=== PATIENT | male | born 1960 | race Caucasian/White ===

== ENCOUNTER 2020-04-10 13:31 | Inpatient (IN) | payer OTHER ==
[2020-04-10] MEDS ORDERED: LORazepam 2 MG/ML SDV ONE (13:50)
[2020-04-10] MEDS ORDERED: levETIRAcetam 2,000 MG in Sodium Chloride 0.9% 100 ML IV ONE (14:00)
[2020-04-10] MEDS ORDERED: Sodium Chloride 0.9% 10 ML Syringe FLUSH PRN ×2 (14:16→19:05)
[2020-04-10] MEDS ORDERED: Iopamidol 755 Mg/ML 100 ML Bottle IV SCH (14:30)
--- NOTE | 2020-04-10 14:43 | CT ---
Head wo Cont CLINICAL HISTORY: Seizure COMPARISON: None TECHNIQUE: Transverse scans were obtained from the base of the skull through the vertex without IV contrast on a multislice, multidetector CT scanner. Auto dosage reduction and iterative reconstruction techniques employed. FINDINGS: No focal abnormal parenchymal densities are identified. There is no mass effect, hemorrhage, or extraaxial collection. There is some mild periventricular lucency The basal cisterns and sulci over the convexities are normal for age. The ventricles are mildly prominent. IMPRESSION: Borderline ventriculomegaly. This may be due to atrophic change with a prominent central component. Mild chronic ischemic microvascular changes
[2020-04-10] MEDS ORDERED: Potassium Chloride 20 MEQ in Premix Bag 1 BAG IV ONE ×2 (14:44→16:22)
[2020-04-10] MEDS ORDERED: Sodium Chloride 3% 500 ML IV SCH (14:45)
--- NOTE | 2020-04-10 15:06 | CT ---
Ang Head, Ang Neck CLINICAL HISTORY: Lower extremity weakness, AMS TECHNIQUE: Multiple axial images were obtained through the neck without and with the IV infusion of iodinated contrast. From these images sagittal, coronal, and 3D reconstructions of the aortic arch and carotids were obtained and viewed on a dedicated and independent workstation. NASCET criteria is used. Auto dosage reduction and iterative reconstruction techniques employed. FINDINGS: There is atheromatous plaque in the aorta. The innominate artery has a normal course and caliber. There is some plaque at the origin of the right common carotid artery without significant stenosis. There is plaque at the origin of the left subclavian artery with some mild proximal subclavian artery stenosis. Both vertebral arteries are patent. The left is dominant. There is some stenosis at the origin of the right vertebral artery. There is moderate plaque in the right carotid bulb. There is approximately 55-65% stenosis at the origin of the right ICA, possibly slightly greater. There is mild hard plaque in the left carotid bifurcation with no significant stenosis . IMPRESSION: Diffuse atheromatous plaque Moderate right proximal ICA stenosis Mild stenosis origin of the right vertebral artery Ang Head, Ang Neck CLINICAL HISTORY: Low show any weakness, AMS. COMPARISON: None TECHNIQUE: Multiple volume rendered and MIP 3D reconstructions were generated from source images obtained on a spiral scanner before and after intravenous iodinated contrast enhancement Auto dosage reduction and iterative reconstruction techniques employed. FINDINGS: Internal carotid arteries: There is moderate hard plaque in the right carotid siphon with some moderate to severe stenosis. There is mild to moderate plaque in the left carotid siphon with areas of [id number] stenosis. Anterior cerebral arteries: There is a very atretic A1 segment on the right. There is a patent anterior technique a artery which is maintained in this for both distal distribution Middle cerebral arteries: There is a 2.4 x 3.8 mm aneurysm extending inferiorly off of the proximal right middle cerebral artery. There is some mild focal stenosis just distal to the aneurysm. Posterior cerebral arteries: Have a normal course and contour. There is very small with streaking arteries bilaterally. Vertebral/basilar arteries: The left vertebral artery is dominant. Basilar artery has a normal course and contour IMPRESSION: Moderate to severe stenosis in the right carotid siphon [id number] stenosis in the left carotid siphon 2.4 x 3.8 mm aneurysm extending inferiorly off the proximal right middle cerebral artery. There is mild stenosis just distal to this Very atretic right A1 segment
[2020-04-10] MEDS ORDERED: LORazepam 2 MG/ML SDV IVPUSH ONE (15:09)
[2020-04-10] MEDS ORDERED: Naloxone 0.4 MG/ML SDV IVPUSH PRN (15:53)
[2020-04-10] MEDS ORDERED: cefTRIAXone 2 GM in Sodium Chloride 0.9% 50 ML IV ONE (16:58)
[2020-04-10] MEDS ORDERED: Hydrocortisone Sodium Succinate 100 MG/2 ML SDV IVPUSH ONE (17:07)
--- NOTE | 2020-04-10 18:24 | PCM.HP.2 ---
H&P History of Present Illness - General Date of Service: 04/10/20 Admit Problem/Dx: Admission Diagnosis/Problem Admission Diagnosis/Problem Hyponatremia Source of Information: Provider, RN Notes Reviewed. No: Patient History Limitations: Reports: Other (Encephalopathy with decreased level of consciousness) - History of Present Illness Initial Comments - Free Text/Narative: Mr. Jhaveri is a 59-year-old gentleman who was admitted through the emergency department with decreased level of consciousness and seizure secondary to severe hyponatremia, severe hypokalemia, dehydration, urinary tract infection, and adrenal insufficiency. He is very lethargic and unable to provide a meaningful history concerning recent symptoms or review of systems. History from family is that he has become progressively more lethargic and they were unable to arouse him today. He does have a previous history of electrolyte abnormalities including hyponatremia. EMS was activated and he was brought into the emergency department. He had a seizure after arriving in the emergency department which is presumed to be secondary to his severe hyponatremia. He is remained very lethargic, likely secondary to being postictal as well as having received 2 mg of lorazepam. He also has been loaded with Keppra and there has been no further witnessed seizure activity. Initially he was found to be hypoxic but oxygenation has been good through the duration of his ER stay. Laboratory tests show elevation in white blood cell count and evidence of significant urinary tract infection on urinalysis. Thick acid level is elevated likely secondary to severe dehydration. Sodium level is found to be very low at 115 and his potassium level also low at 1.7. After receiving hypertonic normal saline as well as isotonic normal saline sodium level is up to 119. He is also received potassium chloride intravenously for replacement. - Related Data Allergies/Adverse Reactions: Allergies Allergy/AdvReac Type Severity Reaction Status Date / Time venom-honey bee Allergy Severe Anaphylactic Verified 04/10/20 16:41 [bee venom (honey bee)] Shock Home Medications: Home Meds Loratadine/Pseudoephedrine [Claritin-D 12 Hour] 1 tab PO DAILY 11/22/15 [History] Omeprazole Magnesium [Prilosec Otc] 20 mg PO DAILY 11/22/15 [History] Prednisone [IJD: Prednisone] 10 mg PO DAILY 11/22/15 [History] Acetaminophen/oxyCODONE [Percocet 325-5 MG] 1 tab PO TID PRN 04/10/20 [History] Aspirin 1 tab PO DAILY 04/10/20 [History] FLUoxetine [PROzac] 1 tab PO DAILY 04/10/20 [History] Folic Acid 1 tab PO DAILY 04/10/20 [History] Furosemide [Lasix] 1 tab PO DAILY 04/10/20 [History] Mag Oxide/D3/Turmeric Rt Xt [Magnesium-Vit D3-Turmeric Cap] 1 tab PO DAILY 04/10/20 [History] Melatonin/Pyridoxine HCl (B6) [Melatonin 3 mg Tablet] 1 tab PO DAILY 04/10/20 [History] Metoprolol Succinate 1 tab PO BID 04/10/20 [History] Spironolactone [Aldactone] 12.5 mg PO DAILY 04/10/20 [History] Vit B12/Levomefolate/Vit B6/B2 [Metafolbic Tablet] 1 tab PO DAILY 04/10/20 [History] Past Medical History Cardiovascular History: Reports: Hypertension Other Cardiovascular History: electrolyte imbalances Gastrointestinal History: Reports: Gastritis Endocrine/Metabolic History: Reports: Other (See Below) Other Endocrine/Metabolic History: adrenal gland disease. LOOP's Hematologic History: Reports: Anemia Other Dermatologic History: brusing - Infectious Disease History Infectious Disease History: Reports: Chicken Pox - Past Surgical History GI Surgical History: Reports: Colonoscopy Musculoskeletal Surgical History: Reports: Hip Replacement, Other (See Below) Other Musculoskeletal Surgeries/Procedures:: back surgey Social & Family History - Tobacco Use Tobacco Use Status *Q: Unknown Ever Used Tobacco - Recreational Drug Use Recreational Drug Use: Yes Recreational Drug Type: Reports: Marijuana/Hashish H&P Review of Systems - Review of Systems: Review Of Systems: See Below General: Reports: Other (Decreased level of consciousness) Exam - Exam Exam: See Below - Vital Signs Vital Signs: Last Vital Signs Temp 94.9 F L 04/10/20 16:33 Pulse 74 04/10/20 17:49 Resp 18 04/10/20 17:49 BP 144/87 H 04/10/20 17:49 Pulse Ox 98 04/10/20 17:49 Weight: 140 lb - Exam Quality Assessment: Supplemental Oxygen, Urinary Catheter, DVT Prophylaxis General: Lethargic, Obtunded HEENT: Conjunctiva Clear, Posterior Pharynx Clear, Pupils Equal, Pupils Reactive. No: Mucosa Moist & [place] Neck: Supple, Trachea Midline, +2 Carotid Pulse wo Bruit Lungs: Clear to Auscultation, Normal Respiratory Effort, Decreased Breath Sounds Cardiovascular: Regular Rate, Regular Rhythm, Normal S1, Normal S2. No: Sy stolic Murmur, Diastolic Murmur GI/Abdominal Exam: Soft, Non-Tender, No Organomegaly, No Distention, Other (Ileostomy) Extremities: Non-Tender, No Pedal Edema Skin: Warm Neuro Extensive - Mental Status: Withdraws to Pain - Patient Data Lab Results Last 24 hrs: Laboratory Results - last 24 hr 04/10/20 04/10/20 04/10/20 Range/Units 09:45 14:00 14:00 WBC 14.0 H (4.5-11.0) K/uL RBC 4.36 (4.30-5.90) M/uL Hgb 10.7 L (12.0-15.0) g/dL Hct 32.8 L (40.0-54.0) % MCV 75 L (80-98) fL MCH 25 L (27-31) pg MCHC 33 (32-36) % Plt Count 293 (150-400) K/uL ABG Hemoglobin (13.5-18.0) g/dL ABG Oxyhemoglobin % ABG Carboxyhemoglobin (0.0-1.6) % ABG Methemoglobin % VBG pH (7.350-7.450) VBG pCO2 mm/Hg VBG pO2 mm/Hg VBG HCO3 mmol/L VBG Total CO2 mmol/L VBG O2 Saturation VBG O2 Content %vol VBG Base Excess mm/L O2 Delivery Device Sodium 115 L* (140-148) mmol/L Potassium 1.7 L* (3.6-5.2) mmol/L Chloride 72 L (100-108) mmol/L Carbon Dioxide 36 H (21-32) mmol/L Anion Gap 8.7 (5.0-14.0) mmol/L BUN 7 (7-18) mg/dL Creatinine 1.4 H (0.8-1.3) mg/dL Est Cr Clr Drug Dosing TNP Estimated GFR (MDRD) 52 L (>60) Glucose 161 H (74-106) mg/dL Lactic Acid (0.4-2.0) mmol/L Calcium 7.4 L (8.5-10.1) mg/dL Magnesium 1.8 (1.8-2.4) mg/dL Total Bilirubin 1.1 H (0.2-1.0) mg/dL AST 54 H (15-37) U/L ALT 25 (12-78) U/L Alkaline Phosphatase 235 H (46-116) U/L Creatine Kinase (39-308) U/L Total Protein 6.1 L (6.4-8.2) g/dL Albumin 2.8 L (3.4-5.0) g/dL Globulin 3.3 (2.3-3.5) g/dL Albumin/Globulin Ratio 0.9 L (1.2-2.2) Urine Color (YELLOW) Urine Appearance (CLEAR) Urine pH (5.0-8.0) Ur Specific [place] (1.008-1.030) Urine Protein (NEGATIVE) mg/dL Urine Glucose (UA) (NEGATIVE) mg/dL Urine Ketones (NEGATIVE) mg/dL Urine Occult Blood (NEGATIVE) Urine Nitrite (NEGATIVE) Urine Bilirubin (NEGATIVE) Urine Urobilinogen (0.2-1.0) EU/dL Ur Leukocyte Esterase (NEGATIVE) Urine RBC (0-5) Urine WBC (0-5) Ur Epithelial Cells Amorphous Sediment Urine Bacteria Urine Mucus Urine Opiates Screen (NEGATIVE) Ur Oxycodone Screen (NEGATIVE) Urine Methadone Screen (NEGATIVE) Ur Propoxyphene Screen (NEGATIVE) Ur Barbiturates Screen (NEGATIVE) Ur Tricyclics Screen (NEGATIVE) Ur Phencyclidine Scrn (NEGATIVE) Ur Amphetamine Screen (NEGATIVE) U Methamphetamines Scrn (NEGATIVE) Urine MDMA Screen (NEGATIVE) U Benzodiazepines Scrn (NEGATIVE) U Cocaine Metab Screen (NEGATIVE) U Marijuana (THC) Screen (NEGATIVE) 04/10/20 04/10/20 04/10/20 Range/Units 14:00 14:00 14:00 WBC (4.5-11.0) K/uL RBC (4.30-5.90) M/uL Hgb (12.0-15.0) g/dL Hct (40.0-54.0) % MCV (80-98) fL MCH (27-31) pg MCHC (32-36) % Plt Count (150-400) K/uL ABG Hemoglobin 10.9 L (13.5-18.0) g/dL ABG Oxyhemoglobin 68.8 % ABG Carboxyhemoglobin 4.8 H (0.0-1.6) % ABG Methemoglobin 1.4 % VBG pH 7.436 (7.350-7.450) VBG pCO2 56.8 mm/Hg VBG pO2 45.6 mm/Hg VBG HCO3 37.6 mmol/L VBG Total CO2 34.5 mmol/L VBG O2 Saturation 73.4 VBG O2 Content 10.6 %vol VBG Base Excess 11.7 mm/L O2 Delivery Device Nasal cannula Sodium (140-148) mmol/L Potassium (3.6-5.2) mmol/L Chloride (100-108) mmol/L Carbon Dioxide (21-32) mmol/L Anion Gap (5.0-14.0) mmol/L BUN (7-18) mg/dL Creatinine (0.8-1.3) mg/dL Est Cr Clr Drug Dosing Estimated GFR (MDRD) (>60) Glucose (74-106) mg/dL Lactic Acid 4.7 H (0.4-2.0) mmol/L Calcium (8.5-10.1) mg/dL Magnesium (1.8-2.4) mg/dL Total Bilirubin (0.2-1.0) mg/dL AST (15-37) U/L ALT (12-78) U/L Alkaline Phosphatase (46-116) U/L Creatine Kinase 334 H (39-308) U/L Total Protein (6.4-8.2) g/dL Albumin (3.4-5.0) g/dL Globulin (2.3-3.5) g/dL Albumin/Globulin Ratio (1.2-2.2) Urine Color (YELLOW) Urine Appearance (CLEAR) Urine pH (5.0-8.0) Ur Specific [place] (1.008-1.030) Urine Protein (NEGATIVE) mg/dL Urine Glucose (UA) (NEGATIVE) mg/dL Urine Ketones (NEGATIVE) mg/dL Urine Occult Blood (NEGATIVE) Urine Nitrite (NEGATIVE) Urine Bilirubin (NEGATIVE) Urine Urobilinogen (0.2-1.0) EU/dL Ur Leukocyte Esterase (NEGATIVE) Urine RBC (0-5) Urine WBC (0-5) Ur Epithelial Cells Amorphous Sediment Urine Bacteria Urine Mucus Urine Opiates Screen (NEGATIVE) Ur Oxycodone Screen (NEGATIVE) Urine Methadone Screen (NEGATIVE) Ur Propoxyphene Screen (NEGATIVE) Ur Barbiturates Screen (NEGATIVE) Ur Tricyclics Screen (NEGATIVE) Ur Phencyclidine Scrn (NEGATIVE) Ur Amphetamine Screen (NEGATIVE) U Methamphetamines Scrn (NEGATIVE) Urine MDMA Screen (NEGATIVE) U Benzodiazepines Scrn (NEGATIVE) U Cocaine Metab Screen (NEGATIVE) U Marijuana (THC) Screen (NEGATIVE) 04/10/20 04/10/20 04/10/20 Range/Units 16:03 16:23 16:23 WBC (4.5-11.0) K/uL RBC (4.30-5.90) M/uL Hgb (12.0-15.0) g/dL Hct (40.0-54.0) % MCV (80-98) fL MCH (27-31) pg MCHC (32-36) % Plt Count (150-400) K/uL ABG Hemoglobin (13.5-18.0) g/dL ABG Oxyhemoglobin % ABG Carboxyhemoglobin (0.0-1.6) % ABG Methemoglobin % VBG pH (7.350-7.450) VBG pCO2 mm/Hg VBG pO2 mm/Hg VBG HCO3 mmol/L VBG Total CO2 mmol/L VBG O2 Saturation VBG O2 Content %vol VBG Base Excess mm/L O2 Delivery Device Sodium 119 L* (140-148) mmol/L Potassium (3.6-5.2) mmol/L Chloride (100-108) mmol/L Carbon Dioxide (21-32) mmol/L Anion Gap (5.0-14.0) mmol/L BUN (7-18) mg/dL Creatinine (0.8-1.3) mg/dL Est Cr Clr Drug Dosing Estimated GFR (MDRD) (>60) Glucose (74-106) mg/dL Lactic Acid (0.4-2.0) mmol/L Calcium (8.5-10.1) mg/dL Magnesium (1.8-2.4) mg/dL Total Bilirubin (0.2-1.0) mg/dL AST (15-37) U/L ALT (12-78) U/L Alkaline Phosphatase (46-116) U/L Creatine Kinase (39-308) U/L Total Protein (6.4-8.2) g/dL Albumin (3.4-5.0) g/dL Globulin (2.3-3.5) g/dL Albumin/Globulin Ratio (1.2-2.2) Urine Color Brown A (YELLOW) Urine Appearance Turbid A (CLEAR) Urine pH 7.5 (5.0-8.0) Ur Specific [place] 1.025 (1.008-1.030) Urine Protein 100 H (NEGATIVE) mg/dL Urine Glucose (UA) Negative (NEGATIVE) mg/dL Urine Ketones Negative (NEGATIVE) mg/dL Urine Occult Blood Large H (NEGATIVE) Urine Nitrite Negative (NEGATIVE) Urine Bilirubin Negative (NEGATIVE) Urine Urobilinogen 0.2 (0.2-1.0) EU/dL Ur Leukocyte Esterase Large H (NEGATIVE) Urine RBC Packed H (0-5) Urine WBC Packed H (0-5) Ur Epithelial Cells Few Amorphous Sediment Few Urine Bacteria Many Urine Mucus Few Urine Opiates Screen Negative (NEGATIVE) Ur Oxycodone Screen Negative (NEGATIVE) Urine Methadone Screen Negative (NEGATIVE) Ur Propoxyphene Screen Negative (NEGATIVE) Ur Barbiturates Screen Negative (NEGATIVE) Ur Tricyclics Screen Negative (NEGATIVE) Ur Phencyclidine Scrn Negative (NEGATIVE) Ur Amphetamine Screen Negative (NEGATIVE) U Methamphetamines Scrn Negative (NEGATIVE) Urine MDMA Screen Negative (NEGATIVE) U Benzodiazepines Scrn Negative (NEGATIVE) U Cocaine Metab Screen Negative (NEGATIVE) U Marijuana (THC) Screen Presumptive positive H (NEGATIVE) Result Diagrams: 04/10/20 14:00 04/10/20 16:03 Sepsis Event Note - Evaluation Sepsis Screening Result: No Definite Risk - Focused Exam Vital Signs: Vital Signs Temp Pulse Resp BP Pulse Ox 04/10/20 17:49 74 18 144/87 H 98 04/10/20 17:16 75 18 137/86 100 04/10/20 16:33 94.9 F L 78 12 113/66 100 04/10/20 16:16 78 113/66 100 04/10/20 15:23 84 133/82 100 04/10/20 14:59 83 12 134/85 100 04/10/20 14:32 85 141/85 H 100 04/10/20 14:11 85 12 177/112 H 100 04/10/20 13:57 94.9 F L 79 14 140/90 94 L *Q Meaningful Use (ADM) - VTE Risk Assess *Q Each Risk Factor Represents 1 Point: None Total Score 1 Point Risk Factors: 0 Each Risk Factor Represents 2 Points: Age 60 - 74 Years Total Score 2 Point Risk Factors: 2 Each Risk Factor Represents 3 Points: None Total Score 3 Point Risk Factors: 0 Each Risk Factor Represents 5 Points: None Total Score 5 Point Risk Factors: 0 Venous Thromboembolism Risk Factor Score *Q: 2 Problem List Initiated/Reviewed/Updated: Yes Orders Last 24hrs: Active Orders 24 hr Category Date Time Status Patient Status Manage Transfer [TRANSFER] Routine ADT 04/10/20 17:54 Active EKG Documentation Completion [RC] ASDIRECTED Care 04/10/20 14:50 Active CORONAVIRUS COVID-19 SONY [MOLEC] Stat Lab 04/10/20 18:05 Ordered LACTIC ACID [CHEM] Routine Lab 04/10/20 17:42 Ordered Potassium Chloride Riders [KCL 40 MEQ in Water 100 ML] Med 04/10/20 18:16 Ordered 40 meq Premix Bag 1 bag IV ONETIME Potassium Chloride [KCL 20 MEQ in Water 100 ML] 20 meq Med 04/10/20 16:22 Active Premix Bag 1 bag IV ONETIME Resuscitation Status Routine Resus Stat 04/10/20 18:02 Ordered EKG 12 Lead [EK] Routine Ther 04/10/20 14:49 Ordered Medication Orders Potassium Chloride 20 meq/ (Premix) 100 mls @ 50 mls/hr IV ONETIME ONE Stop: 04/10/20 18:21 Last Admin: 04/10/20 17:46 Dose: 50 mls/hr Documented by: VAMSI Potassium Chloride 40 meq/ (Premix) 100 mls @ 25 mls/hr IV ONETIME ONE Stop: 04/10/20 22:15 Assessment/Plan Comment:: ASSESSMENT AND PLAN SEVERE HYPONATREMIA-likely secondary to dehydration with volume contraction -IV normal saline -Monitor sodium levels every 2 hours SEVERE HYPOKALEMIA -Cardiac monitoring -IV potassium replacement -Oral potassium replacement after he becomes more alert -Low up potassium level later tonight and in a.m. ENCEPHALOPATHY-likely secondary to metabolic abnormalities, postictal state, IV lorazepam given for seizure. CTA of the brain and neck as well as CT of the head shows no acute abnormalities -Neurochecks every 4 hours -Correct electrolyte abnormalities SEIZURE-likely secondary to hyponatremia -Monitor in ICU -Seizure precautions -Lorazepam as needed for recurrent seizures -Keppra load given in the emergency department URINARY TRACT INFECTION -Urine and blood cultures pending -Ceftriaxone 1 g IV every 24 hours, pending culture results LACTIC ACIDOSIS-likely secondary to severe dehydration, no evidence of sepsis at this time -IV fluid replacement -Serial lactic acid levels ADRENAL INSUFFICIENCY -Stress dose of steroids given in the ED -Resume oral prednisone when able DEHYDRATION-likely secondary to urinary tract infection -IV fluids as above MAINTENANCE ISSUES -DVT prophylaxis; Lovenox 40 mg subcu daily -GI prophylaxis; continue outpatient PPI therapy -Lopes catheter; placed to monitor urine output, remove as soon as possible -Nutrition; regular diet -Nicotine dependence; not required CODE STATUS-FULL CODE ADMISSION STATUS-patient will be admitted to inpatient status, expect at least a 2 night hospital stay for evaluation and management of problems as outlined above. At the time of this admission I do not reasonably expected evaluation and management of this problem will require more than a 96 hour hospital stay. DISPOSITION-anticipate discharge to home after the hospital stay. PRIMARY CARE PROVIDER-patient is from [place] and receives his health care there - Mortality Measure Prognosis:: Poor
--- NOTE | 2020-04-10 18:32 | EDM.PDOC ---
ED HPI GENERAL MEDICAL PROBLEM - General Chief Complaint: General Stated Complaint: MEDICAL VIA [facility] Time Seen by Provider: 04/10/20 14:15 Source of Information: Reports: Patient History Limitations: Reports: No Limitations - History of Present Illness INITIAL COMMENTS - FREE TEXT/NARRATIVE: This is a 59-year-old male with history of lupus, prior colostomy, currently receives his care in [place], who presents with of altered mental status and weakness. EMS was called by a friend as they found him today altered and weak at home. He was found by EMS to be sitting on a couch covered in stool from his ostomy bag. Initially he was conversant in the ER but then progressed to have a generalized seizure limiting any further history. His daughter reports that he does have a history of electrolyte disturbances. He is on chronic prednisone and will frequently take extra of this face feeling poor. He was found to be surrounded by marijuana products. - Related Data Allergies Allergy/AdvReac Type Severity Reaction Status Date / Time venom-honey bee Allergy Severe Anaphylactic Verified 04/10/20 16:41 [bee venom (honey bee)] Shock Home Meds: Home Meds Loratadine/Pseudoephedrine [Claritin-D 12 Hour] 1 tab PO DAILY 11/22/15 [History] Omeprazole Magnesium [Prilosec Otc] 20 mg PO DAILY 11/22/15 [History] Prednisone [IJD: Prednisone] 10 mg PO DAILY 11/22/15 [History] Acetaminophen/oxyCODONE [Percocet 325-5 MG] 1 tab PO TID PRN 04/10/20 [History] Aspirin 1 tab PO DAILY 04/10/20 [History] FLUoxetine [PROzac] 1 tab PO DAILY 04/10/20 [History] Folic Acid 1 tab PO DAILY 04/10/20 [History] Furosemide [Lasix] 1 tab PO DAILY 04/10/20 [History] Mag Oxide/D3/Turmeric Rt Xt [Magnesium-Vit D3-Turmeric Cap] 1 tab PO DAILY 04/10/20 [History] Melatonin/Pyridoxine HCl (B6) [Melatonin 3 mg Tablet] 1 tab PO DAILY 04/10/20 [History] Metoprolol Succinate 1 tab PO BID 04/10/20 [History] Spironolactone [Aldactone] 12.5 mg PO DAILY 04/10/20 [History] Vit B12/Levomefolate/Vit B6/B2 [Metafolbic Tablet] 1 tab PO DAILY 04/10/20 [History] Past Medical History Cardiovascular History: Reports: Hypertension Other Cardiovascular History: electrolyte imbalances Gastrointestinal History: Reports: Gastritis Endocrine/Metabolic History: Reports: Other (See Below) Other Endocrine/Metabolic History: adrenal gland disease. LOOP's Hematologic History: Reports: Anemia Other Dermatologic History: brusing - Infectious Disease History Infectious Disease History: Reports: Chicken Pox - Past Surgical History GI Surgical History: Reports: Colonoscopy Musculoskeletal Surgical History: Reports: Hip Replacement, Other (See Below) Other Musculoskeletal Surgeries/Procedures:: back surgey Social & Family History - Tobacco Use Tobacco Use Status *Q: Unknown Ever Used Tobacco - Recreational Drug Use Recreational Drug Use: Yes Recreational Drug Type: Reports: Marijuana/Hashish ED ROS GENERAL - Review of Systems Review Of Systems: Unable To Obtain Reason Not Obtained: Obtunded. ED EXAM, GENERAL - Physical Exam Exam: See Below Exam Limited By: Altered Mental Status General Appearance: Obtunded, Cachetic Eye Exam: Right Eye: Other (Roving eye movements, occasional deviation initially, pupils were approximately 3 mm and reactive) Ears: Normal External Exam Nose: Normal Inspection Throat/Mouth: Normal Inspection Head: Atraumatic, Normocephalic Neck: Normal Inspection Respiratory/Chest: Lungs Clear Cardiovascular: Regular Rate, Rhythm GI/Abdominal: Soft, Non-Tender, No Distention, Other (Ostomy site with excoriated skin.) Back Exam: Normal Inspection Extremities: Normal Inspection Neurological: Other (Pupillary exam as above. No spontaneous eye opening. Minimal reaction to pain. Not following commands. No comprehensible speech. Normal tone. Occasionally spontaneously moves all extremities.) Skin Exam: Warm, Rash Course - Vital Signs Last Recorded V/S: Last Vital Signs Temp 34.9 C L 04/10/20 16:33 Pulse 74 04/10/20 17:49 Resp 18 04/10/20 17:49 BP 144/87 H 04/10/20 17:49 Pulse Ox 98 04/10/20 17:49 - Orders/Labs/Meds Orders: Active Orders 24 hr Category Date Time Status Patient Status Manage Transfer [TRANSFER] Routine ADT 04/10/20 17:54 Active EKG Documentation Completion [RC] ASDIRECTED Care 04/10/20 14:50 Active CORONAVIRUS COVID-19 SONY [MOLEC] Stat Lab 04/10/20 18:05 Ordered LACTIC ACID [CHEM] Routine Lab 04/10/20 17:42 Ordered Potassium Chloride Riders [KCL 40 MEQ in Water 100 ML] Med 04/10/20 18:16 Ordered 40 meq Premix Bag 1 bag IV ONETIME Resuscitation Status Routine Resus Stat 04/10/20 18:02 Ordered EKG 12 Lead [EK] Routine Ther 04/10/20 14:49 Ordered Medication Orders Potassium Chloride 40 meq/ (Premix) 100 mls @ 25 mls/hr IV ONETIME ONE Stop: 04/10/20 22:15 Labs: Laboratory Tests 04/10/20 04/10/20 04/10/20 Range/Units 09:45 14:00 14:00 WBC 14.0 H (4.5-11.0) K/uL RBC 4.36 (4.30-5.90) M/uL Hgb 10.7 L (12.0-15.0) g/dL Hct 32.8 L (40.0-54.0) % MCV 75 L (80-98) fL MCH 25 L (27-31) pg MCHC 33 (32-36) % Plt Count 293 (150-400) K/uL ABG Hemoglobin (13.5-18.0) g/dL ABG Oxyhemoglobin % ABG Carboxyhemoglobin (0.0-1.6) % ABG Methemoglobin % VBG pH (7.350-7.450) VBG pCO2 mm/Hg VBG pO2 mm/Hg VBG HCO3 mmol/L VBG Total CO2 mmol/L VBG O2 Saturation VBG O2 Content %vol VBG Base Excess mm/L O2 Delivery Device Sodium 115 L* (140-148) mmol/L Potassium 1.7 L* (3.6-5.2) mmol/L Chloride 72 L (100-108) mmol/L Carbon Dioxide 36 H (21-32) mmol/L Anion Gap 8.7 (5.0-14.0) mmol/L BUN 7 (7-18) mg/dL Creatinine 1.4 H (0.8-1.3) mg/dL Est Cr Clr Drug Dosing TNP Estimated GFR (MDRD) 52 L (>60) Glucose 161 H (74-106) mg/dL Lactic Acid (0.4-2.0) mmol/L Calcium 7.4 L (8.5-10.1) mg/dL Magnesium 1.8 (1.8-2.4) mg/dL Total Bilirubin 1.1 H (0.2-1.0) mg/dL AST 54 H (15-37) U/L ALT 25 (12-78) U/L Alkaline Phosphatase 235 H (46-116) U/L Creatine Kinase (39-308) U/L Total Protein 6.1 L (6.4-8.2) g/dL Albumin 2.8 L (3.4-5.0) g/dL Globulin 3.3 (2.3-3.5) g/dL Albumin/Globulin Ratio 0.9 L (1.2-2.2) Urine Color (YELLOW) Urine Appearance (CLEAR) Urine pH (5.0-8.0) Ur Specific [place] (1.008-1.030) Urine Protein (NEGATIVE) mg/dL Urine Glucose (UA) (NEGATIVE) mg/dL Urine Ketones (NEGATIVE) mg/dL Urine Occult Blood (NEGATIVE) Urine Nitrite (NEGATIVE) Urine Bilirubin (NEGATIVE) Urine Urobilinogen (0.2-1.0) EU/dL Ur Leukocyte Esterase (NEGATIVE) Urine RBC (0-5) Urine WBC (0-5) Ur Epithelial Cells Amorphous Sediment Urine Bacteria Urine Mucus Urine Opiates Screen (NEGATIVE) Ur Oxycodone Screen (NEGATIVE) Urine Methadone Screen (NEGATIVE) Ur Propoxyphene Screen (NEGATIVE) Ur Barbiturates Screen (NEGATIVE) Ur Tricyclics Screen (NEGATIVE) Ur Phencyclidine Scrn (NEGATIVE) Ur Amphetamine Screen (NEGATIVE) U Methamphetamines Scrn (NEGATIVE) Urine MDMA Screen (NEGATIVE) U Benzodiazepines Scrn (NEGATIVE) U Cocaine Metab Screen (NEGATIVE) U Marijuana (THC) Screen (NEGATIVE) 04/10/20 04/10/20 04/10/20 Range/Units 14:00 14:00 14:00 WBC (4.5-11.0) K/uL RBC (4.30-5.90) M/uL Hgb (12.0-15.0) g/dL Hct (40.0-54.0) % MCV (80-98) fL MCH (27-31) pg MCHC (32-36) % Plt Count (150-400) K/uL ABG Hemoglobin 10.9 L (13.5-18.0) g/dL ABG Oxyhemoglobin 68.8 % ABG Carboxyhemoglobin 4.8 H (0.0-1.6) % ABG Methemoglobin 1.4 % VBG pH 7.436 (7.350-7.450) VBG pCO2 56.8 mm/Hg VBG pO2 45.6 mm/Hg VBG HCO3 37.6 mmol/L VBG Total CO2 34.5 mmol/L VBG O2 Saturation 73.4 VBG O2 Content 10.6 %vol VBG Base Excess 11.7 mm/L O2 Delivery Device Nasal cannula Sodium (140-148) mmol/L Potassium (3.6-5.2) mmol/L Chloride (100-108) mmol/L Carbon Dioxide (21-32) mmol/L Anion Gap (5.0-14.0) mmol/L BUN (7-18) mg/dL Creatinine (0.8-1.3) mg/dL Est Cr Clr Drug Dosing Estimated GFR (MDRD) (>60) Glucose (74-106) mg/dL Lactic Acid 4.7 H (0.4-2.0) mmol/L Calcium (8.5-10.1) mg/dL Magnesium (1.8-2.4) mg/dL Total Bilirubin (0.2-1.0) mg/dL AST (15-37) U/L ALT (12-78) U/L Alkaline Phosphatase (46-116) U/L Creatine Kinase 334 H (39-308) U/L Total Protein (6.4-8.2) g/dL Albumin (3.4-5.0) g/dL Globulin (2.3-3.5) g/dL Albumin/Globulin Ratio (1.2-2.2) Urine Color (YELLOW) Urine Appearance (CLEAR) Urine pH (5.0-8.0) Ur Specific [place] (1.008-1.030) Urine Protein (NEGATIVE) mg/dL Urine Glucose (UA) (NEGATIVE) mg/dL Urine Ketones (NEGATIVE) mg/dL Urine Occult Blood (NEGATIVE) Urine Nitrite (NEGATIVE) Urine Bilirubin (NEGATIVE) Urine Urobilinogen (0.2-1.0) EU/dL Ur Leukocyte Esterase (NEGATIVE) Urine RBC (0-5) Urine WBC (0-5) Ur Epithelial Cells Amorphous Sediment Urine Bacteria Urine Mucus Urine Opiates Screen (NEGATIVE) Ur Oxycodone Screen (NEGATIVE) Urine Methadone Screen (NEGATIVE) Ur Propoxyphene Screen (NEGATIVE) Ur Barbiturates Screen (NEGATIVE) Ur Tricyclics Screen (NEGATIVE) Ur Phencyclidine Scrn (NEGATIVE) Ur Amphetamine Screen (NEGATIVE) U Methamphetamines Scrn (NEGATIVE) Urine MDMA Screen (NEGATIVE) U Benzodiazepines Scrn (NEGATIVE) U Cocaine Metab Screen (NEGATIVE) U Marijuana (THC) Screen (NEGATIVE) 04/10/20 04/10/20 04/10/20 Range/Units 16:03 16:23 16:23 WBC (4.5-11.0) K/uL RBC (4.30-5.90) M/uL Hgb (12.0-15.0) g/dL Hct (40.0-54.0) % MCV (80-98) fL MCH (27-31) pg MCHC (32-36) % Plt Count (150-400) K/uL ABG Hemoglobin (13.5-18.0) g/dL ABG Oxyhemoglobin % ABG Carboxyhemoglobin (0.0-1.6) % ABG Methemoglobin % VBG pH (7.350-7.450) VBG pCO2 mm/Hg VBG pO2 mm/Hg VBG HCO3 mmol/L VBG Total CO2 mmol/L VBG O2 Saturation VBG O2 Content %vol VBG Base Excess mm/L O2 Delivery Device Sodium 119 L* (140-148) mmol/L Potassium (3.6-5.2) mmol/L Chloride (100-108) mmol/L Carbon Dioxide (21-32) mmol/L Anion Gap (5.0-14.0) mmol/L BUN (7-18) mg/dL Creatinine (0.8-1.3) mg/dL Est Cr Clr Drug Dosing Estimated GFR (MDRD) (>60) Glucose (74-106) mg/dL Lactic Acid (0.4-2.0) mmol/L Calcium (8.5-10.1) mg/dL Magnesium (1.8-2.4) mg/dL Total Bilirubin (0.2-1.0) mg/dL AST (15-37) U/L ALT (12-78) U/L Alkaline Phosphatase (46-116) U/L Creatine Kinase (39-308) U/L Total Protein (6.4-8.2) g/dL Albumin (3.4-5.0) g/dL Globulin (2.3-3.5) g/dL Albumin/Globulin Ratio (1.2-2.2) Urine Color Brown A (YELLOW) Urine Appearance Turbid A (CLEAR) Urine pH 7.5 (5.0-8.0) Ur Specific [place] 1.025 (1.008-1.030) Urine Protein 100 H (NEGATIVE) mg/dL Urine Glucose (UA) Negative (NEGATIVE) mg/dL Urine Ketones Negative (NEGATIVE) mg/dL Urine Occult Blood Large H (NEGATIVE) Urine Nitrite Negative (NEGATIVE) Urine Bilirubin Negative (NEGATIVE) Urine Urobilinogen 0.2 (0.2-1.0) EU/dL Ur Leukocyte Esterase Large H (NEGATIVE) Urine RBC Packed H (0-5) Urine WBC Packed H (0-5) Ur Epithelial Cells Few Amorphous Sediment Few Urine Bacteria Many Urine Mucus Few Urine Opiates Screen Negative (NEGATIVE) Ur Oxycodone Screen Negative (NEGATIVE) Urine Methadone Screen Negative (NEGATIVE) Ur Propoxyphene Screen Negative (NEGATIVE) Ur Barbiturates Screen Negative (NEGATIVE) Ur Tricyclics Screen Negative (NEGATIVE) Ur Phencyclidine Scrn Negative (NEGATIVE) Ur Amphetamine Screen Negative (NEGATIVE) U Methamphetamines Scrn Negative (NEGATIVE) Urine MDMA Screen Negative (NEGATIVE) U Benzodiazepines Scrn Negative (NEGATIVE) U Cocaine Metab Screen Negative (NEGATIVE) U Marijuana (THC) Screen Presumptive positive H (NEGATIVE) Meds: Medications Generic Name Dose Route Start Last Admin Trade Name Freq PRN Reason Stop Dose Admin Potassium Chloride 40 meq/ 100 mls @ 25 mls/hr 04/10/20 18:16 Premix IV 04/10/20 22:15 ONETIME ONE Discontinued Medications Generic Name Dose Route Start Last Admin Trade Name Freq PRN Reason Stop Dose Admin Hydrocortisone Sodium Succinate 100 mg 04/10/20 17:07 04/10/20 17:47 Solu-Cortef IVPUSH 04/10/20 17:08 100 mg ONETIME ONE Administration Levetiracetam 2,000 mg/ Sodium 120 mls @ 480 mls/hr 04/10/20 14:00 04/10/20 15:11 Chloride IV 04/10/20 14:14 480 mls/hr ONETIME ONE Administration Sodium Chloride 93 mls @ 4 mls/sec 04/10/20 14:30 04/10/20 14:27 Normal Saline IV 04/10/20 14:31 4 mls/sec ASDIRECTED RICKIE Administration Sodium Chloride 500 mls @ 500 mls/hr 04/10/20 14:45 04/10/20 15:09 Sodium Chloride 3% IV 04/10/20 15:15 500 mls/hr ASDIRECTED RICKIE Administration Potassium Chloride 20 meq/ 100 mls @ 50 mls/hr 04/10/20 14:44 04/10/20 15:09 Premix IV 04/10/20 16:43 50 mls/hr ONETIME ONE Administration Potassium Chloride 20 meq/ 100 mls @ 50 mls/hr 04/10/20 16:22 04/10/20 17:46 Premix IV 04/10/20 18:21 50 mls/hr ONETIME ONE Administration Ceftriaxone Sodium 2 gm/ 50 mls @ 100 mls/hr 04/10/20 16:58 04/10/20 17:17 Sodium Chloride IV 04/10/20 17:27 100 mls/hr ONETIME ONE Administration Potassium Chloride Confirm 04/10/20 17:44 04/10/20 17:49 Kcl 20 Meq In Water 100 Ml Administered 04/10/20 17:45 Not Given Dose 100 mls @ as directed .ROUTE .STK-MED ONE Iopamidol 100 ml 04/10/20 14:30 04/10/20 14:27 Isovue-370 (76%) IV 04/10/20 14:31 100 ml . DIRECTED RICKIE Administration Lorazepam Confirm 04/10/20 13:50 Ativan Administered 04/10/20 13:51 Dose 2 mg .ROUTE .STK-MED ONE Lorazepam 1 mg 04/10/20 15:09 04/10/20 15:15 Ativan IVPUSH 04/10/20 15:10 1 mg ONETIME ONE Administration Naloxone HCl 0.1 mg 04/10/20 15:53 04/10/20 16:15 Narcan IVPUSH 0.1 mg ONETIME PRN Administration Oversedation Sodium Chloride 10 ml 04/10/20 14:16 04/10/20 14:27 Saline Flush FLUSH 04/10/20 14:17 10 ml ONETIME PRN Administration per radiology protocol - Re-Assessments/Exams Free Text/Narrative Re-Assessment/Exam: 59-year-old male presents with weakness and altered mental status. Limited history given depressed mental status. He was initially speaking to the RN on arrival to the ER but then progressed to have a generalized tonic-clonic seizure. He was treated with a single milligram of IV Ativan as it seemed like his seizure had resolved by the time I was at the bedside. He then occasionally had recurrent roving eye movements with occasional deviation for the following 20 to 30 minutes. This was while he is being loaded with 2000 mg of IV Keppra. Stat CT CTA of the head neck was obtained that showed no acute pathology. Labs then returned remarkable for a sodium of 115 and a potassium of 1.7. He was treated with 150 cc bolus of 3% saline. We started a infusion of potassium chloride. He required recurrent assessment of his mental status and ability to protect airway, and although his GCS was quite depressed felt that it was safe to continue to monitor him without intubation closely in the critical care room. He remained on and off 2 L supplemental O2 and his remainder of his vitals were unremarkable. Ultimately labs showed a UA consistent with infection. His repeat sodium was 119, so we will continue a slow normal saline infusion and I suspect he has hypovolemic hyponatremia which is susceptible to rapid correction. His mental status slowly improved in the ER, at time of admission he was not yet following commands but having more eye opening spontaneous movement of extremities and continue to protect his airway. He was dosed with 2 g of ceftriaxone for his urinary infection, this would cover him for [employer] infection however suspicion for this is low. I believe his acute encephalopathy is probab ly multifactorial including hyponatremia, postictal state, underlying infection, possible marijuana and other recreational drug use. He will be admitted to the ICU for further work-up and monitoring. His daughter was updated about his clinical condition. She reports he is susceptible to electrolyte imbalance and sounds like similar situation has happened in the past. 04/10/20 18:26 Departure - Departure Time of Disposition: 17:15 Disposition: Admitted As Inpatient 65 Clinical Impression: Hyponatremia, Seizure, Encephalopathy, UTI, Urinary tract infectious disease - Discharge Information *PRESCRIPTION DRUG MONITORING PROGRAM REVIEWED*: No *COPY OF PRESCRIPTION DRUG MONITORING REPORT IN PATIENT RONNA: No Referrals: PCP,None [Primary Care Provider] - Critical Care Note - Critical Care Note Total Time (mins): 40 Comments: 40 minutes of critical care time included treating seizure, life-threatening hyponatremia with risk for brain herniation, and frequent reassessment of ability to protect airway/airway patency in the setting of encephalopathy. Sepsis Event Note (ED) - Evaluation Sepsis Screening Result: No Definite Risk - Focused Exam Vital Signs: Vital Signs Temp Pulse Resp BP Pulse Ox 04/10/20 17:49 74 18 144/87 H 98 04/10/20 17:16 75 18 137/86 100 04/10/20 16:33 34.9 C L 78 12 113/66 100 04/10/20 16:16 78 113/66 100 04/10/20 15:23 84 133/82 100 04/10/20 14:59 83 12 134/85 100 04/10/20 14:32 85 141/85 H 100 04/10/20 14:11 85 12 177/112 H 100 04/10/20 13:57 34.9 C L 79 14 140/90 94 L - My Orders Last 24 Hours: My Active Orders 04/10/20 14:49 EKG 12 Lead [EK] Routine 04/10/20 14:50 EKG Documentation Completion [RC] ASDIRECTED 04/10/20 17:42 LACTIC ACID [CHEM] Routine - Assessment/Plan Last 24 Hours: My Active Orders 04/10/20 14:49 EKG 12 Lead [EK] Routine 04/10/20 14:50 EKG Documentation Completion [RC] ASDIRECTED 04/10/20 17:42 LACTIC ACID [CHEM] Routine
[2020-04-10] MEDS ORDERED: Ondansetron 4 MG/2 ML SDV IV PRN (19:05)
[2020-04-10] MEDS ORDERED: Albuterol 0.083% 2.5 MG/3 ML Neb Soln NEB PRN (19:05)
[2020-04-10] MEDS ORDERED: Enoxaparin 40 MG/0.4 ML Syringe SUBCUT SCH (19:05)
[2020-04-10] MEDS ORDERED: Sodium Chloride 0.9% 1,000 ML IV SCH (19:05)
[2020-04-10] MEDS ORDERED: Polyethylene Glycol 3350 Powder 17 GM Packet PO PRN (19:05)
[2020-04-10] MEDS: Potassium Chloride 20 MEQ in Premix Bag 1 BAG IV SCH ×2 (20:21→22:26)
[2020-04-10] MEDS ORDERED: Sodium Chloride 0.45% 1,000 ML IV SCH (20:30)
[2020-04-10] MEDS: Metoprolol Succinate 25 MG Tab.ER PO SCH (21:56)
[2020-04-10] MEDS: Dextrose 5% in Water 1,000 ML IV SCH (22:10)
[2020-04-10] MEDS ORDERED: Potassium Chloride 10% 20 MEQ/15 ML Soln 15 ML UD Cup PO ONE (23:57)
[2020-04-11] MEDS ORDERED: POTASSIUM CHLORIDE IV SCH ×2
[2020-04-11] MEDS: Potassium Chloride 100 ML IV SCH ×4 (00:15→06:33)
[2020-04-11] MEDS ORDERED: Non-Formulary Medication 1 Each (Omeprazole Magnesium [Prilosec Otc] 20 MG) PO SCH (09:00)
[2020-04-11] MEDS: Acetaminophen 325 MG Tab PO PRN ×2 (09:10→13:42)
[2020-04-11] MEDS ORDERED: Lactated Ringers 500 ML IV ONE (09:45)
[2020-04-11] MEDS: Aspirin 81 MG Tab.Chew PO SCH (09:49)
[2020-04-11] MEDS: Spironolactone 25 MG Tab PO SCH (09:49)
[2020-04-11] MEDS: predniSONE 10 MG Tab PO SCH (09:49)
[2020-04-11] MEDS: FLUoxetine 10 MG Cap PO SCH (09:50)
[2020-04-11] MEDS: Pantoprazole 40 MG Tab.CR PO SCH (09:50)
[2020-04-11] MEDS: Metoprolol Succinate 25 MG Tab.ER PO SCH ×2 (09:50→21:04)
[2020-04-11] MEDS: Dextrose 5% in Water 1,000 ML IV SCH (10:50)
--- NOTE | 2020-04-11 12:55 | PCM.PN ---
- General Info Date of Service: 04/11/20 Subjective Update: Mr. Jhaveri proved significantly from admission. He is more alert and talkative although remains somewhat confused. Lactic acidosis has resolved, sodium level improved to 122, potassium level has normalized. Because of his confusion he is unable to provide a meaningful history concerning recent symptoms or review of systems. - Patient Data Vitals - Most Recent: Last Vital Signs Temp 98 F 04/11/20 08:00 Pulse 87 04/11/20 10:00 Resp 21 H 04/11/20 10:00 BP 96/60 04/11/20 10:00 Pulse Ox 98 04/11/20 10:00 Weight - Most Recent: 140 lb I&O - Last 24 Hours: Intake & Output 04/10/20 04/11/20 04/11/20 22:59 06:59 14:59 Intake Total 777 1210 500 Output Total 700 185 Balance 777 510 315 Lab Results Last 24 Hours: Laboratory Results - last 24 hr 04/10/20 04/10/20 04/10/20 Range/Units 09:45 14:00 14:00 WBC 14.0 H (4.5-11.0) K/uL RBC 4.36 (4.30-5.90) M/uL Hgb 10.7 L (12.0-15.0) g/dL Hct 32.8 L (40.0-54.0) % MCV 75 L (80-98) fL MCH 25 L (27-31) pg MCHC 33 (32-36) % Plt Count 293 (150-400) K/uL Neut % (Auto) (36-66) % Lymph % (Auto) (24-44) % Harvey % (Auto) (2-6) % Eos % (Auto) (2-4) % Baso % (Auto) (0-1) % ABG Hemoglobin (13.5-18.0) g/dL ABG Oxyhemoglobin % ABG Carboxyhemoglobin (0.0-1.6) % ABG Methemoglobin % VBG pH (7.350-7.450) VBG pCO2 mm/Hg VBG pO2 mm/Hg VBG HCO3 mmol/L VBG Total CO2 mmol/L VBG O2 Saturation VBG O2 Content %vol VBG Base Excess mm/L O2 Delivery Device Sodium 115 L* (140-148) mmol/L Potassium 1.7 L* (3.6-5.2) mmol/L Chloride 72 L (100-108) mmol/L Carbon Dioxide 36 H (21-32) mmol/L Anion Gap 8.7 (5.0-14.0) mmol/L BUN 7 (7-18) mg/dL Creatinine 1.4 H (0.8-1.3) mg/dL Est Cr Clr Drug Dosing TNP Estimated GFR (MDRD) 52 L (>60) Glucose 161 H (74-106) mg/dL Lactic Acid (0.4-2.0) mmol/L Calcium 7.4 L (8.5-10.1) mg/dL Magnesium 1.8 (1.8-2.4) mg/dL Total Bilirubin 1.1 H (0.2-1.0) mg/dL AST 54 H (15-37) U/L ALT 25 (12-78) U/L Alkaline Phosphatase 235 H (46-116) U/L Creatine Kinase (39-308) U/L Total Protein 6.1 L (6.4-8.2) g/dL Albumin 2.8 L (3.4-5.0) g/dL Globulin 3.3 (2.3-3.5) g/dL Albumin/Globulin Ratio 0.9 L (1.2-2.2) Urine Color (YELLOW) Urine Appearance (CLEAR) Urine pH (5.0-8.0) Ur Specific Meredith (1.008-1.030) Urine Protein (NEGATIVE) mg/dL Urine Glucose (UA) (NEGATIVE) mg/dL Urine Ketones (NEGATIVE) mg/dL Urine Occult Blood (NEGATIVE) Urine Nitrite (NEGATIVE) Urine Bilirubin (NEGATIVE) Urine Urobilinogen (0.2-1.0) EU/dL Ur Leukocyte Esterase (NEGATIVE) Urine RBC (0-5) Urine WBC (0-5) Ur Epithelial Cells Amorphous Sediment Urine Bacteria Urine Mucus Urine Opiates Screen (NEGATIVE) Ur Oxycodone Screen (NEGATIVE) Urine Methadone Screen (NEGATIVE) Ur Propoxyphene Screen (NEGATIVE) Ur Barbiturates Screen (NEGATIVE) Ur Tricyclics Screen (NEGATIVE) Ur Phencyclidine Scrn (NEGATIVE) Ur Amphetamine Screen (NEGATIVE) U Methamphetamines Scrn (NEGATIVE) Urine MDMA Screen (NEGATIVE) U Benzodiazepines Scrn (NEGATIVE) U Cocaine Metab Screen (NEGATIVE) U Marijuana (THC) Screen (NEGATIVE) SARS-CoV-2 RNA ([facility]) (NEGATIVE) 04/10/20 04/10/20 04/10/20 Range/Units 14:00 14:00 14:00 WBC (4.5-11.0) K/uL RBC (4.30-5.90) M/uL Hgb (12.0-15.0) g/dL Hct (40.0-54.0) % MCV (80-98) fL MCH (27-31) pg MCHC (32-36) % Plt Count (150-400) K/uL Neut % (Auto) (36-66) % Lymph % (Auto) (24-44) % Harvey % (Auto) (2-6) % Eos % (Auto) (2-4) % Baso % (Auto) (0-1) % ABG Hemoglobin 10.9 L (13.5-18.0) g/dL ABG Oxyhemoglobin 68.8 % ABG Carboxyhemoglobin 4.8 H (0.0-1.6) % ABG Methemoglobin 1.4 % VBG pH 7.436 (7.350-7.450) VBG pCO2 56.8 mm/Hg VBG pO2 45.6 mm/Hg VBG HCO3 37.6 mmol/L VBG Total CO2 34.5 mmol/L VBG O2 Saturation 73.4 VBG O2 Content 10.6 %vol VBG Base Excess 11.7 mm/L O2 Delivery Device Nasal cannula Sodium (140-148) mmol/L Potassium (3.6-5.2) mmol/L Chloride (100-108) mmol/L Carbon Dioxide (21-32) mmol/L Anion Gap (5.0-14.0) mmol/L BUN (7-18) mg/dL Creatinine (0.8-1.3) mg/dL Est Cr Clr Drug Dosing Estimated GFR (MDRD) (>60) Glucose (74-106) mg/dL Lactic Acid 4.7 H (0.4-2.0) mmol/L Calcium (8.5-10.1) mg/dL Magnesium (1.8-2.4) mg/dL Total Bilirubin (0.2-1.0) mg/dL AST (15-37) U/L ALT (12-78) U/L Alkaline Phosphatase (46-116) U/L Creatine Kinase 334 H (39-308) U/L Total Protein (6.4-8.2) g/dL Albumin (3.4-5.0) g/dL Globulin (2.3-3.5) g/dL Albumin/Globulin Ratio (1.2-2.2) Urine Color (YELLOW) Urine Appearance (CLEAR) Urine pH (5.0-8.0) Ur Specific Meredith (1.008-1.030) Urine Protein (NEGATIVE) mg/dL Urine Glucose (UA) (NEGATIVE) mg/dL Urine Ketones (NEGATIVE) mg/dL Urine Occult Blood (NEGATIVE) Urine Nitrite (NEGATIVE) Urine Bilirubin (NEGATIVE) Urine Urobilinogen (0.2-1.0) EU/dL Ur Leukocyte Esterase (NEGATIVE) Urine RBC (0-5) Urine WBC (0-5) Ur Epithelial Cells Amorphous Sediment Urine Bacteria Urine Mucus Urine Opiates Screen (NEGATIVE) Ur Oxycodone Screen (NEGATIVE) Urine Methadone Screen (NEGATIVE) Ur Propoxyphene Screen (NEGATIVE) Ur Barbiturates Screen (NEGATIVE) Ur Tricyclics Screen (NEGATIVE) Ur Phencyclidine Scrn (NEGATIVE) Ur Amphetamine Screen (NEGATIVE) U Methamphetamines Scrn (NEGATIVE) Urine MDMA Screen (NEGATIVE) U Benzodiazepines Scrn (NEGATIVE) U Cocaine Metab Screen (NEGATIVE) U Marijuana (THC) Screen (NEGATIVE) SARS-CoV-2 RNA ([place]) (NEGATIVE) 04/10/20 04/10/20 04/10/20 Range/Units 16:03 16:23 16:23 WBC (4.5-11.0) K/uL RBC (4.30-5.90) M/uL Hgb (12.0-15.0) g/dL Hct (40.0-54.0) % MCV (80-98) fL MCH (27-31) pg MCHC (32-36) % Plt Count (150-400) K/uL Neut % (Auto) (36-66) % Lymph % (Auto) (24-44) % Harvey % (Auto) (2-6) % Eos % (Auto) (2-4) % Baso % (Auto) (0-1) % ABG Hemoglobin (13.5-18.0) g/dL ABG Oxyhemoglobin % ABG Carboxyhemoglobin (0.0-1.6) % ABG Methemoglobin % VBG pH (7.350-7.450) VBG pCO2 mm/Hg VBG pO2 mm/Hg VBG HCO3 mmol/L VBG Total CO2 mmol/L VBG O2 Saturation VBG O2 Content %vol VBG Base Excess mm/L O2 Delivery Device Sodium 119 L* (140-148) mmol/L Potassium (3.6-5.2) mmol/L Chloride (100-108) mmol/L Carbon Dioxide (21-32) mmol/L Anion Gap (5.0-14.0) mmol/L BUN (7-18) mg/dL Creatinine (0.8-1.3) mg/dL Est Cr Clr Drug Dosing Estimated GFR (MDRD) (>60) Glucose (74-106) mg/dL Lactic Acid (0.4-2.0) mmol/L Calcium (8.5-10.1) mg/dL Magnesium (1.8-2.4) mg/dL Total Bilirubin (0.2-1.0) mg/dL AST (15-37) U/L ALT (12-78) U/L Alkaline Phosphatase (46-116) U/L Creatine Kinase (39-308) U/L Total Protein (6.4-8.2) g/dL Albumin (3.4-5.0) g/dL Globulin (2.3-3.5) g/dL Albumin/Globulin Ratio (1.2-2.2) Urine Color Brown A (YELLOW) Urine Appearance Turbid A (CLEAR) Urine pH 7.5 (5.0-8.0) Ur Specific Meredith 1.025 (1.008-1.030) Urine Protein 100 H (NEGATIVE) mg/dL Urine Glucose (UA) Negative (NEGATIVE) mg/dL Urine Ketones Negative (NEGATIVE) mg/dL Urine Occult Blood Large H (NEGATIVE) Urine Nitrite Negative (NEGATIVE) Urine Bilirubin Negative (NEGATIVE) Urine Urobilinogen 0.2 (0.2-1.0) EU/dL Ur Leukocyte Esterase Large H (NEGATIVE) Urine RBC Packed H (0-5) Urine WBC Packed H (0-5) Ur Epithelial Cells Few Amorphous Sediment Few Urine Bacteria Many Urine Mucus Few Urine Opiates Screen Negative (NEGATIVE) Ur Oxycodone Screen Negative (NEGATIVE) Urine Methadone Screen Negative (NEGATIVE) Ur Propoxyphene Screen Negative (NEGATIVE) Ur Barbiturates Screen Negative (NEGATIVE) Ur Tricyclics Screen Negative (NEGATIVE) Ur Phencyclidine Scrn Negative (NEGATIVE) Ur Amphetamine Screen Negative (NEGATIVE) U Methamphetamines Scrn Negative (NEGATIVE) Urine MDMA Screen Negative (NEGATIVE) U Benzodiazepines Scrn Negative (NEGATIVE) U Cocaine Metab Screen Negative (NEGATIVE) U Marijuana (THC) Screen Presumptive positive H (NEGATIVE) SARS-CoV-2 RNA ([place]) (NEGATIVE) 04/10/20 04/10/20 04/10/20 Range/Units 18:05 18:34 19:20 WBC (4.5-11.0) K/uL RBC (4.30-5.90) M/uL Hgb (12.0-15.0) g/dL Hct (40.0-54.0) % MCV (80-98) fL MCH (27-31) pg MCHC (32-36) % Plt Count (150-400) K/uL Neut % (Auto) (36-66) % Lymph % (Auto) (24-44) % Harvey % (Auto) (2-6) % Eos % (Auto) (2-4) % Baso % (Auto) (0-1) % ABG Hemoglobin (13.5-18.0) g/dL ABG Oxyhemoglobin % ABG Carboxyhemoglobin (0.0-1.6) % ABG Methemoglobin % VBG pH (7.350-7.450) VBG pCO2 mm/Hg VBG pO2 mm/Hg VBG HCO3 mmol/L VBG Total CO2 mmol/L VBG O2 Saturation VBG O2 Content %vol VBG Base Excess mm/L O2 Delivery Device Sodium 121 L (140-148) mmol/L Potassium (3.6-5.2) mmol/L Chloride (100-108) mmol/L Carbon Dioxide (21-32) mmol/L Anion Gap (5.0-14.0) mmol/L BUN (7-18) mg/dL Creatinine (0.8-1.3) mg/dL Est Cr Clr Drug Dosing Estimated GFR (MDRD) (>60) Glucose (74-106) mg/dL Lactic Acid 1.1 (0.4-2.0) mmol/L Calcium (8.5-10.1) mg/dL Magnesium (1.8-2.4) mg/dL Total Bilirubin (0.2-1.0) mg/dL AST (15-37) U/L ALT (12-78) U/L Alkaline Phosphatase (46-116) U/L Creatine Kinase (39-308) U/L Total Protein (6.4-8.2) g/dL Albumin (3.4-5.0) g/dL Globulin (2.3-3.5) g/dL Albumin/Globulin Ratio (1.2-2.2) Urine Color (YELLOW) Urine Appearance (CLEAR) Urine pH (5.0-8.0) Ur Specific Meredith (1.008-1.030) Urine Protein (NEGATIVE) mg/dL Urine Glucose (UA) (NEGATIVE) mg/dL Urine Ketones (NEGATIVE) mg/dL Urine Occult Blood (NEGATIVE) Urine Nitrite (NEGATIVE) Urine Bilirubin (NEGATIVE) Urine Urobilinogen (0.2-1.0) EU/dL Ur Leukocyte Esterase (NEGATIVE) Urine RBC (0-5) Urine WBC (0-5) Ur Epithelial Cells Amorphous Sediment Urine Bacteria Urine Mucus Urine Opiates Screen (NEGATIVE) Ur Oxycodone Screen (NEGATIVE) Urine Methadone Screen (NEGATIVE) Ur Propoxyphene Screen (NEGATIVE) Ur Barbiturates Screen (NEGATIVE) Ur Tricyclics Screen (NEGATIVE) Ur Phencyclidine Scrn (NEGATIVE) Ur Amphetamine Screen (NEGATIVE) U Methamphetamines Scrn (NEGATIVE) Urine MDMA Screen (NEGATIVE) U Benzodiazepines Scrn (NEGATIVE) U Cocaine Metab Screen (NEGATIVE) U Marijuana (THC) Screen (NEGATIVE) SARS-CoV-2 RNA ([place]) Negative (NEGATIVE) 04/10/20 04/10/20 04/10/20 Range/Units 21:10 23:17 23:17 WBC (4.5-11.0) K/uL RBC (4.30-5.90) M/uL Hgb (12.0-15.0) g/dL Hct (40.0-54.0) % MCV (80-98) fL MCH (27-31) pg MCHC (32-36) % Plt Count (150-400) K/uL Neut % (Auto) (36-66) % Lymph % (Auto) (24-44) % Harvey % (Auto) (2-6) % Eos % (Auto) (2-4) % Baso % (Auto) (0-1) % ABG Hemoglobin (13.5-18.0) g/dL ABG Oxyhemoglobin % ABG Carboxyhemoglobin (0.0-1.6) % ABG Methemoglobin % VBG pH (7.350-7.450) VBG pCO2 mm/Hg VBG pO2 mm/Hg VBG HCO3 mmol/L VBG Total CO2 mmol/L VBG O2 Saturation VBG O2 Content %vol VBG Base Excess mm/L O2 Delivery Device Sodium 122 L 123 L (140-148) mmol/L Potassium 1.8 L* (3.6-5.2) mmol/L Chloride 81 L (100-108) mmol/L Carbon Dioxide 38 H (21-32) mmol/L Anion Gap 5.8 (5.0-14.0) mmol/L BUN 7 (7-18) mg/dL Creatinine 1.3 (0.8-1.3) mg/dL Est Cr Clr Drug Dosing 54.28 Estimated GFR (MDRD) 56 L (>60) Glucose 115 H (74-106) mg/dL Lactic Acid 2.1 H (0.4-2.0) mmol/L Calcium 7.6 L (8.5-10.1) mg/dL Magnesium (1.8-2.4) mg/dL Total Bilirubin (0.2-1.0) mg/dL AST (15-37) U/L ALT (12-78) U/L Alkaline Phosphatase (46-116) U/L Creatine Kinase (39-308) U/L Total Protein (6.4-8.2) g/dL Albumin (3.4-5.0) g/dL Globulin (2.3-3.5) g/dL Albumin/Globulin Ratio (1.2-2.2) Urine Color (YELLOW) Urine Appearance (CLEAR) Urine pH (5.0-8.0) Ur Specific Meredith (1.008-1.030) Urine Protein (NEGATIVE) mg/dL Urine Glucose (UA) (NEGATIVE) mg/dL Urine Ketones (NEGATIVE) mg/dL Urine Occult Blood (NEGATIVE) Urine Nitrite (NEGATIVE) Urine Bilirubin (NEGATIVE) Urine Urobilinogen (0.2-1.0) EU/dL Ur Leukocyte Esterase (NEGATIVE) Urine RBC (0-5) Urine WBC (0-5) Ur Epithelial Cells Amorphous Sediment Urine Bacteria Urine Mucus Urine Opiates Screen (NEGATIVE) Ur Oxycodone Screen (NEGATIVE) Urine Methadone Screen (NEGATIVE) Ur Propoxyphene Screen (NEGATIVE) Ur Barbiturates Screen (NEGATIVE) Ur Tricyclics Screen (NEGATIVE) Ur Phencyclidine Scrn (NEGATIVE) Ur Amphetamine Screen (NEGATIVE) U Methamphetamines Scrn (NEGATIVE) Urine MDMA Screen (NEGATIVE) U Benzodiazepines Scrn (NEGATIVE) U Cocaine Metab Screen (NEGATIVE) U Marijuana (THC) Screen (NEGATIVE) SARS-CoV-2 RNA ([place]) (NEGATIVE) 04/11/20 04/11/20 04/11/20 Range/Units 01:13 03:18 06:05 WBC (4.5-11.0) K/uL RBC (4.30-5.90) M/uL Hgb (12.0-15.0) g/dL Hct (40.0-54.0) % MCV (80-98) fL MCH (27-31) pg MCHC (32-36) % Plt Count (150-400) K/uL Neut % (Auto) (36-66) % Lymph % (Auto) (24-44) % Harvey % (Auto) (2-6) % Eos % (Auto) (2-4) % Baso % (Auto) (0-1) % ABG Hemoglobin (13.5-18.0) g/dL ABG Oxyhemoglobin % ABG Carboxyhemoglobin (0.0-1.6) % ABG Methemoglobin % VBG pH (7.350-7.450) VBG pCO2 mm/Hg VBG pO2 mm/Hg VBG HCO3 mmol/L VBG Total CO2 mmol/L VBG O2 Saturation VBG O2 Content %vol VBG Base Excess mm/L O2 Delivery Device Sodium 124 L 123 L (140-148) mmol/L Potassium (3.6-5.2) mmol/L Chloride (100-108) mmol/L Carbon Dioxide (21-32) mmol/L Anion Gap (5.0-14.0) mmol/L BUN (7-18) mg/dL Creatinine (0.8-1.3) mg/dL Est Cr Clr Drug Dosing Estimated GFR (MDRD) (>60) Glucose (74-106) mg/dL Lactic Acid 1.6 (0.4-2.0) mmol/L Calcium (8.5-10.1) mg/dL Magnesium (1.8-2.4) mg/dL Total Bilirubin (0.2-1.0) mg/dL AST (15-37) U/L ALT (12-78) U/L Alkaline Phosphatase (46-116) U/L Creatine Kinase (39-308) U/L Total Protein (6.4-8.2) g/dL Albumin (3.4-5.0) g/dL Globulin (2.3-3.5) g/dL Albumin/Globulin Ratio (1.2-2.2) Urine Color (YELLOW) Urine Appearance (CLEAR) Urine pH (5.0-8.0) Ur Specific Meredith (1.008-1.030) Urine Protein (NEGATIVE) mg/dL Urine Glucose (UA) (NEGATIVE) mg/dL Urine Ketones (NEGATIVE) mg/dL Urine Occult Blood (NEGATIVE) Urine Nitrite (NEGATIVE) Urine Bilirubin (NEGATIVE) Urine Urobilinogen (0.2-1.0) EU/dL Ur Leukocyte Esterase (NEGATIVE) Urine RBC (0-5) Urine WBC (0-5) Ur Epithelial Cells Amorphous Sediment Urine Bacteria Urine Mucus Urine Opiates Screen (NEGATIVE) Ur Oxycodone Screen (NEGATIVE) Urine Methadone Screen (NEGATIVE) Ur Propoxyphene Screen (NEGATIVE) Ur Barbiturates Screen (NEGATIVE) Ur Tricyclics Screen (NEGATIVE) Ur Phencyclidine Scrn (NEGATIVE) Ur Amphetamine Screen (NEGATIVE) U Methamphetamines Scrn (NEGATIVE) Urine MDMA Screen (NEGATIVE) U Benzodiazepines Scrn (NEGATIVE) U Cocaine Metab Screen (NEGATIVE) U Marijuana (THC) Screen (NEGATIVE) SARS-CoV-2 RNA ([place]) (NEGATIVE) 04/11/20 04/11/20 04/11/20 Range/Units 06:05 06:05 07:05 WBC 13.2 H (4.5-11.0) K/uL RBC 3.81 L (4.30-5.90) M/uL Hgb 9.4 L (12.0-15.0) g/dL Hct 29.8 L (40.0-54.0) % MCV 78 L (80-98) fL MCH 25 L (27-31) pg MCHC 32 (32-36) % Plt Count 243 (150-400) K/uL Neut % (Auto) 92 H (36-66) % Lymph % (Auto) 3 L (24-44) % Harvey % (Auto) 5 (2-6) % Eos % (Auto) 0 L (2-4) % Baso % (Auto) 0 (0-1) % ABG Hemoglobin (13.5-18.0) g/dL ABG Oxyhemoglobin % ABG Carboxyhemoglobin (0.0-1.6) % ABG Methemoglobin % VBG pH (7.350-7.450) VBG pCO2 mm/Hg VBG pO2 mm/Hg VBG HCO3 mmol/L VBG Total CO2 mmol/L VBG O2 Saturation VBG O2 Content %vol VBG Base Excess mm/L O2 Delivery Device Sodium 122 L 123 L (140-148) mmol/L Potassium 3.6 (3.6-5.2) mmol/L Chloride 84 L (100-108) mmol/L Carbon Dioxide 34 H (21-32) mmol/L Anion Gap 7.6 (5.0-14.0) mmol/L BUN 6 L (7-18) mg/dL Creatinine 1.2 (0.8-1.3) mg/dL Est Cr Clr Drug Dosing 58.80 Estimated GFR (MDRD) > 60 (>60) Glucose 96 (74-106) mg/dL Lactic Acid (0.4-2.0) mmol/L Calcium 7.4 L (8.5-10.1) mg/dL Magnesium (1.8-2.4) mg/dL Total Bilirubin 0.3 D (0.2-1.0) mg/dL AST 34 (15-37) U/L ALT 19 (12-78) U/L Alkaline Phosphatase 177 H (46-116) U/L Creatine Kinase (39-308) U/L Total Protein 5.3 L (6.4-8.2) g/dL Albumin 2.4 L (3.4-5.0) g/dL Globulin 2.9 (2.3-3.5) g/dL Albumin/Globulin Ratio 0.8 L (1.2-2.2) Urine Color (YELLOW) Urine Appearance (CLEAR) Urine pH (5.0-8.0) Ur Specific Meredith (1.008-1.030) Urine Protein (NEGATIVE) mg/dL Urine Glucose (UA) (NEGATIVE) mg/dL Urine Ketones (NEGATIVE) mg/dL Urine Occult Blood (NEGATIVE) Urine Nitrite (NEGATIVE) Urine Bilirubin (NEGATIVE) Urine Urobilinogen (0.2-1.0) EU/dL Ur Leukocyte Esterase (NEGATIVE) Urine RBC (0-5) Urine WBC (0-5) Ur Epithelial Cells Amorphous Sediment Urine Bacteria Urine Mucus Urine Opiates Screen (NEGATIVE) Ur Oxycodone Screen (NEGATIVE) Urine Methadone Screen (NEGATIVE) Ur Propoxyphene Screen (NEGATIVE) Ur Barbiturates Screen (NEGATIVE) Ur Tricyclics Screen (NEGATIVE) Ur Phencyclidine Scrn (NEGATIVE) Ur Amphetamine Screen (NEGATIVE) U Methamphetamines Scrn (NEGATIVE) Urine MDMA Screen (NEGATIVE) U Benzodiazepines Scrn (NEGATIVE) U Cocaine Metab Screen (NEGATIVE) U Marijuana (THC) Screen (NEGATIVE) SARS-CoV-2 RNA ([place]) (NEGATIVE) 04/11/20 04/11/20 Range/Units 09:15 11:00 WBC (4.5-11.0) K/uL RBC (4.30-5.90) M/uL Hgb (12.0-15.0) g/dL Hct (40.0-54.0) % MCV (80-98) fL MCH (27-31) pg MCHC (32-36) % Plt Count (150-400) K/uL Neut % (Auto) (36-66) % Lymph % (Auto) (24-44) % Harvey % (Auto) (2-6) % Eos % (Auto) (2-4) % Baso % (Auto) (0-1) % ABG Hemoglobin (13.5-18.0) g/dL ABG Oxyhemoglobin % ABG Carboxyhemoglobin (0.0-1.6) % ABG Methemoglobin % VBG pH (7.350-7.450) VBG pCO2 mm/Hg VBG pO2 mm/Hg VBG HCO3 mmol/L VBG Total CO2 mmol/L VBG O2 Saturation VBG O2 Content %vol VBG Base Excess mm/L O2 Delivery Device Sodium 122 L 122 L (140-148) mmol/L Potassium 4.0 (3.6-5.2) mmol/L Chloride 86 L (100-108) mmol/L Carbon Dioxide 34 H (21-32) mmol/L Anion Gap 6.0 (5.0-14.0) mmol/L BUN 6 L (7-18) mg/dL Creatinine 1.2 (0.8-1.3) mg/dL Est Cr Clr Drug Dosing 58.80 Estimated GFR (MDRD) > 60 (>60) Glucose 128 H (74-106) mg/dL Lactic Acid (0.4-2.0) mmol/L Calcium 7.6 L (8.5-10.1) mg/dL Magnesium (1.8-2.4) mg/dL Total Bilirubin (0.2-1.0) mg/dL AST (15-37) U/L ALT (12-78) U/L Alkaline Phosphatase (46-116) U/L Creatine Kinase (39-308) U/L Total Protein (6.4-8.2) g/dL Albumin (3.4-5.0) g/dL Globulin (2.3-3.5) g/dL Albumin/Globulin Ratio (1.2-2.2) Urine Color (YELLOW) Urine Appearance (CLEAR) Urine pH (5.0-8.0) Ur Specific Meredith (1.008-1.030) Urine Protein (NEGATIVE) mg/dL Urine Glucose (UA) (NEGATIVE) mg/dL Urine Ketones (NEGATIVE) mg/dL Urine Occult Blood (NEGATIVE) Urine Nitrite (NEGATIVE) Urine Bilirubin (NEGATIVE) Urine Urobilinogen (0.2-1.0) EU/dL Ur Leukocyte Esterase (NEGATIVE) Urine RBC (0-5) Urine WBC (0-5) Ur Epithelial Cells Amorphous Sediment Urine Bacteria Urine Mucus Urine Opiates Screen (NEGATIVE) Ur Oxycodone Screen (NEGATIVE) Urine Methadone Screen (NEGATIVE) Ur Propoxyphene Screen (NEGATIVE) Ur Barbiturates Screen (NEGATIVE) Ur Tricyclics Screen (NEGATIVE) Ur Phencyclidine Scrn (NEGATIVE) Ur Amphetamine Screen (NEGATIVE) U Methamphetamines Scrn (NEGATIVE) Urine MDMA Screen (NEGATIVE) U Benzodiazepines Scrn (NEGATIVE) U Cocaine Metab Screen (NEGATIVE) U Marijuana (THC) Screen (NEGATIVE) SARS-CoV-2 RNA ([place]) (NEGATIVE) Med Orders - Current: Current Medications Acetaminophen (Tylenol) 650 mg PO Q4H PRN PRN Reason: Pain (Mild 1-3)/fever Last Admin: 04/11/20 09:10 Dose: 650 mg Documented by: Albuterol (Proventil Neb Soln) 2.5 mg NEB Q4H PRN PRN Reason: Shortness Of Breath/wheezing Aspirin (Aspirin) 81 mg PO DAILY [facility] Last Admin: 04/11/20 09:49 Dose: 81 mg Documented by: Enoxaparin Sodium (Lovenox) 40 mg SUBCUT Q24H [facility] Fluoxetine HCl (Prozac) 10 mg PO DAILY [facility] Last Admin: 04/11/20 09:50 Dose: 10 mg Documented by: Folic Acid (Folic Acid) 1 mg PO DAILY [facility] Ceftriaxone Sodium 1 gm/ (Sodium Chloride) 50 mls @ 100 mls/hr IV Q24H [facility] Dextrose/Water (Dextrose 5% In Water) 1,000 mls @ 50 mls/hr IV ASDIRECTED [facility] Last Admin: 04/11/20 10:50 Dose: 50 mls/hr Documented by: Lorazepam (Ativan) 1 mg IVPUSH Q2H PRN PRN Reason: Seizures Lorazepam (Ativan) 0 mg PO ASDIRECTED [facility]; Protocol Metoprolol Succinate (Toprol Xl) 25 mg PO BID [facility] Last Admin: 04/11/20 09:50 Dose: Not Given Documented by: Ondansetron HCl (Zofran) 4 mg IV Q4H PRN PRN Reason: Nausea/Vomiting Pantoprazole Sodium (Protonix) 40 mg PO ACBREAKFAST [facility] Last Admin: 04/11/20 09:50 Dose: 40 mg Documented by: Polyethylene Glycol (Miralax) 17 gm PO DAILY PRN PRN Reason: Constipation Prednisone (Prednisone) 10 mg PO DAILY [facility] Last Admin: 04/11/20 09:49 Dose: 10 mg Documented by: Sodium Chloride (Saline Flush) 10 ml FLUSH ASDIRECTED PRN PRN Reason: Keep Vein Open Spironolactone (Aldactone) 12.5 mg PO DAILY [facility] Last Admin: 04/11/20 09:49 Dose: 12.5 mg Documented by: Thiamine HCl (Vitamin B-1) 100 mg PO DAILY [facility] Discontinued Medications Enoxaparin Sodium (Lovenox) 40 mg SUBCUT DAILY [facility] Last Admin: 04/10/20 20:51 Dose: 40 mg Documented by: Hydrocortisone Sodium Succinate (Solu-Cortef) 100 mg IVPUSH ONETIME ONE Stop: 04/10/20 17:08 Last Admin: 04/10/20 17:47 Dose: 100 mg Documented by: Levetiracetam 2,000 mg/ Sodium (Chloride) 120 mls @ 480 mls/hr IV ONETIME ONE Stop: 04/10/20 14:14 Last Admin: 04/10/20 15:11 Dose: 480 mls/hr Documented by: Sodium Chloride (Normal Saline) 93 mls @ 4 mls/sec IV ASDIRECTED [facility] Stop: 04/10/20 14:31 Last Admin: 04/10/20 14:27 Dose: 4 mls/sec Documented by: Sodium Chloride (Sodium Chloride 3%) 500 mls @ 500 mls/hr IV ASDIRECTED [facility] Stop: 04/10/20 15:15 Last Admin: 04/10/20 15:09 Dose: 500 mls/hr Documented by: Potassium Chloride 20 meq/ (Premix) 100 mls @ 50 mls/hr IV ONETIME ONE Stop: 04/10/20 16:43 Last Admin: 04/10/20 15:09 Dose: 50 mls/hr Documented by: Potassium Chloride 20 meq/ (Premix) 100 mls @ 50 mls/hr IV ONETIME ONE Stop: 04/10/20 18:21 Last Admin: 04/10/20 17:46 Dose: 50 mls/hr Documented by: Ceftriaxone Sodium 2 gm/ (Sodium Chloride) 50 mls @ 100 mls/hr IV ONETIME ONE Stop: 04/10/20 17:27 Last Admin: 04/10/20 17:17 Dose: 100 mls/hr Documented by: Potassium Chloride (Kcl 20 Meq In Water 100 Ml) Confirm Administered Dose 100 mls @ as directed .ROUTE .STK-MED ONE Stop: 04/10/20 17:45 Last Admin: 04/10/20 17:49 Dose: Not Given Documented by: Potassium Chloride 20 meq/ (Premix) 100 mls @ 50 mls/hr IV Q2H [facility] Stop: 04/10/20 22:15 Last Admin: 04/10/20 22:26 Dose: 50 mls/hr Documented by: Sodium Chloride (Normal Saline) 1,000 mls @ 100 mls/hr IV ASDIRECTED [facility] Sodium Chloride (Sodium Chloride 0.45%) 1,000 mls @ 50 mls/hr IV ASDIRECTED [facility] Last Admin: 04/10/20 20:47 Dose: 50 mls/hr Documented by: Potassium Chloride (Kcl 20 Meq In Water 100 Ml) 100 mls @ 50 mls/hr IV Q2H [facility] Stop: 04/11/20 08:29 Last Admin: 04/11/20 06:33 Dose: 50 mls/hr Documented by: Lactated Ringer's (Ringers, Lactated) 500 mls @ 500 mls/hr IV BOLUS ONE Stop: 04/11/20 10:44 Last Admin: 04/11/20 09:46 Dose: 500 mls/hr Documented by: Iopamidol (Isovue-370 (76%)) 100 ml IV . DIRECTED [facility] Stop: 04/10/20 14:31 Last Admin: 04/10/20 14:27 Dose: 100 ml Documented by: Lorazepam (Ativan) Confirm Administered Dose 2 mg .ROUTE .STK-MED ONE Stop: 04/10/20 13:51 Lorazepam (Ativan) 1 mg IVPUSH ONETIME ONE Stop: 04/10/20 15:10 Last Admin: 04/10/20 15:15 Dose: 1 mg Documented by: Naloxone HCl (Narcan) 0.1 mg IVPUSH ONETIME PRN PRN Reason: Oversedation Last Admin: 04/10/20 16:15 Dose: 0.1 mg Documented by: Potassium Chloride (Potassium Chloride Solution) 40 meq PO ONETIME ONE Stop: 04/10/20 23:58 Last Admin: 04/11/20 00:11 Dose: 40 meq Documented by: Sodium Chloride (Saline Flush) 10 ml FLUSH ONETIME PRN PRN Reason: per radiology protocol Stop: 04/10/20 14:17 Last Admin: 04/10/20 14:27 Dose: 10 ml Documented by: - Exam Quality Assessment: DVT Prophylaxis General: Alert, Cooperative, Mild Distress. No: Oriented Lungs: Clear to Auscultation, Normal Respiratory Effort Cardiovascular: Regular Rate, Regular Rhythm, No Murmurs GI/Abdominal Exam: Soft, Non-Tender, No Organomegaly, No Distention Extremities: Non-Tender, No Pedal Edema Skin: Warm Sepsis Event Note - Evaluation Sepsis Screening Result: No Definite Risk - Focused Exam Vital Signs: Vital Signs Temp Pulse Resp BP BP Pulse Ox 04/11/20 10:00 87 21 H 96/60 98 04/11/20 09:50 86/52 L 04/11/20 08:00 98 F 87 13 96/60 98 04/11/20 06:00 16 92/57 L 94 L 04/11/20 04:00 97.3 F 13 99/59 L 99 04/11/20 02:00 20 105/64 97 - Problem List Review Problem List Initiated/Reviewed/Updated: Yes - My Orders Last 24 Hours: My Active Orders 04/10/20 16:40 CULTURE URINE [RM] Stat 04/10/20 18:02 Resuscitation Status Routine 04/10/20 19:05 Acetaminophen [TylenoL] 650 mg PO Q4H PRN Albuterol [Proventil Neb Soln] 2.5 mg NEB Q4H PRN LORazepam [Ativan] 1 mg IVPUSH Q2H PRN Ondansetron [Zofran] 4 mg IV Q4H PRN Sodium Chloride 0.9% [Saline Flush] 10 ml FLUSH ASDIRECTED PRN polyethylene glycoL 3350 [MiraLAX] 17 gm PO DAILY PRN 04/10/20 19:05 Patient Status [ADT] Routine Ambulate [RC] QID Cardiac Monitoring [RC] Q6H Height and Weight [RC] DAILY Intake and Output [RC] QSHIFT Neuro Check [RC] Q4H Notify Provider Vital Signs [RC] ASDIRECTED Oxygen Therapy [RC] PRN Peripheral IV Care [RC] . DIRECTED Pulse Oximetry [RC] CONTINUOUS RT Aerosol Therapy [RC] ASDIRECTED Up With Assistance [RC] ASDIRECTED Up to Chair [RC] QID VTE/DVT Education [RC] Per Unit Routine Vital Signs [RC] Q2H Blood Culture x2 Reflex Set [OM.PC] Stat Peripheral IV Insertion Adult [OM.PC] Routine Seizure Precautions [OM.PC] Routine 04/10/20 19:20 CULTURE BLOOD [BC] Stat 04/10/20 19:25 CULTURE BLOOD [BC] Stat 04/10/20 21:00 Metoprolol Succinate [Toprol XL] 25 mg PO BID 04/10/20 22:00 Dextrose 5% in Water 1,000 ml IV ASDIRECTED 04/10/20 23:58 Communication Order [RC] ASDIRECTED 04/11/20 07:30 Pantoprazole [ProTONIX] 40 mg PO ACBREAKFAST 04/11/20 09:00 Aspirin 81 mg PO DAILY FLUoxetine [PROzac] 10 mg PO DAILY Spironolactone [Aldactone] 12.5 mg PO DAILY predniSONE 10 mg PO DAILY 04/11/20 12:47 CIWAA Assessment [RC] Q4H 04/11/20 12:48 Notify Provider [RC] PRN 04/11/20 13:00 Folic Acid 1 mg PO DAILY LORazepam [Ativan] See Protocol PO ASDIRECTED Thiamine [Vitamin B-1] 100 mg PO DAILY 04/11/20 17:00 BASIC METABOLIC PANEL,BMP [CHEM] Stat cefTRIAXone [Rocephin] 1 gm Sodium Chloride 0.9% [Normal Saline] 50 ml IV Q24H 04/11/20 20:00 Enoxaparin [Lovenox] 40 mg SUBCUT Q24H 04/12/20 05:00 BASIC METABOLIC PANEL,BMP [CHEM] Timed CBC WITH AUTO DIFF [HEME] Timed MAGNESIUM [CHEM] Timed - Plan Plan:: ASSESSMENT AND PLAN SEVERE HYPONATREMIA-likely secondary to dehydration with volume contraction. Sodium level has improved from admission, as has been well controlled and within desired range -Reassess sodium later this afternoon and in a.m. SEVERE HYPOKALEMIA-resolved with IV and oral potassium replacement -Assess potassium level later this afternoon and in a.m. ENCEPHALOPATHY-likely secondary to metabolic abnormalities, postictal state, IV lorazepam given for seizure. CTA of the brain and neck as well as CT of the head shows no acute abnormalities. He is more alert and interactive this morning although he remains confused. -Neurochecks every 4 hours -Correct electrolyte abnormalities HISTORY OF ALCOHOL USE -Monitor closely for alcohol withdrawal -Alcohol withdrawal protocol SEIZURE-likely secondary to hyponatremia -Monitor in ICU -Seizure precautions -Lorazepam as needed for recurrent seizures -Keppra load given in the emergency department URINARY TRACT INFECTION -Urine and blood cultures pending -Ceftriaxone 1 g IV every 24 hours, pending culture results LACTIC ACIDOSIS-resolved ADRENAL INSUFFICIENCY -Stress dose of steroids given in the ED -Resume oral prednisone when able DEHYDRATION-likely secondary to urinary tract infection -IV fluids as above MAINTENANCE ISSUES -DVT prophylaxis; Lovenox 40 mg subcu daily -GI prophylaxis; continue outpatient PPI therapy -Lopes catheter; placed to monitor urine output, remove as soon as possible -Nutrition; regular diet -Nicotine dependence; not required CODE STATUS-FULL CODE ADMISSION STATUS-patient will be admitted to inpatient status, expect at least a 2 night hospital stay for evaluation and management of problems as outlined above. At the time of this admission I do not reasonably expected evaluation and management of this problem will require more than a 96 hour hospital stay. DISPOSITION-anticipate discharge to home after the hospital stay. PRIMARY CARE PROVIDER-patient is from [place] and receives his health care there
[2020-04-11] MEDS: Folic Acid 1 MG Tab PO SCH (13:39)
[2020-04-11] MEDS: Thiamine 100 MG Tab PO SCH (13:39)
[2020-04-11] MEDS: cefTRIAXone 1 GM in Sodium Chloride 0.9% 50 ML IV SCH (17:01)
[2020-04-11] MEDS: Enoxaparin 40 MG/0.4 ML Syringe SUBCUT SCH (20:07)
[2020-04-12] MEDS: Dextrose 5% in Water 1,000 ML IV SCH (06:25)
[2020-04-12] MEDS ORDERED: Potassium Chloride 20 MEQ Tab.ER PO ONE (08:15)
[2020-04-12] MEDS: Pantoprazole 40 MG Tab.CR PO SCH (08:30)
[2020-04-12] MEDS: Spironolactone 25 MG Tab PO SCH (08:30)
[2020-04-12] MEDS: Thiamine 100 MG Tab PO SCH (08:31)
[2020-04-12] MEDS: Aspirin 81 MG Tab.Chew PO SCH (08:31)
[2020-04-12] MEDS: Folic Acid 1 MG Tab PO SCH (08:31)
[2020-04-12] MEDS: FLUoxetine 10 MG Cap PO SCH (08:32)
[2020-04-12] MEDS: Metoprolol Succinate 25 MG Tab.ER PO SCH ×2 (08:32→21:37)
[2020-04-12] MEDS: Acetaminophen 325 MG Tab PO PRN ×2 (08:33→16:49)
[2020-04-12] MEDS: predniSONE 10 MG Tab PO SCH (08:33)
[2020-04-12] MEDS ORDERED: Potassium Chloride 10% 20 MEQ/15 ML Soln 15 ML UD Cup PO ONE ×2 (08:45→14:30)
[2020-04-12] MEDS: Sodium Chloride 0.9% 1,000 ML IV SCH ×2 (10:35→21:48)
--- NOTE | 2020-04-12 14:33 | PCM.PN ---
- General Info Date of Service: 04/12/20 Subjective Update: Mr. Jhaveri has been stable since admission. Sodium level remains low but stable over the last 24 hours. Blood pressure has improved following fluid bolus yesterday and he has remained afebrile. Continues to experience mild to moderate confusion, much improved from admission. He is unable to provide a meaningful history concerning recent symptoms or review of systems because of confusion Functional Status: Reports: Tolerating Diet, Urinating - Patient Data Vitals - Most Recent: Last Vital Signs Temp 98.3 F 04/12/20 11:38 Pulse 82 04/12/20 11:38 Resp 20 04/12/20 11:38 BP 117/72 04/12/20 11:38 Pulse Ox 96 04/12/20 11:38 Weight - Most Recent: 302 lb 4.06 oz I&O - Last 24 Hours: Intake & Output 04/11/20 04/12/20 04/12/20 22:59 06:59 14:59 Intake Total 550 738 666 Output Total 250 175 100 Balance 300 563 566 Lab Results Last 24 Hours: Laboratory Results - last 24 hr 04/11/20 04/12/20 04/12/20 Range/Units 19:45 05:17 05:17 WBC 9.7 (4.5-11.0) K/uL RBC 3.24 L (4.30-5.90) M/uL Hgb 8.1 L (12.0-15.0) g/dL Hct 25.8 L (40.0-54.0) % MCV 80 (80-98) fL MCH 25 L (27-31) pg MCHC 31 L (32-36) % Plt Count 217 (150-400) K/uL Neut % (Auto) 87 H (36-66) % Lymph % (Auto) 7 L (24-44) % Dixie % (Auto) 5 (2-6) % Eos % (Auto) 1 L (2-4) % Baso % (Auto) 0 (0-1) % Sodium 121 L 121 L (140-148) mmol/L Potassium 3.9 3.3 L (3.6-5.2) mmol/L Chloride 85 L 85 L (100-108) mmol/L Carbon Dioxide 33 H 34 H (21-32) mmol/L Anion Gap 6.9 5.3 (5.0-14.0) mmol/L BUN 8 5 L (7-18) mg/dL Creatinine 1.2 0.9 (0.8-1.3) mg/dL Est Cr Clr Drug Dosing 58.80 78.40 mL/min Estimated GFR (MDRD) > 60 > 60 (>60) Glucose 131 H 83 (74-106) mg/dL Calcium 7.7 L 7.7 L (8.5-10.1) mg/dL Magnesium 1.8 (1.8-2.4) mg/dL Ahmet Results Last 24 Hours: Microbiology 04/10/20 16:40 Urine Culture - Preliminary Urine, Catheterized 04/10/20 19:25 Aerobic Blood Culture - Preliminary Blood - Arm, Left NO GROWTH AFTER 1 DAY Anaerobic Blood Culture - Preliminary NO GROWTH AFTER 1 DAY 04/10/20 19:20 Aerobic Blood Culture - Preliminary Blood - Venous NO GROWTH AFTER 1 DAY Anaerobic Blood Culture - Preliminary NO GROWTH AFTER 1 DAY Med Orders - Current: Current Medications Acetaminophen (Tylenol) 650 mg PO Q4H PRN PRN Reason: Pain (Mild 1-3)/fever Last Admin: 04/12/20 08:33 Dose: 650 mg Documented by: Albuterol (Proventil Neb Soln) 2.5 mg NEB Q4H PRN PRN Reason: Shortness Of Breath/wheezing Aspirin (Aspirin) 81 mg PO DAILY [facility] Last Admin: 04/12/20 08:31 Dose: 81 mg Documented by: Enoxaparin Sodium (Lovenox) 40 mg SUBCUT Q24H [facility] Last Admin: 04/11/20 20:07 Dose: 40 mg Documented by: Fluoxetine HCl (Prozac) 10 mg PO DAILY [facility] Last Admin: 04/12/20 08:32 Dose: 10 mg Documented by: Folic Acid (Folic Acid) 1 mg PO DAILY [facility] Last Admin: 04/12/20 08:31 Dose: 1 mg Documented by: Ceftriaxone Sodium 1 gm/ (Sodium Chloride) 50 mls @ 100 mls/hr IV Q24H [facility] Last Admin: 04/11/20 17:01 Dose: 100 mls/hr Documented by: Sodium Chloride (Normal Saline) 1,000 mls @ 100 mls/hr IV ASDIRECTED [facility] Last Admin: 04/12/20 10:35 Dose: 100 mls/hr Documented by: Lorazepam (Ativan) 1 mg IVPUSH Q2H PRN PRN Reason: Seizures Lorazepam (Ativan) 0 mg PO ASDIRECTED [facility]; Protocol Metoprolol Succinate (Toprol Xl) 25 mg PO BID [facility] Last Admin: 04/12/20 08:32 Dose: 25 mg Documented by: Ondansetron HCl (Zofran) 4 mg IV Q4H PRN PRN Reason: Nausea/Vomiting Pantoprazole Sodium (Protonix) 40 mg PO ACBREAKFAST [facility] Last Admin: 04/12/20 08:30 Dose: 40 mg Documented by: Polyethylene Glycol (Miralax) 17 gm PO DAILY PRN PRN Reason: Constipation Potassium Chloride (Klor-Con M20) 40 meq PO ONETIME ONE Stop: 04/12/20 14:19 Prednisone (Prednisone) 10 mg PO DAILY [facility] Last Admin: 04/12/20 08:33 Dose: 10 mg Documented by: Sodium Chloride (Saline Flush) 10 ml FLUSH ASDIRECTED PRN PRN Reason: Keep Vein Open Spironolactone (Aldactone) 12.5 mg PO DAILY [facility] Last Admin: 04/12/20 08:30 Dose: 12.5 mg Documented by: Thiamine HCl (Vitamin B-1) 100 mg PO DAILY [facility] Last Admin: 04/12/20 08:31 Dose: 100 mg Documented by: Discontinued Medications Enoxaparin Sodium (Lovenox) 40 mg SUBCUT DAILY [facility] Last Admin: 04/10/20 20:51 Dose: 40 mg Documented by: Hydrocortisone Sodium Succinate (Solu-Cortef) 100 mg IVPUSH ONETIME ONE Stop: 04/10/20 17:08 Last Admin: 04/10/20 17:47 Dose: 100 mg Documented by: Levetiracetam 2,000 mg/ Sodium (Chloride) 120 mls @ 480 mls/hr IV ONETIME ONE Stop: 04/10/20 14:14 Last Admin: 04/10/20 15:11 Dose: 480 mls/hr Documented by: Sodium Chloride (Normal Saline) 93 mls @ 4 mls/sec IV ASDIRECTED [facility] Stop: 04/10/20 14:31 Last Admin: 04/10/20 14:27 Dose: 4 mls/sec Documented by: Sodium Chloride (Sodium Chloride 3%) 500 mls @ 500 mls/hr IV ASDIRECTED [facility] Stop: 04/10/20 15:15 Last Admin: 04/10/20 15:09 Dose: 500 mls/hr Documented by: Potassium Chloride 20 meq/ (Premix) 100 mls @ 50 mls/hr IV ONETIME ONE Stop: 04/10/20 16:43 Last Admin: 04/10/20 15:09 Dose: 50 mls/hr Documented by: Potassium Chloride 20 meq/ (Premix) 100 mls @ 50 mls/hr IV ONETIME ONE Stop: 04/10/20 18:21 Last Admin: 04/10/20 17:46 Dose: 50 mls/hr Documented by: Ceftriaxone Sodium 2 gm/ (Sodium Chloride) 50 mls @ 100 mls/hr IV ONETIME ONE Stop: 04/10/20 17:27 Last Admin: 04/10/20 17:17 Dose: 100 mls/hr Documented by: Potassium Chloride (Kcl 20 Meq In Water 100 Ml) Confirm Administered Dose 100 mls @ as directed .ROUTE .K-MED ONE Stop: 04/10/20 17:45 Last Admin: 04/10/20 17:49 Dose: Not Given Documented by: Potassium Chloride 20 meq/ (Premix) 100 mls @ 50 mls/hr IV Q2H [facility] Stop: 04/10/20 22:15 Last Admin: 04/10/20 22:26 Dose: 50 mls/hr Documented by: Sodium Chloride (Normal Saline) 1,000 mls @ 100 mls/hr IV ASDIRECTED [facility] Sodium Chloride (Sodium Chloride 0.45%) 1,000 mls @ 50 mls/hr IV ASDIRECTED [facility] Last Admin: 04/10/20 20:47 Dose: 50 mls/hr Documented by: Dextrose/Water (Dextrose 5% In Water) 1,000 mls @ 50 mls/hr IV ASDIRECTED [facility] Last Admin: 04/12/20 06:25 Dose: 50 mls/hr Documented by: Potassium Chloride (Kcl 20 Meq In Water 100 Ml) 100 mls @ 50 mls/hr IV Q2H [facility] Stop: 04/11/20 08:29 Last Admin: 04/11/20 06:33 Dose: 50 mls/hr Documented by: Lactated Ringer's (Ringers, Lactated) 500 mls @ 500 mls/hr IV BOLUS ONE Stop: 04/11/20 10:44 Last Admin: 04/11/20 09:46 Dose: 500 mls/hr Documented by: Iopamidol (Isovue-370 (76%)) 100 ml IV . DIRECTED RICKIE Stop: 04/10/20 14:31 Last Admin: 04/10/20 14:27 Dose: 100 ml Documented by: Lorazepam (Ativan) Confirm Administered Dose 2 mg .ROUTE .STK-MED ONE Stop: 04/10/20 13:51 Lorazepam (Ativan) 1 mg IVPUSH ONETIME ONE Stop: 04/10/20 15:10 Last Admin: 04/10/20 15:15 Dose: 1 mg Documented by: Naloxone HCl (Narcan) 0.1 mg IVPUSH ONETIME PRN PRN Reason: Oversedation Last Admin: 04/10/20 16:15 Dose: 0.1 mg Documented by: Potassium Chloride (Potassium Chloride Solution) 40 meq PO ONETIME ONE Stop: 04/10/20 23:58 Last Admin: 04/11/20 00:11 Dose: 40 meq Documented by: Potassium Chloride (Potassium Chloride Solution) 40 meq PO ONETIME ONE Stop: 04/12/20 08:46 Last Admin: 04/12/20 10:07 Dose: 40 meq Documented by: Sodium Chloride (Saline Flush) 10 ml FLUSH ONETIME PRN PRN Reason: per radiology protocol Stop: 04/10/20 14:17 Last Admin: 04/10/20 14:27 Dose: 10 ml Documented by: - Exam Quality Assessment: DVT Prophylaxis General: Alert, Cooperative, Mild Distress. No: Oriented Lungs: Clear to Auscultation, Normal Respiratory Effort Cardiovascular: Regular Rate, Regular Rhythm, No Murmurs GI/Abdominal Exam: Soft, Non-Tender, No Organomegaly, No Distention Extremities: Non-Tender, No Pedal Edema Sepsis Event Note - Evaluation Sepsis Screening Result: No Definite Risk - Focused Exam Vital Signs: Vital Signs Temp Pulse Pulse Resp BP BP Pulse Ox 04/12/20 11:38 98.3 F 82 20 117/72 96 04/12/20 10:00 97.8 F 75 21 H 98/62 97 04/12/20 08:32 71 153/72 H 04/12/20 07:59 96.9 F 77 11 L 146/76 H 98 04/12/20 06:00 17 129/71 95 04/12/20 04:00 97.7 F 15 124/76 97 - Problem List Review Problem List Initiated/Reviewed/Updated: Yes - My Orders Last 24 Hours: My Active Orders 04/11/20 17:00 cefTRIAXone [Rocephin] 1 gm Sodium Chloride 0.9% [Normal Saline] 50 ml IV Q24H 04/11/20 20:00 Enoxaparin [Lovenox] 40 mg SUBCUT Q24H 04/12/20 08:15 Sodium Chloride 0.9% [Normal Saline] 1,000 ml IV ASDIRECTED 04/12/20 14:18 Potassium Chloride [Klor-Con M20] 40 meq PO ONETIME ONE 04/12/20 17:00 BASIC METABOLIC PANEL,BMP [CHEM] Stat 04/13/20 05:00 BASIC METABOLIC PANEL,BMP [CHEM] Timed CBC WITH AUTO DIFF [HEME] Timed - Plan Plan:: ASSESSMENT AND PLAN SEVERE HYPONATREMIA-likely secondary to dehydration with volume contraction. Sodium level has improved from admission, but remains low -Reassess sodium later this afternoon and in a.m. -IV normal saline SEVERE HYPOKALEMIA-mild hypokalemia noted on labs this morning -Oral potassium replacement -Assess potassium level later this afternoon and in a.m. ENCEPHALOPATHY-likely secondary to metabolic abnormalities and urinary tract infection. CTA of the brain and neck as well as CT of the head shows no acute abnormalities. He is more alert and interactive this morning although he remains confused. -Correct electrolyte abnormalities HISTORY OF ALCOHOL USE -Monitor closely for alcohol withdrawal -Alcohol withdrawal protocol SEIZURE-likely secondary to hyponatremia -Monitor in ICU -Seizure precautions -Lorazepam as needed for recurrent seizures -Keppra load given in the emergency department URINARY TRACT [id number] jared is growing from urine, final ID and sensitivities pending -Urine and blood cultures pending -Ceftriaxone 1 g IV every 24 hours, pending culture results LACTIC ACIDOSIS-resolved ADRENAL INSUFFICIENCY -Stress dose of steroids given in the ED -Prednisone 10 mg p.o. daily DEHYDRATION-resolved MAINTENANCE ISSUES -DVT prophylaxis; Lovenox 40 mg subcu daily -GI prophylaxis; continue outpatient PPI therapy -Lopes catheter; placed to monitor urine output, remove as soon as possible -Nutrition; regular diet -Nicotine dependence; not required CODE STATUS-FULL CODE ADMISSION STATUS-patient will be admitted to inpatient status, expect at least a 2 night hospital stay for evaluation and management of problems as outlined above. At the time of this admission I do not reasonably expected evaluation and management of this problem will require more than a 96 hour hospital stay. DISPOSITION-anticipate discharge to home after the hospital stay. PRIMARY CARE PROVIDER-patient is from [place] and receives his health care there
[2020-04-12] MEDS: Nicotine 21 MG/24 Hr Patch TRDERM SCH (16:28)
[2020-04-12] MEDS: cefTRIAXone 1 GM in Sodium Chloride 0.9% 50 ML IV SCH (16:30)
[2020-04-12] MEDS: LORazepam 1 MG Tab PO SCH ×3 (16:59→21:37)
[2020-04-12] MEDS: Enoxaparin 40 MG/0.4 ML Syringe SUBCUT SCH (20:36)
[2020-04-13] MEDS: LORazepam 1 MG Tab PO SCH ×5 (01:22→19:43)
[2020-04-13] MEDS: Sodium Chloride 0.9% 1,000 ML IV SCH ×2 (07:12→18:16)
[2020-04-13] MEDS: Pantoprazole 40 MG Tab.CR PO SCH (07:36)
[2020-04-13] MEDS: Thiamine 100 MG Tab PO SCH (08:06)
[2020-04-13] MEDS: Aspirin 81 MG Tab.Chew PO SCH (08:06)
[2020-04-13] MEDS: Spironolactone 25 MG Tab PO SCH (08:06)
[2020-04-13] MEDS: Metoprolol Succinate 25 MG Tab.ER PO SCH ×2 (08:06→21:20)
[2020-04-13] MEDS: FLUoxetine 10 MG Cap PO SCH (08:06)
[2020-04-13] MEDS: predniSONE 10 MG Tab PO SCH (08:07)
[2020-04-13] MEDS: Folic Acid 1 MG Tab PO SCH (08:07)
[2020-04-13] MEDS: Nicotine 21 MG/24 Hr Patch TRDERM SCH (08:09)
--- NOTE | 2020-04-13 09:47 | PCM.PN ---
- General Info Date of Service: 04/13/20 Subjective Update: There were no acute events overnight. No recurrent seizures. Patient is more alert and interactive today but still a little bit confused. Sodium levels up to 126. Potassium level has remained normal. He did not have any fevers. His vital signs have been stable. He is a little bit tremulous today. He has not received any lorazepam for alcohol withdrawal. He is quite weak. Functional Status: Reports: Pain Controlled, Tolerating Diet - Review of Systems General: Denies: Fever Neurological: Reports: Confusion. Denies: Seizure - Patient Data Vitals - Most Recent: Last Vital Signs Temp 36.4 C 04/13/20 07:35 Pulse 100 04/13/20 08:06 Resp 16 04/13/20 07:35 BP 132/95 H 04/13/20 08:06 Pulse Ox 99 04/13/20 07:35 Weight - Most Recent: 137.1 kg I&O - Last 24 Hours: Intake & Output 04/12/20 04/13/20 04/13/20 22:59 06:59 14:59 Intake Total 801 1225 Output Total 300 175 Balance 501 1225 -175 Lab Results Last 24 Hours: Laboratory Results - last 24 hr 04/12/20 04/13/20 04/13/20 Range/Units 17:17 06:00 06:00 WBC 9.1 (4.5-11.0) K/uL RBC 4.13 L (4.30-5.90) M/uL Hgb 10.5 L D (12.0-15.0) g/dL Hct 33.1 L (40.0-54.0) % MCV 80 (80-98) fL MCH 25 L (27-31) pg MCHC 32 (32-36) % Plt Count 258 (150-400) K/uL Neut % (Auto) 79 H (36-66) % Lymph % (Auto) 10 L (24-44) % Elmore % (Auto) 6 (2-6) % Eos % (Auto) 5 H (2-4) % Baso % (Auto) 1 (0-1) % Sodium 122 L 126 L (140-148) mmol/L Potassium 5.6 H 4.5 (3.6-5.2) mmol/L Chloride 90 L 92 L (100-108) mmol/L Carbon Dioxide 28 26 (21-32) mmol/L Anion Gap 9.6 12.5 (5.0-14.0) mmol/L BUN 7 5 L (7-18) mg/dL Creatinine 1.0 0.8 (0.8-1.3) mg/dL Est Cr Clr Drug Dosing 81.11 101.39 mL/min Estimated GFR (MDRD) > 60 > 60 (>60) Glucose 95 69 L (74-106) mg/dL Calcium 7.6 L 7.9 L (8.5-10.1) mg/dL Ahmet Results Last 24 Hours: Microbiology 04/10/20 16:40 Urine Culture - Final Urine, Catheterized Klebsiella Oxytoca 04/10/20 19:25 Aerobic Blood Culture - Preliminary Blood - Arm, Left NO GROWTH AFTER 2 DAYS Anaerobic Blood Culture - Preliminary NO GROWTH AFTER 2 DAYS 04/10/20 19:20 Aerobic Blood Culture - Preliminary Blood - Venous NO GROWTH AFTER 2 DAYS Anaerobic Blood Culture - Preliminary NO GROWTH AFTER 2 DAYS Med Orders - Current: Current Medications Acetaminophen (Tylenol) 650 mg PO Q4H PRN PRN Reason: Pain (Mild 1-3)/fever Last Admin: 04/12/20 16:49 Dose: 650 mg Documented by: Albuterol (Proventil Neb Soln) 2.5 mg NEB Q4H PRN PRN Reason: Shortness Of Breath/wheezing Aspirin (Aspirin) 81 mg PO DAILY [facility] Last Admin: 04/13/20 08:06 Dose: 81 mg Documented by: Cephalexin (Keflex) 500 mg PO TID [facility] [place] Stop: 04/18/20 14:01 Enoxaparin Sodium (Lovenox) 40 mg SUBCUT Q24H [facility] [place] Last Admin: 04/12/20 20:36 Dose: 40 mg Documented by: Fluoxetine HCl (Prozac) 10 mg PO DAILY [facility] [place] Last Admin: 04/13/20 08:06 Dose: 10 mg Documented by: Folic Acid (Folic Acid) 1 mg PO DAILY [facility] [place] Last Admin: 04/13/20 08:07 Dose: 1 mg Documented by: Sodium Chloride (Normal Saline) 1,000 mls @ 75 mls/hr IV ASDIRECTED [facility] Lorazepam (Ativan) 1 mg IVPUSH Q2H PRN PRN Reason: Seizures Lorazepam (Ativan) 0 mg PO ASDIRECTED [facility]; Protocol Last Admin: 04/13/20 05:55 Dose: 1 mg Documented by: Metoprolol Succinate (Toprol Xl) 25 mg PO BID [facility] [place] Last Admin: 04/13/20 08:06 Dose: 25 mg Documented by: Nicotine (Habitrol) 21 mg TRDERM DAILY [facility] [place] Last Admin: 04/13/20 08:09 Dose: 21 mg Documented by: Ondansetron HCl (Zofran) 4 mg IV Q4H PRN PRN Reason: Nausea/Vomiting Pantoprazole Sodium (Protonix) 40 mg PO ACBREAKFAST [facility] [place] Last Admin: 04/13/20 07:36 Dose: 40 mg Documented by: Polyethylene Glycol (Miralax) 17 gm PO DAILY PRN PRN Reason: Constipation Prednisone (Prednisone) 10 mg PO DAILY [facility] [place] Last Admin: 04/13/20 08:07 Dose: 10 mg Documented by: Sodium Chloride (Saline Flush) 10 ml FLUSH ASDIRECTED PRN PRN Reason: Keep Vein Open Spironolactone (Aldactone) 12.5 mg PO DAILY [facility] [place] Last Admin: 04/13/20 08:06 Dose: 12.5 mg Documented by: Thiamine HCl (Vitamin B-1) 100 mg PO DAILY [facility] [place] Last Admin: 04/13/20 08:06 Dose: 100 mg Documented by: Discontinued Medications Enoxaparin Sodium (Lovenox) 40 mg SUBCUT DAILY [facility] [place] Last Admin: 04/10/20 20:51 Dose: 40 mg Documented by: Hydrocortisone Sodium Succinate (Solu-Cortef) 100 mg IVPUSH ONETIME ONE Stop: 04/10/20 17:08 Last Admin: 04/10/20 17:47 Dose: 100 mg Documented by: Levetiracetam 2,000 mg/ Sodium (Chloride) 120 mls @ 480 mls/hr IV ONETIME ONE Stop: 04/10/20 14:14 Last Admin: 04/10/20 15:11 Dose: 480 mls/hr Documented by: Sodium Chloride (Normal Saline) 93 mls @ 4 mls/sec IV ASDIRECTED [facility] Stop: 04/10/20 14:31 Last Admin: 04/10/20 14:27 Dose: 4 mls/sec Documented by: Sodium Chloride (Sodium Chloride 3%) 500 mls @ 500 mls/hr IV ASDIRECTED [facility] [place] Stop: 04/10/20 15:15 Last Admin: 04/10/20 15:09 Dose: 500 mls/hr Documented by: Potassium Chloride 20 meq/ (Premix) 100 mls @ 50 mls/hr IV ONETIME ONE Stop: 04/10/20 16:43 Last Admin: 04/10/20 15:09 Dose: 50 mls/hr Documented by: Potassium Chloride 20 meq/ (Premix) 100 mls @ 50 mls/hr IV ONETIME ONE Stop: 04/10/20 18:21 Last Admin: 04/10/20 17:46 Dose: 50 mls/hr Documented by: Ceftriaxone Sodium 2 gm/ (Sodium Chloride) 50 mls @ 100 mls/hr IV ONETIME ONE Stop: 04/10/20 17:27 Last Admin: 04/10/20 17:17 Dose: 100 mls/hr Documented by: Potassium Chloride (Kcl 20 Meq In Water 100 Ml) Confirm Administered Dose 100 mls @ as directed .ROUTE .STK-MED ONE Stop: 04/10/20 17:45 Last Admin: 04/10/20 17:49 Dose: Not Given Documented by: Potassium Chloride 20 meq/ (Premix) 100 mls @ 50 mls/hr IV Q2H [facility] [place] Stop: 04/10/20 22:15 Last Admin: 04/10/20 22:26 Dose: 50 mls/hr Documented by: Sodium Chloride (Normal Saline) 1,000 mls @ 100 mls/hr IV ASDIRECTED [facility] Ceftriaxone Sodium 1 gm/ (Sodium Chloride) 50 mls @ 100 mls/hr IV Q24H [facility] [place] Last Admin: 04/12/20 16:30 Dose: 100 mls/hr Documented by: Sodium Chloride (Sodium Chloride 0.45%) 1,000 mls @ 50 mls/hr IV ASDIRECTED [facility] [place] Last Admin: 04/10/20 20:47 Dose: 50 mls/hr Documented by: Dextrose/Water (Dextrose 5% In Water) 1,000 mls @ 50 mls/hr IV ASDIRECTED [facility] [place] Last Admin: 04/12/20 06:25 Dose: 50 mls/hr Documented by: Potassium Chloride (Kcl 20 Meq In Water 100 Ml) 100 mls @ 50 mls/hr IV Q2H [facility] [place] Stop: 04/11/20 08:29 Last Admin: 04/11/20 06:33 Dose: 50 mls/hr Documented by: Lactated Ringer's (Ringers, Lactated) 500 mls @ 500 mls/hr IV BOLUS ONE Stop: 04/11/20 10:44 Last Admin: 04/11/20 09:46 Dose: 500 mls/hr Documented by: Sodium Chloride (Normal Saline) 1,000 mls @ 100 mls/hr IV ASDIRECTED [facility] [place] Last Admin: 04/13/20 07:12 Dose: 100 mls/hr Documented by: Iopamidol (Isovue-370 (76%)) 100 ml IV . DIRECTED [facility] [place] Stop: 04/10/20 14:31 Last Admin: 04/10/20 14:27 Dose: 100 ml Documented by: Lorazepam (Ativan) Confirm Administered Dose 2 mg .ROUTE .STK-MED ONE Stop: 04/10/20 13:51 Lorazepam (Ativan) 1 mg IVPUSH ONETIME ONE Stop: 04/10/20 15:10 Last Admin: 04/10/20 15:15 Dose: 1 mg Documented by: Naloxone HCl (Narcan) 0.1 mg IVPUSH ONETIME PRN PRN Reason: Oversedation Last Admin: 04/10/20 16:15 Dose: 0.1 mg Documented by: Potassium Chloride (Potassium Chloride Solution) 40 meq PO ONETIME ONE Stop: 04/10/20 23:58 Last Admin: 04/11/20 00:11 Dose: 40 meq Documented by: Potassium Chloride (Potassium Chloride Solution) 40 meq PO ONETIME ONE Stop: 04/12/20 08:46 Last Admin: 04/12/20 10:07 Dose: 40 meq Documented by: Potassium Chloride (Potassium Chloride Solution) 40 meq PO ONETIME ONE Stop: 04/12/20 14:31 Last Admin: 04/12/20 14:56 Dose: 40 meq Documented by: Sodium Chloride (Saline Flush) 10 ml FLUSH ONETIME PRN PRN Reason: per radiology protocol Stop: 04/10/20 14:17 Last Admin: 04/10/20 14:27 Dose: 10 ml Documented by: - Exam Quality Assessment: No: Supplemental Oxygen General: Alert, Cooperative, No Acute Distress. No: Oriented Neck: Supple, Trachea Midline Lungs: Clear to Auscultation, Normal Respiratory Effort Cardiovascular: Regular Rate, Regular Rhythm GI/Abdominal Exam: Soft, Non-Tender, No Distention Extremities: No Pedal Edema. No: Increased Warmth Skin: Warm, Dry Psy/Mental Status: Alert. No: Agitated Sepsis Event Note - Evaluation Sepsis Screening Result: No Definite Risk - Focused Exam Vital Signs: Vital Signs Temp Pulse Pulse Resp BP BP Pulse Ox 04/13/20 08:06 100 132/95 H 04/13/20 07:35 36.4 C 88 16 132/95 H 99 04/13/20 06:00 18 150/92 H 96 04/13/20 04:00 36.1 C 19 155/95 H 97 04/13/20 02:00 16 134/74 97 04/13/20 00:00 36.5 C 16 140/92 H 98 04/12/20 22:00 17 141/96 H 100 - Problem List Review Problem List Initiated/Reviewed/Updated: Yes - My Orders Last 24 Hours: My Active Orders 04/13/20 10:00 Sodium Chloride 0.9% [Normal Saline] 1,000 ml IV ASDIRECTED 04/13/20 14:00 cephALEXin [Keflex] 500 mg PO TID 04/14/20 05:00 CBC W/O DIFF,HEMOGRAM [HEME] Timed (1) COMPREHENSIVE METABOLIC PN,CMP [CHEM] Timed MAGNESIUM [CHEM] Timed - Plan Plan:: ASSESSMENT AND PLAN SEVERE HYPONATREMIA-likely secondary to dehydration with volume contraction. Sodium level has slowly improved but not normalized. -Recheck sodium in the morning -Continue gentle IV fluids SEVERE HYPOKALEMIA-potassium level is now normal. -Oral potassium replacement -Assess potassium level in a.m. ENCEPHALOPATHY-likely secondary to metabolic abnormalities and urinary tract infection. CTA of the brain and neck as well as CT of the head shows no acute abnormalities. He is steadily improving but still little confused. -Correct electrolyte abnormalities HISTORY OF ALCOHOL USE-possible mild withdrawal at this time. -Monitor closely for alcohol withdrawal -Alcohol withdrawal protocol SEIZURE-likely secondary to hyponatremia. No recurrence. -Monitor in ICU -Seizure precautions -Lorazepam as needed for recurrent seizures URINARY TRACT INFECTION-urine culture grew out Klebsiella. Blood cultures are negative. -Change antibiotics to cephalexin LACTIC ACIDOSIS-resolved ADRENAL INSUFFICIENCY -Stress dose of steroids given in the ED -Prednisone 10 mg p.o. daily MAINTENANCE ISSUES -DVT prophylaxis; Lovenox 40 mg subcu daily -GI prophylaxis; continue outpatient PPI therapy -Lopes catheter; placed to monitor urine output, remove as soon as possible -Nutrition; regular diet DISPOSITION-anticipate discharge to home with family versus transitional care unit after the hospital stay. Filipe Min MD
[2020-04-13] MEDS: Cephalexin 250 MG Cap PO SCH ×2 (13:58→21:22)
[2020-04-13] MEDS: Enoxaparin 40 MG/0.4 ML Syringe SUBCUT SCH (21:20)
[2020-04-13] MEDS: LORazepam 2 MG/ML SDV IVPUSH PRN (21:21)
[2020-04-14] MEDS: LORazepam 2 MG/ML SDV IVPUSH PRN ×2 (01:28→21:16)
[2020-04-14] MEDS: LORazepam 1 MG Tab PO SCH ×4 (04:08→23:43)
[2020-04-14] MEDS: Sodium Chloride 0.9% 1,000 ML IV SCH ×2 (07:11→21:16)
[2020-04-14] MEDS: Pantoprazole 40 MG Tab.CR PO SCH (07:50)
[2020-04-14] MEDS: Thiamine 100 MG Tab PO SCH (08:57)
[2020-04-14] MEDS: Folic Acid 1 MG Tab PO SCH (08:57)
[2020-04-14] MEDS: Nicotine 21 MG/24 Hr Patch TRDERM SCH (08:57)
[2020-04-14] MEDS: predniSONE 10 MG Tab PO SCH (08:57)
[2020-04-14] MEDS: Metoprolol Succinate 25 MG Tab.ER PO SCH ×2 (08:57→21:04)
[2020-04-14] MEDS: Spironolactone 25 MG Tab PO SCH (08:58)
[2020-04-14] MEDS: Aspirin 81 MG Tab.Chew PO SCH (08:58)
[2020-04-14] MEDS: FLUoxetine 10 MG Cap PO SCH (08:58)
[2020-04-14] MEDS: Cephalexin 250 MG Cap PO SCH ×3 (08:58→21:03)
--- NOTE | 2020-04-14 09:24 | PCM.PN ---
- General Info Date of Service: 04/14/20 Admission Dx/Problem (Free Text): Admission Diagnosis/Problem Admission Diagnosis/Problem Hyponatremia Subjective Update: Patient remains confused to time, place and situation. Sodium levels continue to rise slowly with fluids. No recurrent seizures since admission, he has no history of seizures that he is aware of. His vital signs have remained stable and he has had no fevers. He continues to have mild tremors. He has had a six doses of lorazepam for his withdrawal symptoms in the last 24 hours. Functional Status: Reports: Pain Controlled, Tolerating Diet - Review of Systems General: Reports: Weakness HEENT: Reports: No Symptoms Pulmonary: Reports: No Symptoms. Denies: Shortness of Breath, Pleuritic Chest Pain, Cough Cardiovascular: Reports: No Symptoms. Denies: Chest Pain, Palpitations Gastrointestinal: Reports: No Symptoms Genitourinary: Reports: No Symptoms Musculoskeletal: Reports: No Symptoms Skin: Reports: No Symptoms Neurological: Reports: Confusion, Pre-Existing Deficit, Tremors. Denies: Seizure Psychiatric: Reports: Confusion. Denies: Mood Lability, Agitation, Hallucinations - Patient Data Vitals - Most Recent: Last Vital Signs Temp 97.1 F 04/14/20 08:00 Pulse 88 04/14/20 08:57 Resp 20 04/14/20 08:00 BP 127/75 04/14/20 08:57 Pulse Ox 99 04/14/20 08:00 Weight - Most Recent: 302 lb 4.06 oz I&O - Last 24 Hours: Intake & Output 04/13/20 04/14/20 04/14/20 22:59 06:59 14:59 Intake Total 1108 60 1274 Output Total 75 200 Balance 1033 -140 1274 Lab Results Last 24 Hours: Laboratory Results - last 24 hr 04/14/20 04/14/20 Range/Units 05:00 05:01 WBC 7.3 (4.5-11.0) K/uL RBC 3.31 L (4.30-5.90) M/uL Hgb 8.6 L (12.0-15.0) g/dL Hct 27.1 L (40.0-54.0) % MCV 82 (80-98) fL MCH 26 L (27-31) pg MCHC 32 (32-36) % Plt Count 244 (150-400) K/uL Sodium 129 L (140-148) mmol/L Potassium 4.7 (3.6-5.2) mmol/L Chloride 99 L (100-108) mmol/L Carbon Dioxide 21 (21-32) mmol/L Anion Gap 13.7 (5.0-14.0) mmol/L BUN 5 L (7-18) mg/dL Creatinine 0.8 (0.8-1.3) mg/dL Est Cr Clr Drug Dosing 101.64 mL/min Estimated GFR (MDRD) > 60 (>60) Glucose 56 L (74-106) mg/dL Calcium 7.7 L (8.5-10.1) mg/dL Magnesium 1.6 L (1.8-2.4) mg/dL Total Bilirubin 0.4 (0.2-1.0) mg/dL AST 31 (15-37) U/L ALT 21 (12-78) U/L Alkaline Phosphatase 140 H (46-116) U/L Total Protein 5.1 L (6.4-8.2) g/dL Albumin 2.2 L (3.4-5.0) g/dL Globulin 2.9 (2.3-3.5) g/dL Albumin/Globulin Ratio 0.8 L (1.2-2.2) Ahmet Results Last 24 Hours: Microbiology 04/10/20 19:25 Aerobic Blood Culture - Preliminary Blood - Arm, Left NO GROWTH AFTER 3 DAYS Anaerobic Blood Culture - Preliminary NO GROWTH AFTER 3 DAYS 04/10/20 19:20 Aerobic Blood Culture - Preliminary Blood - Venous NO GROWTH AFTER 3 DAYS Anaerobic Blood Culture - Preliminary NO GROWTH AFTER 3 DAYS 04/10/20 16:40 Urine Culture - Final Urine, Catheterized Klebsiella Oxytoca Med Orders - Current: Current Medications Acetaminophen (Tylenol) 650 mg PO Q4H PRN PRN Reason: Pain (Mild 1-3)/fever Last Admin: 04/12/20 16:49 Dose: 650 mg Documented by: Albuterol (Proventil Neb Soln) 2.5 mg NEB Q4H PRN PRN Reason: Shortness Of Breath/wheezing Aspirin (Aspirin) 81 mg PO DAILY [facility] Last Admin: 04/14/20 08:58 Dose: 81 mg Documented by: Cephalexin (Keflex) 500 mg PO TID [facility] Stop: 04/18/20 14:01 Last Admin: 04/14/20 08:58 Dose: 500 mg Documented by: Enoxaparin Sodium (Lovenox) 40 mg SUBCUT Q24H [facility] Last Admin: 04/13/20 21:20 Dose: 40 mg Documented by: Fluoxetine HCl (Prozac) 10 mg PO DAILY [facility] Last Admin: 04/14/20 08:58 Dose: 10 mg Documented by: Folic Acid (Folic Acid) 1 mg PO DAILY [facility] Last Admin: 04/14/20 08:57 Dose: 1 mg Documented by: Sodium Chloride (Normal Saline) 1,000 mls @ 75 mls/hr IV ASDIRECTED [facility] Last Admin: 04/14/20 07:11 Dose: 75 mls/hr Documented by: Magnesium Sulfate 2 gm/ Premix 50 mls @ 25 mls/hr IV Q6H [facility] Stop: 04/14/20 17:14 Lorazepam (Ativan) 1 mg IVPUSH Q2H PRN PRN Reason: Seizures Last Admin: 04/14/20 01:28 Dose: 1 mg Documented by: Lorazepam (Ativan) 0 mg PO ASDIRECTED [facility]; Protocol Last Admin: 04/14/20 04:08 Dose: 2 mg Documented by: Metoprolol Succinate (Toprol Xl) 25 mg PO BID [facility] Last Admin: 04/14/20 08:57 Dose: 25 mg Documented by: Nicotine (Habitrol) 21 mg TRDERM DAILY [facility] Last Admin: 04/14/20 08:57 Dose: 21 mg Documented by: Ondansetron HCl (Zofran) 4 mg IV Q4H PRN PRN Reason: Nausea/Vomiting Pantoprazole Sodium (Protonix) 40 mg PO ACBREAKFAST [facility] Last Admin: 04/14/20 07:50 Dose: 40 mg Documented by: Polyethylene Glycol (Miralax) 17 gm PO DAILY PRN PRN Reason: Constipation Prednisone (Prednisone) 10 mg PO DAILY [facility] Last Admin: 04/14/20 08:57 Dose: 10 mg Documented by: Sodium Chloride (Saline Flush) 10 ml FLUSH ASDIRECTED PRN PRN Reason: Keep Vein Open Spironolactone (Aldactone) 12.5 mg PO DAILY [facility] Last Admin: 04/14/20 08:58 Dose: 12.5 mg Documented by: Thiamine HCl (Vitamin B-1) 100 mg PO DAILY [facility] Last Admin: 04/14/20 08:57 Dose: 100 mg Documented by: Discontinued Medications Enoxaparin Sodium (Lovenox) 40 mg SUBCUT DAILY [facility] Last Admin: 04/10/20 20:51 Dose: 40 mg Documented by: Hydrocortisone Sodium Succinate (Solu-Cortef) 100 mg IVPUSH ONETIME ONE Stop: 04/10/20 17:08 Last Admin: 04/10/20 17:47 Dose: 100 mg Documented by: Levetiracetam 2,000 mg/ Sodium (Chloride) 120 mls @ 480 mls/hr IV ONETIME ONE Stop: 04/10/20 14:14 Last Admin: 04/10/20 15:11 Dose: 480 mls/hr Documented by: Sodium Chloride (Normal Saline) 93 mls @ 4 mls/sec IV ASDIRECTED [facility] Stop: 04/10/20 14:31 Last Admin: 04/10/20 14:27 Dose: 4 mls/sec Documented by: Sodium Chloride (Sodium Chloride 3%) 500 mls @ 500 mls/hr IV ASDIRECTED [facility] Stop: 04/10/20 15:15 Last Admin: 04/10/20 15:09 Dose: 500 mls/hr Documented by: Potassium Chloride 20 meq/ (Premix) 100 mls @ 50 mls/hr IV ONETIME ONE Stop: 04/10/20 16:43 Last Admin: 04/10/20 15:09 Dose: 50 mls/hr Documented by: Potassium Chloride 20 meq/ (Premix) 100 mls @ 50 mls/hr IV ONETIME ONE Stop: 04/10/20 18:21 Last Admin: 04/10/20 17:46 Dose: 50 mls/hr Documented by: Ceftriaxone Sodium 2 gm/ (Sodium Chloride) 50 mls @ 100 mls/hr IV ONETIME ONE Stop: 04/10/20 17:27 Last Admin: 04/10/20 17:17 Dose: 100 mls/hr Documented by: Potassium Chloride (Kcl 20 Meq In Water 100 Ml) Confirm Administered Dose 100 mls @ as directed .ROUTE .STK-MED ONE Stop: 04/10/20 17:45 Last Admin: 04/10/20 17:49 Dose: Not Given Documented by: Potassium Chloride 20 meq/ (Premix) 100 mls @ 50 mls/hr IV Q2H [facility] Stop: 04/10/20 22:15 Last Admin: 04/10/20 22:26 Dose: 50 mls/hr Documented by: Sodium Chloride (Normal Saline) 1,000 mls @ 100 mls/hr IV ASDIRECTED [facility] Ceftriaxone Sodium 1 gm/ (Sodium Chloride) 50 mls @ 100 mls/hr IV Q24H [facility] Last Admin: 04/12/20 16:30 Dose: 100 mls/hr Documented by: Sodium Chloride (Sodium Chloride 0.45%) 1,000 mls @ 50 mls/hr IV ASDIRECTED [facility] Last Admin: 04/10/20 20:47 Dose: 50 mls/hr Documented by: Dextrose/Water (Dextrose 5% In Water) 1,000 mls @ 50 mls/hr IV ASDIRECTED [facility] Last Admin: 04/12/20 06:25 Dose: 50 mls/hr Documented by: Potassium Chloride (Kcl 20 Meq In Water 100 Ml) 100 mls @ 50 mls/hr IV Q2H [facility] Stop: 04/11/20 08:29 Last Admin: 04/11/20 06:33 Dose: 50 mls/hr Documented by: Lactated Ringer's (Ringers, Lactated) 500 mls @ 500 mls/hr IV BOLUS ONE Stop: 04/11/20 10:44 Last Admin: 04/11/20 09:46 Dose: 500 mls/hr Documented by: Sodium Chloride (Normal Saline) 1,000 mls @ 100 mls/hr IV ASDIRECTED [facility] Last Admin: 04/13/20 07:12 Dose: 100 mls/hr Documented by: Iopamidol (Isovue-370 (76%)) 100 ml IV . DIRECTED [facility] Stop: 04/10/20 14:31 Last Admin: 04/10/20 14:27 Dose: 100 ml Documented by: Lorazepam (Ativan) Confirm Administered Dose 2 mg .ROUTE .STK-MED ONE Stop: 04/10/20 13:51 Lorazepam (Ativan) 1 mg IVPUSH ONETIME ONE Stop: 04/10/20 15:10 Last Admin: 04/10/20 15:15 Dose: 1 mg Documented by: Naloxone HCl (Narcan) 0.1 mg IVPUSH ONETIME PRN PRN Reason: Oversedation Last Admin: 04/10/20 16:15 Dose: 0.1 mg Documented by: Potassium Chloride (Potassium Chloride Solution) 40 meq PO ONETIME ONE Stop: 04/10/20 23:58 Last Admin: 04/11/20 00:11 Dose: 40 meq Documented by: Potassium Chloride (Potassium Chloride Solution) 40 meq PO ONETIME ONE Stop: 04/12/20 08:46 Last Admin: 04/12/20 10:07 Dose: 40 meq Documented by: Potassium Chloride (Potassium Chloride Solution) 40 meq PO ONETIME ONE Stop: 04/12/20 14:31 Last Admin: 04/12/20 14:56 Dose: 40 meq Documented by: Sodium Chloride (Saline Flush) 10 ml FLUSH ONETIME PRN PRN Reason: per radiology protocol Stop: 04/10/20 14:17 Last Admin: 04/10/20 14:27 Dose: 10 ml Documented by: - Exam General: Alert, Cooperative, No Acute Distress Lungs: Clear to Auscultation, Normal Respiratory Effort Cardiovascular: Regular Rate, Regular Rhythm GI/Abdominal Exam: Normal Bowel Sounds, Other (colostomy) Skin: Warm, Dry, Intact Neurological: Strength Equal Bilateral Psy/Mental Status: Alert, Normal Affect, Normal Mood, Withdrawal Symptoms. No: Anxious, Agitated, Hallucinations Sepsis Event Note - Evaluation Sepsis Screening Result: No Definite Risk - Focused Exam Vital Signs: Vital Signs Temp Pulse Pulse Resp BP BP Pulse Ox 04/14/20 08:57 88 127/75 04/14/20 08:00 97.1 F 82 20 127/75 99 04/14/20 06:00 24 H 128/79 99 04/14/20 04:00 97.2 F 20 137/78 100 04/14/20 02:00 20 120/75 100 04/14/20 00:00 97.6 F 20 119/79 99 04/13/20 22:00 15 130/87 99 04/13/20 21:20 91 132/83 - Problem List Review Problem List Initiated/Reviewed/Updated: Yes - My Orders Last 24 Hours: My Active Orders 04/14/20 09:15 Magnesium Sulfate/Water [Magnesium Sulfate in Water Premix] 2 gm Premix Bag 1 bag IV Q6H 04/15/20 05:00 BASIC METABOLIC PANEL,BMP [CHEM] Routine - Plan Plan:: ASSESSMENT AND PLAN SEVERE HYPONATREMIA-likely secondary to dehydration with volume contraction. Sodium level has slowly improved but not yet normalized. -Recheck sodium in the morning -Continue gentle IV fluids SEVERE HYPOKALEMIA-potassium level has stabilized within normal range. -Assess potassium level in a.m. ENCEPHALOPATHY-likely secondary to metabolic abnormalities and urinary tract infection. CTA of the brain and neck as well as CT of the head shows no acute abnormalities. He is steadily improving but remains confused to time, place and situtation. -Monitor and correct electrolyte abnormalities - Treat UTI HISTORY OF ALCOHOL USE-possible mild withdrawal at this time. -Monitor closely for alcohol withdrawal CIWAA -Alcohol withdrawal protocol SEIZURE-likely secondary to hyponatremia. No recurrence and no history of seizures. -Monitor in ICU -Seizure precautions -Lorazepam as needed for recurrent seizures URINARY TRACT INFECTION-urine culture grew out Klebsiella. Blood cultures are negative. -Continue cephalexin LACTIC ACIDOSIS-resolved ADRENAL INSUFFICIENCY -Stress dose of steroids given in the ED -Prednisone 10 mg p.o. daily MAINTENANCE ISSUES -DVT prophylaxis; Lovenox 40 mg subcu daily -GI prophylaxis; continue outpatient PPI therapy -Lopes catheter; Removed on 04/11/2020 -Nutrition; regular diet DISPOSITION-anticipate discharge to transitional care unit for rehab prior to home with family after this hospital stay.
--- NOTE | 2020-04-14 10:05 | PCM.PN ---
- General Info Date of Service: 04/14/20 Subjective Update: No acute events overnight. Patient is more alert and interactive today but still not sure where he is at. No complaints of pain. No recurrent seizures. Potassium level has remained normal. Sodium level is improving. Appetite is better. He is very weak. His daughter is hoping that he will be able to go to subacute rehab after the hospital stay and then ideally transition down to [facility] where she lives. Functional Status: Reports: Pain Controlled, Tolerating Diet - Review of Systems General: Reports: Weakness. Denies: Fever - Patient Data Vitals - Most Recent: Last Vital Signs Temp 36.2 C 04/14/20 08:00 Pulse 88 04/14/20 08:57 Resp 20 04/14/20 08:00 BP 127/75 04/14/20 08:57 Pulse Ox 99 04/14/20 08:00 Weight - Most Recent: 60.237 kg I&O - Last 24 Hours: Intake & Output 04/13/20 04/14/20 04/14/20 22:59 06:59 14:59 Intake Total 1108 60 1594 Output Total 75 200 375 Balance 1033 -140 1219 Lab Results Last 24 Hours: Laboratory Results - last 24 hr 04/14/20 04/14/20 Range/Units 05:00 05:01 WBC 7.3 (4.5-11.0) K/uL RBC 3.31 L (4.30-5.90) M/uL Hgb 8.6 L (12.0-15.0) g/dL Hct 27.1 L (40.0-54.0) % MCV 82 (80-98) fL MCH 26 L (27-31) pg MCHC 32 (32-36) % Plt Count 244 (150-400) K/uL Sodium 129 L (140-148) mmol/L Potassium 4.7 (3.6-5.2) mmol/L Chloride 99 L (100-108) mmol/L Carbon Dioxide 21 (21-32) mmol/L Anion Gap 13.7 (5.0-14.0) mmol/L BUN 5 L (7-18) mg/dL Creatinine 0.8 (0.8-1.3) mg/dL Est Cr Clr Drug Dosing 101.64 mL/min Estimated GFR (MDRD) > 60 (>60) Glucose 56 L (74-106) mg/dL Calcium 7.7 L (8.5-10.1) mg/dL Magnesium 1.6 L (1.8-2.4) mg/dL Total Bilirubin 0.4 (0.2-1.0) mg/dL AST 31 (15-37) U/L ALT 21 (12-78) U/L Alkaline Phosphatase 140 H (46-116) U/L Total Protein 5.1 L (6.4-8.2) g/dL Albumin 2.2 L (3.4-5.0) g/dL Globulin 2.9 (2.3-3.5) g/dL Albumin/Globulin Ratio 0.8 L (1.2-2.2) Ahmet Results Last 24 Hours: Microbiology 04/10/20 19:25 Aerobic Blood Culture - Preliminary Blood - Arm, Left NO GROWTH AFTER 3 DAYS Anaerobic Blood Culture - Preliminary NO GROWTH AFTER 3 DAYS 04/10/20 19:20 Aerobic Blood Culture - Preliminary Blood - Venous NO GROWTH AFTER 3 DAYS Anaerobic Blood Culture - Preliminary NO GROWTH AFTER 3 DAYS 04/10/20 16:40 Urine Culture - Final Urine, Catheterized Klebsiella Oxytoca Med Orders - Current: Current Medications Acetaminophen (Tylenol) 650 mg PO Q4H PRN PRN Reason: Pain (Mild 1-3)/fever Last Admin: 04/12/20 16:49 Dose: 650 mg Documented by: Albuterol (Proventil Neb Soln) 2.5 mg NEB Q4H PRN PRN Reason: Shortness Of Breath/wheezing Aspirin (Aspirin) 81 mg PO DAILY [facility] Last Admin: 04/14/20 08:58 Dose: 81 mg Documented by: Cephalexin (Keflex) 500 mg PO TID [facility] Stop: 04/18/20 14:01 Last Admin: 04/14/20 08:58 Dose: 500 mg Documented by: Enoxaparin Sodium (Lovenox) 40 mg SUBCUT Q24H [facility] Last Admin: 04/13/20 21:20 Dose: 40 mg Documented by: Fluoxetine HCl (Prozac) 10 mg PO DAILY [facility] Last Admin: 04/14/20 08:58 Dose: 10 mg Documented by: Folic Acid (Folic Acid) 1 mg PO DAILY [facility] Last Admin: 04/14/20 08:57 Dose: 1 mg Documented by: Sodium Chloride (Normal Saline) 1,000 mls @ 75 mls/hr IV ASDIRECTED [facility] Last Admin: 04/14/20 07:11 Dose: 75 mls/hr Documented by: Magnesium Sulfate 2 gm/ Premix 50 mls @ 25 mls/hr IV Q6H [facility] Stop: 04/14/20 17:59 Lorazepam (Ativan) 1 mg IVPUSH Q2H PRN PRN Reason: Seizures Last Admin: 04/14/20 01:28 Dose: 1 mg Documented by: Lorazepam (Ativan) 0 mg PO ASDIRECTED [facility]; Protocol Last Admin: 04/14/20 04:08 Dose: 2 mg Documented by: Metoprolol Succinate (Toprol Xl) 25 mg PO BID [facility] Last Admin: 04/14/20 08:57 Dose: 25 mg Documented by: Nicotine (Habitrol) 21 mg TRDERM DAILY [facility] Last Admin: 04/14/20 08:57 Dose: 21 mg Documented by: Ondansetron HCl (Zofran) 4 mg IV Q4H PRN PRN Reason: Nausea/Vomiting Pantoprazole Sodium (Protonix) 40 mg PO ACBREAKFAST [facility] Last Admin: 04/14/20 07:50 Dose: 40 mg Documented by: Polyethylene Glycol (Miralax) 17 gm PO DAILY PRN PRN Reason: Constipation Prednisone (Prednisone) 10 mg PO DAILY [facility] Last Admin: 04/14/20 08:57 Dose: 10 mg Documented by: Sodium Chloride (Saline Flush) 10 ml FLUSH ASDIRECTED PRN PRN Reason: Keep Vein Open Spironolactone (Aldactone) 12.5 mg PO DAILY [facility] Last Admin: 04/14/20 08:58 Dose: 12.5 mg Documented by: Thiamine HCl (Vitamin B-1) 100 mg PO DAILY [facility] Last Admin: 04/14/20 08:57 Dose: 100 mg Documented by: Discontinued Medications Enoxaparin Sodium (Lovenox) 40 mg SUBCUT DAILY [facility] Last Admin: 04/10/20 20:51 Dose: 40 mg Documented by: Hydrocortisone Sodium Succinate (Solu-Cortef) 100 mg IVPUSH ONETIME ONE Stop: 04/10/20 17:08 Last Admin: 04/10/20 17:47 Dose: 100 mg Documented by: Levetiracetam 2,000 mg/ Sodium (Chloride) 120 mls @ 480 mls/hr IV ONETIME ONE Stop: 04/10/20 14:14 Last Admin: 04/10/20 15:11 Dose: 480 mls/hr Documented by: Sodium Chloride (Normal Saline) 93 mls @ 4 mls/sec IV ASDIRECTED [facility] Stop: 04/10/20 14:31 Last Admin: 04/10/20 14:27 Dose: 4 mls/sec Documented by: Sodium Chloride (Sodium Chloride 3%) 500 mls @ 500 mls/hr IV ASDIRECTED [facility] Stop: 04/10/20 15:15 Last Admin: 04/10/20 15:09 Dose: 500 mls/hr Documented by: Potassium Chloride 20 meq/ (Premix) 100 mls @ 50 mls/hr IV ONETIME ONE Stop: 04/10/20 16:43 Last Admin: 04/10/20 15:09 Dose: 50 mls/hr Documented by: Potassium Chloride 20 meq/ (Premix) 100 mls @ 50 mls/hr IV ONETIME ONE Stop: 04/10/20 18:21 Last Admin: 04/10/20 17:46 Dose: 50 mls/hr Documented by: Ceftriaxone Sodium 2 gm/ (Sodium Chloride) 50 mls @ 100 mls/hr IV ONETIME ONE Stop: 04/10/20 17:27 Last Admin: 04/10/20 17:17 Dose: 100 mls/hr Documented by: Potassium Chloride (Kcl 20 Meq In Water 100 Ml) Confirm Administered Dose 100 mls @ as directed .ROUTE .STK-MED ONE Stop: 04/10/20 17:45 Last Admin: 04/10/20 17:49 Dose: Not Given Documented by: Potassium Chloride 20 meq/ (Premix) 100 mls @ 50 mls/hr IV Q2H [facility] Stop: 04/10/20 22:15 Last Admin: 04/10/20 22:26 Dose: 50 mls/hr Documented by: Sodium Chloride (Normal Saline) 1,000 mls @ 100 mls/hr IV ASDIRECTED [facility] Ceftriaxone Sodium 1 gm/ (Sodium Chloride) 50 mls @ 100 mls/hr IV Q24H [facility] Last Admin: 04/12/20 16:30 Dose: 100 mls/hr Documented by: Sodium Chloride (Sodium Chloride 0.45%) 1,000 mls @ 50 mls/hr IV ASDIRECTED [facility] Last Admin: 04/10/20 20:47 Dose: 50 mls/hr Documented by: Dextrose/Water (Dextrose 5% In Water) 1,000 mls @ 50 mls/hr IV ASDIRECTED [facility] Last Admin: 04/12/20 06:25 Dose: 50 mls/hr Documented by: Potassium Chloride (Kcl 20 Meq In Water 100 Ml) 100 mls @ 50 mls/hr IV Q2H [facility] Stop: 04/11/20 08:29 Last Admin: 04/11/20 06:33 Dose: 50 mls/hr Documented by: Lactated Ringer's (Ringers, Lactated) 500 mls @ 500 mls/hr IV BOLUS ONE Stop: 04/11/20 10:44 Last Admin: 04/11/20 09:46 Dose: 500 mls/hr Documented by: Sodium Chloride (Normal Saline) 1,000 mls @ 100 mls/hr IV ASDIRECTED [facility] Last Admin: 04/13/20 07:12 Dose: 100 mls/hr Documented by: Iopamidol (Isovue-370 (76%)) 100 ml IV . DIRECTED [facility] Stop: 04/10/20 14:31 Last Admin: 04/10/20 14:27 Dose: 100 ml Documented by: Lorazepam (Ativan) Confirm Administered Dose 2 mg .ROUTE .STK-MED ONE Stop: 04/10/20 13:51 Lorazepam (Ativan) 1 mg IVPUSH ONETIME ONE Stop: 04/10/20 15:10 Last Admin: 04/10/20 15:15 Dose: 1 mg Documented by: Naloxone HCl (Narcan) 0.1 mg IVPUSH ONETIME PRN PRN Reason: Oversedation Last Admin: 04/10/20 16:15 Dose: 0.1 mg Documented by: Potassium Chloride (Potassium Chloride Solution) 40 meq PO ONETIME ONE Stop: 04/10/20 23:58 Last Admin: 04/11/20 00:11 Dose: 40 meq Documented by: Potassium Chloride (Potassium Chloride Solution) 40 meq PO ONETIME ONE Stop: 04/12/20 08:46 Last Admin: 04/12/20 10:07 Dose: 40 meq Documented by: Potassium Chloride (Potassium Chloride Solution) 40 meq PO ONETIME ONE Stop: 04/12/20 14:31 Last Admin: 04/12/20 14:56 Dose: 40 meq Documented by: Sodium Chloride (Saline Flush) 10 ml FLUSH ONETIME PRN PRN Reason: per radiology protocol Stop: 04/10/20 14:17 Last Admin: 04/10/20 14:27 Dose: 10 ml Documented by: - Exam Quality Assessment: No: Supplemental Oxygen General: Alert, Cooperative, No Acute Distress. No: Oriented Lungs: Normal Respiratory Effort. No: Wheezing Cardiovascular: Regular Rate, Regular Rhythm GI/Abdominal Exam: Soft, No Distention Extremities: No Pedal Edema. No: Increased Warmth Skin: Warm, Dry Psy/Mental Status: Alert, Normal Affect Sepsis Event Note - Evaluation Sepsis Screening Result: No Definite Risk - Focused Exam Vital Signs: Vital Signs Temp Pulse Pulse Resp BP BP Pulse Ox 04/14/20 08:57 88 127/75 04/14/20 08:00 36.2 C 82 20 127/75 99 04/14/20 06:00 24 H 128/79 99 04/14/20 04:00 36.2 C 20 137/78 100 04/14/20 02:00 20 120/75 100 04/14/20 00:00 36.4 C 20 119/79 99 - Problem List Review Problem List Initiated/Reviewed/Updated: Yes - My Orders Last 24 Hours: My Active Orders 04/13/20 10:00 Sodium Chloride 0.9% [Normal Saline] 1,000 ml IV ASDIRECTED 04/13/20 14:00 cephALEXin [Keflex] 500 mg PO TID 04/14/20 09:09 PT Evaluation and Treatment [CONS] Routine - Plan Plan:: ASSESSMENT AND PLAN SEVERE HYPONATREMIA-likely secondary to dehydration with volume contraction. Sodium level has slowly improved but does remain a little low. -Recheck sodium in the morning -Continue gentle IV fluids today, anticipate stopping them tomorrow SEVERE HYPOKALEMIA-potassium level has normalized. -Assess potassium level in a.m. ENCEPHALOPATHY-likely secondary to chronic alcohol use, metabolic abnormalities and urinary tract infection. CTA of the brain and neck as well as CT of the head shows no acute abnormalities. He is steadily improving but still confused and somewhat disoriented. -Correct electrolyte abnormalities HISTORY OF ALCOHOL USE-possible mild withdrawal at this time. He has received a couple of doses of oral lorazepam. -Monitor closely for alcohol withdrawal -Alcohol withdrawal protocol SEIZURE-likely secondary to hyponatremia. No recurrence. -Monitor in ICU -Lorazepam as needed for recurrent seizures URINARY TRACT INFECTION-urine culture grew out Klebsiella. Blood cultures are negative. -Continue cephalexin LACTIC ACIDOSIS-resolved ADRENAL INSUFFICIENCY -Stress dose of steroids given in the ED -Prednisone 10 mg p.o. daily MAINTENANCE ISSUES -DVT prophylaxis; Lovenox 40 mg subcu daily -GI prophylaxis; continue outpatient PPI therapy -Nutrition; regular diet DISPOSITION-anticipate discharge to home with family versus transitional care unit after the hospital stay. Filipe Min MD
[2020-04-14] MEDS: Magnesium Sulfate/Water 2 GM in Premix Bag 1 BAG IV SCH ×2 (10:15→17:00)
[2020-04-14] MEDS: Acetaminophen 325 MG Tab PO PRN (18:40)
[2020-04-14] MEDS: Enoxaparin 40 MG/0.4 ML Syringe SUBCUT SCH (21:03)
[2020-04-15] MEDS: Pantoprazole 40 MG Tab.CR PO SCH (07:30)
[2020-04-15] MEDS: LORazepam 1 MG Tab PO SCH (09:22)
[2020-04-15] MEDS: Folic Acid 1 MG Tab PO SCH (09:22)
[2020-04-15] MEDS: Metoprolol Succinate 25 MG Tab.ER PO SCH ×2 (09:22→21:37)
[2020-04-15] MEDS: Cephalexin 250 MG Cap PO SCH ×3 (09:22→21:34)
[2020-04-15] MEDS: Aspirin 81 MG Tab.Chew PO SCH (09:22)
[2020-04-15] MEDS: FLUoxetine 10 MG Cap PO SCH (09:23)
[2020-04-15] MEDS: Spironolactone 25 MG Tab PO SCH (09:23)
[2020-04-15] MEDS: Thiamine 100 MG Tab PO SCH (09:23)
[2020-04-15] MEDS: predniSONE 10 MG Tab PO SCH (09:23)
[2020-04-15] MEDS: Nicotine 21 MG/24 Hr Patch TRDERM SCH (09:23)
[2020-04-15] MEDS ORDERED: Sodium Chloride 0.9% 1,000 ML IV SCH (10:15)
--- NOTE | 2020-04-15 13:25 | PCM.PN ---
- General Info Date of Service: 04/15/20 Subjective Update: No acute events overnight. Patient is feeling much better today. Still quite weak but moving a little better than yesterday. No shortness of breath or nausea. Sodium level has improved further. Potassium level still normal. No seizures. Patient is very adamant that he wants to go home soon. His daughter who is his power of land development project manager thinks that he needs to be in a subacute rehab environment. Functional Status: Reports: Pain Controlled, Tolerating Diet - Review of Systems General: Reports: Weakness. Denies: Fever Pulmonary: Denies: Shortness of Breath Neurological: Denies: Seizure - Patient Data Vitals - Most Recent: Last Vital Signs Temp 36.4 C 04/15/20 12:00 Pulse 100 04/15/20 09:22 Resp 16 04/15/20 12:00 BP 109/79 04/15/20 12:00 Pulse Ox 99 04/15/20 12:00 Weight - Most Recent: 137.1 kg I&O - Last 24 Hours: Intake & Output 04/14/20 04/15/20 04/15/20 22:59 06:59 14:59 Intake Total 1760 Output Total 300 200 200 Balance 1460 -200 -200 Lab Results Last 24 Hours: Laboratory Results - last 24 hr 04/15/20 Range/Units 04:28 Sodium 131 L (140-148) mmol/L Potassium 4.2 (3.6-5.2) mmol/L Chloride 101 (100-108) mmol/L Carbon Dioxide 20 L (21-32) mmol/L Anion Gap 14.2 H (5.0-14.0) mmol/L BUN 5 L (7-18) mg/dL Creatinine 0.8 (0.8-1.3) mg/dL Est Cr Clr Drug Dosing 101.64 mL/min Estimated GFR (MDRD) > 60 (>60) Glucose 65 L (74-106) mg/dL Calcium 7.4 L (8.5-10.1) mg/dL Ahmet Results Last 24 Hours: Microbiology 04/10/20 19:20 Aerobic Blood Culture - Preliminary Blood - Venous NO GROWTH AFTER 4 DAYS Anaerobic Blood Culture - Preliminary NO GROWTH AFTER 4 DAYS 04/10/20 19:25 Aerobic Blood Culture - Preliminary Blood - Arm, Left NO GROWTH AFTER 4 DAYS Anaerobic Blood Culture - Preliminary NO GROWTH AFTER 4 DAYS Med Orders - Current: Current Medications Acetaminophen (Tylenol) 650 mg PO Q4H PRN PRN Reason: Pain (Mild 1-3)/fever Last Admin: 04/14/20 18:40 Dose: 650 mg Documented by: Albuterol (Proventil Neb Soln) 2.5 mg NEB Q4H PRN PRN Reason: Shortness Of Breath/wheezing Aspirin (Aspirin) 81 mg PO DAILY [facility] Last Admin: 04/15/20 09:22 Dose: 81 mg Documented by: Cephalexin (Keflex) 500 mg PO TID [facility] Stop: 04/18/20 14:01 Last Admin: 04/15/20 09:22 Dose: 500 mg Documented by: Enoxaparin Sodium (Lovenox) 40 mg SUBCUT Q24H [facility] Last Admin: 04/14/20 21:03 Dose: 40 mg Documented by: Fluoxetine HCl (Prozac) 10 mg PO DAILY [facility] Last Admin: 04/15/20 09:23 Dose: 10 mg Documented by: Folic Acid (Folic Acid) 1 mg PO DAILY [facility] Last Admin: 04/15/20 09:22 Dose: 1 mg Documented by: Lorazepam (Ativan) 1 mg IVPUSH Q2H PRN PRN Reason: Seizures Last Admin: 04/14/20 21:16 Dose: 1 mg Documented by: Metoprolol Succinate (Toprol Xl) 25 mg PO BID [facility] Last Admin: 04/15/20 09:22 Dose: 25 mg Documented by: Nicotine (Habitrol) 21 mg TRDERM DAILY [facility] Last Admin: 04/15/20 09:23 Dose: 21 mg Documented by: Ondansetron HCl (Zofran) 4 mg IV Q4H PRN PRN Reason: Nausea/Vomiting Pantoprazole Sodium (Protonix) 40 mg PO ACBREAKFAST [facility] Last Admin: 04/15/20 07:30 Dose: 40 mg Documented by: Polyethylene Glycol (Miralax) 17 gm PO DAILY PRN PRN Reason: Constipation Prednisone (Prednisone) 10 mg PO DAILY [facility] Last Admin: 04/15/20 09:23 Dose: 10 mg Documented by: Sodium Chloride (Saline Flush) 10 ml FLUSH ASDIRECTED PRN PRN Reason: Keep Vein Open Spironolactone (Aldactone) 12.5 mg PO DAILY [facility] Last Admin: 04/15/20 09:23 Dose: 12.5 mg Documented by: Thiamine HCl (Vitamin B-1) 100 mg PO DAILY [facility] Last Admin: 04/15/20 09:23 Dose: 100 mg Documented by: Discontinued Medications Enoxaparin Sodium (Lovenox) 40 mg SUBCUT DAILY [facility] Last Admin: 04/10/20 20:51 Dose: 40 mg Documented by: Hydrocortisone Sodium Succinate (Solu-Cortef) 100 mg IVPUSH ONETIME ONE Stop: 04/10/20 17:08 Last Admin: 04/10/20 17:47 Dose: 100 mg Documented by: Levetiracetam 2,000 mg/ Sodium (Chloride) 120 mls @ 480 mls/hr IV ONETIME ONE Stop: 04/10/20 14:14 Last Admin: 04/10/20 15:11 Dose: 480 mls/hr Documented by: Sodium Chloride (Normal Saline) 93 mls @ 4 mls/sec IV ASDIRECTED [facility] Stop: 04/10/20 14:31 Last Admin: 04/10/20 14:27 Dose: 4 mls/sec Documented by: Sodium Chloride (Sodium Chloride 3%) 500 mls @ 500 mls/hr IV ASDIRECTED [facility] Stop: 04/10/20 15:15 Last Admin: 04/10/20 15:09 Dose: 500 mls/hr Documented by: Potassium Chloride 20 meq/ (Premix) 100 mls @ 50 mls/hr IV ONETIME ONE Stop: 04/10/20 16:43 Last Admin: 04/10/20 15:09 Dose: 50 mls/hr Documented by: Potassium Chloride 20 meq/ (Premix) 100 mls @ 50 mls/hr IV ONETIME ONE Stop: 04/10/20 18:21 Last Admin: 04/10/20 17:46 Dose: 50 mls/hr Documented by: Ceftriaxone Sodium 2 gm/ (Sodium Chloride) 50 mls @ 100 mls/hr IV ONETIME ONE Stop: 04/10/20 17:27 Last Admin: 04/10/20 17:17 Dose: 100 mls/hr Documented by: Potassium Chloride (Kcl 20 Meq In Water 100 Ml) Confirm Administered Dose 100 mls @ as directed .ROUTE .STK-MED ONE Stop: 04/10/20 17:45 Last Admin: 04/10/20 17:49 Dose: Not Given Documented by: Potassium Chloride 20 meq/ (Premix) 100 mls @ 50 mls/hr IV Q2H [facility] Stop: 04/10/20 22:15 Last Admin: 04/10/20 22:26 Dose: 50 mls/hr Documented by: Sodium Chloride (Normal Saline) 1,000 mls @ 100 mls/hr IV ASDIRECTED [facility] Ceftriaxone Sodium 1 gm/ (Sodium Chloride) 50 mls @ 100 mls/hr IV Q24H [facility] Last Admin: 04/12/20 16:30 Dose: 100 mls/hr Documented by: Sodium Chloride (Sodium Chloride 0.45%) 1,000 mls @ 50 mls/hr IV ASDIRECTED [facility] Last Admin: 04/10/20 20:47 Dose: 50 mls/hr Documented by: Dextrose/Water (Dextrose 5% In Water) 1,000 mls @ 50 mls/hr IV ASDIRECTED [facility] Last Admin: 04/12/20 06:25 Dose: 50 mls/hr Documented by: Potassium Chloride (Kcl 20 Meq In Water 100 Ml) 100 mls @ 50 mls/hr IV Q2H [facility] Stop: 04/11/20 08:29 Last Admin: 04/11/20 06:33 Dose: 50 mls/hr Documented by: Lactated Ringer's (Ringers, Lactated) 500 mls @ 500 mls/hr IV BOLUS ONE Stop: 04/11/20 10:44 Last Admin: 04/11/20 09:46 Dose: 500 mls/hr Documented by: Sodium Chloride (Normal Saline) 1,000 mls @ 100 mls/hr IV ASDIRECTED [facility] Last Admin: 04/13/20 07:12 Dose: 100 mls/hr Documented by: Sodium Chloride (Normal Saline) 1,000 mls @ 75 mls/hr IV ASDIRECTED [facility] Last Admin: 04/14/20 21:16 Dose: 75 mls/hr Documented by: Magnesium Sulfate 2 gm/ Premix 50 mls @ 25 mls/hr IV Q6H [facility] Stop: 04/14/20 17:59 Last Admin: 04/14/20 17:00 Dose: 25 mls/hr Documented by: Sodium Chloride (Normal Saline) 1,000 mls @ 25 mls/hr IV ASDIRECTED [facility] Iopamidol (Isovue-370 (76%)) 100 ml IV . DIRECTED [facility] Stop: 04/10/20 14:31 Last Admin: 04/10/20 14:27 Dose: 100 ml Documented by: Lorazepam (Ativan) Confirm Administered Dose 2 mg .ROUTE .STK-MED ONE Stop: 04/10/20 13:51 Lorazepam (Ativan) 1 mg IVPUSH ONETIME ONE Stop: 04/10/20 15:10 Last Admin: 04/10/20 15:15 Dose: 1 mg Documented by: Lorazepam (Ativan) 0 mg PO ASDIRECTED [facility]; Protocol Last Admin: 04/15/20 09:22 Dose: 1 mg Documented by: Naloxone HCl (Narcan) 0.1 mg IVPUSH ONETIME PRN PRN Reason: Oversedation Last Admin: 04/10/20 16:15 Dose: 0.1 mg Documented by: Potassium Chloride (Potassium Chloride Solution) 40 meq PO ONETIME ONE Stop: 04/10/20 23:58 Last Admin: 04/11/20 00:11 Dose: 40 meq Documented by: Potassium Chloride (Potassium Chloride Solution) 40 meq PO ONETIME ONE Stop: 04/12/20 08:46 Last Admin: 04/12/20 10:07 Dose: 40 meq Documented by: Potassium Chloride (Potassium Chloride Solution) 40 meq PO ONETIME ONE Stop: 04/12/20 14:31 Last Admin: 04/12/20 14:56 Dose: 40 meq Documented by: Sodium Chloride (Saline Flush) 10 ml FLUSH ONETIME PRN PRN Reason: per radiology protocol Stop: 04/10/20 14:17 Last Admin: 04/10/20 14:27 Dose: 10 ml Documented by: - Exam Quality Assessment: No: Supplemental Oxygen General: Alert, Oriented, Cooperative, No Acute Distress Lungs: Normal Respiratory Effort Cardiovascular: Regular Rate, Regular Rhythm GI/Abdominal Exam: Soft, No Distention Skin: Warm, Dry Psy/Mental Status: Alert, Normal Affect, Withdrawal Symptoms (mild tremor ) Sepsis Event Note - Evaluation Sepsis Screening Result: No Definite Risk - Focused Exam Vital Signs: Vital Signs Temp Pulse Resp BP BP Pulse Ox 04/15/20 12:00 36.4 C 16 109/79 99 04/15/20 10:00 18 112/80 99 04/15/20 09:22 100 143/94 H 04/15/20 08:00 36.2 C 14 153/87 H 98 04/15/20 06:00 17 148/89 H 100 04/15/20 04:00 20 157/87 H 99 04/15/20 02:00 12 119/82 100 - Problem List Review Problem List Initiated/Reviewed/Updated: Yes - My Orders Last 24 Hours: My Active Orders 04/15/20 10:15 Convert IV to Saline Lock [OM.PC] Routine 04/15/20 13:22 Transfer Patient (Change bed) [ADT] Routine 04/15/20 13:24 PT Evaluation and Treatment [CONS] Routine - Plan Plan:: ASSESSMENT AND PLAN SEVERE HYPONATREMIA-likely secondary to dehydration with volume contraction. Sodium level has steadily improved. -Recheck sodium in the morning -Saline lock IV fluids SEVERE HYPOKALEMIA-potassium level has normalized. -potassium level in a.m. ENCEPHALOPATHY-likely secondary to chronic alcohol use, metabolic abnormalities and urinary tract infection. CTA of the brain and neck as well as CT of the head shows no acute abnormalities. He is steadily improving but still mildly confused and somewhat disoriented. -Optimize electrolytes and supplement vitamins HISTORY OF ALCOHOL DEPENDENCE-possible mild withdrawal but slowly improving. -Supplement thiamine and folate SEIZURE-likely secondary to hyponatremia. No recurrence. -Lorazepam as needed for recurrent seizures URINARY TRACT INFECTION-urine culture grew out Klebsiella. Blood cultures are negative. -Continue cephalexin ADRENAL INSUFFICIENCY -Prednisone 10 mg p.o. daily MAINTENANCE ISSUES -DVT prophylaxis; Lovenox 40 mg subcu daily -GI prophylaxis; continue outpatient PPI therapy -Nutrition; regular diet DISPOSITION-anticipate discharge to home with family versus transitional care unit after the hospital stay. He is stable and safe for transfer out of the intensive care unit today. He should be ready for hospital discharge tomorrow if he is stable overnight. Filipe Min MD
--- NOTE | 2020-04-15 15:31 | PCM.PN ---
- General Info Date of Service: 04/15/20 Subjective Update: Mr. Jhaveri is feeling much better today. He is transfering with staff assist and walker to wheelchair. He denies shortness of breath, pain, cough, or fatigue. He has had no further seizures since admission, his sodium continues to improve and his potassium level remains stabilized. His primary concern is that he wants to go home today. He remains confused to time and place and does not remember our visit yesterday. His daughter, Jaylin, is his POA and feels that he should have rehab prior to returning home. He also does not have a safe home environment to return to as his cabin here is seasonal and the water is shut off now and is winterized. Functional Status: Reports: Pain Controlled, Tolerating Diet, Urinating - Review of Systems General: Reports: No Symptoms HEENT: Reports: No Symptoms Pulmonary: Reports: No Symptoms. Denies: Shortness of Breath, Pleuritic Chest Pain, Cough Cardiovascular: Reports: No Symptoms. Denies: Chest Pain, Palpitations, Dyspnea on Exertion, Edema Gastrointestinal: Reports: No Symptoms, Other (has colostomy, requires help with it by staff due to confusion.) Genitourinary: Reports: No Symptoms Musculoskeletal: Reports: Other (weakness, deconditioning, snf use of w/c) Skin: Reports: No Symptoms Neurological: Reports: Confusion, Tremors (pt. denies confussion or memory loss, however daughter notes it is apparent. ) Psychiatric: Reports: Confusion, Anxiety - Patient Data Vitals - Most Recent: Last Vital Signs Temp 97.5 F 04/15/20 12:00 Pulse 100 04/15/20 09:22 Resp 16 04/15/20 12:00 BP 109/79 04/15/20 12:00 Pulse Ox 99 04/15/20 12:00 Weight - Most Recent: 302 lb 4.06 oz I&O - Last 24 Hours: Intake & Output 04/15/20 04/15/20 04/15/20 06:59 14:59 22:59 Intake Total 200 Output Total 200 200 Balance -200 -200 200 Lab Results Last 24 Hours: Laboratory Results - last 24 hr 04/15/20 Range/Units 04:28 Sodium 131 L (140-148) mmol/L Potassium 4.2 (3.6-5.2) mmol/L Chloride 101 (100-108) mmol/L Carbon Dioxide 20 L (21-32) mmol/L Anion Gap 14.2 H (5.0-14.0) mmol/L BUN 5 L (7-18) mg/dL Creatinine 0.8 (0.8-1.3) mg/dL Est Cr Clr Drug Dosing 101.64 mL/min Estimated GFR (MDRD) > 60 (>60) Glucose 65 L (74-106) mg/dL Calcium 7.4 L (8.5-10.1) mg/dL Ahmet Results Last 24 Hours: Microbiology 04/10/20 19:20 Aerobic Blood Culture - Preliminary Blood - Venous NO GROWTH AFTER 4 DAYS Anaerobic Blood Culture - Preliminary NO GROWTH AFTER 4 DAYS 04/10/20 19:25 Aerobic Blood Culture - Preliminary Blood - Arm, Left NO GROWTH AFTER 4 DAYS Anaerobic Blood Culture - Preliminary NO GROWTH AFTER 4 DAYS Med Orders - Current: Current Medications Acetaminophen (Tylenol) 650 mg PO Q4H PRN PRN Reason: Pain (Mild 1-3)/fever Last Admin: 04/14/20 18:40 Dose: 650 mg Documented by: Albuterol (Proventil Neb Soln) 2.5 mg NEB Q4H PRN PRN Reason: Shortness Of Breath/wheezing Aspirin (Aspirin) 81 mg PO DAILY [facility] Last Admin: 04/15/20 09:22 Dose: 81 mg Documented by: Cephalexin (Keflex) 500 mg PO TID [facility] Stop: 04/18/20 14:01 Last Admin: 04/15/20 15:02 Dose: 500 mg Documented by: Enoxaparin Sodium (Lovenox) 40 mg SUBCUT Q24H [facility] Last Admin: 04/14/20 21:03 Dose: 40 mg Documented by: Fluoxetine HCl (Prozac) 10 mg PO DAILY [facility] Last Admin: 04/15/20 09:23 Dose: 10 mg Documented by: Folic Acid (Folic Acid) 1 mg PO DAILY [facility] Last Admin: 04/15/20 09:22 Dose: 1 mg Documented by: Lorazepam (Ativan) 1 mg IVPUSH Q2H PRN PRN Reason: Seizures Last Admin: 04/14/20 21:16 Dose: 1 mg Documented by: Metoprolol Succinate (Toprol Xl) 25 mg PO BID [facility] Last Admin: 04/15/20 09:22 Dose: 25 mg Documented by: Nicotine (Habitrol) 21 mg TRDERM DAILY [facility] Last Admin: 04/15/20 09:23 Dose: 21 mg Documented by: Ondansetron HCl (Zofran) 4 mg IV Q4H PRN PRN Reason: Nausea/Vomiting Pantoprazole Sodium (Protonix) 40 mg PO ACBREAKFAST [facility] Last Admin: 04/15/20 07:30 Dose: 40 mg Documented by: Polyethylene Glycol (Miralax) 17 gm PO DAILY PRN PRN Reason: Constipation Prednisone (Prednisone) 10 mg PO DAILY [facility] Last Admin: 04/15/20 09:23 Dose: 10 mg Documented by: Sodium Chloride (Saline Flush) 10 ml FLUSH ASDIRECTED PRN PRN Reason: Keep Vein Open Spironolactone (Aldactone) 12.5 mg PO DAILY [facility] Last Admin: 04/15/20 09:23 Dose: 12.5 mg Documented by: Thiamine HCl (Vitamin B-1) 100 mg PO DAILY [facility] Last Admin: 04/15/20 09:23 Dose: 100 mg Documented by: Discontinued Medications Enoxaparin Sodium (Lovenox) 40 mg SUBCUT DAILY [facility] Last Admin: 04/10/20 20:51 Dose: 40 mg Documented by: Hydrocortisone Sodium Succinate (Solu-Cortef) 100 mg IVPUSH ONETIME ONE Stop: 04/10/20 17:08 Last Admin: 04/10/20 17:47 Dose: 100 mg Documented by: Levetiracetam 2,000 mg/ Sodium (Chloride) 120 mls @ 480 mls/hr IV ONETIME ONE Stop: 04/10/20 14:14 Last Admin: 04/10/20 15:11 Dose: 480 mls/hr Documented by: Sodium Chloride (Normal Saline) 93 mls @ 4 mls/sec IV ASDIRECTED [facility] Stop: 04/10/20 14:31 Last Admin: 04/10/20 14:27 Dose: 4 mls/sec Documented by: Sodium Chloride (Sodium Chloride 3%) 500 mls @ 500 mls/hr IV ASDIRECTED [facility] Stop: 04/10/20 15:15 Last Admin: 04/10/20 15:09 Dose: 500 mls/hr Documented by: Potassium Chloride 20 meq/ (Premix) 100 mls @ 50 mls/hr IV ONETIME ONE Stop: 04/10/20 16:43 Last Admin: 04/10/20 15:09 Dose: 50 mls/hr Documented by: Potassium Chloride 20 meq/ (Premix) 100 mls @ 50 mls/hr IV ONETIME ONE Stop: 04/10/20 18:21 Last Admin: 04/10/20 17:46 Dose: 50 mls/hr Documented by: Ceftriaxone Sodium 2 gm/ (Sodium Chloride) 50 mls @ 100 mls/hr IV ONETIME ONE Stop: 04/10/20 17:27 Last Admin: 04/10/20 17:17 Dose: 100 mls/hr Documented by: Potassium Chloride (Kcl 20 Meq In Water 100 Ml) Confirm Administered Dose 100 mls @ as directed .ROUTE .STK-MED ONE Stop: 04/10/20 17:45 Last Admin: 04/10/20 17:49 Dose: Not Given Documented by: Potassium Chloride 20 meq/ (Premix) 100 mls @ 50 mls/hr IV Q2H [facility] Stop: 04/10/20 22:15 Last Admin: 04/10/20 22:26 Dose: 50 mls/hr Documented by: Sodium Chloride (Normal Saline) 1,000 mls @ 100 mls/hr IV ASDIRECTED [facility] Ceftriaxone Sodium 1 gm/ (Sodium Chloride) 50 mls @ 100 mls/hr IV Q24H [facility] Last Admin: 04/12/20 16:30 Dose: 100 mls/hr Documented by: Sodium Chloride (Sodium Chloride 0.45%) 1,000 mls @ 50 mls/hr IV ASDIRECTED [facility] Last Admin: 04/10/20 20:47 Dose: 50 mls/hr Documented by: Dextrose/Water (Dextrose 5% In Water) 1,000 mls @ 50 mls/hr IV ASDIRECTED [facility] Last Admin: 04/12/20 06:25 Dose: 50 mls/hr Documented by: Potassium Chloride (Kcl 20 Meq In Water 100 Ml) 100 mls @ 50 mls/hr IV Q2H [facility] Stop: 04/11/20 08:29 Last Admin: 04/11/20 06:33 Dose: 50 mls/hr Documented by: Lactated Ringer's (Ringers, Lactated) 500 mls @ 500 mls/hr IV BOLUS ONE Stop: 04/11/20 10:44 Last Admin: 04/11/20 09:46 Dose: 500 mls/hr Documented by: Sodium Chloride (Normal Saline) 1,000 mls @ 100 mls/hr IV ASDIRECTED [facility] Last Admin: 04/13/20 07:12 Dose: 100 mls/hr Documented by: Sodium Chloride (Normal Saline) 1,000 mls @ 75 mls/hr IV ASDIRECTED [facility] Last Admin: 04/14/20 21:16 Dose: 75 mls/hr Documented by: Magnesium Sulfate 2 gm/ Premix 50 mls @ 25 mls/hr IV Q6H [facility] Stop: 04/14/20 17:59 Last Admin: 04/14/20 17:00 Dose: 25 mls/hr Documented by: Sodium Chloride (Normal Saline) 1,000 mls @ 25 mls/hr IV ASDIRECTED [facility] Iopamidol (Isovue-370 (76%)) 100 ml IV . DIRECTED [facility] Stop: 04/10/20 14:31 Last Admin: 04/10/20 14:27 Dose: 100 ml Documented by: Lorazepam (Ativan) Confirm Administered Dose 2 mg .ROUTE .STK-MED ONE Stop: 04/10/20 13:51 Lorazepam (Ativan) 1 mg IVPUSH ONETIME ONE Stop: 04/10/20 15:10 Last Admin: 04/10/20 15:15 Dose: 1 mg Documented by: Lorazepam (Ativan) 0 mg PO ASDIRECTED [facility]; Protocol Last Admin: 04/15/20 09:22 Dose: 1 mg Documented by: Naloxone HCl (Narcan) 0.1 mg IVPUSH ONETIME PRN PRN Reason: Oversedation Last Admin: 04/10/20 16:15 Dose: 0.1 mg Documented by: Potassium Chloride (Potassium Chloride Solution) 40 meq PO ONETIME ONE Stop: 04/10/20 23:58 Last Admin: 04/11/20 00:11 Dose: 40 meq Documented by: Potassium Chloride (Potassium Chloride Solution) 40 meq PO ONETIME ONE Stop: 04/12/20 08:46 Last Admin: 04/12/20 10:07 Dose: 40 meq Documented by: Potassium Chloride (Potassium Chloride Solution) 40 meq PO ONETIME ONE Stop: 04/12/20 14:31 Last Admin: 04/12/20 14:56 Dose: 40 meq Documented by: Sodium Chloride (Saline Flush) 10 ml FLUSH ONETIME PRN PRN Reason: per radiology protocol Stop: 04/10/20 14:17 Last Admin: 04/10/20 14:27 Dose: 10 ml Documented by: - Exam Quality Assessment: No: Urine Catheter, Skin Breakdown, Restraints General: Alert. No: Oriented (disoriented to time, place and situation at times. He believes it is 2000 and that we are in [place]. Reoriented, but forgets a short while later.) Lungs: Clear to Auscultation, Normal Respiratory Effort Cardiovascular: Regular Rate, Regular Rhythm. No: Murmurs, Gallops, Rubs GI/Abdominal Exam: Normal Bowel Sounds, Soft, Non-Tender, No Organomegaly, No Mass Neurological: No New Focal Deficit Psy/Mental Status: Alert, Anxious Sepsis Event Note - Evaluation Sepsis Screening Result: No Definite Risk - Focused Exam Vital Signs: Vital Signs Temp Pulse Resp BP BP Pulse Ox 04/15/20 12:00 97.5 F 16 109/79 99 04/15/20 10:00 18 112/80 99 04/15/20 09:22 100 143/94 H 04/15/20 08:00 97.2 F 14 153/87 H 98 04/15/20 06:00 17 148/89 H 100 04/15/20 04:00 20 157/87 H 99 - Problem List Review Problem List Initiated/Reviewed/Updated: Yes - Plan Plan:: ASSESSMENT AND PLAN SEVERE HYPONATREMIA-likely secondary to dehydration with volume contraction. Sodium level has steadily improved. -Recheck sodium in the morning -Saline lock IV fluids SEVERE HYPOKALEMIA-potassium level has normalized. -potassium level in a.m. ENCEPHALOPATHY-likely secondary to chronic alcohol use, metabolic abnormalities and urinary tract infection. CTA of the brain and neck as well as CT of the head shows no acute abnormalities. He is steadily improving but still mildly confused and somewhat disoriented. -Optimize electrolytes and supplement vitamins HISTORY OF ALCOHOL DEPENDENCE-possible mild withdrawal but slowly improving. -Supplement thiamine and folate SEIZURE-likely secondary to hyponatremia. No recurrence. -Lorazepam as needed for recurrent seizures URINARY TRACT INFECTION-urine culture grew out Klebsiella. Blood cultures are negative. -Continue cephalexin ADRENAL INSUFFICIENCY -Prednisone 10 mg p.o. daily MAINTENANCE ISSUES -DVT prophylaxis; Lovenox 40 mg subcu daily -GI prophylaxis; continue outpatient PPI therapy -Nutrition; regular diet DISPOSITION-anticipate discharge to home with family versus transitional care unit after the hospital stay. He is stable and safe for transfer out of the intensive care unit today. He should be ready for hospital discharge tomorrow if he is stable overnight.
[2020-04-15] MEDS: diphenhydrAMINE 25 MG Cap PO PRN ×2 (19:18→23:23)
[2020-04-15] MEDS: LORazepam 2 MG/ML SDV IVPUSH PRN (21:34)
[2020-04-15] MEDS: Enoxaparin 40 MG/0.4 ML Syringe SUBCUT SCH (21:34)
[2020-04-15] MEDS: LORazepam 1 MG Tab PO PRN (22:11)
[2020-04-16] MEDS: diphenhydrAMINE 25 MG Cap PO PRN ×2 (03:18→10:51)
[2020-04-16] MEDS: Pantoprazole 40 MG Tab.CR PO SCH (08:01)
[2020-04-16] MEDS: FLUoxetine 10 MG Cap PO SCH (08:24)
[2020-04-16] MEDS: Aspirin 81 MG Tab.Chew PO SCH (08:24)
[2020-04-16] MEDS: predniSONE 10 MG Tab PO SCH (08:25)
[2020-04-16] MEDS: Thiamine 100 MG Tab PO SCH (08:26)
[2020-04-16] MEDS: Folic Acid 1 MG Tab PO SCH (08:28)
[2020-04-16] MEDS: Metoprolol Succinate 25 MG Tab.ER PO SCH ×2 (08:29→21:50)
[2020-04-16] MEDS: Spironolactone 25 MG Tab PO SCH (08:32)
[2020-04-16] MEDS: Nicotine 21 MG/24 Hr Patch TRDERM SCH (08:35)
[2020-04-16] MEDS: Loratadine 10 MG Tab PO PRN (08:40)
[2020-04-16] MEDS ORDERED: FLU VACC QS2020-21(6MOS UP)/PF 60 MCG/0.5 ML SYRINGE IM ONE (10:00)
[2020-04-16] MEDS: Cephalexin 250 MG Cap PO SCH (13:47)
--- NOTE | 2020-04-16 15:35 | PCM.PN ---
- General Info Date of Service: 04/16/20 Admission Dx/Problem (Free Text): Admission Diagnosis/Problem Admission Diagnosis/Problem Hyponatremia Subjective Update: Mr. Jhaveri is feeling much better today. He is transferring with staff assist and walker to wheelchair. He denies shortness of breath, pain, cough, or fatigue. He has had no further seizures since admission, his sodium continues to improve and his potassium level remains stabilized. He is pleasant and remains confused to time and place. We discussed discharge plan to go to acute rehab which he is agreeable to at this time. He had an episode overnight after the administration of Keflex with rash and shortness of breath. He was given Benadryl, which he felt received the symptoms. His Keflex has been discontinued. Functional Status: Reports: Pain Controlled, Tolerating Diet, Urinating - Review of Systems General: Reports: Weakness. Denies: Fever, Fatigue, Malaise, Chills, Night Sweats HEENT: Reports: No Symptoms Pulmonary: Reports: No Symptoms Cardiovascular: Reports: Other (raynauds). Denies: Chest Pain, Palpitations, Dyspnea on Exertion, Edema, Lightheadedness Gastrointestinal: Reports: No Symptoms Genitourinary: Reports: No Symptoms Musculoskeletal: Reports: Back Pain (chronic) Skin: Reports: Cyanosis (raynauds) - Patient Data Vitals - Most Recent: Last Vital Signs Temp 98.1 F 04/16/20 14:40 Pulse 95 04/16/20 14:40 Resp 18 04/16/20 09:18 BP 102/67 04/16/20 14:40 Pulse Ox 100 04/16/20 14:40 Weight - Most Recent: 302 lb 4.06 oz I&O - Last 24 Hours: Intake & Output 04/16/20 04/16/20 04/16/20 06:59 14:59 22:59 Intake Total 300 Output Total 225 100 Balance -225 200 Ahmet Results Last 24 Hours: Microbiology 04/10/20 19:25 Aerobic Blood Culture - Final Blood - Arm, Left NO GROWTH AFTER 5 DAYS Anaerobic Blood Culture - Final NO GROWTH AFTER 5 DAYS 04/10/20 19:20 Aerobic Blood Culture - Final Blood - Venous NO GROWTH AFTER 5 DAYS Anaerobic Blood Culture - Final NO GROWTH AFTER 5 DAYS Med Orders - Current: Current Medications Acetaminophen (Tylenol) 650 mg PO Q4H PRN PRN Reason: Pain (Mild 1-3)/fever Last Admin: 04/14/20 18:40 Dose: 650 mg Documented by: Albuterol (Proventil Neb Soln) 2.5 mg NEB Q4H PRN PRN Reason: Shortness Of Breath/wheezing Aspirin (Aspirin) 81 mg PO DAILY [facility] Last Admin: 04/16/20 08:24 Dose: 81 mg Documented by: Diphenhydramine HCl (Benadryl) 50 mg PO Q4H PRN PRN Reason: Itching Last Admin: 04/16/20 10:51 Dose: 50 mg Documented by: Enoxaparin Sodium (Lovenox) 40 mg SUBCUT Q24H [facility] Last Admin: 04/15/20 21:34 Dose: 40 mg Documented by: Fluoxetine HCl (Prozac) 10 mg PO DAILY [facility] Last Admin: 04/16/20 08:24 Dose: 10 mg Documented by: Folic Acid (Folic Acid) 1 mg PO DAILY [facility] Last Admin: 04/16/20 08:28 Dose: 1 mg Documented by: Loratadine (Claritin) 10 mg PO DAILY PRN PRN Reason: Allergies Last Admin: 04/16/20 08:40 Dose: 10 mg Documented by: Lorazepam (Ativan) 1 mg IVPUSH Q2H PRN PRN Reason: Seizures Last Admin: 04/14/20 21:16 Dose: 1 mg Documented by: Lorazepam (Ativan) 1 mg PO Q2H PRN PRN Reason: Anxiety Last Admin: 04/15/20 22:11 Dose: 1 mg Documented by: Metoprolol Succinate (Toprol Xl) 25 mg PO BID [facility] Last Admin: 04/16/20 08:29 Dose: 25 mg Documented by: Nicotine (Habitrol) 21 mg TRDERM DAILY [facility] Last Admin: 04/16/20 08:35 Dose: 21 mg Documented by: Ondansetron HCl (Zofran) 4 mg IV Q4H PRN PRN Reason: Nausea/Vomiting Pantoprazole Sodium (Protonix) 40 mg PO ACBREAKFAST [facility] Last Admin: 04/16/20 08:01 Dose: 40 mg Documented by: Polyethylene Glycol (Miralax) 17 gm PO DAILY PRN PRN Reason: Constipation Prednisone (Prednisone) 10 mg PO DAILY [facility] Last Admin: 04/16/20 08:25 Dose: 10 mg Documented by: Sodium Chloride (Saline Flush) 10 ml FLUSH ASDIRECTED PRN PRN Reason: Keep Vein Open Spironolactone (Aldactone) 12.5 mg PO DAILY [facility] Last Admin: 04/16/20 08:32 Dose: 12.5 mg Documented by: Thiamine HCl (Vitamin B-1) 100 mg PO DAILY [facility] Last Admin: 04/16/20 08:26 Dose: 100 mg Documented by: Discontinued Medications Cephalexin (Keflex) 500 mg PO TID [facility] Stop: 04/18/20 14:01 Last Admin: 04/16/20 13:47 Dose: Not Given Documented by: Enoxaparin Sodium (Lovenox) 40 mg SUBCUT DAILY [facility] Last Admin: 04/10/20 20:51 Dose: 40 mg Documented by: Hydrocortisone Sodium Succinate (Solu-Cortef) 100 mg IVPUSH ONETIME ONE Stop: 04/10/20 17:08 Last Admin: 04/10/20 17:47 Dose: 100 mg Documented by: Levetiracetam 2,000 mg/ Sodium (Chloride) 120 mls @ 480 mls/hr IV ONETIME ONE Stop: 04/10/20 14:14 Last Admin: 04/10/20 15:11 Dose: 480 mls/hr Documented by: Sodium Chloride (Normal Saline) 93 mls @ 4 mls/sec IV ASDIRECTED [facility] Stop: 04/10/20 14:31 Last Admin: 04/10/20 14:27 Dose: 4 mls/sec Documented by: Sodium Chloride (Sodium Chloride 3%) 500 mls @ 500 mls/hr IV ASDIRECTED [facility] Stop: 04/10/20 15:15 Last Admin: 04/10/20 15:09 Dose: 500 mls/hr Documented by: Potassium Chloride 20 meq/ (Premix) 100 mls @ 50 mls/hr IV ONETIME ONE Stop: 04/10/20 16:43 Last Admin: 04/10/20 15:09 Dose: 50 mls/hr Documented by: Potassium Chloride 20 meq/ (Premix) 100 mls @ 50 mls/hr IV ONETIME ONE Stop: 04/10/20 18:21 Last Admin: 04/10/20 17:46 Dose: 50 mls/hr Documented by: Ceftriaxone Sodium 2 gm/ (Sodium Chloride) 50 mls @ 100 mls/hr IV ONETIME ONE Stop: 04/10/20 17:27 Last Admin: 04/10/20 17:17 Dose: 100 mls/hr Documented by: Potassium Chloride (Kcl 20 Meq In Water 100 Ml) Confirm Administered Dose 100 mls @ as directed .ROUTE .STK-MED ONE Stop: 04/10/20 17:45 Last Admin: 04/10/20 17:49 Dose: Not Given Documented by: Potassium Chloride 20 meq/ (Premix) 100 mls @ 50 mls/hr IV Q2H [facility] Stop: 04/10/20 22:15 Last Admin: 04/10/20 22:26 Dose: 50 mls/hr Documented by: Sodium Chloride (Normal Saline) 1,000 mls @ 100 mls/hr IV ASDIRECTED [facility] Ceftriaxone Sodium 1 gm/ (Sodium Chloride) 50 mls @ 100 mls/hr IV Q24H [facility] Last Admin: 04/12/20 16:30 Dose: 100 mls/hr Documented by: Sodium Chloride (Sodium Chloride 0.45%) 1,000 mls @ 50 mls/hr IV ASDIRECTED [facility] Last Admin: 04/10/20 20:47 Dose: 50 mls/hr Documented by: Dextrose/Water (Dextrose 5% In Water) 1,000 mls @ 50 mls/hr IV ASDIRECTED [facility] Last Admin: 04/12/20 06:25 Dose: 50 mls/hr Documented by: Potassium Chloride (Kcl 20 Meq In Water 100 Ml) 100 mls @ 50 mls/hr IV Q2H [facility] Stop: 04/11/20 08:29 Last Admin: 04/11/20 06:33 Dose: 50 mls/hr Documented by: Lactated Ringer's (Ringers, Lactated) 500 mls @ 500 mls/hr IV BOLUS ONE Stop: 04/11/20 10:44 Last Admin: 04/11/20 09:46 Dose: 500 mls/hr Documented by: Sodium Chloride (Normal Saline) 1,000 mls @ 100 mls/hr IV ASDIRECTED [facility] Last Admin: 04/13/20 07:12 Dose: 100 mls/hr Documented by: Sodium Chloride (Normal Saline) 1,000 mls @ 75 mls/hr IV ASDIRECTED [facility] Last Admin: 04/14/20 21:16 Dose: 75 mls/hr Documented by: Magnesium Sulfate 2 gm/ Premix 50 mls @ 25 mls/hr IV Q6H [facility] Stop: 04/14/20 17:59 Last Admin: 04/14/20 17:00 Dose: 25 mls/hr Documented by: Sodium Chloride (Normal Saline) 1,000 mls @ 25 mls/hr IV ASDIRECTED [facility] Influenza Virus Vaccine (Pharmacy To Dose - Influenza Vaccine) 1 each IM ONETIME ONE Stop: 04/16/20 10:01 Influenza Virus Vaccine (Fluzone Quad [id number] Syringe) 60 mcg IM .ONCE ONE Stop: 04/16/20 10:01 Last Admin: 04/16/20 10:44 Dose: 60 mcg Documented by: Iopamidol (Isovue-370 (76%)) 100 ml IV . DIRECTED [facility] Stop: 04/10/20 14:31 Last Admin: 04/10/20 14:27 Dose: 100 ml Documented by: Lorazepam (Ativan) Confirm Administered Dose 2 mg .ROUTE .STK-MED ONE Stop: 04/10/20 13:51 Lorazepam (Ativan) 1 mg IVPUSH ONETIME ONE Stop: 04/10/20 15:10 Last Admin: 04/10/20 15:15 Dose: 1 mg Documented by: Lorazepam (Ativan) 0 mg PO ASDIRECTED [facility]; Protocol Last Admin: 04/15/20 09:22 Dose: 1 mg Documented by: Naloxone HCl (Narcan) 0.1 mg IVPUSH ONETIME PRN PRN Reason: Oversedation Last Admin: 04/10/20 16:15 Dose: 0.1 mg Documented by: Potassium Chloride (Potassium Chloride Solution) 40 meq PO ONETIME ONE Stop: 04/10/20 23:58 Last Admin: 04/11/20 00:11 Dose: 40 meq Documented by: Potassium Chloride (Potassium Chloride Solution) 40 meq PO ONETIME ONE Stop: 04/12/20 08:46 Last Admin: 04/12/20 10:07 Dose: 40 meq Documented by: Potassium Chloride (Potassium Chloride Solution) 40 meq PO ONETIME ONE Stop: 04/12/20 14:31 Last Admin: 04/12/20 14:56 Dose: 40 meq Documented by: Sodium Chloride (Saline Flush) 10 ml FLUSH ONETIME PRN PRN Reason: per radiology protocol Stop: 04/10/20 14:17 Last Admin: 04/10/20 14:27 Dose: 10 ml Documented by: - Exam Quality Assessment: No: Supplemental Oxygen, Central Line/PICC, Urine Catheter General: Alert, Cooperative, No Acute Distress, Other (confused to time and place) Lungs: Clear to Auscultation, Normal Respiratory Effort. No: Crackles, Rales, Rhonchi, Rub, Stridor, Wheezing Cardiovascular: Regular Rate, Regular Rhythm. No: Murmurs, Gallops, Rubs GI/Abdominal Exam: Normal Bowel Sounds, Non-Tender, No Organomegaly, No Distention, No Mass, Other (colostomy) Extremities: No Pedal Edema, Other (peripheral neuropathy and raynauds. ) Psy/Mental Status: Alert, Normal Affect, Normal Mood Sepsis Event Note - Evaluation Sepsis Screening Result: No Definite Risk - Focused Exam Vital Signs: Vital Signs Temp Pulse Pulse Resp BP BP Pulse Ox 04/16/20 14:40 98.1 F 95 102/67 100 04/16/20 09:18 100 18 04/16/20 08:29 104 H 136/82 04/16/20 08:09 97.2 F 92 136/82 97 - Problem List Review Problem List Initiated/Reviewed/Updated: Yes - Plan Plan:: ASSESSMENT AND PLAN SEVERE HYPONATREMIA-likely secondary to dehydration with volume contraction. Sodium level has steadily improved. -Recheck sodium in the morning -Saline lock IV fluids SEVERE HYPOKALEMIA-potassium level has normalized. -potassium level in a.m. ENCEPHALOPATHY-likely secondary to chronic alcohol use, metabolic abnormalities and urinary tract infection. CTA of the brain and neck as well as CT of the head shows no acute abnormalities. He is steadily improving but still mildly confused and somewhat disoriented. -Optimize electrolytes and supplement vitamins HISTORY OF ALCOHOL DEPENDENCE-possible mild withdrawal but slowly improving. -Supplement thiamine and folate SEIZURE-likely secondary to hyponatremia. No recurrence. -Lorazepam as needed for recurrent seizures URINARY TRACT INFECTION-urine culture grew out Klebsiella. Blood cultures are negative. -Cephalexin discontinued due to reaction. ADRENAL INSUFFICIENCY -Prednisone 10 mg p.o. daily MAINTENANCE ISSUES -DVT prophylaxis; Lovenox 40 mg subcu daily -GI prophylaxis; continue outpatient PPI therapy -Nutrition; regular diet DISPOSITION-anticipate discharge to home with family versus transitional care unit after the hospital stay. He is stable and safe for transfer out of the intensive care unit today.
--- NOTE | 2020-04-16 18:30 | PCM.PN ---
- General Info Date of Service: 04/16/20 Subjective Update: Overnight he had difficulty with a rash on his arms as well as some itching. This was first noticed shortly after his nighttime dose of cephalexin. He has received some Benadryl overnight and is feeling better. Patient is feeling well today and has no concerns. He is still waiting for subacute rehab placement and as of yet we do not have a safe discharge plan. Appetite good. No withdrawal symptoms. Functional Status: Reports: Pain Controlled - Patient Data Vitals - Most Recent: Last Vital Signs Temp 36.7 C 04/16/20 14:40 Pulse 95 04/16/20 14:40 Resp 18 04/16/20 09:18 BP 102/67 04/16/20 14:40 Pulse Ox 100 04/16/20 14:40 Weight - Most Recent: 137.1 kg I&O - Last 24 Hours: Intake & Output 04/16/20 04/16/20 04/16/20 06:59 14:59 22:59 Intake Total 300 Output Total 225 100 150 Balance -225 200 -150 Ahmet Results Last 24 Hours: Microbiology 04/10/20 19:25 Aerobic Blood Culture - Final Blood - Arm, Left NO GROWTH AFTER 5 DAYS Anaerobic Blood Culture - Final NO GROWTH AFTER 5 DAYS 04/10/20 19:20 Aerobic Blood Culture - Final Blood - Venous NO GROWTH AFTER 5 DAYS Anaerobic Blood Culture - Final NO GROWTH AFTER 5 DAYS Med Orders - Current: Current Medications Acetaminophen (Tylenol) 650 mg PO Q4H PRN PRN Reason: Pain (Mild 1-3)/fever Last Admin: 04/14/20 18:40 Dose: 650 mg Documented by: Albuterol (Proventil Neb Soln) 2.5 mg NEB Q4H PRN PRN Reason: Shortness Of Breath/wheezing Aspirin (Aspirin) 81 mg PO DAILY [facility] Last Admin: 04/16/20 08:24 Dose: 81 mg Documented by: Diphenhydramine HCl (Benadryl) 50 mg PO Q4H PRN PRN Reason: Itching Last Admin: 04/16/20 10:51 Dose: 50 mg Documented by: Enoxaparin Sodium (Lovenox) 40 mg SUBCUT Q24H [facility] Last Admin: 04/15/20 21:34 Dose: 40 mg Documented by: Fluoxetine HCl (Prozac) 10 mg PO DAILY [facility] Last Admin: 04/16/20 08:24 Dose: 10 mg Documented by: Folic Acid (Folic Acid) 1 mg PO DAILY [facility] Last Admin: 04/16/20 08:28 Dose: 1 mg Documented by: Loratadine (Claritin) 10 mg PO DAILY PRN PRN Reason: Allergies Last Admin: 04/16/20 08:40 Dose: 10 mg Documented by: Lorazepam (Ativan) 1 mg IVPUSH Q2H PRN PRN Reason: Seizures Last Admin: 04/14/20 21:16 Dose: 1 mg Documented by: Lorazepam (Ativan) 1 mg PO Q2H PRN PRN Reason: Anxiety Last Admin: 04/15/20 22:11 Dose: 1 mg Documented by: Metoprolol Succinate (Toprol Xl) 25 mg PO BID [facility] Last Admin: 04/16/20 08:29 Dose: 25 mg Documented by: Nicotine (Habitrol) 21 mg TRDERM DAILY [facility] Last Admin: 04/16/20 08:35 Dose: 21 mg Documented by: Ondansetron HCl (Zofran) 4 mg IV Q4H PRN PRN Reason: Nausea/Vomiting Pantoprazole Sodium (Protonix) 40 mg PO ACBREAKFAST [facility] Last Admin: 04/16/20 08:01 Dose: 40 mg Documented by: Polyethylene Glycol (Miralax) 17 gm PO DAILY PRN PRN Reason: Constipation Prednisone (Prednisone) 10 mg PO DAILY [facility] Last Admin: 04/16/20 08:25 Dose: 10 mg Documented by: Sodium Chloride (Saline Flush) 10 ml FLUSH ASDIRECTED PRN PRN Reason: Keep Vein Open Spironolactone (Aldactone) 12.5 mg PO DAILY [facility] Last Admin: 04/16/20 08:32 Dose: 12.5 mg Documented by: Thiamine HCl (Vitamin B-1) 100 mg PO DAILY [facility] Last Admin: 04/16/20 08:26 Dose: 100 mg Documented by: Discontinued Medications Cephalexin (Keflex) 500 mg PO TID [facility] Stop: 04/18/20 14:01 Last Admin: 04/16/20 13:47 Dose: Not Given Documented by: Enoxaparin Sodium (Lovenox) 40 mg SUBCUT DAILY [facility] Last Admin: 04/10/20 20:51 Dose: 40 mg Documented by: Hydrocortisone Sodium Succinate (Solu-Cortef) 100 mg IVPUSH ONETIME ONE Stop: 04/10/20 17:08 Last Admin: 04/10/20 17:47 Dose: 100 mg Documented by: Levetiracetam 2,000 mg/ Sodium (Chloride) 120 mls @ 480 mls/hr IV ONETIME ONE Stop: 04/10/20 14:14 Last Admin: 04/10/20 15:11 Dose: 480 mls/hr Documented by: Sodium Chloride (Normal Saline) 93 mls @ 4 mls/sec IV ASDIRECTED [facility] Stop: 04/10/20 14:31 Last Admin: 04/10/20 14:27 Dose: 4 mls/sec Documented by: Sodium Chloride (Sodium Chloride 3%) 500 mls @ 500 mls/hr IV ASDIRECTED [facility] Stop: 04/10/20 15:15 Last Admin: 04/10/20 15:09 Dose: 500 mls/hr Documented by: Potassium Chloride 20 meq/ (Premix) 100 mls @ 50 mls/hr IV ONETIME ONE Stop: 04/10/20 16:43 Last Admin: 04/10/20 15:09 Dose: 50 mls/hr Documented by: Potassium Chloride 20 meq/ (Premix) 100 mls @ 50 mls/hr IV ONETIME ONE Stop: 04/10/20 18:21 Last Admin: 04/10/20 17:46 Dose: 50 mls/hr Documented by: Ceftriaxone Sodium 2 gm/ (Sodium Chloride) 50 mls @ 100 mls/hr IV ONETIME ONE Stop: 04/10/20 17:27 Last Admin: 04/10/20 17:17 Dose: 100 mls/hr Documented by: Potassium Chloride (Kcl 20 Meq In Water 100 Ml) Confirm Administered Dose 100 mls @ as directed .ROUTE .STK-MED ONE Stop: 04/10/20 17:45 Last Admin: 04/10/20 17:49 Dose: Not Given Documented by: Potassium Chloride 20 meq/ (Premix) 100 mls @ 50 mls/hr IV Q2H [facility] Stop: 04/10/20 22:15 Last Admin: 04/10/20 22:26 Dose: 50 mls/hr Documented by: Sodium Chloride (Normal Saline) 1,000 mls @ 100 mls/hr IV ASDIRECTED [facility] Ceftriaxone Sodium 1 gm/ (Sodium Chloride) 50 mls @ 100 mls/hr IV Q24H [facility] Last Admin: 04/12/20 16:30 Dose: 100 mls/hr Documented by: Sodium Chloride (Sodium Chloride 0.45%) 1,000 mls @ 50 mls/hr IV ASDIRECTED [facility] Last Admin: 04/10/20 20:47 Dose: 50 mls/hr Documented by: Dextrose/Water (Dextrose 5% In Water) 1,000 mls @ 50 mls/hr IV ASDIRECTED [facility] Last Admin: 04/12/20 06:25 Dose: 50 mls/hr Documented by: Potassium Chloride (Kcl 20 Meq In Water 100 Ml) 100 mls @ 50 mls/hr IV Q2H [facility] Stop: 04/11/20 08:29 Last Admin: 04/11/20 06:33 Dose: 50 mls/hr Documented by: Lactated Ringer's (Ringers, Lactated) 500 mls @ 500 mls/hr IV BOLUS ONE Stop: 04/11/20 10:44 Last Admin: 04/11/20 09:46 Dose: 500 mls/hr Documented by: Sodium Chloride (Normal Saline) 1,000 mls @ 100 mls/hr IV ASDIRECTED [facility] Last Admin: 04/13/20 07:12 Dose: 100 mls/hr Documented by: Sodium Chloride (Normal Saline) 1,000 mls @ 75 mls/hr IV ASDIRECTED [facility] Last Admin: 04/14/20 21:16 Dose: 75 mls/hr Documented by: Magnesium Sulfate 2 gm/ Premix 50 mls @ 25 mls/hr IV Q6H [facility] Stop: 04/14/20 17:59 Last Admin: 04/14/20 17:00 Dose: 25 mls/hr Documented by: Sodium Chloride (Normal Saline) 1,000 mls @ 25 mls/hr IV ASDIRECTED [facility] Influenza Virus Vaccine (Pharmacy To Dose - Influenza Vaccine) 1 each IM ONETIME ONE Stop: 04/16/20 10:01 Influenza Virus Vaccine (Fluzone Quad [id number] Syringe) 60 mcg IM .ONCE ONE Stop: 04/16/20 10:01 Last Admin: 04/16/20 10:44 Dose: 60 mcg Documented by: Iopamidol (Isovue-370 (76%)) 100 ml IV . DIRECTED [facility] Stop: 04/10/20 14:31 Last Admin: 04/10/20 14:27 Dose: 100 ml Documented by: Lorazepam (Ativan) Confirm Administered Dose 2 mg .ROUTE .STK-MED ONE Stop: 04/10/20 13:51 Lorazepam (Ativan) 1 mg IVPUSH ONETIME ONE Stop: 04/10/20 15:10 Last Admin: 04/10/20 15:15 Dose: 1 mg Documented by: Lorazepam (Ativan) 0 mg PO ASDIRECTED [facility]; Protocol Last Admin: 04/15/20 09:22 Dose: 1 mg Documented by: Naloxone HCl (Narcan) 0.1 mg IVPUSH ONETIME PRN PRN Reason: Oversedation Last Admin: 04/10/20 16:15 Dose: 0.1 mg Documented by: Potassium Chloride (Potassium Chloride Solution) 40 meq PO ONETIME ONE Stop: 04/10/20 23:58 Last Admin: 04/11/20 00:11 Dose: 40 meq Documented by: Potassium Chloride (Potassium Chloride Solution) 40 meq PO ONETIME ONE Stop: 04/12/20 08:46 Last Admin: 04/12/20 10:07 Dose: 40 meq Documented by: Potassium Chloride (Potassium Chloride Solution) 40 meq PO ONETIME ONE Stop: 04/12/20 14:31 Last Admin: 04/12/20 14:56 Dose: 40 meq Documented by: Sodium Chloride (Saline Flush) 10 ml FLUSH ONETIME PRN PRN Reason: per radiology protocol Stop: 04/10/20 14:17 Last Admin: 04/10/20 14:27 Dose: 10 ml Documented by: - Exam Quality Assessment: No: Supplemental Oxygen General: Alert, Oriented, Cooperative, No Acute Distress Lungs: Normal Respiratory Effort Cardiovascular: Regular Rate, Regular Rhythm GI/Abdominal Exam: Soft, No Distention Extremities: No Pedal Edema Skin: Warm, Dry Psy/Mental Status: Alert, Normal Affect Sepsis Event Note - Evaluation Sepsis Screening Result: No Definite Risk - Focused Exam Vital Signs: Vital Signs Temp Pulse Pulse Resp BP BP Pulse Ox 04/16/20 14:40 36.7 C 95 102/67 100 04/16/20 09:18 100 18 04/16/20 08:29 104 H 136/82 04/16/20 08:09 36.2 C 92 136/82 97 - Problem List Review Problem List Initiated/Reviewed/Updated: Yes - My Orders Last 24 Hours: My Active Orders 04/16/20 02:12 Influenza Vaccine Charge [RC] .DISCHARGE - Plan Plan:: ASSESSMENT AND PLAN SEVERE HYPONATREMIA-improved with hydration. -Saline lock IV fluids SEVERE HYPOKALEMIA-potassium level has normalized. -potassium level in a.m. ENCEPHALOPATHY-likely secondary to chronic alcohol use, metabolic abnormalities and urinary tract infection. CTA of the brain and neck as well as CT of the head shows no acute abnormalities. Back to baseline. -Optimize electrolytes and supplement vitamins HISTORY OF ALCOHOL DEPENDENCE-no evidence for withdrawal. -Supplement thiamine and folate SEIZURE-likely secondary to hyponatremia. No recurrence. -Lorazepam as needed for recurrent seizures URINARY TRACT INFECTION-urine culture grew out Klebsiella. Blood cultures are negative. He has completed adequate therapy. -Discontinue antibiotics ADRENAL INSUFFICIENCY -Prednisone 10 mg p.o. daily MAINTENANCE ISSUES -DVT prophylaxis; Lovenox 40 mg subcu daily -GI prophylaxis; continue outpatient PPI therapy -Nutrition; regular diet DISPOSITION-anticipate discharge to home with family versus transitional care unit after the hospital stay. He is ready for hospital discharge when a safe plan can be established. Filipe Min MD
[2020-04-16] MEDS: Enoxaparin 40 MG/0.4 ML Syringe SUBCUT SCH (21:48)
[2020-04-16] MEDS: Cyclobenzaprine 10 MG Tab PO PRN (21:50)
[2020-04-17] MEDS: Pantoprazole 40 MG Tab.CR PO SCH (07:44)
[2020-04-17] MEDS: Cyclobenzaprine 10 MG Tab PO PRN ×2 (07:44→14:26)
[2020-04-17] MEDS: Metoprolol Succinate 25 MG Tab.ER PO SCH ×2 (08:00→20:53)
[2020-04-17] MEDS: Spironolactone 25 MG Tab PO SCH (08:01)
[2020-04-17] MEDS: FLUoxetine 10 MG Cap PO SCH (08:02)
[2020-04-17] MEDS: Thiamine 100 MG Tab PO SCH (08:03)
[2020-04-17] MEDS: Folic Acid 1 MG Tab PO SCH (08:03)
[2020-04-17] MEDS: Aspirin 81 MG Tab.Chew PO SCH (08:04)
[2020-04-17] MEDS: predniSONE 10 MG Tab PO SCH (08:04)
[2020-04-17] MEDS: Nicotine 21 MG/24 Hr Patch TRDERM SCH (08:04)
[2020-04-17] MEDS: Loratadine 10 MG Tab PO PRN (09:01)
--- NOTE | 2020-04-17 13:29 | PCM.PN ---
- General Info Date of Service: 04/17/20 Subjective Update: No acute events overnight. Patient feels well. No concerns today. Vitals have all been stable. He is working with physical therapy. We are waiting for discharge plan to subacute rehab. Multiple referrals have been made by discharge planning. Functional Status: Reports: Pain Controlled, Tolerating Diet - Review of Systems General: Denies: Fever - Patient Data Vitals - Most Recent: Last Vital Signs Temp 36.2 C 04/17/20 10:58 Pulse 86 04/17/20 10:58 Resp 18 04/17/20 10:58 BP 122/74 04/17/20 10:58 Pulse Ox 100 04/17/20 11:29 Weight - Most Recent: 137.1 kg I&O - Last 24 Hours: Intake & Output 04/16/20 04/17/20 04/17/20 22:59 06:59 14:59 Intake Total 400 140 Output Total 150 400 Balance -150 0 140 Med Orders - Current: Current Medications Acetaminophen (Tylenol) 650 mg PO Q4H PRN PRN Reason: Pain (Mild 1-3)/fever Last Admin: 04/14/20 18:40 Dose: 650 mg Documented by: Albuterol (Proventil Neb Soln) 2.5 mg NEB Q4H PRN PRN Reason: Shortness Of Breath/wheezing Aspirin (Aspirin) 81 mg PO DAILY [facility] Last Admin: 04/17/20 08:04 Dose: 81 mg Documented by: Cyclobenzaprine HCl (Flexeril) 10 mg PO TID PRN PRN Reason: Muscle Spasm Last Admin: 04/17/20 07:44 Dose: 10 mg Documented by: Diphenhydramine HCl (Benadryl) 50 mg PO Q4H PRN PRN Reason: Itching Last Admin: 04/16/20 10:51 Dose: 50 mg Documented by: Enoxaparin Sodium (Lovenox) 40 mg SUBCUT Q24H [facility] Last Admin: 04/16/20 21:48 Dose: 40 mg Documented by: Fluoxetine HCl (Prozac) 10 mg PO DAILY [facility] Last Admin: 04/17/20 08:02 Dose: 10 mg Documented by: Folic Acid (Folic Acid) 1 mg PO DAILY [facility] Last Admin: 04/17/20 08:03 Dose: 1 mg Documented by: Loratadine (Claritin) 10 mg PO DAILY PRN PRN Reason: Allergies Last Admin: 04/17/20 09:01 Dose: 10 mg Documented by: Lorazepam (Ativan) 1 mg IVPUSH Q2H PRN PRN Reason: Seizures Last Admin: 04/14/20 21:16 Dose: 1 mg Documented by: Lorazepam (Ativan) 1 mg PO Q2H PRN PRN Reason: Anxiety Last Admin: 04/15/20 22:11 Dose: 1 mg Documented by: Metoprolol Succinate (Toprol Xl) 25 mg PO BID [facility] Last Admin: 04/17/20 08:00 Dose: 25 mg Documented by: Nicotine (Habitrol) 21 mg TRDERM DAILY [facility] Last Admin: 04/17/20 08:04 Dose: 21 mg Documented by: Ondansetron HCl (Zofran) 4 mg IV Q4H PRN PRN Reason: Nausea/Vomiting Pantoprazole Sodium (Protonix) 40 mg PO ACBREAKFAST [facility] Last Admin: 04/17/20 07:44 Dose: 40 mg Documented by: Polyethylene Glycol (Miralax) 17 gm PO DAILY PRN PRN Reason: Constipation Prednisone (Prednisone) 10 mg PO DAILY [facility] Last Admin: 04/17/20 08:04 Dose: 10 mg Documented by: Sodium Chloride (Saline Flush) 10 ml FLUSH ASDIRECTED PRN PRN Reason: Keep Vein Open Spironolactone (Aldactone) 12.5 mg PO DAILY [facility] Last Admin: 04/17/20 08:01 Dose: 12.5 mg Documented by: Thiamine HCl (Vitamin B-1) 100 mg PO DAILY [facility] Last Admin: 04/17/20 08:03 Dose: 100 mg Documented by: Discontinued Medications Cephalexin (Keflex) 500 mg PO TID [facility] Stop: 04/18/20 14:01 Last Admin: 04/16/20 13:47 Dose: Not Given Documented by: Enoxaparin Sodium (Lovenox) 40 mg SUBCUT DAILY [facility] Last Admin: 04/10/20 20:51 Dose: 40 mg Documented by: Hydrocortisone Sodium Succinate (Solu-Cortef) 100 mg IVPUSH ONETIME ONE Stop: 04/10/20 17:08 Last Admin: 04/10/20 17:47 Dose: 100 mg Documented by: Levetiracetam 2,000 mg/ Sodium (Chloride) 120 mls @ 480 mls/hr IV ONETIME ONE Stop: 04/10/20 14:14 Last Admin: 04/10/20 15:11 Dose: 480 mls/hr Documented by: Sodium Chloride (Normal Saline) 93 mls @ 4 mls/sec IV ASDIRECTED [facility] Stop: 04/10/20 14:31 Last Admin: 04/10/20 14:27 Dose: 4 mls/sec Documented by: Sodium Chloride (Sodium Chloride 3%) 500 mls @ 500 mls/hr IV ASDIRECTED [facility] Stop: 04/10/20 15:15 Last Admin: 04/10/20 15:09 Dose: 500 mls/hr Documented by: Potassium Chloride 20 meq/ (Premix) 100 mls @ 50 mls/hr IV ONETIME ONE Stop: 04/10/20 16:43 Last Admin: 04/10/20 15:09 Dose: 50 mls/hr Documented by: Potassium Chloride 20 meq/ (Premix) 100 mls @ 50 mls/hr IV ONETIME ONE Stop: 04/10/20 18:21 Last Admin: 04/10/20 17:46 Dose: 50 mls/hr Documented by: Ceftriaxone Sodium 2 gm/ (Sodium Chloride) 50 mls @ 100 mls/hr IV ONETIME ONE Stop: 04/10/20 17:27 Last Admin: 04/10/20 17:17 Dose: 100 mls/hr Documented by: Potassium Chloride (Kcl 20 Meq In Water 100 Ml) Confirm Administered Dose 100 mls @ as directed .ROUTE .STK-MED ONE Stop: 04/10/20 17:45 Last Admin: 04/10/20 17:49 Dose: Not Given Documented by: Potassium Chloride 20 meq/ (Premix) 100 mls @ 50 mls/hr IV Q2H [facility] Stop: 04/10/20 22:15 Last Admin: 04/10/20 22:26 Dose: 50 mls/hr Documented by: Sodium Chloride (Normal Saline) 1,000 mls @ 100 mls/hr IV ASDIRECTED [facility] Ceftriaxone Sodium 1 gm/ (Sodium Chloride) 50 mls @ 100 mls/hr IV Q24H [facility] Last Admin: 04/12/20 16:30 Dose: 100 mls/hr Documented by: Sodium Chloride (Sodium Chloride 0.45%) 1,000 mls @ 50 mls/hr IV ASDIRECTED [facility] Last Admin: 04/10/20 20:47 Dose: 50 mls/hr Documented by: Dextrose/Water (Dextrose 5% In Water) 1,000 mls @ 50 mls/hr IV ASDIRECTED [facility] Last Admin: 04/12/20 06:25 Dose: 50 mls/hr Documented by: Potassium Chloride (Kcl 20 Meq In Water 100 Ml) 100 mls @ 50 mls/hr IV Q2H [facility] Stop: 04/11/20 08:29 Last Admin: 04/11/20 06:33 Dose: 50 mls/hr Documented by: Lactated Ringer's (Ringers, Lactated) 500 mls @ 500 mls/hr IV BOLUS ONE Stop: 04/11/20 10:44 Last Admin: 04/11/20 09:46 Dose: 500 mls/hr Documented by: Sodium Chloride (Normal Saline) 1,000 mls @ 100 mls/hr IV ASDIRECTED [facility] Last Admin: 04/13/20 07:12 Dose: 100 mls/hr Documented by: Sodium Chloride (Normal Saline) 1,000 mls @ 75 mls/hr IV ASDIRECTED [facility] Last Admin: 04/14/20 21:16 Dose: 75 mls/hr Documented by: Magnesium Sulfate 2 gm/ Premix 50 mls @ 25 mls/hr IV Q6H [facility] Stop: 04/14/20 17:59 Last Admin: 04/14/20 17:00 Dose: 25 mls/hr Documented by: Sodium Chloride (Normal Saline) 1,000 mls @ 25 mls/hr IV ASDIRECTED [facility] Influenza Virus Vaccine (Pharmacy To Dose - Influenza Vaccine) 1 each IM ONETIME ONE Stop: 04/16/20 10:01 Influenza Virus Vaccine (Fluzone Quad [id number] Syringe) 60 mcg IM .ONCE ONE Stop: 04/16/20 10:01 Last Admin: 04/16/20 10:44 Dose: 60 mcg Documented by: Iopamidol (Isovue-370 (76%)) 100 ml IV . DIRECTED [facility] Stop: 04/10/20 14:31 Last Admin: 04/10/20 14:27 Dose: 100 ml Documented by: Lorazepam (Ativan) Confirm Administered Dose 2 mg .ROUTE .STK-MED ONE Stop: 04/10/20 13:51 Lorazepam (Ativan) 1 mg IVPUSH ONETIME ONE Stop: 04/10/20 15:10 Last Admin: 04/10/20 15:15 Dose: 1 mg Documented by: Lorazepam (Ativan) 0 mg PO ASDIRECTED [facility]; Protocol Last Admin: 04/15/20 09:22 Dose: 1 mg Documented by: Naloxone HCl (Narcan) 0.1 mg IVPUSH ONETIME PRN PRN Reason: Oversedation Last Admin: 04/10/20 16:15 Dose: 0.1 mg Documented by: Potassium Chloride (Potassium Chloride Solution) 40 meq PO ONETIME ONE Stop: 04/10/20 23:58 Last Admin: 04/11/20 00:11 Dose: 40 meq Documented by: Potassium Chloride (Potassium Chloride Solution) 40 meq PO ONETIME ONE Stop: 04/12/20 08:46 Last Admin: 04/12/20 10:07 Dose: 40 meq Documented by: Potassium Chloride (Potassium Chloride Solution) 40 meq PO ONETIME ONE Stop: 04/12/20 14:31 Last Admin: 04/12/20 14:56 Dose: 40 meq Documented by: Sodium Chloride (Saline Flush) 10 ml FLUSH ONETIME PRN PRN Reason: per radiology protocol Stop: 04/10/20 14:17 Last Admin: 04/10/20 14:27 Dose: 10 ml Documented by: - Exam Quality Assessment: No: Supplemental Oxygen General: Alert, Oriented, Cooperative, No Acute Distress Lungs: Normal Respiratory Effort GI/Abdominal Exam: Soft, No Distention Extremities: No Pedal Edema Psy/Mental Status: Alert, Normal Affect Sepsis Event Note - Evaluation Sepsis Screening Result: No Definite Risk - Focused Exam Vital Signs: Vital Signs Temp Pulse Pulse Resp BP BP Pulse Ox 04/17/20 11:29 100 04/17/20 10:58 36.2 C 86 18 122/74 04/17/20 08:00 80 144/88 H 04/17/20 07:00 35.6 C L 83 18 144/89 H 100 04/17/20 03:00 35.9 C L 90 16 144/88 H 100 - Problem List Review Problem List Initiated/Reviewed/Updated: Yes - Plan Plan:: ASSESSMENT AND PLAN SEVERE HYPONATREMIA-improved with hydration. -Saline lock IV fluids SEVERE HYPOKALEMIA-potassium level has normalized. ENCEPHALOPATHY-likely secondary to chronic alcohol use, metabolic abnormalities and urinary tract infection. CTA of the brain and neck as well as CT of the head shows no acute abnormalities. Back to baseline. -Optimize electrolytes and supplement vitamins HISTORY OF ALCOHOL DEPENDENCE-no evidence for withdrawal. -Supplement thiamine and folate SEIZURE-likely secondary to hyponatremia. No recurrence. -Lorazepam as needed for recurrent seizures URINARY TRACT INFECTION-urine culture grew out Klebsiella. Blood cultures are negative. He has completed adequate therapy. ADRENAL INSUFFICIENCY -Prednisone 10 mg p.o. daily MAINTENANCE ISSUES -DVT prophylaxis; Lovenox 40 mg subcu daily -GI prophylaxis; continue outpatient PPI therapy -Nutrition; regular diet DISPOSITION-anticipate discharge to home with family versus transitional care unit after the hospital stay. He is ready for hospital discharge when a safe plan can be established. Filipe Min MD
[2020-04-17] MEDS: diphenhydrAMINE 25 MG Cap PO PRN ×2 (14:26→18:30)
[2020-04-17] MEDS: Enoxaparin 40 MG/0.4 ML Syringe SUBCUT SCH (20:53)
[2020-04-18] MEDS: Cyclobenzaprine 10 MG Tab PO PRN (09:10)
[2020-04-18] MEDS: Acetaminophen 325 MG Tab PO PRN (09:10)
[2020-04-18] MEDS: Thiamine 100 MG Tab PO SCH (10:19)
[2020-04-18] MEDS: Folic Acid 1 MG Tab PO SCH (10:19)
[2020-04-18] MEDS: Spironolactone 25 MG Tab PO SCH (10:20)
[2020-04-18] MEDS: FLUoxetine 10 MG Cap PO SCH (10:20)
[2020-04-18] MEDS: Pantoprazole 40 MG Tab.CR PO SCH (10:20)
[2020-04-18] MEDS: predniSONE 10 MG Tab PO SCH (10:20)
[2020-04-18] MEDS: Nicotine 21 MG/24 Hr Patch TRDERM SCH (10:21)
[2020-04-18] MEDS: Metoprolol Succinate 25 MG Tab.ER PO SCH ×2 (10:21→21:36)
--- NOTE | 2020-04-18 12:01 | PCM.PN ---
- General Info Date of Service: 04/18/20 Subjective Update: No acute events overnight. Patient feels well and has no concerns. Eating well. Still weak but slowly improving. Waiting for Monday when hopefully we will have a safe discharge plan. Functional Status: Reports: Pain Controlled, Tolerating Diet - Review of Systems General: Reports: Weakness - Patient Data Vitals - Most Recent: Last Vital Signs Temp 35.2 C L 04/18/20 11:00 Pulse 84 04/18/20 11:00 Resp 18 04/18/20 11:00 BP 129/81 04/18/20 11:00 Pulse Ox 94 L 04/18/20 11:00 Weight - Most Recent: 59.874 kg I&O - Last 24 Hours: Intake & Output 04/17/20 04/18/20 04/18/20 22:59 06:59 14:59 Intake Total 245 300 500 Output Total 125 900 Balance 120 300 -400 Med Orders - Current: Current Medications Acetaminophen (Tylenol) 650 mg PO Q4H PRN PRN Reason: Pain (Mild 1-3)/fever Last Admin: 04/18/20 09:10 Dose: 650 mg Documented by: Albuterol (Proventil Neb Soln) 2.5 mg NEB Q4H PRN PRN Reason: Shortness Of Breath/wheezing Aspirin (Aspirin) 81 mg PO DAILY [facility] Last Admin: 04/17/20 08:04 Dose: 81 mg Documented by: Cyclobenzaprine HCl (Flexeril) 10 mg PO TID PRN PRN Reason: Muscle Spasm Last Admin: 04/18/20 09:10 Dose: 10 mg Documented by: Diphenhydramine HCl (Benadryl) 50 mg PO Q4H PRN PRN Reason: Itching Last Admin: 04/17/20 18:30 Dose: 50 mg Documented by: Enoxaparin Sodium (Lovenox) 40 mg SUBCUT Q24H [facility] Last Admin: 04/17/20 20:53 Dose: 40 mg Documented by: Fluoxetine HCl (Prozac) 10 mg PO DAILY [facility] Last Admin: 04/18/20 10:20 Dose: 10 mg Documented by: Folic Acid (Folic Acid) 1 mg PO DAILY [facility] Last Admin: 04/18/20 10:19 Dose: 1 mg Documented by: Loratadine (Claritin) 10 mg PO DAILY PRN PRN Reason: Allergies Last Admin: 04/17/20 09:01 Dose: 10 mg Documented by: Lorazepam (Ativan) 1 mg IVPUSH Q2H PRN PRN Reason: Seizures Last Admin: 04/14/20 21:16 Dose: 1 mg Documented by: Lorazepam (Ativan) 1 mg PO Q2H PRN PRN Reason: Anxiety Last Admin: 04/15/20 22:11 Dose: 1 mg Documented by: Metoprolol Succinate (Toprol Xl) 25 mg PO BID [facility] Last Admin: 04/18/20 10:21 Dose: 25 mg Documented by: Nicotine (Habitrol) 21 mg TRDERM DAILY [facility] Last Admin: 04/18/20 10:21 Dose: 21 mg Documented by: Ondansetron HCl (Zofran) 4 mg IV Q4H PRN PRN Reason: Nausea/Vomiting Pantoprazole Sodium (Protonix) 40 mg PO ACBREAKFAST [facility] Last Admin: 04/18/20 10:20 Dose: 40 mg Documented by: Polyethylene Glycol (Miralax) 17 gm PO DAILY PRN PRN Reason: Constipation Prednisone (Prednisone) 10 mg PO DAILY [facility] Last Admin: 04/18/20 10:20 Dose: 10 mg Documented by: Sodium Chloride (Saline Flush) 10 ml FLUSH ASDIRECTED PRN PRN Reason: Keep Vein Open Spironolactone (Aldactone) 12.5 mg PO DAILY [facility] Last Admin: 04/18/20 10:20 Dose: 12.5 mg Documented by: Thiamine HCl (Vitamin B-1) 100 mg PO DAILY [facility] Last Admin: 04/18/20 10:19 Dose: 100 mg Documented by: Discontinued Medications Cephalexin (Keflex) 500 mg PO TID [facility] Stop: 04/18/20 14:01 Last Admin: 04/16/20 13:47 Dose: Not Given Documented by: Cyclobenzaprine HCl (Flexeril) 10 mg PO TID PRN PRN Reason: Muscle Spasm Last Admin: 04/17/20 07:44 Dose: 10 mg Documented by: Enoxaparin Sodium (Lovenox) 40 mg SUBCUT DAILY [facility] Last Admin: 04/10/20 20:51 Dose: 40 mg Documented by: Hydrocortisone Sodium Succinate (Solu-Cortef) 100 mg IVPUSH ONETIME ONE Stop: 04/10/20 17:08 Last Admin: 04/10/20 17:47 Dose: 100 mg Documented by: Levetiracetam 2,000 mg/ Sodium (Chloride) 120 mls @ 480 mls/hr IV ONETIME ONE Stop: 04/10/20 14:14 Last Admin: 04/10/20 15:11 Dose: 480 mls/hr Documented by: Sodium Chloride (Normal Saline) 93 mls @ 4 mls/sec IV ASDIRECTED [facility] Stop: 04/10/20 14:31 Last Admin: 04/10/20 14:27 Dose: 4 mls/sec Documented by: Sodium Chloride (Sodium Chloride 3%) 500 mls @ 500 mls/hr IV ASDIRECTED [facility] Stop: 04/10/20 15:15 Last Admin: 04/10/20 15:09 Dose: 500 mls/hr Documented by: Potassium Chloride 20 meq/ (Premix) 100 mls @ 50 mls/hr IV ONETIME ONE Stop: 04/10/20 16:43 Last Admin: 04/10/20 15:09 Dose: 50 mls/hr Documented by: Potassium Chloride 20 meq/ (Premix) 100 mls @ 50 mls/hr IV ONETIME ONE Stop: 04/10/20 18:21 Last Admin: 04/10/20 17:46 Dose: 50 mls/hr Documented by: Ceftriaxone Sodium 2 gm/ (Sodium Chloride) 50 mls @ 100 mls/hr IV ONETIME ONE Stop: 04/10/20 17:27 Last Admin: 04/10/20 17:17 Dose: 100 mls/hr Documented by: Potassium Chloride (Kcl 20 Meq In Water 100 Ml) Confirm Administered Dose 100 mls @ as directed .ROUTE .STK-MED ONE Stop: 04/10/20 17:45 Last Admin: 04/10/20 17:49 Dose: Not Given Documented by: Potassium Chloride 20 meq/ (Premix) 100 mls @ 50 mls/hr IV Q2H [facility] Stop: 04/10/20 22:15 Last Admin: 04/10/20 22:26 Dose: 50 mls/hr Documented by: Sodium Chloride (Normal Saline) 1,000 mls @ 100 mls/hr IV ASDIRECTED [facility] Ceftriaxone Sodium 1 gm/ (Sodium Chloride) 50 mls @ 100 mls/hr IV Q24H [facility] Last Admin: 04/12/20 16:30 Dose: 100 mls/hr Documented by: Sodium Chloride (Sodium Chloride 0.45%) 1,000 mls @ 50 mls/hr IV ASDIRECTED [facility] Last Admin: 04/10/20 20:47 Dose: 50 mls/hr Documented by: Dextrose/Water (Dextrose 5% In Water) 1,000 mls @ 50 mls/hr IV ASDIRECTED [facility] Last Admin: 04/12/20 06:25 Dose: 50 mls/hr Documented by: Potassium Chloride (Kcl 20 Meq In Water 100 Ml) 100 mls @ 50 mls/hr IV Q2H [facility] Stop: 04/11/20 08:29 Last Admin: 04/11/20 06:33 Dose: 50 mls/hr Documented by: Lactated Ringer's (Ringers, Lactated) 500 mls @ 500 mls/hr IV BOLUS ONE Stop: 04/11/20 10:44 Last Admin: 04/11/20 09:46 Dose: 500 mls/hr Documented by: Sodium Chloride (Normal Saline) 1,000 mls @ 100 mls/hr IV ASDIRECTED [facility] Last Admin: 04/13/20 07:12 Dose: 100 mls/hr Documented by: Sodium Chloride (Normal Saline) 1,000 mls @ 75 mls/hr IV ASDIRECTED [facility] Last Admin: 04/14/20 21:16 Dose: 75 mls/hr Documented by: Magnesium Sulfate 2 gm/ Premix 50 mls @ 25 mls/hr IV Q6H [facility] Stop: 04/14/20 17:59 Last Admin: 04/14/20 17:00 Dose: 25 mls/hr Documented by: Sodium Chloride (Normal Saline) 1,000 mls @ 25 mls/hr IV ASDIRECTED [facility] Influenza Virus Vaccine (Pharmacy To Dose - Influenza Vaccine) 1 each IM ONETIME ONE Stop: 04/16/20 10:01 Influenza Virus Vaccine (Fluzone Quad [id number] Syringe) 60 mcg IM .ONCE ONE Stop: 04/16/20 10:01 Last Admin: 04/16/20 10:44 Dose: 60 mcg Documented by: Iopamidol (Isovue-370 (76%)) 100 ml IV . DIRECTED [facility] Stop: 04/10/20 14:31 Last Admin: 04/10/20 14:27 Dose: 100 ml Documented by: Lorazepam (Ativan) Confirm Administered Dose 2 mg .ROUTE .STK-MED ONE Stop: 04/10/20 13:51 Lorazepam (Ativan) 1 mg IVPUSH ONETIME ONE Stop: 04/10/20 15:10 Last Admin: 04/10/20 15:15 Dose: 1 mg Documented by: Lorazepam (Ativan) 0 mg PO ASDIRECTED [facility]; Protocol Last Admin: 04/15/20 09:22 Dose: 1 mg Documented by: Naloxone HCl (Narcan) 0.1 mg IVPUSH ONETIME PRN PRN Reason: Oversedation Last Admin: 04/10/20 16:15 Dose: 0.1 mg Documented by: Potassium Chloride (Potassium Chloride Solution) 40 meq PO ONETIME ONE Stop: 04/10/20 23:58 Last Admin: 04/11/20 00:11 Dose: 40 meq Documented by: Potassium Chloride (Potassium Chloride Solution) 40 meq PO ONETIME ONE Stop: 04/12/20 08:46 Last Admin: 04/12/20 10:07 Dose: 40 meq Documented by: Potassium Chloride (Potassium Chloride Solution) 40 meq PO ONETIME ONE Stop: 04/12/20 14:31 Last Admin: 04/12/20 14:56 Dose: 40 meq Documented by: Sodium Chloride (Saline Flush) 10 ml FLUSH ONETIME PRN PRN Reason: per radiology protocol Stop: 04/10/20 14:17 Last Admin: 04/10/20 14:27 Dose: 10 ml Documented by: - Exam Quality Assessment: No: Supplemental Oxygen General: Alert, Oriented, Cooperative, No Acute Distress Lungs: Normal Respiratory Effort GI/Abdominal Exam: Soft, No Distention Extremities: No Pedal Edema Psy/Mental Status: Alert, Normal Affect Sepsis Event Note - Evaluation Sepsis Screening Result: No Definite Risk - Focused Exam Vital Signs: Vital Signs Temp Pulse Pulse Resp BP BP Pulse Ox 04/18/20 11:00 35.2 C L 84 18 129/81 94 L 04/18/20 10:21 87 122/82 04/18/20 07:00 35.8 C L 87 16 122/82 100 - Problem List Review Problem List Initiated/Reviewed/Updated: Yes - My Orders Last 24 Hours: My Active Orders 04/18/20 12:00 Naproxen [Naprosyn] 500 mg PO Q12HR PRN - Plan Plan:: ASSESSMENT AND PLAN SEVERE HYPONATREMIA-resolved with hydration. -Saline lock IV fluids SEVERE HYPOKALEMIA-potassium level has normalized. ENCEPHALOPATHY-likely secondary to chronic alcohol use, metabolic abnormalities and urinary tract infection. CTA of the brain and neck as well as CT of the head shows no acute abnormalities. Back to baseline. HISTORY OF ALCOHOL DEPENDENCE-no evidence for withdrawal. -Supplement thiamine and folate SEIZURE-likely secondary to hyponatremia. No recurrence. -Lorazepam as needed for recurrent seizures URINARY TRACT INFECTION-urine culture grew out Klebsiella. Blood cultures are negative. He has completed adequate therapy. ADRENAL INSUFFICIENCY -Prednisone 10 mg p.o. daily MAINTENANCE ISSUES -DVT prophylaxis; Lovenox 40 mg subcu daily -GI prophylaxis; continue outpatient PPI therapy -Nutrition; regular diet DISPOSITION-anticipate discharge to transitional care unit after the hospital stay. He is and has been ready for hospital discharge but so far we have not established a safety plan for subacute rehab. Filipe Min MD
[2020-04-18] MEDS: Aspirin 81 MG Tab.Chew PO SCH (14:49)
[2020-04-18] MEDS: Naproxen 250 MG Tab PO PRN (14:51)
[2020-04-18] MEDS: Enoxaparin 40 MG/0.4 ML Syringe SUBCUT SCH (21:37)
[2020-04-19] MEDS: Cyclobenzaprine 10 MG Tab PO PRN ×2 (00:01→14:14)
[2020-04-19] MEDS: LORazepam 1 MG Tab PO PRN (00:43)
[2020-04-19] MEDS: diphenhydrAMINE 25 MG Cap PO PRN ×2 (00:43→17:34)
[2020-04-19] MEDS: Acetaminophen 325 MG Tab PO PRN ×3 (07:31→14:14)
[2020-04-19] MEDS: Naproxen 250 MG Tab PO PRN ×2 (07:32→17:35)
[2020-04-19] MEDS: Spironolactone 25 MG Tab PO SCH ×2 (07:33→09:43)
[2020-04-19] MEDS: Pantoprazole 40 MG Tab.CR PO SCH (07:33)
[2020-04-19] MEDS: FLUoxetine 10 MG Cap PO SCH ×2 (07:34→09:43)
[2020-04-19] MEDS: predniSONE 10 MG Tab PO SCH ×2 (07:34→09:43)
[2020-04-19] MEDS: Aspirin 81 MG Tab.Chew PO SCH ×2 (07:34→09:43)
[2020-04-19] MEDS: Metoprolol Succinate 25 MG Tab.ER PO SCH ×4 (07:34→20:34)
[2020-04-19] MEDS: Thiamine 100 MG Tab PO SCH ×2 (07:35→09:43)
[2020-04-19] MEDS: Folic Acid 1 MG Tab PO SCH ×2 (07:35→09:43)
[2020-04-19] MEDS: Nicotine 21 MG/24 Hr Patch TRDERM SCH ×2 (07:35→09:43)
--- NOTE | 2020-04-19 14:09 | PCM.PN ---
- General Info Date of Service: 04/19/20 Subjective Update: No acute events overnight. No nausea or abdominal pain. Vitals have been stable. He is complaining of some achiness and restlessness involving the right leg. This is keeping him from sleeping at night. Functional Status: Reports: Pain Controlled - Review of Systems General: Denies: Fever - Patient Data Vitals - Most Recent: Last Vital Signs Temp 36.1 C 04/19/20 07:24 Pulse 88 04/19/20 07:34 Resp 18 04/19/20 07:24 BP 133/78 04/19/20 07:34 Pulse Ox 99 04/19/20 07:24 Weight - Most Recent: 59.874 kg I&O - Last 24 Hours: Intake & Output 04/18/20 04/19/20 04/19/20 22:59 06:59 14:59 Intake Total 236 600 Output Total 1 Balance 236 599 Med Orders - Current: Current Medications Acetaminophen (Tylenol) 650 mg PO Q4H PRN PRN Reason: Pain (Mild 1-3)/fever Last Admin: 04/19/20 07:31 Dose: 650 mg Documented by: Albuterol (Proventil Neb Soln) 2.5 mg NEB Q4H PRN PRN Reason: Shortness Of Breath/wheezing Aspirin (Aspirin) 81 mg PO DAILY [facility] Last Admin: 04/19/20 09:43 Dose: Not Given Documented by: Cyclobenzaprine HCl (Flexeril) 10 mg PO TID PRN PRN Reason: Muscle Spasm Last Admin: 04/19/20 00:01 Dose: 10 mg Documented by: Diphenhydramine HCl (Benadryl) 50 mg PO Q4H PRN PRN Reason: Itching Last Admin: 04/19/20 00:43 Dose: 50 mg Documented by: Enoxaparin Sodium (Lovenox) 40 mg SUBCUT Q24H [facility] Last Admin: 04/18/20 21:37 Dose: 40 mg Documented by: Fluoxetine HCl (Prozac) 10 mg PO DAILY [facility] Last Admin: 04/19/20 09:43 Dose: Not Given Documented by: Folic Acid (Folic Acid) 1 mg PO DAILY [facility] Last Admin: 04/19/20 09:43 Dose: Not Given Documented by: Loratadine (Claritin) 10 mg PO DAILY PRN PRN Reason: Allergies Last Admin: 04/17/20 09:01 Dose: 10 mg Documented by: Lorazepam (Ativan) 1 mg PO Q2H PRN PRN Reason: Anxiety Last Admin: 04/19/20 00:43 Dose: 1 mg Documented by: Metoprolol Succinate (Toprol Xl) 25 mg PO BID [facility] Last Admin: 04/19/20 09:43 Dose: Not Given Documented by: Naproxen (Naprosyn) 500 mg PO Q12H PRN PRN Reason: joint/neck pain Last Admin: 04/19/20 07:32 Dose: 500 mg Documented by: Nicotine (Habitrol) 21 mg TRDERM DAILY [facility] Last Admin: 04/19/20 09:43 Dose: Not Given Documented by: Ondansetron HCl (Zofran) 4 mg IV Q4H PRN PRN Reason: Nausea/Vomiting Pantoprazole Sodium (Protonix) 40 mg PO ACBREAKFAST [facility] Last Admin: 04/19/20 07:33 Dose: 40 mg Documented by: Polyethylene Glycol (Miralax) 17 gm PO DAILY PRN PRN Reason: Constipation Prednisone (Prednisone) 10 mg PO DAILY [facility] Last Admin: 04/19/20 09:43 Dose: Not Given Documented by: Sodium Chloride (Saline Flush) 10 ml FLUSH ASDIRECTED PRN PRN Reason: Keep Vein Open Spironolactone (Aldactone) 12.5 mg PO DAILY [facility] Last Admin: 04/19/20 09:43 Dose: Not Given Documented by: Thiamine HCl (Vitamin B-1) 100 mg PO DAILY [facility] Last Admin: 04/19/20 09:43 Dose: Not Given Documented by: Discontinued Medications Cephalexin (Keflex) 500 mg PO TID [facility] Stop: 04/18/20 14:01 Last Admin: 04/16/20 13:47 Dose: Not Given Documented by: Cyclobenzaprine HCl (Flexeril) 10 mg PO TID PRN PRN Reason: Muscle Spasm Last Admin: 04/17/20 07:44 Dose: 10 mg Documented by: Enoxaparin Sodium (Lovenox) 40 mg SUBCUT DAILY [facility] Last Admin: 04/10/20 20:51 Dose: 40 mg Documented by: Hydrocortisone Sodium Succinate (Solu-Cortef) 100 mg IVPUSH ONETIME ONE Stop: 04/10/20 17:08 Last Admin: 04/10/20 17:47 Dose: 100 mg Documented by: Levetiracetam 2,000 mg/ Sodium (Chloride) 120 mls @ 480 mls/hr IV ONETIME ONE Stop: 04/10/20 14:14 Last Admin: 04/10/20 15:11 Dose: 480 mls/hr Documented by: Sodium Chloride (Normal Saline) 93 mls @ 4 mls/sec IV ASDIRECTED [facility] Stop: 04/10/20 14:31 Last Admin: 04/10/20 14:27 Dose: 4 mls/sec Documented by: Sodium Chloride (Sodium Chloride 3%) 500 mls @ 500 mls/hr IV ASDIRECTED [facility] Stop: 04/10/20 15:15 Last Admin: 04/10/20 15:09 Dose: 500 mls/hr Documented by: Potassium Chloride 20 meq/ (Premix) 100 mls @ 50 mls/hr IV ONETIME ONE Stop: 04/10/20 16:43 Last Admin: 04/10/20 15:09 Dose: 50 mls/hr Documented by: Potassium Chloride 20 meq/ (Premix) 100 mls @ 50 mls/hr IV ONETIME ONE Stop: 04/10/20 18:21 Last Admin: 04/10/20 17:46 Dose: 50 mls/hr Documented by: Ceftriaxone Sodium 2 gm/ (Sodium Chloride) 50 mls @ 100 mls/hr IV ONETIME ONE Stop: 04/10/20 17:27 Last Admin: 04/10/20 17:17 Dose: 100 mls/hr Documented by: Potassium Chloride (Kcl 20 Meq In Water 100 Ml) Confirm Administered Dose 100 mls @ as directed .ROUTE .STK-MED ONE Stop: 04/10/20 17:45 Last Admin: 04/10/20 17:49 Dose: Not Given Documented by: Potassium Chloride 20 meq/ (Premix) 100 mls @ 50 mls/hr IV Q2H [facility] Stop: 04/10/20 22:15 Last Admin: 04/10/20 22:26 Dose: 50 mls/hr Documented by: Sodium Chloride (Normal Saline) 1,000 mls @ 100 mls/hr IV ASDIRECTED [facility] Ceftriaxone Sodium 1 gm/ (Sodium Chloride) 50 mls @ 100 mls/hr IV Q24H [facility] Last Admin: 04/12/20 16:30 Dose: 100 mls/hr Documented by: Sodium Chloride (Sodium Chloride 0.45%) 1,000 mls @ 50 mls/hr IV ASDIRECTED [facility] Last Admin: 04/10/20 20:47 Dose: 50 mls/hr Documented by: Dextrose/Water (Dextrose 5% In Water) 1,000 mls @ 50 mls/hr IV ASDIRECTED [facility] Last Admin: 04/12/20 06:25 Dose: 50 mls/hr Documented by: Potassium Chloride (Kcl 20 Meq In Water 100 Ml) 100 mls @ 50 mls/hr IV Q2H [facility] Stop: 04/11/20 08:29 Last Admin: 04/11/20 06:33 Dose: 50 mls/hr Documented by: Lactated Ringer's (Ringers, Lactated) 500 mls @ 500 mls/hr IV BOLUS ONE Stop: 04/11/20 10:44 Last Admin: 04/11/20 09:46 Dose: 500 mls/hr Documented by: Sodium Chloride (Normal Saline) 1,000 mls @ 100 mls/hr IV ASDIRECTED [facility] Last Admin: 04/13/20 07:12 Dose: 100 mls/hr Documented by: Sodium Chloride (Normal Saline) 1,000 mls @ 75 mls/hr IV ASDIRECTED [facility] Last Admin: 04/14/20 21:16 Dose: 75 mls/hr Documented by: Magnesium Sulfate 2 gm/ Premix 50 mls @ 25 mls/hr IV Q6H [facility] Stop: 04/14/20 17:59 Last Admin: 04/14/20 17:00 Dose: 25 mls/hr Documented by: Sodium Chloride (Normal Saline) 1,000 mls @ 25 mls/hr IV ASDIRECTED [facility] Influenza Virus Vaccine (Pharmacy To Dose - Influenza Vaccine) 1 each IM ONETIME ONE Stop: 04/16/20 10:01 Influenza Virus Vaccine (Fluzone Quad [id number] Syringe) 60 mcg IM .ONCE ONE Stop: 04/16/20 10:01 Last Admin: 04/16/20 10:44 Dose: 60 mcg Documented by: Iopamidol (Isovue-370 (76%)) 100 ml IV . DIRECTED [facility] Stop: 04/10/20 14:31 Last Admin: 04/10/20 14:27 Dose: 100 ml Documented by: Lorazepam (Ativan) Confirm Administered Dose 2 mg .ROUTE .STK-MED ONE Stop: 04/10/20 13:51 Lorazepam (Ativan) 1 mg IVPUSH ONETIME ONE Stop: 04/10/20 15:10 Last Admin: 04/10/20 15:15 Dose: 1 mg Documented by: Lorazepam (Ativan) 1 mg IVPUSH Q2H PRN PRN Reason: Seizures Last Admin: 04/14/20 21:16 Dose: 1 mg Documented by: Lorazepam (Ativan) 0 mg PO ASDIRECTED [facility]; Protocol Last Admin: 04/15/20 09:22 Dose: 1 mg Documented by: Naloxone HCl (Narcan) 0.1 mg IVPUSH ONETIME PRN PRN Reason: Oversedation Last Admin: 04/10/20 16:15 Dose: 0.1 mg Documented by: Potassium Chloride (Potassium Chloride Solution) 40 meq PO ONETIME ONE Stop: 04/10/20 23:58 Last Admin: 04/11/20 00:11 Dose: 40 meq Documented by: Potassium Chloride (Potassium Chloride Solution) 40 meq PO ONETIME ONE Stop: 04/12/20 08:46 Last Admin: 04/12/20 10:07 Dose: 40 meq Documented by: Potassium Chloride (Potassium Chloride Solution) 40 meq PO ONETIME ONE Stop: 04/12/20 14:31 Last Admin: 04/12/20 14:56 Dose: 40 meq Documented by: Sodium Chloride (Saline Flush) 10 ml FLUSH ONETIME PRN PRN Reason: per radiology protocol Stop: 04/10/20 14:17 Last Admin: 04/10/20 14:27 Dose: 10 ml Documented by: - Exam Quality Assessment: No: Supplemental Oxygen General: Alert, Oriented, Cooperative, No Acute Distress Lungs: Normal Respiratory Effort Cardiovascular: Regular Rate, Regular Rhythm GI/Abdominal Exam: Soft, No Distention Extremities: No Pedal Edema Psy/Mental Status: Alert, Normal Affect Sepsis Event Note - Evaluation Sepsis Screening Result: No Definite Risk - Focused Exam Vital Signs: Vital Signs Temp Pulse Pulse Resp BP BP Pulse Ox 04/19/20 07:34 88 133/78 04/19/20 07:24 36.1 C 88 18 133/78 99 04/19/20 07:00 34.8 C L 54 L 18 137/85 92 L - Problem List Review Problem List Initiated/Reviewed/Updated: Yes - My Orders Last 24 Hours: My Active Orders 04/19/20 21:00 Gabapentin [Neurontin] 300 mg PO BEDTIME - Plan Plan:: ASSESSMENT AND PLAN SEVERE HYPONATREMIA-resolved with hydration. -Saline lock IV fluids SEVERE HYPOKALEMIA-potassium level has normalized. ENCEPHALOPATHY-likely secondary to chronic alcohol use, metabolic abnormalities and urinary tract infection. CTA of the brain and neck as well as CT of the head shows no acute abnormalities. Back to baseline. HISTORY OF ALCOHOL DEPENDENCE-no evidence for withdrawal. -Supplement thiamine and folate SEIZURE-likely secondary to hyponatremia. No recurrence. -Lorazepam as needed for recurrent seizures URINARY TRACT INFECTION-urine culture grew out Klebsiella. Blood cultures are negative. He has completed adequate therapy. ADRENAL INSUFFICIENCY -Prednisone 10 mg p.o. daily MAINTENANCE ISSUES -DVT prophylaxis; Lovenox 40 mg subcu daily -GI prophylaxis; continue outpatient PPI therapy -Nutrition; regular diet DISPOSITION-anticipate discharge to transitional care unit after the hospital stay. He is and has been ready for hospital discharge but so far we have not established a safety plan for subacute rehab. Filipe Min MD
[2020-04-19] MEDS: Gabapentin 300 MG Cap PO SCH ×2 (19:41→20:34)
[2020-04-19] MEDS: Enoxaparin 40 MG/0.4 ML Syringe SUBCUT SCH (19:44)
[2020-04-20] MEDS: Pantoprazole 40 MG Tab.CR PO SCH (08:29)
[2020-04-20] MEDS: Spironolactone 25 MG Tab PO SCH (08:29)
[2020-04-20] MEDS: predniSONE 10 MG Tab PO SCH (08:30)
[2020-04-20] MEDS: Nicotine 21 MG/24 Hr Patch TRDERM SCH (08:30)
[2020-04-20] MEDS: Aspirin 81 MG Tab.Chew PO SCH (08:30)
[2020-04-20] MEDS: Folic Acid 1 MG Tab PO SCH (08:30)
[2020-04-20] MEDS: Metoprolol Succinate 25 MG Tab.ER PO SCH ×3 (08:31→20:02)
[2020-04-20] MEDS: FLUoxetine 10 MG Cap PO SCH (08:31)
[2020-04-20] MEDS: Thiamine 100 MG Tab PO SCH (08:32)
[2020-04-20] MEDS: Cyclobenzaprine 10 MG Tab PO PRN (15:16)
[2020-04-20] MEDS: Naproxen 250 MG Tab PO PRN (15:16)
[2020-04-20] MEDS: LORazepam 1 MG Tab PO PRN (16:09)
--- NOTE | 2020-04-20 16:50 | PCM.PN ---
- General Info Date of Service: 04/20/20 Subjective Update: Mr. Jhaveri is medically stable and awaiting safe discharge plan. Slowly regaining strength with improved appetite. Functional Status: Reports: Tolerating Diet, Ambulating, Urinating - Review of Systems General: Reports: Weakness, Fatigue. Denies: Fever, Chills Pulmonary: Reports: No Symptoms Cardiovascular: Reports: No Symptoms Gastrointestinal: Reports: No Symptoms - Patient Data Vitals - Most Recent: Last Vital Signs Temp 98.0 F 04/20/20 15:18 Pulse 100 04/20/20 15:18 Resp 18 04/20/20 15:18 BP 126/94 H 04/20/20 15:18 Pulse Ox 98 04/20/20 15:18 Weight - Most Recent: 132 lb I&O - Last 24 Hours: Intake & Output 04/20/20 04/20/20 04/20/20 06:59 14:59 22:59 Intake Total 360 360 Output Total 450 300 Balance -450 60 360 Med Orders - Current: Current Medications Acetaminophen (Tylenol) 650 mg PO Q4H PRN PRN Reason: Pain (Mild 1-3)/fever Last Admin: 04/19/20 14:14 Dose: 650 mg Documented by: Albuterol (Proventil Neb Soln) 2.5 mg NEB Q4H PRN PRN Reason: Shortness Of Breath/wheezing Aspirin (Aspirin) 81 mg PO DAILY [facility] Last Admin: 04/20/20 08:30 Dose: 81 mg Documented by: Cyclobenzaprine HCl (Flexeril) 10 mg PO TID PRN PRN Reason: Muscle Spasm Last Admin: 04/20/20 15:16 Dose: 10 mg Documented by: Diphenhydramine HCl (Benadryl) 50 mg PO Q4H PRN PRN Reason: Itching Last Admin: 04/19/20 17:34 Dose: 50 mg Documented by: Enoxaparin Sodium (Lovenox) 40 mg SUBCUT Q24H [facility] Last Admin: 04/19/20 19:44 Dose: 40 mg Documented by: Fluoxetine HCl (Prozac) 10 mg PO DAILY [facility] Last Admin: 04/20/20 08:31 Dose: 10 mg Documented by: Folic Acid (Folic Acid) 1 mg PO DAILY [facility] Last Admin: 04/20/20 08:30 Dose: 1 mg Documented by: Gabapentin (Neurontin) 300 mg PO BEDTIME [facility] Last Admin: 04/19/20 20:34 Dose: Not Given Documented by: Loratadine (Claritin) 10 mg PO DAILY PRN PRN Reason: Allergies Last Admin: 04/17/20 09:01 Dose: 10 mg Documented by: Lorazepam (Ativan) 1 mg PO Q2H PRN PRN Reason: Anxiety Last Admin: 04/20/20 16:09 Dose: 1 mg Documented by: Metoprolol Succinate (Toprol Xl) 25 mg PO BID [facility] Last Admin: 04/20/20 08:31 Dose: 25 mg Documented by: Naproxen (Naprosyn) 500 mg PO Q12H PRN PRN Reason: joint/neck pain Last Admin: 04/20/20 15:16 Dose: 500 mg Documented by: Nicotine (Habitrol) 21 mg TRDERM DAILY [facility] Last Admin: 04/20/20 08:30 Dose: 21 mg Documented by: Ondansetron HCl (Zofran) 4 mg IV Q4H PRN PRN Reason: Nausea/Vomiting Pantoprazole Sodium (Protonix) 40 mg PO ACBREAKFAST [facility] Last Admin: 04/20/20 08:29 Dose: 40 mg Documented by: Polyethylene Glycol (Miralax) 17 gm PO DAILY PRN PRN Reason: Constipation Prednisone (Prednisone) 10 mg PO DAILY [facility] Last Admin: 04/20/20 08:30 Dose: 10 mg Documented by: Sodium Chloride (Saline Flush) 10 ml FLUSH ASDIRECTED PRN PRN Reason: Keep Vein Open Spironolactone (Aldactone) 12.5 mg PO DAILY [facility] Last Admin: 04/20/20 08:29 Dose: 12.5 mg Documented by: Thiamine HCl (Vitamin B-1) 100 mg PO DAILY [facility] Last Admin: 04/20/20 08:32 Dose: 100 mg Documented by: Discontinued Medications Cephalexin (Keflex) 500 mg PO TID [facility] Stop: 04/18/20 14:01 Last Admin: 04/16/20 13:47 Dose: Not Given Documented by: Cyclobenzaprine HCl (Flexeril) 10 mg PO TID PRN PRN Reason: Muscle Spasm Last Admin: 04/17/20 07:44 Dose: 10 mg Documented by: Enoxaparin Sodium (Lovenox) 40 mg SUBCUT DAILY [facility] Last Admin: 04/10/20 20:51 Dose: 40 mg Documented by: Hydrocortisone Sodium Succinate (Solu-Cortef) 100 mg IVPUSH ONETIME ONE Stop: 04/10/20 17:08 Last Admin: 04/10/20 17:47 Dose: 100 mg Documented by: Levetiracetam 2,000 mg/ Sodium (Chloride) 120 mls @ 480 mls/hr IV ONETIME ONE Stop: 04/10/20 14:14 Last Admin: 04/10/20 15:11 Dose: 480 mls/hr Documented by: Sodium Chloride (Normal Saline) 93 mls @ 4 mls/sec IV ASDIRECTED [facility] Stop: 04/10/20 14:31 Last Admin: 04/10/20 14:27 Dose: 4 mls/sec Documented by: Sodium Chloride (Sodium Chloride 3%) 500 mls @ 500 mls/hr IV ASDIRECTED [facility] Stop: 04/10/20 15:15 Last Admin: 04/10/20 15:09 Dose: 500 mls/hr Documented by: Potassium Chloride 20 meq/ (Premix) 100 mls @ 50 mls/hr IV ONETIME ONE Stop: 04/10/20 16:43 Last Admin: 04/10/20 15:09 Dose: 50 mls/hr Documented by: Potassium Chloride 20 meq/ (Premix) 100 mls @ 50 mls/hr IV ONETIME ONE Stop: 04/10/20 18:21 Last Admin: 04/10/20 17:46 Dose: 50 mls/hr Documented by: Ceftriaxone Sodium 2 gm/ (Sodium Chloride) 50 mls @ 100 mls/hr IV ONETIME ONE Stop: 04/10/20 17:27 Last Admin: 04/10/20 17:17 Dose: 100 mls/hr Documented by: Potassium Chloride (Kcl 20 Meq In Water 100 Ml) Confirm Administered Dose 100 mls @ as directed .ROUTE .STK-MED ONE Stop: 04/10/20 17:45 Last Admin: 04/10/20 17:49 Dose: Not Given Documented by: Potassium Chloride 20 meq/ (Premix) 100 mls @ 50 mls/hr IV Q2H [facility] Stop: 04/10/20 22:15 Last Admin: 04/10/20 22:26 Dose: 50 mls/hr Documented by: Sodium Chloride (Normal Saline) 1,000 mls @ 100 mls/hr IV ASDIRECTED [facility] Ceftriaxone Sodium 1 gm/ (Sodium Chloride) 50 mls @ 100 mls/hr IV Q24H [facility] Last Admin: 04/12/20 16:30 Dose: 100 mls/hr Documented by: Sodium Chloride (Sodium Chloride 0.45%) 1,000 mls @ 50 mls/hr IV ASDIRECTED [facility] Last Admin: 04/10/20 20:47 Dose: 50 mls/hr Documented by: Dextrose/Water (Dextrose 5% In Water) 1,000 mls @ 50 mls/hr IV ASDIRECTED [facility] Last Admin: 04/12/20 06:25 Dose: 50 mls/hr Documented by: Potassium Chloride (Kcl 20 Meq In Water 100 Ml) 100 mls @ 50 mls/hr IV Q2H [facility] Stop: 04/11/20 08:29 Last Admin: 04/11/20 06:33 Dose: 50 mls/hr Documented by: Lactated Ringer's (Ringers, Lactated) 500 mls @ 500 mls/hr IV [facility] ONE Stop: 04/11/20 10:44 Last Admin: 04/11/20 09:46 Dose: 500 mls/hr Documented by: Sodium Chloride (Normal Saline) 1,000 mls @ 100 [facility]ls[facility] Last Admin: 04/13/20 07:12 Dose: 100 mls/hr Documented by: Sodium Chloride (Normal Saline) 1,000 mls [facility] 75 [facility] Last Admin: 04/14/20 21:16 Dose: 75 mls/hr Documented by: Magnesium Sulfate 2 gm/ Premix 50 mls @ 25 mls/hr IV Q6H [facility] Stop: 04/14/20 17:59 Last Admin: 04/14/20 17:00 Dose: 25 mls/hr Documented by: Sodium Chloride (Normal Saline) 1,000 mls @ 25 mls/hr IV ASDIRECTED [facility] Influenza Virus Vaccine (Pharmacy To Dose - Influenza Vaccine) 1 each IM ONETIME ONE Stop: 04/16/20 10:01 Influenza Virus Vaccine (Fluzone Quad 8737-3088 Syringe) 60 mcg IM .ONCE ONE Stop: 04/16/20 10:01 Last Admin: 04/16/20 10:44 Dose: 60 mcg Documented by: Iopamidol (Isovue-370 (76%)) 100 ml IV . DIRECTED [facility] Stop: 04/10/20 14:31 Last Admin: 04/10/20 14:27 Dose: 100 ml Documented by: Lorazepam (Ativan) Confirm Administered Dose 2 mg .ROUTE .STK-MED ONE Stop: 04/10/20 13:51 Lorazepam (Ativan) 1 mg IVPUSH ONETIME ONE Stop: 04/10/20 15:10 Last Admin: 04/10/20 15:15 Dose: 1 mg Documented by: Lorazepam (Ativan) 1 mg IVPUSH Q2H PRN PRN Reason: Seizures Last Admin: 04/14/20 21:16 Dose: 1 mg Documented by: Lorazepam (Ativan) 0 mg PO ASDIRECTED [facility]; Protocol Last Admin: 04/15/20 09:22 Dose: 1 mg Documented by: Naloxone HCl (Narcan) 0.1 mg IVPUSH ONETIME PRN PRN Reason: Oversedation Last Admin: 04/10/20 16:15 Dose: 0.1 mg Documented by: Potassium Chloride (Potassium Chloride Solution) 40 meq PO ONETIME ONE Stop: 04/10/20 23:58 Last Admin: 04/11/20 00:11 Dose: 40 meq Documented by: Potassium Chloride (Potassium Chloride Solution) 40 meq PO ONETIME ONE Stop: 04/12/20 08:46 Last Admin: 04/12/20 10:07 Dose: 40 meq Documented by: Potassium Chloride (Potassium Chloride Solution) 40 meq PO ONETIME ONE Stop: 04/12/20 14:31 Last Admin: 04/12/20 14:56 Dose: 40 meq Documented by: Sodium Chloride (Saline Flush) 10 ml FLUSH ONETIME PRN PRN Reason: per radiology protocol Stop: 04/10/20 14:17 Last Admin: 04/10/20 14:27 Dose: 10 ml Documented by: - Exam Quality Assessment: DVT Prophylaxis General: Alert, Oriented, Cooperative, Mild Distress Lungs: Clear to Auscultation, Normal Respiratory Effort Cardiovascular: Regular Rate, Regular Rhythm, No Murmurs GI/Abdominal Exam: Soft, Non-Tender, No Organomegaly, No Distention Extremities: Non-Tender, No Pedal Edema Sepsis Event Note - Evaluation Sepsis Screening Result: No Definite Risk - Focused Exam Vital Signs: Vital Signs Temp Pulse Pulse Resp BP BP Pulse Ox 11/23/20 15:18 98.0 F 100 18 126/94 H 98 04/20/20 08:31 81 140/87 04/20/20 07:00 96.4 F L 81 16 140/87 100 - Problem List Review Problem List Initiated/Reviewed/Updated: Yes - Plan Plan:: ASSESSMENT AND PLAN SEVERE HYPONATREMIA-resolved with hydration. -Saline lock IV fluids SEVERE HYPOKALEMIA-potassium level has normalized. ENCEPHALOPATHY-likely secondary to chronic alcohol use, metabolic abnormalities and urinary tract infection. CTA of the brain and neck as well as CT of the head shows no acute abnormalities. Back to baseline. HISTORY OF ALCOHOL DEPENDENCE-no evidence for withdrawal. -Supplement thiamine and folate SEIZURE-likely secondary to hyponatremia. No recurrence. -Lorazepam as needed for recurrent seizures URINARY TRACT INFECTION-urine culture grew out Klebsiella. Blood cultures are negative. He has completed adequate therapy. ADRENAL INSUFFICIENCY -Prednisone 10 mg p.o. daily MAINTENANCE ISSUES -DVT prophylaxis; Lovenox 40 mg subcu daily -GI prophylaxis; continue outpatient PPI therapy -Nutrition; regular diet DISPOSITION-anticipate discharge to transitional care unit after the hospital stay. He is and has been ready for hospital discharge but so far we have not established a safety plan for subacute rehab.
[2020-04-20] MEDS: Enoxaparin 40 MG/0.4 ML Syringe SUBCUT SCH (19:28)
[2020-04-20] MEDS: Gabapentin 300 MG Cap PO SCH ×2 (19:28→20:02)
[2020-04-21] MEDS: Pantoprazole 40 MG Tab.CR PO SCH (07:30)
[2020-04-21] MEDS: Naproxen 250 MG Tab PO PRN (07:32)
[2020-04-21] MEDS: predniSONE 10 MG Tab PO SCH (08:31)
[2020-04-21] MEDS: Folic Acid 1 MG Tab PO SCH (08:31)
[2020-04-21] MEDS: Aspirin 81 MG Tab.Chew PO SCH (08:31)
[2020-04-21] MEDS: Spironolactone 25 MG Tab PO SCH (08:31)
[2020-04-21] MEDS: FLUoxetine 10 MG Cap PO SCH (08:31)
[2020-04-21] MEDS: Thiamine 100 MG Tab PO SCH (08:32)
[2020-04-21] MEDS: Nicotine 21 MG/24 Hr Patch TRDERM SCH (08:32)
[2020-04-21] MEDS: Metoprolol Succinate 25 MG Tab.ER PO SCH ×3 (08:33→20:34)
[2020-04-21] MEDS: Acetaminophen 325 MG Tab PO PRN (12:50)
[2020-04-21] MEDS: Cyclobenzaprine 10 MG Tab PO PRN (12:50)
--- NOTE | 2020-04-21 12:50 | PCM.PN ---
- General Info Date of Service: 04/21/20 Subjective Update: Mr. Jhaveri remains medically stable and he is awaiting safe discharge plan. Functional Status: Reports: Tolerating Diet, Ambulating, Urinating - Review of Systems General: Reports: No Symptoms Pulmonary: Reports: No Symptoms Cardiovascular: Reports: No Symptoms Gastrointestinal: Reports: No Symptoms - Patient Data Vitals - Most Recent: Last Vital Signs Temp 96.9 F 04/21/20 10:42 Pulse 104 H 04/21/20 10:42 Resp 18 04/21/20 10:42 BP 142/82 H 04/21/20 10:42 Pulse Ox 99 04/21/20 10:42 Weight - Most Recent: 132 lb I&O - Last 24 Hours: Intake & Output 04/20/20 04/21/20 04/21/20 22:59 06:59 14:59 Intake Total 760 360 Output Total 400 350 475 Balance 360 -350 -115 Med Orders - Current: Current Medications Acetaminophen (Tylenol) 650 mg PO Q4H PRN PRN Reason: Pain (Mild 1-3)/fever Last Admin: 04/19/20 14:14 Dose: 650 mg Documented by: Albuterol (Proventil Neb Soln) 2.5 mg NEB Q4H PRN PRN Reason: Shortness Of Breath/wheezing Aspirin (Aspirin) 81 mg PO DAILY [facility] Last Admin: 04/21/20 08:31 Dose: 81 mg Documented by: Cyclobenzaprine HCl (Flexeril) 10 mg PO TID PRN PRN Reason: Muscle Spasm Last Admin: 04/20/20 15:16 Dose: 10 mg Documented by: Diphenhydramine HCl (Benadryl) 50 mg PO Q4H PRN PRN Reason: Itching Last Admin: 04/19/20 17:34 Dose: 50 mg Documented by: Enoxaparin Sodium (Lovenox) 40 mg SUBCUT Q24H [facility] Last Admin: 04/20/20 19:28 Dose: 40 mg Documented by: Fluoxetine HCl (Prozac) 10 mg PO DAILY [facility] Last Admin: 04/21/20 08:31 Dose: 10 mg Documented by: Folic Acid (Folic Acid) 1 mg PO DAILY [facility] Last Admin: 04/21/20 08:31 Dose: 1 mg Documented by: Gabapentin (Neurontin) 300 mg PO BEDTIME [facility] Last Admin: 04/20/20 20:02 Dose: Not Given Documented by: Loratadine (Claritin) 10 mg PO DAILY PRN PRN Reason: Allergies Last Admin: 04/17/20 09:01 Dose: 10 mg Documented by: Lorazepam (Ativan) 1 mg PO Q2H PRN PRN Reason: Anxiety Last Admin: 04/20/20 16:09 Dose: 1 mg Documented by: Metoprolol Succinate (Toprol Xl) 25 mg PO BID [facility] Last Admin: 04/21/20 08:33 Dose: 25 mg Documented by: Naproxen (Naprosyn) 500 mg PO Q12H PRN PRN Reason: joint/neck pain Last Admin: 04/21/20 07:32 Dose: 500 mg Documented by: Nicotine (Habitrol) 21 mg TRDERM DAILY [facility] Last Admin: 04/21/20 08:32 Dose: 21 mg Documented by: Ondansetron HCl (Zofran) 4 mg IV Q4H PRN PRN Reason: Nausea/Vomiting Pantoprazole Sodium (Protonix) 40 mg PO ACBREAKFAST [facility] Last Admin: 04/21/20 07:30 Dose: 40 mg Documented by: Polyethylene Glycol (Miralax) 17 gm PO DAILY PRN PRN Reason: Constipation Prednisone (Prednisone) 10 mg PO DAILY [facility] Last Admin: 04/21/20 08:31 Dose: 10 mg Documented by: Sodium Chloride (Saline Flush) 10 ml FLUSH ASDIRECTED PRN PRN Reason: Keep Vein Open Spironolactone (Aldactone) 12.5 mg PO DAILY [facility] Last Admin: 04/21/20 08:31 Dose: 12.5 mg Documented by: Thiamine HCl (Vitamin B-1) 100 mg PO DAILY [facility] Last Admin: 04/21/20 08:32 Dose: 100 mg Documented by: Discontinued Medications Cephalexin (Keflex) 500 mg PO TID [facility] Stop: 04/18/20 14:01 Last Admin: 04/16/20 13:47 Dose: Not Given Documented by: Cyclobenzaprine HCl (Flexeril) 10 mg PO TID PRN PRN Reason: Muscle Spasm Last Admin: 04/17/20 07:44 Dose: 10 mg Documented by: Enoxaparin Sodium (Lovenox) 40 mg SUBCUT DAILY [facility] Last Admin: 04/10/20 20:51 Dose: 40 mg Documented by: Hydrocortisone Sodium Succinate (Solu-Cortef) 100 mg IVPUSH ONETIME ONE Stop: 04/10/20 17:08 Last Admin: 04/10/20 17:47 Dose: 100 mg Documented by: Levetiracetam 2,000 mg/ Sodium (Chloride) 120 mls @ 480 mls/hr IV ONETIME ONE Stop: 04/10/20 14:14 Last Admin: 04/10/20 15:11 Dose: 480 mls/hr Documented by: Sodium Chloride (Normal Saline) 93 mls @ 4 mls/sec IV ASDIRECTED [facility] Stop: 04/10/20 14:31 Last Admin: 04/10/20 14:27 Dose: 4 mls/sec Documented by: Sodium Chloride (Sodium Chloride 3%) 500 mls @ 500 mls/hr IV ASDIRECTED [facility] Stop: 04/10/20 15:15 Last Admin: 04/10/20 15:09 Dose: 500 mls/hr Documented by: Potassium Chloride 20 meq/ (Premix) 100 mls @ 50 mls/hr IV ONETIME ONE Stop: 04/10/20 16:43 Last Admin: 04/10/20 15:09 Dose: 50 mls/hr Documented by: Potassium Chloride 20 meq/ (Premix) 100 mls @ 50 mls/hr IV ONETIME ONE Stop: 04/10/20 18:21 Last Admin: 04/10/20 17:46 Dose: 50 mls/hr Documented by: Ceftriaxone Sodium 2 gm/ (Sodium Chloride) 50 mls @ 100 mls/hr IV ONETIME ONE Stop: 04/10/20 17:27 Last Admin: 04/10/20 17:17 Dose: 100 mls/hr Documented by: Potassium Chloride (Kcl 20 Meq In Water 100 Ml) Confirm Administered Dose 100 mls @ as directed .ROUTE .STK-MED ONE Stop: 04/10/20 17:45 Last Admin: 04/10/20 17:49 Dose: Not Given Documented by: Potassium Chloride 20 meq/ (Premix) 100 mls @ 50 mls/hr IV Q2H [facility] Stop: 04/10/20 22:15 Last Admin: 04/10/20 22:26 Dose: 50 mls/hr Documented by: Sodium Chloride (Normal Saline) 1,000 mls @ 100 mls/hr IV ASDIRECTED [facility] Ceftriaxone Sodium 1 gm/ (Sodium Chloride) 50 mls @ 100 mls/hr IV Q24H [facility] Last Admin: 04/12/20 16:30 Dose: 100 mls/hr Documented by: Sodium Chloride (Sodium Chloride 0.45%) 1,000 mls @ 50 mls/hr IV ASDIRECTED [facility] Last Admin: 04/10/20 20:47 Dose: 50 mls/hr Documented by: Dextrose/Water (Dextrose 5% In Water) 1,000 mls @ 50 mls/[facility] Last Admin: 04/12/20 06:25 Dose: 50 mls/hr Documented by: Potassium Chloride (Kcl 20 Meq In Water 100 Ml) 100 mls @ 50 mls/hr IV Q2H [facility] Stop: 04/11/20 08:29 Last Admin: 04/11/20 06:33 Dose: 50 mls/hr Documented by: Lactated Ringer's (Ringers, Lactated) 500 mls @ 500 mls/hr IV [facility]OL[facility] ONE Stop: 04/11/20 10:44 Last Admin: 04/11/20 09:46 Dose: 500 mls/hr Documented by: Sodium Chloride (Normal Saline) 1,000 mls @ 100 mls/hr IV [facility] Last Admin: 04/13/20 07:12 Dose: 100 mls/hr Documented by: Sodium Chloride (Normal Saline) 1,000 mls @ 75 mls[facility] Last Admin: 04/14/20 21:16 Dose: 75 mls/hr Documented by: Magnesium Sulfate 2 gm/ Premix 50 mls @ 25 mls/hr IV Q6H [facility] Stop: 04/14/20 17:59 Last Admin: 04/14/20 17:00 Dose: 25 mls/hr Documented by: Sodium Chloride (Normal Saline) 1,000 mls @ 25 mls/hr [facility] Influenza Virus Vaccine (Pharmacy To Dose - Influenza Vaccine) 1 each IM ONETIME ONE Stop: 04/16/20 10:01 Influenza Virus Vaccine (Fluzone Quad [id number] Syringe) 60 mcg IM .ONCE ONE Stop: 04/16/20 10:01 Last Admin: 04/16/20 10:44 Dose: 60 mcg Documented by: Iopamidol (Isovue-370 (76%)) 100 ml IV . DIRECTED [facility] Stop: 04/10/20 14:31 Last Admin: 04/10/20 14:27 Dose: 100 ml Documented by: Lorazepam (Ativan) Confirm Administered Dose 2 mg .ROUTE .STK-MED ONE Stop: 04/10/20 13:51 Lorazepam (Ativan) 1 mg IVPUSH ONETIME ONE Stop: 04/10/20 15:10 Last Admin: 04/10/20 15:15 Dose: 1 mg Documented by: Lorazepam (Ativan) 1 mg IVPUSH Q2H PRN PRN Reason: Seizures Last Admin: 04/14/20 21:16 Dose: 1 mg Documented by: Lorazepam (Ativan) 0 mg PO ASDIRECTED [facility]; Protocol Last Admin: 04/15/20 09:22 Dose: 1 mg Documented by: Naloxone HCl (Narcan) 0.1 mg IVPUSH ONETIME PRN PRN Reason: Oversedation Last Admin: 04/10/20 16:15 Dose: 0.1 mg Documented by: Potassium Chloride (Potassium Chloride Solution) 40 meq PO ONETIME ONE Stop: 04/10/20 23:58 Last Admin: 04/11/20 00:11 Dose: 40 meq Documented by: Potassium Chloride (Potassium Chloride Solution) 40 meq PO ONETIME ONE Stop: 04/12/20 08:46 Last Admin: 04/12/20 10:07 Dose: 40 meq Documented by: Potassium Chloride (Potassium Chloride Solution) 40 meq PO ONETIME ONE Stop: 04/12/20 14:31 Last Admin: 04/12/20 14:56 Dose: 40 meq Documented by: Sodium Chloride (Saline Flush) 10 ml FLUSH ONETIME PRN PRN Reason: per radiology protocol Stop: 04/10/20 14:17 Last Admin: 04/10/20 14:27 Dose: 10 ml Documented by: - Exam General: Alert, Oriented, Cooperative, No Acute Distress Lungs: Clear to Auscultation, Normal Respiratory Effort, Decreased Breath Sounds Cardiovascular: Regular Rate, Regular Rhythm, No Murmurs GI/Abdominal Exam: Soft, Non-Tender, No Organomegaly, No Distention Extremities: Non-Tender, No Pedal Edema Sepsis Event Note - Evaluation Sepsis Screening Result: No Definite Risk - Focused Exam Vital Signs: Vital Signs Temp Pulse Pulse Resp BP BP Pulse Ox 11/24/20 10:42 96.9 F 104 H 18 142/82 H 99 04/21/20 08:33 97 119/75 04/21/20 06:54 97.4 F 97 18 119/75 99 - Problem List Review Problem List Initiated/Reviewed/Updated: Yes - Plan Plan:: ASSESSMENT AND PLAN SEVERE HYPONATREMIA-resolved with hydration. -Saline lock IV fluids SEVERE HYPOKALEMIA-potassium level has normalized. ENCEPHALOPATHY-likely secondary to chronic alcohol use, metabolic abnormalities and urinary tract infection. CTA of the brain and neck as well as CT of the head shows no acute abnormalities. Back to baseline. HISTORY OF ALCOHOL DEPENDENCE-no evidence for withdrawal. -Supplement thiamine and folate SEIZURE-likely secondary to hyponatremia. No recurrence. URINARY TRACT INFECTION-urine culture grew out Klebsiella. Blood cultures are negative. He has completed adequate therapy. ADRENAL INSUFFICIENCY -Prednisone 10 mg p.o. daily MAINTENANCE ISSUES -DVT prophylaxis; Lovenox 40 mg subcu daily -GI prophylaxis; continue outpatient PPI therapy -Nutrition; regular diet DISPOSITION-anticipate discharge to transitional care unit after the hospital stay. He is and has been ready for hospital discharge but so far we have not established a safety plan for subacute rehab.
[2020-04-21] MEDS: LORazepam 1 MG Tab PO PRN ×2 (15:13→19:40)
[2020-04-21] MEDS: diphenhydrAMINE 25 MG Cap PO PRN (15:29)
[2020-04-21] MEDS: Gabapentin 300 MG Cap PO SCH ×2 (19:41→20:34)
[2020-04-21] MEDS: Enoxaparin 40 MG/0.4 ML Syringe SUBCUT SCH (19:41)
[2020-04-22] MEDS: Pantoprazole 40 MG Tab.CR PO SCH (08:15)
[2020-04-22] MEDS: Metoprolol Succinate 25 MG Tab.ER PO SCH ×2 (08:15→20:07)
[2020-04-22] MEDS: predniSONE 10 MG Tab PO SCH (08:15)
[2020-04-22] MEDS: FLUoxetine 10 MG Cap PO SCH (08:15)
[2020-04-22] MEDS: Aspirin 81 MG Tab.Chew PO SCH (08:16)
[2020-04-22] MEDS: Nicotine 21 MG/24 Hr Patch TRDERM SCH (08:16)
[2020-04-22] MEDS: Folic Acid 1 MG Tab PO SCH (08:16)
[2020-04-22] MEDS: Spironolactone 25 MG Tab PO SCH (08:16)
[2020-04-22] MEDS: Thiamine 100 MG Tab PO SCH (08:16)
[2020-04-22] MEDS: LORazepam 1 MG Tab PO PRN ×2 (08:21→23:28)
[2020-04-22] MEDS: Naproxen 250 MG Tab PO PRN ×2 (08:22→20:08)
--- NOTE | 2020-04-22 12:07 | PCM.PN ---
- General Info Date of Service: 04/22/20 Subjective Update: Mr. Jhaveri has remained medically stable and is awaiting a safe discharge plan Functional Status: Reports: Tolerating Diet, Ambulating, Urinating - Review of Systems General: Reports: No Symptoms Pulmonary: Reports: No Symptoms Cardiovascular: Reports: No Symptoms Gastrointestinal: Reports: No Symptoms - Patient Data Vitals - Most Recent: Last Vital Signs Temp 98 F 04/22/20 08:10 Pulse 106 H 04/22/20 08:15 Resp 18 04/22/20 08:10 BP 128/87 04/22/20 08:15 Pulse Ox 99 04/21/20 19:42 Weight - Most Recent: 132 lb I&O - Last 24 Hours: Intake & Output 04/21/20 04/22/20 04/22/20 22:59 06:59 14:59 Intake Total 300 500 Output Total 200 550 Balance 100 -50 Med Orders - Current: Current Medications Acetaminophen (Tylenol) 650 mg PO Q4H PRN PRN Reason: Pain (Mild 1-3)/fever Last Admin: 04/21/20 12:50 Dose: 650 mg Documented by: Albuterol (Proventil Neb Soln) 2.5 mg NEB Q4H PRN PRN Reason: Shortness Of Breath/wheezing Aspirin (Aspirin) 81 mg PO DAILY [facility] Last Admin: 04/22/20 08:16 Dose: 81 mg Documented by: Cyclobenzaprine HCl (Flexeril) 10 mg PO TID PRN PRN Reason: Muscle Spasm Last Admin: 04/21/20 12:50 Dose: 10 mg Documented by: Diphenhydramine HCl (Benadryl) 50 mg PO Q4H PRN PRN Reason: Itching Last Admin: 04/21/20 15:29 Dose: 50 mg Documented by: Enoxaparin Sodium (Lovenox) 40 mg SUBCUT Q24H [facility] Last Admin: 04/21/20 19:41 Dose: 40 mg Documented by: Fluoxetine HCl (Prozac) 10 mg PO DAILY [facility] Last Admin: 04/22/20 08:15 Dose: 10 mg Documented by: Folic Acid (Folic Acid) 1 mg PO DAILY [facility] Last Admin: 04/22/20 08:16 Dose: 1 mg Documented by: Gabapentin (Neurontin) 300 mg PO BEDTIME [facility] Last Admin: 04/21/20 20:34 Dose: Not Given Documented by: Loratadine (Claritin) 10 mg PO DAILY PRN PRN Reason: Allergies Last Admin: 04/17/20 09:01 Dose: 10 mg Documented by: Lorazepam (Ativan) 1 mg PO Q2H PRN PRN Reason: Anxiety Last Admin: 04/22/20 08:21 Dose: 1 mg Documented by: Metoprolol Succinate (Toprol Xl) 25 mg PO BID [facility] Last Admin: 04/22/20 08:15 Dose: 25 mg Documented by: Naproxen (Naprosyn) 500 mg PO Q12H PRN PRN Reason: joint/neck pain Last Admin: 04/22/20 08:22 Dose: 500 mg Documented by: Nicotine (Habitrol) 21 mg TRDERM DAILY [facility] Last Admin: 04/22/20 08:16 Dose: 21 mg Documented by: Ondansetron HCl (Zofran) 4 mg IV Q4H PRN PRN Reason: Nausea/Vomiting Pantoprazole Sodium (Protonix) 40 mg PO ACBREAKFAST [facility] Last Admin: 04/22/20 08:15 Dose: 40 mg Documented by: Polyethylene Glycol (Miralax) 17 gm PO DAILY PRN PRN Reason: Constipation Prednisone (Prednisone) 10 mg PO DAILY [facility] Last Admin: 04/22/20 08:15 Dose: 10 mg Documented by: Sodium Chloride (Saline Flush) 10 ml FLUSH ASDIRECTED PRN PRN Reason: Keep Vein Open Spironolactone (Aldactone) 12.5 mg PO DAILY [facility] Last Admin: 04/22/20 08:16 Dose: 12.5 mg Documented by: Thiamine HCl (Vitamin B-1) 100 mg PO DAILY [facility] Last Admin: 04/22/20 08:16 Dose: 100 mg Documented by: Discontinued Medications Cephalexin (Keflex) 500 mg PO TID [facility] Stop: 04/18/20 14:01 Last Admin: 04/16/20 13:47 Dose: Not Given Documented by: Cyclobenzaprine HCl (Flexeril) 10 mg PO TID PRN PRN Reason: Muscle Spasm Last Admin: 04/17/20 07:44 Dose: 10 mg Documented by: Enoxaparin Sodium (Lovenox) 40 mg SUBCUT DAILY [facility] Last Admin: 04/10/20 20:51 Dose: 40 mg Documented by: Hydrocortisone Sodium Succinate (Solu-Cortef) 100 mg IVPUSH ONETIME ONE Stop: 04/10/20 17:08 Last Admin: 04/10/20 17:47 Dose: 100 mg Documented by: Levetiracetam 2,000 mg/ Sodium (Chloride) 120 mls @ 480 mls/hr IV ONETIME ONE Stop: 04/10/20 14:14 Last Admin: 04/10/20 15:11 Dose: 480 mls/hr Documented by: Sodium Chloride (Normal Saline) 93 mls @ 4 mls/sec IV ASDIRECTED [facility] Stop: 04/10/20 14:31 Last Admin: 04/10/20 14:27 Dose: 4 mls/sec Documented by: Sodium Chloride (Sodium Chloride 3%) 500 mls @ 500 mls/hr IV ASDIRECTED [facility] Stop: 04/10/20 15:15 Last Admin: 04/10/20 15:09 Dose: 500 mls/hr Documented by: Potassium Chloride 20 meq/ (Premix) 100 mls @ 50 mls/hr IV ONETIME ONE Stop: 04/10/20 16:43 Last Admin: 04/10/20 15:09 Dose: 50 mls/hr Documented by: Potassium Chloride 20 meq/ (Premix) 100 mls @ 50 mls/hr IV ONETIME ONE Stop: 04/10/20 18:21 Last Admin: 04/10/20 17:46 Dose: 50 mls/hr Documented by: Ceftriaxone Sodium 2 gm/ (Sodium Chloride) 50 mls @ 100 mls/hr IV ONETIME ONE Stop: 04/10/20 17:27 Last Admin: 04/10/20 17:17 Dose: 100 mls/hr Documented by: Potassium Chloride (Kcl 20 Meq In Water 100 Ml) Confirm Administered Dose 100 mls @ as directed .ROUTE .STK-MED ONE Stop: 04/10/20 17:45 Last Admin: 04/10/20 17:49 Dose: Not Given Documented by: Potassium Chloride 20 meq/ (Premix) 100 mls @ 50 mls/hr IV Q2H [facility] Stop: 04/10/20 22:15 Last Admin: 04/10/20 22:26 Dose: 50 mls/hr Documented by: Sodium Chloride (Normal Saline) 1,000 mls @ 100 mls/hr IV ASDIRECTED [facility] Ceftriaxone Sodium 1 gm/ (Sodium Chloride) 50 mls @ 100 mls/hr IV Q24H [facility] Last Admin: 04/12/20 16:30 Dose: 100 mls/hr Documented by: Sodium Chloride (Sodium Chloride 0.45%) 1,000 mls @ 50 mls/hr IV ASDIRECTED [facility] Last Admin: 04/10/20 20:47 Dose: 50 mls/hr Documented by: Dextrose/Water (Dextrose 5% In Water) 1,000 mls @ 50 mls/hr IV ASDIRECTED [facility] Last Admin: 04/12/20 06:25 Dose: 50 mls/hr Documented by: Potassium Chloride (Kcl 20 Meq In Water 100 Ml) 100 mls @ 50 mls/hr IV Q2H [facility] Stop: 04/11/20 08:29 Last Admin: 04/11/20 06:33 Dose: 50 mls/hr Documented by: Lactated Ringer's (Ringers, Lactated) 500 mls @ 500 mls/hr IV BOLUS ONE Stop: 04/11/20 10:44 Last Admin: 04/11/20 09:46 Dose: 500 mls/hr Documented by: Sodium Chloride (Normal Saline) 1,000 mls @ 100 mls/hr IV ASDIRECTED [facility] Last Admin: 04/13/20 07:12 Dose: 100 mls/hr Documented by: Sodium Chloride (Normal Saline) 1,000 mls @ 75 mls/hr IV ASDIRECTED [facility] Last Admin: 04/14/20 21:16 Dose: 75 mls/hr Documented by: Magnesium Sulfate 2 gm/ Premix 50 mls @ 25 mls/hr IV Q6H [facility] Stop: 04/14/20 17:59 Last Admin: 04/14/20 17:00 Dose: 25 mls/hr Documented by: Sodium Chloride (Normal Saline) 1,000 mls @ 25 mls/hr IV ASDIRECTED [facility] Influenza Virus Vaccine (Pharmacy To Dose - Influenza Vaccine) 1 each IM ONETIME ONE Stop: 04/16/20 10:01 Influenza Virus Vaccine (Fluzone Quad 1040-5140 Syringe) 60 mcg IM .ONCE ONE Stop: 04/16/20 10:01 Last Admin: 04/16/20 10:44 Dose: 60 mcg Documented by: Iopamidol (Isovue-370 (76%)) 100 ml IV . DIRECTED [facility] Stop: 04/10/20 14:31 Last Admin: 04/10/20 14:27 Dose: 100 ml Documented by: Lorazepam (Ativan) Confirm Administered Dose 2 mg .ROUTE .STK-MED ONE Stop: 04/10/20 13:51 Lorazepam (Ativan) 1 mg IVPUSH ONETIME ONE Stop: 04/10/20 15:10 Last Admin: 04/10/20 15:15 Dose: 1 mg Documented by: Lorazepam (Ativan) 1 mg IVPUSH Q2H PRN PRN Reason: Seizures Last Admin: 04/14/20 21:16 Dose: 1 mg Documented by: Lorazepam (Ativan) 0 mg PO ASDIRECTED [facility]; Protocol Last Admin: 04/15/20 09:22 Dose: 1 mg Documented by: Naloxone HCl (Narcan) 0.1 mg IVPUSH ONETIME PRN PRN Reason: Oversedation Last Admin: 04/10/20 16:15 Dose: 0.1 mg Documented by: Potassium Chloride (Potassium Chloride Solution) 40 meq PO ONETIME ONE Stop: 04/10/20 23:58 Last Admin: 04/11/20 00:11 Dose: 40 meq Documented by: Potassium Chloride (Potassium Chloride Solution) 40 meq PO ONETIME ONE Stop: 04/12/20 08:46 Last Admin: 04/12/20 10:07 Dose: 40 meq Documented by: Potassium Chloride (Potassium Chloride Solution) 40 meq PO ONETIME ONE Stop: 04/12/20 14:31 Last Admin: 04/12/20 14:56 Dose: 40 meq Documented by: Sodium Chloride (Saline Flush) 10 ml FLUSH ONETIME PRN PRN Reason: per radiology protocol Stop: 04/10/20 14:17 Last Admin: 04/10/20 14:27 Dose: 10 ml Documented by: - Exam General: Alert, Oriented, Cooperative, No Acute Distress Lungs: Clear to Auscultation, Normal Respiratory Effort Cardiovascular: Regular Rate, Regular Rhythm, No Murmurs GI/Abdominal Exam: Soft, Non-Tender, No Organomegaly, No Distention Extremities: Non-Tender, No Pedal Edema Sepsis Event Note - Evaluation Sepsis Screening Result: No Definite Risk - Focused Exam Vital Signs: Vital Signs Temp Pulse Pulse Resp BP BP 04/22/20 08:15 106 H 128/87 04/22/20 08:10 98 F 106 H 18 128/87 - Problem List Review Problem List Initiated/Reviewed/Updated: Yes - Plan Plan:: ASSESSMENT AND PLAN SEVERE HYPONATREMIA-resolved with hydration. -Saline lock IV fluids SEVERE HYPOKALEMIA-potassium level has normalized. ENCEPHALOPATHY-likely secondary to chronic alcohol use, metabolic abnormalities and urinary tract infection. CTA of the brain and neck as well as CT of the head shows no acute abnormalities. Back to baseline. HISTORY OF ALCOHOL DEPENDENCE-no evidence for withdrawal. -Supplement thiamine and folate SEIZURE-likely secondary to hyponatremia. No recurrence. URINARY TRACT INFECTION-urine culture grew out Klebsiella. Blood cultures are negative. He has completed adequate therapy. ADRENAL INSUFFICIENCY -Prednisone 10 mg p.o. daily MAINTENANCE ISSUES -DVT prophylaxis; Lovenox 40 mg subcu daily -GI prophylaxis; continue outpatient PPI therapy -Nutrition; regular diet DISPOSITION-anticipate discharge to transitional care unit after the hospital stay. He is and has been ready for hospital discharge but so far we have not established a safety plan for subacute rehab.
[2020-04-22] MEDS: Enoxaparin 40 MG/0.4 ML Syringe SUBCUT SCH (20:07)
[2020-04-22] MEDS: Cyclobenzaprine 10 MG Tab PO PRN (20:08)
[2020-04-22] MEDS: Gabapentin 300 MG Cap PO SCH (20:08)
[2020-04-22] MEDS: diphenhydrAMINE 25 MG Cap PO PRN (23:28)
[2020-04-23] MEDS: Pantoprazole 40 MG Tab.CR PO SCH (07:39)
[2020-04-23] MEDS: Thiamine 100 MG Tab PO SCH (08:33)
[2020-04-23] MEDS: FLUoxetine 10 MG Cap PO SCH (08:33)
[2020-04-23] MEDS: Spironolactone 25 MG Tab PO SCH (08:33)
[2020-04-23] MEDS: predniSONE 10 MG Tab PO SCH (08:33)
[2020-04-23] MEDS: Folic Acid 1 MG Tab PO SCH (08:33)
[2020-04-23] MEDS: Aspirin 81 MG Tab.Chew PO SCH (08:33)
[2020-04-23] MEDS: Metoprolol Succinate 25 MG Tab.ER PO SCH ×2 (08:34→20:08)
[2020-04-23] MEDS: Nicotine 21 MG/24 Hr Patch TRDERM SCH (08:34)
[2020-04-23] MEDS: Naproxen 250 MG Tab PO PRN ×2 (08:39→17:41)
--- NOTE | 2020-04-23 12:08 | PCM.PN ---
- General Info Date of Service: 04/23/20 Subjective Update: Remains medically stable, safe discharge plan pending. He is not safe to be living independently and there are no facilities willing or able to accept him at this time. Functional Status: Reports: Tolerating Diet, Ambulating, Urinating - Review of Systems General: Reports: Weakness, Fatigue. Denies: Fever, Chills Pulmonary: Reports: No Symptoms Cardiovascular: Reports: No Symptoms Gastrointestinal: Reports: No Symptoms - Patient Data Vitals - Most Recent: Last Vital Signs Temp 95.5 F L 04/23/20 07:00 Pulse 93 04/23/20 08:34 Resp 16 04/23/20 07:00 BP 138/88 04/23/20 08:34 Pulse Ox 100 04/23/20 07:00 Weight - Most Recent: 132 lb I&O - Last 24 Hours: Intake & Output 04/22/20 04/23/20 04/23/20 22:59 06:59 14:59 Intake Total 600 355 Output Total 301 350 Balance 299 355 -350 Med Orders - Current: Current Medications Acetaminophen (Tylenol) 650 mg PO Q4H PRN PRN Reason: Pain (Mild 1-3)/fever Last Admin: 04/21/20 12:50 Dose: 650 mg Documented by: Albuterol (Proventil Neb Soln) 2.5 mg NEB Q4H PRN PRN Reason: Shortness Of Breath/wheezing Aspirin (Aspirin) 81 mg PO DAILY [facility] Last Admin: 04/23/20 08:33 Dose: 81 mg Documented by: Cyclobenzaprine HCl (Flexeril) 10 mg PO TID PRN PRN Reason: Muscle Spasm Last Admin: 04/22/20 20:08 Dose: 10 mg Documented by: Diphenhydramine HCl (Benadryl) 50 mg PO Q4H PRN PRN Reason: Itching Last Admin: 04/22/20 23:28 Dose: 50 mg Documented by: Enoxaparin Sodium (Lovenox) 40 mg SUBCUT Q24H [facility] Last Admin: 04/22/20 20:07 Dose: 40 mg Documented by: Fluoxetine HCl (Prozac) 10 mg PO DAILY [facility] Last Admin: 04/23/20 08:33 Dose: 10 mg Documented by: Folic Acid (Folic Acid) 1 mg PO DAILY [facility] Last Admin: 04/23/20 08:33 Dose: 1 mg Documented by: Gabapentin (Neurontin) 300 mg PO BEDTIME [facility] Last Admin: 04/22/20 20:08 Dose: 300 mg Documented by: Loratadine (Claritin) 10 mg PO DAILY PRN PRN Reason: Allergies Last Admin: 04/17/20 09:01 Dose: 10 mg Documented by: Lorazepam (Ativan) 1 mg PO Q2H PRN PRN Reason: Anxiety Last Admin: 04/22/20 23:28 Dose: 1 mg Documented by: Metoprolol Succinate (Toprol Xl) 25 mg PO BID [facility] Last Admin: 04/23/20 08:34 Dose: 25 mg Documented by: Naproxen (Naprosyn) 500 mg PO Q12H PRN PRN Reason: joint/neck pain Last Admin: 04/23/20 08:39 Dose: 500 mg Documented by: Nicotine (Habitrol) 21 mg TRDERM DAILY [facility] Last Admin: 04/23/20 08:34 Dose: 21 mg Documented by: Ondansetron HCl (Zofran) 4 mg IV Q4H PRN PRN Reason: Nausea/Vomiting Pantoprazole Sodium (Protonix) 40 mg PO ACBREAKFAST [facility] Last Admin: 04/23/20 07:39 Dose: 40 mg Documented by: Polyethylene Glycol (Miralax) 17 gm PO DAILY PRN PRN Reason: Constipation Prednisone (Prednisone) 10 mg PO DAILY [facility] Last Admin: 04/23/20 08:33 Dose: 10 mg Documented by: Sodium Chloride (Saline Flush) 10 ml FLUSH ASDIRECTED PRN PRN Reason: Keep Vein Open Spironolactone (Aldactone) 12.5 mg PO DAILY [facility] Last Admin: 04/23/20 08:33 Dose: 12.5 mg Documented by: Thiamine HCl (Vitamin B-1) 100 mg PO DAILY [facility] Last Admin: 04/23/20 08:33 Dose: 100 mg Documented by: Discontinued Medications Cephalexin (Keflex) 500 mg PO TID [facility] Stop: 04/18/20 14:01 Last Admin: 04/16/20 13:47 Dose: Not Given Documented by: Cyclobenzaprine HCl (Flexeril) 10 mg PO TID PRN PRN Reason: Muscle Spasm Last Admin: 04/17/20 07:44 Dose: 10 mg Documented by: Enoxaparin Sodium (Lovenox) 40 mg SUBCUT DAILY [facility] Last Admin: 04/10/20 20:51 Dose: 40 mg Documented by: Hydrocortisone Sodium Succinate (Solu-Cortef) 100 mg IVPUSH ONETIME ONE Stop: 04/10/20 17:08 Last Admin: 04/10/20 17:47 Dose: 100 mg Documented by: Levetiracetam 2,000 mg/ Sodium (Chloride) 120 mls @ 480 mls/hr IV ONETIME ONE Stop: 04/10/20 14:14 Last Admin: 04/10/20 15:11 Dose: 480 mls/hr Documented by: Sodium Chloride (Normal Saline) 93 mls @ 4 mls/sec IV ASDIRECTED [facility] Stop: 04/10/20 14:31 Last Admin: 04/10/20 14:27 Dose: 4 mls/sec Documented by: Sodium Chloride (Sodium Chloride 3%) 500 mls @ 500 mls/hr IV ASDIRECTED [facility] Stop: 04/10/20 15:15 Last Admin: 04/10/20 15:09 Dose: 500 mls/hr Documented by: Potassium Chloride 20 meq/ (Premix) 100 mls @ 50 mls/hr IV ONETIME ONE Stop: 04/10/20 16:43 Last Admin: 04/10/20 15:09 Dose: 50 mls/hr Documented by: Potassium Chloride 20 meq/ (Premix) 100 mls @ 50 mls/hr IV ONETIME ONE Stop: 04/10/20 18:21 Last Admin: 04/10/20 17:46 Dose: 50 mls/hr Documented by: Ceftriaxone Sodium 2 gm/ (Sodium Chloride) 50 mls @ 100 mls/hr IV ONETIME ONE Stop: 04/10/20 17:27 Last Admin: 04/10/20 17:17 Dose: 100 mls/hr Documented by: Potassium Chloride (Kcl 20 Meq In Water 100 Ml) Confirm Administered Dose 100 mls @ as directed .ROUTE .STK-MED ONE Stop: 04/10/20 17:45 Last Admin: 04/10/20 17:49 Dose: Not Given Documented by: Potassium Chloride 20 meq/ (Premix) 100 mls @ 50 mls/hr IV Q2H [facility] Stop: 04/10/20 22:15 Last Admin: 04/10/20 22:26 Dose: 50 mls/hr Documented by: Sodium Chloride (Normal Saline) 1,000 mls @ 100 mls/hr IV ASDIRECTED [facility] Ceftriaxone Sodium 1 gm/ (Sodium Chloride) 50 mls @ 100 mls/hr IV Q24H [facility] Last Admin: 04/12/20 16:30 Dose: 100 mls/hr Documented by: Sodium Chloride (Sodium Chloride 0.45%) 1,000 mls @ 50 mls/hr IV ASDIRECTED [facility] Last Admin: 04/10/20 20:47 Dose: 50 mls/hr Documented by: Dextrose/Water (Dextrose 5% In Water) 1,000 mls @ 50 mls/hr IV ASDIRECTED [facility] Last Admin: 04/12/20 06:25 Dose: 50 mls/hr Documented by: Potassium Chloride (Kcl 20 Meq In Water 100 Ml) 100 mls @ 50 mls/hr IV Q2H [facility] Stop: 04/11/20 08:29 Last Admin: 04/11/20 06:33 Dose: 50 mls/hr Documented by: Lactated Ringer's (Ringers, Lactated) 500 mls @ 500 mls/hr IV BOLUS ONE Stop: 04/11/20 10:44 Last Admin: 04/11/20 09:46 Dose: 500 mls/hr Documented by: Sodium Chloride (Normal Saline) 1,000 mls @ 100 mls/hr IV ASDIRECTED [facility] Last Admin: 04/13/20 07:12 Dose: 100 mls/hr Documented by: Sodium Chloride (Normal Saline) 1,000 mls @ 75 mls/hr IV ASDIRECTED [facility] Last Admin: 04/14/20 21:16 Dose: 75 mls/hr Documented by: Magnesium Sulfate 2 gm/ Premix 50 mls @ 25 mls/hr IV Q6H [facility] Stop: 04/14/20 17:59 Last Admin: 04/14/20 17:00 Dose: 25 mls/hr Documented by: Sodium Chloride (Normal Saline) 1,000 mls @ 25 mls/hr IV ASDIRECTED [facility] Influenza Virus Vaccine (Pharmacy To Dose - Influenza Vaccine) 1 each IM ONETIME ONE Stop: 04/16/20 10:01 Influenza Virus Vaccine (Fluzone Quad [id number] Syringe) 60 mcg IM .ONCE ONE Stop: 04/16/20 10:01 Last Admin: 04/16/20 10:44 Dose: 60 mcg Documented by: Iopamidol (Isovue-370 (76%)) 100 ml IV . DIRECTED [facility] Stop: 04/10/20 14:31 Last Admin: 04/10/20 14:27 Dose: 100 ml Documented by: Lorazepam (Ativan) Confirm Administered Dose 2 mg .ROUTE .STK-MED ONE Stop: 04/10/20 13:51 Lorazepam (Ativan) 1 mg IVPUSH ONETIME ONE Stop: 04/10/20 15:10 Last Admin: 04/10/20 15:15 Dose: 1 mg Documented by: Lorazepam (Ativan) 1 mg IVPUSH Q2H PRN PRN Reason: Seizures Last Admin: 04/14/20 21:16 Dose: 1 mg Documented by: Lorazepam (Ativan) 0 mg PO ASDIRECTED [facility]; Protocol Last Admin: 04/15/20 09:22 Dose: 1 mg Documented by: Naloxone HCl (Narcan) 0.1 mg IVPUSH ONETIME PRN PRN Reason: Oversedation Last Admin: 04/10/20 16:15 Dose: 0.1 mg Documented by: Potassium Chloride (Potassium Chloride Solution) 40 meq PO ONETIME ONE Stop: 04/10/20 23:58 Last Admin: 04/11/20 00:11 Dose: 40 meq Documented by: Potassium Chloride (Potassium Chloride Solution) 40 meq PO ONETIME ONE Stop: 04/12/20 08:46 Last Admin: 04/12/20 10:07 Dose: 40 meq Documented by: Potassium Chloride (Potassium Chloride Solution) 40 meq PO ONETIME ONE Stop: 04/12/20 14:31 Last Admin: 04/12/20 14:56 Dose: 40 meq Documented by: Sodium Chloride (Saline Flush) 10 ml FLUSH ONETIME PRN PRN Reason: per radiology protocol Stop: 04/10/20 14:17 Last Admin: 04/10/20 14:27 Dose: 10 ml Documented by: - Exam Quality Assessment: DVT Prophylaxis General: Alert, Oriented, Cooperative, No Acute Distress Lungs: Clear to Auscultation, Normal Respiratory Effort Cardiovascular: Regular Rate, Regular Rhythm, No Murmurs GI/Abdominal Exam: Soft, Non-Tender, No Organomegaly, No Distention Sepsis Event Note - Evaluation Sepsis Screening Result: No Definite Risk - Focused Exam Vital Signs: Vital Signs Temp Pulse Pulse Resp BP BP Pulse Ox 04/23/20 08:34 93 138/88 04/23/20 07:00 95.5 F L 93 16 138/88 100 - Problem List Review Problem List Initiated/Reviewed/Updated: Yes - Plan Plan:: ASSESSMENT AND PLAN SEVERE HYPONATREMIA-resolved with hydration. -Saline lock IV fluids SEVERE HYPOKALEMIA-potassium level has normalized. ENCEPHALOPATHY-likely secondary to chronic alcohol use, metabolic abnormalities and urinary tract infection. CTA of the brain and neck as well as CT of the head shows no acute abnormalities. Back to baseline. HISTORY OF ALCOHOL DEPENDENCE-no evidence for withdrawal. -Supplement thiamine and folate SEIZURE-likely secondary to hyponatremia. No recurrence. URINARY TRACT INFECTION-urine culture grew out Klebsiella. Blood cultures are negative. He has completed adequate therapy. ADRENAL INSUFFICIENCY -Prednisone 10 mg p.o. daily MAINTENANCE ISSUES -DVT prophylaxis; Lovenox 40 mg subcu daily -GI prophylaxis; continue outpatient PPI therapy -Nutrition; regular diet DISPOSITION-anticipate discharge to transitional care unit after the hospital stay. He is and has been ready for hospital discharge but so far we have not established a safety plan for subacute rehab.
[2020-04-23] MEDS: Acetaminophen 325 MG Tab PO PRN ×2 (14:57→19:34)
[2020-04-23] MEDS: Cyclobenzaprine 10 MG Tab PO PRN ×2 (14:58→22:29)
[2020-04-23] MEDS: LORazepam 1 MG Tab PO PRN ×2 (17:41→22:29)
[2020-04-23] MEDS: Gabapentin 300 MG Cap PO SCH (20:07)
[2020-04-23] MEDS: Enoxaparin 40 MG/0.4 ML Syringe SUBCUT SCH (20:08)
[2020-04-24] MEDS: Naproxen 250 MG Tab PO PRN ×2 (08:09→21:29)
[2020-04-24] MEDS: Cyclobenzaprine 10 MG Tab PO PRN ×2 (08:09→16:23)
[2020-04-24] MEDS: LORazepam 1 MG Tab PO PRN ×2 (08:09→21:29)
[2020-04-24] MEDS: Folic Acid 1 MG Tab PO SCH (08:11)
[2020-04-24] MEDS: Pantoprazole 40 MG Tab.CR PO SCH (08:11)
[2020-04-24] MEDS: Aspirin 81 MG Tab.Chew PO SCH (08:12)
[2020-04-24] MEDS: Thiamine 100 MG Tab PO SCH (08:12)
[2020-04-24] MEDS: FLUoxetine 10 MG Cap PO SCH (08:12)
[2020-04-24] MEDS: predniSONE 10 MG Tab PO SCH (08:12)
[2020-04-24] MEDS: Nicotine 21 MG/24 Hr Patch TRDERM SCH (08:12)
[2020-04-24] MEDS: Metoprolol Succinate 25 MG Tab.ER PO SCH ×2 (08:12→23:40)
[2020-04-24] MEDS: Spironolactone 25 MG Tab PO SCH (08:12)
--- NOTE | 2020-04-24 10:45 | PCM.PN ---
- General Info Date of Service: 04/24/20 Subjective Update: Mr. Jhaveri has remained medically stable and is awaiting safe discharge plan. He has experienced some increased pain in his right foot. He has known underlying severe neuropathy which is felt to be the cause of most of his pain and swelling. Functional Status: Reports: Tolerating Diet, Ambulating, Urinating - Review of Systems General: Reports: Weakness, Fatigue. Denies: Fever, Chills Pulmonary: Reports: No Symptoms Cardiovascular: Reports: No Symptoms Gastrointestinal: Reports: No Symptoms - Patient Data Vitals - Most Recent: Last Vital Signs Temp 97.3 F 04/24/20 08:03 Pulse 110 H 04/24/20 08:12 Resp 16 04/24/20 08:03 BP 139/88 04/24/20 08:12 Pulse Ox 100 04/24/20 08:03 Weight - Most Recent: 132 lb I&O - Last 24 Hours: Intake & Output 04/23/20 04/24/20 04/24/20 22:59 06:59 14:59 Intake Total 480 300 400 Output Total 650 750 Balance -170 -450 400 Med Orders - Current: Current Medications Acetaminophen (Tylenol) 650 mg PO Q4H PRN PRN Reason: Pain (Mild 1-3)/fever Last Admin: 04/23/20 19:34 Dose: 650 mg Documented by: Albuterol (Proventil Neb Soln) 2.5 mg NEB Q4H PRN PRN Reason: Shortness Of Breath/wheezing Aspirin (Aspirin) 81 mg PO DAILY [facility] Last Admin: 04/24/20 08:12 Dose: 81 mg Documented by: Cyclobenzaprine HCl (Flexeril) 10 mg PO TID PRN PRN Reason: Muscle Spasm Last Admin: 04/24/20 08:09 Dose: 10 mg Documented by: Diphenhydramine HCl (Benadryl) 50 mg PO Q4H PRN PRN Reason: Itching Last Admin: 04/22/20 23:28 Dose: 50 mg Documented by: Enoxaparin Sodium (Lovenox) 40 mg SUBCUT Q24H [facility] Last Admin: 04/23/20 20:08 Dose: 40 mg Documented by: Fluoxetine HCl (Prozac) 10 mg PO DAILY [facility] Last Admin: 04/24/20 08:12 Dose: 10 mg Documented by: Folic Acid (Folic Acid) 1 mg PO DAILY [facility] Last Admin: 04/24/20 08:11 Dose: 1 mg Documented by: Gabapentin (Neurontin) 300 mg PO BID [facility] Loratadine (Claritin) 10 mg PO DAILY PRN PRN Reason: Allergies Last Admin: 04/17/20 09:01 Dose: 10 mg Documented by: Lorazepam (Ativan) 1 mg PO Q2H PRN PRN Reason: Anxiety Last Admin: 04/24/20 08:09 Dose: 1 mg Documented by: Metoprolol Succinate (Toprol Xl) 25 mg PO BID [facility] Last Admin: 04/24/20 08:12 Dose: 25 mg Documented by: Naproxen (Naprosyn) 500 mg PO Q12H PRN PRN Reason: joint/neck pain Last Admin: 04/24/20 08:09 Dose: 500 mg Documented by: Nicotine (Habitrol) 14 mg TRDERM DAILY [facility] Ondansetron HCl (Zofran) 4 mg IV Q4H PRN PRN Reason: Nausea/Vomiting Pantoprazole Sodium (Protonix) 40 mg PO ACBREAKFAST [facility] Last Admin: 04/24/20 08:11 Dose: 40 mg Documented by: Polyethylene Glycol (Miralax) 17 gm PO DAILY PRN PRN Reason: Constipation Prednisone (Prednisone) 10 mg PO DAILY [facility] Last Admin: 04/24/20 08:12 Dose: 10 mg Documented by: Sodium Chloride (Saline Flush) 10 ml FLUSH ASDIRECTED PRN PRN Reason: Keep Vein Open Spironolactone (Aldactone) 12.5 mg PO DAILY [facility] Last Admin: 04/24/20 08:12 Dose: 12.5 mg Documented by: Thiamine HCl (Vitamin B-1) 100 mg PO DAILY [facility] Last Admin: 04/24/20 08:12 Dose: 100 mg Documented by: Discontinued Medications Cephalexin (Keflex) 500 mg PO TID [facility] Stop: 04/18/20 14:01 Last Admin: 04/16/20 13:47 Dose: Not Given Documented by: Cyclobenzaprine HCl (Flexeril) 10 mg PO TID PRN PRN Reason: Muscle Spasm Last Admin: 04/17/20 07:44 Dose: 10 mg Documented by: Enoxaparin Sodium (Lovenox) 40 mg SUBCUT DAILY [facility] Last Admin: 04/10/20 20:51 Dose: 40 mg Documented by: Gabapentin (Neurontin) 300 mg PO BEDTIME [facility] Last Admin: 04/23/20 20:07 Dose: 300 mg Documented by: Hydrocortisone Sodium Succinate (Solu-Cortef) 100 mg IVPUSH ONETIME ONE Stop: 04/10/20 17:08 Last Admin: 04/10/20 17:47 Dose: 100 mg Documented by: Levetiracetam 2,000 mg/ Sodium (Chloride) 120 mls @ 480 mls/hr IV ONETIME ONE Stop: 04/10/20 14:14 Last Admin: 04/10/20 15:11 Dose: 480 mls/hr Documented by: Sodium Chloride (Normal Saline) 93 mls @ 4 mls/sec IV ASDIRECTED [facility] Stop: 04/10/20 14:31 Last Admin: 04/10/20 14:27 Dose: 4 mls/sec Documented by: Sodium Chloride (Sodium Chloride 3%) 500 mls @ 500 mls/hr IV ASDIRECTED [facility] Stop: 04/10/20 15:15 Last Admin: 04/10/20 15:09 Dose: 500 mls/hr Documented by: Potassium Chloride 20 meq/ (Premix) 100 mls @ 50 mls/hr IV ONETIME ONE Stop: 04/10/20 16:43 Last Admin: 04/10/20 15:09 Dose: 50 mls/hr Documented by: Potassium Chloride 20 meq/ (Premix) 100 mls @ 50 mls/hr IV ONETIME ONE Stop: 04/10/20 18:21 Last Admin: 04/10/20 17:46 Dose: 50 mls/hr Documented by: Ceftriaxone Sodium 2 gm/ (Sodium Chloride) 50 mls @ 100 mls/hr IV ONETIME ONE Stop: 04/10/20 17:27 Last Admin: 04/10/20 17:17 Dose: 100 mls/hr Documented by: Potassium Chloride (Kcl 20 Meq In Water 100 Ml) Confirm Administered Dose 100 mls @ as directed .ROUTE .STK-MED ONE Stop: 04/10/20 17:45 Last Admin: 04/10/20 17:49 Dose: Not Given Documented by: Potassium Chloride 20 meq/ (Premix) 100 mls @ 50 mls/hr IV Q2H [facility] Stop: 04/10/20 22:15 Last Admin: 04/10/20 22:26 Dose: 50 mls/hr Documented by: Sodium Chloride (Normal Saline) 1,000 mls @ 100 mls/hr IV ASDIRECTED [facility] Ceftriaxone Sodium 1 gm/ (Sodium Chloride) 50 mls @ 100 mls/hr IV Q24H [facility] Last Admin: 04/12/20 16:30 Dose: 100 mls/hr Documented by: Sodium Chloride (Sodium Chloride 0.45%) 1,000 mls @ 50 mls/hr IV ASDIRECTED [facility] Last Admin: 04/10/20 20:47 Dose: 50 mls/hr Documented by: Dextrose/Water (Dextrose 5% In Water) 1,000 mls @ 50 mls/hr IV ASDIRECTED [facility] Last Admin: 04/12/20 06:25 Dose: 50 mls/hr Documented by: Potassium Chloride (Kcl 20 Meq In Water 100 Ml) 100 mls @ 50 mls/hr IV Q2H [facility] Stop: 04/11/20 08:29 Last Admin: 04/11/20 06:33 Dose: 50 mls/hr Documented by: Lactated Ringer's (Ringers, Lactated) 500 mls @ 500 mls/hr IV BOLUS ONE Stop: 04/11/20 10:44 Last Admin: 04/11/20 09:46 Dose: 500 mls/hr Documented by: Sodium Chloride (Normal Saline) 1,000 [facility] Last Admin: 04/13/20 07:12 Dose: 100 mls/hr Documented by: Sodium Chloride (Normal Saline) 1,000 mls @ 75 mls/hr IV [facility] Last Admin: 04/14/20 21:16 Dose: 75 mls/hr Documented by: Magnesium Sulfate 2 gm/ Premix 50 mls @ 25 mls/hr IV Q6H [facility] Stop: 04/14/20 17:59 Last Admin: 04/14/20 17:00 Dose: 25 mls/hr Documented by: Sodium Chloride (Normal Saline) 1,000 mls @ 25 mls/hr IV ASDIRECTED [facility] Influenza Virus Vaccine (Pharmacy To Dose - Influenza Vaccine) 1 each IM ONETIME ONE Stop: 04/16/20 10:01 Influenza Virus Vaccine (Fluzone Quad [id number] Syringe) 60 mcg IM .ONCE ONE Stop: 04/16/20 10:01 Last Admin: 04/16/20 10:44 Dose: 60 mcg Documented by: Iopamidol (Isovue-370 (76%)) 100 ml IV . DIRECTED [facility] Stop: 04/10/20 14:31 Last Admin: 04/10/20 14:27 Dose: 100 ml Documented by: Lorazepam (Ativan) Confirm Administered Dose 2 mg .ROUTE .STK-MED ONE Stop: 04/10/20 13:51 Lorazepam (Ativan) 1 mg IVPUSH ONETIME ONE Stop: 04/10/20 15:10 Last Admin: 04/10/20 15:15 Dose: 1 mg Documented by: Lorazepam (Ativan) 1 mg IVPUSH Q2H PRN PRN Reason: Seizures Last Admin: 04/14/20 21:16 Dose: 1 mg Documented by: Lorazepam (Ativan) 0 mg PO ASDIRECTED [facility]; Protocol Last Admin: 04/15/20 09:22 Dose: 1 mg Documented by: Naloxone HCl (Narcan) 0.1 mg IVPUSH ONETIME PRN PRN Reason: Oversedation Last Admin: 04/10/20 16:15 Dose: 0.1 mg Documented by: Nicotine (Habitrol) 21 mg TRDERM DAILY [facility] Last Admin: 04/24/20 08:12 Dose: 21 mg Documented by: Potassium Chloride (Potassium Chloride Solution) 40 meq PO ONETIME ONE Stop: 04/10/20 23:58 Last Admin: 04/11/20 00:11 Dose: 40 meq Documented by: Potassium Chloride (Potassium Chloride Solution) 40 meq PO ONETIME ONE Stop: 04/12/20 08:46 Last Admin: 04/12/20 10:07 Dose: 40 meq Documented by: Potassium Chloride (Potassium Chloride Solution) 40 meq PO ONETIME ONE Stop: 04/12/20 14:31 Last Admin: 04/12/20 14:56 Dose: 40 meq Documented by: Sodium Chloride (Saline Flush) 10 ml FLUSH ONETIME PRN PRN Reason: per radiology protocol Stop: 04/10/20 14:17 Last Admin: 04/10/20 14:27 Dose: 10 ml Documented by: - Exam General: Alert, Oriented, Cooperative, No Acute Distress Lungs: Clear to Auscultation, Normal Respiratory Effort, Decreased Breath Sounds Cardiovascular: Regular Rate, Regular Rhythm, No Murmurs GI/Abdominal Exam: Soft, Non-Tender, No Organomegaly, No Distention Sepsis Event Note - Evaluation Sepsis Screening Result: No Definite Risk - Focused Exam Vital Signs: Vital Signs Temp Pulse Pulse Resp BP BP Pulse Ox 04/24/20 08:12 110 H 139/88 04/24/20 08:03 97.3 F 110 H 16 139/88 100 - Problem List Review Problem List Initiated/Reviewed/Updated: Yes - My Orders Last 24 Hours: My Active Orders 04/24/20 10:45 Gabapentin [Neurontin] 300 mg PO BID Nicotine [Habitrol] 14 mg TRDERM DAILY - Plan Plan:: ASSESSMENT AND PLAN SEVERE HYPONATREMIA-resolved with hydration. -Saline lock IV fluids SEVERE HYPOKALEMIA-potassium level has normalized. ENCEPHALOPATHY-resolved PERIPHERAL NEUROPATHY-increase pain right foot there is some swelling but no evidence of underlying infection -Increase gabapentin to 300 mg twice daily HISTORY OF ALCOHOL DEPENDENCE -Supplement thiamine and folate SEIZURE-likely secondary to hyponatremia. No recurrence. URINARY TRACT INFECTION-urine culture grew out Klebsiella. Blood cultures are negative. He has completed adequate therapy. ADRENAL INSUFFICIENCY -Prednisone 10 mg p.o. daily MAINTENANCE ISSUES -DVT prophylaxis; Lovenox 40 mg subcu daily -GI prophylaxis; continue outpatient PPI therapy -Nutrition; regular diet DISPOSITION-anticipate discharge to transitional care unit after the hospital stay. He is and has been ready for hospital discharge but so far we have not established a safety plan for subacute rehab.
[2020-04-24] MEDS: Gabapentin 300 MG Cap PO SCH ×2 (11:13→21:24)
[2020-04-24] MEDS: Nicotine 14 MG/24 Hr Patch TRDERM SCH (11:14)
[2020-04-24] MEDS: Acetaminophen 325 MG Tab PO PRN (16:22)
[2020-04-24] MEDS: Enoxaparin 40 MG/0.4 ML Syringe SUBCUT SCH (21:24)
[2020-04-25] MEDS: Aspirin 81 MG Tab.Chew PO SCH (08:19)
[2020-04-25] MEDS: Naproxen 250 MG Tab PO PRN ×2 (08:19→19:27)
[2020-04-25] MEDS: Folic Acid 1 MG Tab PO SCH (08:19)
[2020-04-25] MEDS: Metoprolol Succinate 25 MG Tab.ER PO SCH ×2 (08:19→20:00)
[2020-04-25] MEDS: FLUoxetine 10 MG Cap PO SCH (08:19)
[2020-04-25] MEDS: Gabapentin 300 MG Cap PO SCH ×2 (08:19→20:45)
[2020-04-25] MEDS: Cyclobenzaprine 10 MG Tab PO PRN ×2 (08:19→16:43)
[2020-04-25] MEDS: Spironolactone 25 MG Tab PO SCH (08:20)
[2020-04-25] MEDS: predniSONE 10 MG Tab PO SCH (08:20)
[2020-04-25] MEDS: Nicotine 14 MG/24 Hr Patch TRDERM SCH (08:20)
[2020-04-25] MEDS: Thiamine 100 MG Tab PO SCH (08:20)
[2020-04-25] MEDS: Pantoprazole 40 MG Tab.CR PO SCH (08:20)
[2020-04-25] MEDS: Acetaminophen 325 MG Tab PO PRN ×2 (10:27→21:20)
--- NOTE | 2020-04-25 16:39 | PCM.PN ---
- General Info Date of Service: 04/25/20 Subjective Update: Mr. Jhaveri remains medically stable. Still waiting for safe discharge plan. Functional Status: Reports: Tolerating Diet, Urinating - Review of Systems General: Reports: Weakness, Fatigue. Denies: Fever, Chills Pulmonary: Reports: No Symptoms Cardiovascular: Reports: No Symptoms Gastrointestinal: Reports: No Symptoms - Patient Data Vitals - Most Recent: Last Vital Signs Temp 96.6 F L 04/25/20 08:13 Pulse 99 04/25/20 08:19 Resp 16 04/25/20 08:13 BP 105/65 04/25/20 08:19 Pulse Ox 98 04/25/20 08:13 Weight - Most Recent: 132 lb I&O - Last 24 Hours: Intake & Output 04/25/20 04/25/20 04/25/20 06:59 14:59 22:59 Intake Total 450 Output Total 900 400 Balance -450 -400 Med Orders - Current: Current Medications Acetaminophen (Tylenol) 650 mg PO Q4H PRN PRN Reason: Pain (Mild 1-3)/fever Last Admin: 04/25/20 10:27 Dose: 650 mg Documented by: Albuterol (Proventil Neb Soln) 2.5 mg NEB Q4H PRN PRN Reason: Shortness Of Breath/wheezing Aspirin (Aspirin) 81 mg PO DAILY [facility] Last Admin: 04/25/20 08:19 Dose: 81 mg Documented by: Cyclobenzaprine HCl (Flexeril) 10 mg PO TID PRN PRN Reason: Muscle Spasm Last Admin: 04/25/20 08:19 Dose: 10 mg Documented by: Diphenhydramine HCl (Benadryl) 50 mg PO Q4H PRN PRN Reason: Itching Last Admin: 04/22/20 23:28 Dose: 50 mg Documented by: Enoxaparin Sodium (Lovenox) 40 mg SUBCUT Q24H [facility] Last Admin: 04/24/20 21:24 Dose: 40 mg Documented by: Fluoxetine HCl (Prozac) 10 mg PO DAILY [facility] Last Admin: 04/25/20 08:19 Dose: 10 mg Documented by: Folic Acid (Folic Acid) 1 mg PO DAILY [facility] Last Admin: 04/25/20 08:19 Dose: 1 mg Documented by: Gabapentin (Neurontin) 300 mg PO BID [facility] Last Admin: 04/25/20 08:19 Dose: 300 mg Documented by: Loratadine (Claritin) 10 mg PO DAILY PRN PRN Reason: Allergies Last Admin: 04/17/20 09:01 Dose: 10 mg Documented by: Lorazepam (Ativan) 1 mg PO Q2H PRN PRN Reason: Anxiety Last Admin: 04/24/20 21:29 Dose: 1 mg Documented by: Metoprolol Succinate (Toprol Xl) 25 mg PO BID [facility] Last Admin: 04/25/20 08:19 Dose: 25 mg Documented by: Naproxen (Naprosyn) 500 mg PO Q12H PRN PRN Reason: joint/neck pain Last Admin: 04/25/20 08:19 Dose: 500 mg Documented by: Nicotine (Habitrol) 14 mg TRDERM DAILY [facility] Last Admin: 04/25/20 08:20 Dose: 14 mg Documented by: Ondansetron HCl (Zofran) 4 mg IV Q4H PRN PRN Reason: Nausea/Vomiting Pantoprazole Sodium (Protonix) 40 mg PO ACBREAKFAST [facility] Last Admin: 04/25/20 08:20 Dose: 40 mg Documented by: Polyethylene Glycol (Miralax) 17 gm PO DAILY PRN PRN Reason: Constipation Prednisone (Prednisone) 10 mg PO DAILY [facility] Last Admin: 04/25/20 08:20 Dose: 10 mg Documented by: Sodium Chloride (Saline Flush) 10 ml FLUSH ASDIRECTED PRN PRN Reason: Keep Vein Open Spironolactone (Aldactone) 12.5 mg PO DAILY [facility] Last Admin: 04/25/20 08:20 Dose: 12.5 mg Documented by: Thiamine HCl (Vitamin B-1) 100 mg PO DAILY [facility] Last Admin: 04/25/20 08:20 Dose: 100 mg Documented by: Discontinued Medications Cephalexin (Keflex) 500 mg PO TID [facility] Stop: 04/18/20 14:01 Last Admin: 04/16/20 13:47 Dose: Not Given Documented by: Cyclobenzaprine HCl (Flexeril) 10 mg PO TID PRN PRN Reason: Muscle Spasm Last Admin: 04/17/20 07:44 Dose: 10 mg Documented by: Enoxaparin Sodium (Lovenox) 40 mg SUBCUT DAILY [facility] Last Admin: 04/10/20 20:51 Dose: 40 mg Documented by: Gabapentin (Neurontin) 300 mg PO BEDTIME [facility] Last Admin: 04/23/20 20:07 Dose: 300 mg Documented by: Hydrocortisone Sodium Succinate (Solu-Cortef) 100 mg IVPUSH ONETIME ONE Stop: 04/10/20 17:08 Last Admin: 04/10/20 17:47 Dose: 100 mg Documented by: Levetiracetam 2,000 mg/ Sodium (Chloride) 120 mls @ 480 mls/hr IV ONETIME ONE Stop: 04/10/20 14:14 Last Admin: 04/10/20 15:11 Dose: 480 mls/hr Documented by: Sodium Chloride (Normal Saline) 93 mls @ 4 mls/sec IV ASDIRECTED [facility] Stop: 04/10/20 14:31 Last Admin: 04/10/20 14:27 Dose: 4 mls/sec Documented by: Sodium Chloride (Sodium Chloride 3%) 500 mls @ 500 mls/hr IV ASDIRECTED [facility] Stop: 04/10/20 15:15 Last Admin: 04/10/20 15:09 Dose: 500 mls/hr Documented by: Potassium Chloride 20 meq/ (Premix) 100 mls @ 50 mls/hr IV ONETIME ONE Stop: 04/10/20 16:43 Last Admin: 04/10/20 15:09 Dose: 50 mls/hr Documented by: Potassium Chloride 20 meq/ (Premix) 100 mls @ 50 mls/hr IV ONETIME ONE Stop: 04/10/20 18:21 Last Admin: 04/10/20 17:46 Dose: 50 mls/hr Documented by: Ceftriaxone Sodium 2 gm/ (Sodium Chloride) 50 mls @ 100 mls/hr IV ONETIME ONE Stop: 04/10/20 17:27 Last Admin: 04/10/20 17:17 Dose: 100 mls/hr Documented by: Potassium Chloride (Kcl 20 Meq In Water 100 Ml) Confirm Administered Dose 100 mls @ as directed .ROUTE .STK-MED ONE Stop: 04/10/20 17:45 Last Admin: 04/10/20 17:49 Dose: Not Given Documented by: Potassium Chloride 20 meq/ (Premix) 100 mls @ 50 mls/hr IV Q2H [facility] Stop: 04/10/20 22:15 Last Admin: 04/10/20 22:26 Dose: 50 mls/hr Documented by: Sodium Chloride (Normal Saline) 1,000 mls @ 100 mls/hr IV ASDIRECTED [facility] Ceftriaxone Sodium 1 gm/ (Sodium Chloride) 50 mls @ 100 mls/hr IV Q24H [facility] Last Admin: 04/12/20 16:30 Dose: 100 mls/hr Documented by: Sodium Chloride (Sodium Chloride 0.45%) 1,000 mls @ 50 mls/hr IV ASDIRECTED [facility] Last Admin: 04/10/20 20:47 Dose: 50 mls/hr Documented by: Dextrose/Water (Dextrose 5% In Water) 1,000 mls @ 50 mls/hr IV ASDIRECTED [facility] Last Admin: 04/12/20 06:25 Dose: 50 mls/hr Documented by: Potassium Chloride (Kcl 20 Meq In Water 100 Ml) 100 mls @ 50 mls/hr IV Q2H [facility] Stop: 04/11/20 08:29 Last Admin: 04/11/20 06:33 Dose: 50 mls/hr Documented by: Lactated Ringer's (Ringers, Lactated) 500 mls @ 500 mls/hr IV BOLUS ONE Stop: 04/11/20 10:44 Last Admin: 04/11/20 09:46 Dose: 500 mls/hr Documented by: Sodium Chloride (Normal Saline) 1,000 mls @ 100 mls/hr IV ASDIRECTED [facility] Last Admin: 04/13/20 07:12 Dose: 100 mls/hr Documented by: Sodium Chloride (Normal Saline) 1,000 [facility] Last Admin: 04/14/20 21:16 Dose: 75 mls/hr Documented by: Magnesium Sulfate 2 gm/ Premix 50 mls @ 25 mls/hr IV Q6H [facility] Stop: 04/14/20 17:59 Last Admin: 04/14/20 17:00 Dose: 25 mls/hr Documented by: Sodium Chloride (Normal Saline) 1,000 mls @ 25 mls/hr IV ASDIRECTED [facility] Influenza Virus Vaccine (Pharmacy To Dose - Influenza Vaccine) 1 each IM ONETIME ONE Stop: 04/16/20 10:01 Influenza Virus Vaccine (Fluzone Quad [id number] Syringe) 60 mcg IM .ONCE ONE Stop: 04/16/20 10:01 Last Admin: 04/16/20 10:44 Dose: 60 mcg Documented by: Iopamidol (Isovue-370 (76%)) 100 ml IV . DIRECTED [facility] Stop: 04/10/20 14:31 Last Admin: 04/10/20 14:27 Dose: 100 ml Documented by: Lorazepam (Ativan) Confirm Administered Dose 2 mg .ROUTE .STK-MED ONE Stop: 04/10/20 13:51 Lorazepam (Ativan) 1 mg IVPUSH ONETIME ONE Stop: 04/10/20 15:10 Last Admin: 04/10/20 15:15 Dose: 1 mg Documented by: Lorazepam (Ativan) 1 mg IVPUSH Q2H PRN PRN Reason: Seizures Last Admin: 04/14/20 21:16 Dose: 1 mg Documented by: Lorazepam (Ativan) 0 mg PO ASDIRECTED [facility]; Protocol Last Admin: 04/15/20 09:22 Dose: 1 mg Documented by: Naloxone HCl (Narcan) 0.1 mg IVPUSH ONETIME PRN PRN Reason: Oversedation Last Admin: 04/10/20 16:15 Dose: 0.1 mg Documented by: Nicotine (Habitrol) 21 mg TRDERM DAILY [facility] Last Admin: 04/24/20 08:12 Dose: 21 mg Documented by: Potassium Chloride (Potassium Chloride Solution) 40 meq PO ONETIME ONE Stop: 04/10/20 23:58 Last Admin: 04/11/20 00:11 Dose: 40 meq Documented by: Potassium Chloride (Potassium Chloride Solution) 40 meq PO ONETIME ONE Stop: 04/12/20 08:46 Last Admin: 04/12/20 10:07 Dose: 40 meq Documented by: Potassium Chloride (Potassium Chloride Solution) 40 meq PO ONETIME ONE Stop: 04/12/20 14:31 Last Admin: 04/12/20 14:56 Dose: 40 meq Documented by: Sodium Chloride (Saline Flush) 10 ml FLUSH ONETIME PRN PRN Reason: per radiology protocol Stop: 04/10/20 14:17 Last Admin: 04/10/20 14:27 Dose: 10 ml Documented by: - Exam Quality Assessment: DVT Prophylaxis General: Alert, Oriented, Cooperative, No Acute Distress Lungs: Clear to Auscultation, Normal Respiratory Effort Cardiovascular: Regular Rate, Regular Rhythm, No Murmurs GI/Abdominal Exam: Soft, Non-Tender, No Organomegaly, No Distention Sepsis Event Note - Evaluation Sepsis Screening Result: No Definite Risk - Focused Exam Vital Signs: Vital Signs Temp Pulse Pulse Resp BP BP Pulse Ox 04/25/20 08:19 99 105/65 04/25/20 08:13 96.6 F L 99 16 105/65 98 - Problem List Review Problem List Initiated/Reviewed/Updated: Yes - Plan Plan:: ASSESSMENT AND PLAN SEVERE HYPONATREMIA-resolved with hydration. -Saline lock IV fluids SEVERE HYPOKALEMIA-potassium level has normalized. ENCEPHALOPATHY-resolved PERIPHERAL NEUROPATHY-increase pain right foot there is some swelling but no evidence of underlying infection -Increase gabapentin to 300 mg twice daily HISTORY OF ALCOHOL DEPENDENCE -Supplement thiamine and folate SEIZURE-likely secondary to hyponatremia. No recurrence. URINARY TRACT INFECTION-urine culture grew out Klebsiella. Blood cultures are negative. He has completed adequate therapy. ADRENAL INSUFFICIENCY -Prednisone 10 mg p.o. daily MAINTENANCE ISSUES -DVT prophylaxis; Lovenox 40 mg subcu daily -GI prophylaxis; continue outpatient PPI therapy -Nutrition; regular diet DISPOSITION-anticipate discharge to transitional care unit after the hospital stay. He is and has been ready for hospital discharge but so far we have not established a safety plan for subacute rehab.
[2020-04-25] MEDS: Enoxaparin 40 MG/0.4 ML Syringe SUBCUT SCH (19:27)
[2020-04-25] MEDS: LORazepam 1 MG Tab PO PRN (22:23)
[2020-04-26] MEDS: Naproxen 250 MG Tab PO PRN (06:24)
[2020-04-26] MEDS: Cyclobenzaprine 10 MG Tab PO PRN ×2 (06:24→14:21)
[2020-04-26] MEDS: Pantoprazole 40 MG Tab.CR PO SCH (07:47)
[2020-04-26] MEDS: Nicotine 14 MG/24 Hr Patch TRDERM SCH (08:22)
[2020-04-26] MEDS: Gabapentin 300 MG Cap PO SCH ×2 (08:22→20:18)
[2020-04-26] MEDS: Folic Acid 1 MG Tab PO SCH (08:22)
[2020-04-26] MEDS: predniSONE 10 MG Tab PO SCH (08:22)
[2020-04-26] MEDS: Thiamine 100 MG Tab PO SCH (08:22)
[2020-04-26] MEDS: FLUoxetine 10 MG Cap PO SCH (08:22)
[2020-04-26] MEDS: Aspirin 81 MG Tab.Chew PO SCH (08:22)
[2020-04-26] MEDS: Spironolactone 25 MG Tab PO SCH (08:22)
[2020-04-26] MEDS: Metoprolol Succinate 25 MG Tab.ER PO SCH ×2 (10:52→20:19)
--- NOTE | 2020-04-26 13:50 | PCM.PN ---
- General Info Date of Service: 04/26/20 Subjective Update: Mr. Jhaveri has remained medically stable. Still awaiting safe discharge plan. Functional Status: Reports: Tolerating Diet, Urinating. Denies: Ambulating - Review of Systems General: Reports: Weakness, Fatigue. Denies: Fever, Chills Pulmonary: Reports: No Symptoms Cardiovascular: Reports: No Symptoms Gastrointestinal: Reports: No Symptoms - Patient Data Vitals - Most Recent: Last Vital Signs Temp 97.8 F 04/26/20 08:16 Pulse 84 04/26/20 08:16 Resp 16 04/26/20 08:16 BP 95/70 04/26/20 08:16 Pulse Ox 98 04/26/20 08:16 Weight - Most Recent: 132 lb I&O - Last 24 Hours: Intake & Output 04/25/20 04/26/20 04/26/20 22:59 06:59 14:59 Intake Total 600 600 500 Output Total 350 800 Balance 250 -200 500 Med Orders - Current: Current Medications Acetaminophen (Tylenol) 650 mg PO Q4H PRN PRN Reason: Pain (Mild 1-3)/fever Last Admin: 04/25/20 21:20 Dose: 650 mg Documented by: Albuterol (Proventil Neb Soln) 2.5 mg NEB Q4H PRN PRN Reason: Shortness Of Breath/wheezing Aspirin (Aspirin) 81 mg PO DAILY [facility] Last Admin: 04/26/20 08:22 Dose: 81 mg Documented by: Cyclobenzaprine HCl (Flexeril) 10 mg PO TID PRN PRN Reason: Muscle Spasm Last Admin: 04/26/20 06:24 Dose: 10 mg Documented by: Diphenhydramine HCl (Benadryl) 50 mg PO Q4H PRN PRN Reason: Itching Last Admin: 04/22/20 23:28 Dose: 50 mg Documented by: Enoxaparin Sodium (Lovenox) 40 mg SUBCUT Q24H [facility] Last Admin: 04/25/20 19:27 Dose: 40 mg Documented by: Fluoxetine HCl (Prozac) 10 mg PO DAILY [facility] Last Admin: 04/26/20 08:22 Dose: 10 mg Documented by: Folic Acid (Folic Acid) 1 mg PO DAILY [facility] Last Admin: 04/26/20 08:22 Dose: 1 mg Documented by: Gabapentin (Neurontin) 300 mg PO BID [facility] Last Admin: 04/26/20 08:22 Dose: 300 mg Documented by: Loratadine (Claritin) 10 mg PO DAILY PRN PRN Reason: Allergies Last Admin: 04/17/20 09:01 Dose: 10 mg Documented by: Lorazepam (Ativan) 1 mg PO Q2H PRN PRN Reason: Anxiety Last Admin: 04/25/20 22:23 Dose: 1 mg Documented by: Metoprolol Succinate (Toprol Xl) 25 mg PO BID [facility] Last Admin: 04/26/20 10:52 Dose: Not Given Documented by: Naproxen (Naprosyn) 500 mg PO Q12H PRN PRN Reason: joint/neck pain Last Admin: 04/26/20 06:24 Dose: 500 mg Documented by: Nicotine (Habitrol) 14 mg TRDERM DAILY [facility] Last Admin: 04/26/20 08:22 Dose: 14 mg Documented by: Ondansetron HCl (Zofran) 4 mg IV Q4H PRN PRN Reason: Nausea/Vomiting Pantoprazole Sodium (Protonix) 40 mg PO ACBREAKFAST [facility] Last Admin: 04/26/20 07:47 Dose: 40 mg Documented by: Polyethylene Glycol (Miralax) 17 gm PO DAILY PRN PRN Reason: Constipation Prednisone (Prednisone) 10 mg PO DAILY [facility] Last Admin: 04/26/20 08:22 Dose: 10 mg Documented by: Sodium Chloride (Saline Flush) 10 ml FLUSH ASDIRECTED PRN PRN Reason: Keep Vein Open Spironolactone (Aldactone) 12.5 mg PO DAILY [facility] Last Admin: 04/26/20 08:22 Dose: 12.5 mg Documented by: Thiamine HCl (Vitamin B-1) 100 mg PO DAILY [facility] Last Admin: 04/26/20 08:22 Dose: 100 mg Documented by: Discontinued Medications Cephalexin (Keflex) 500 mg PO TID [facility] Stop: 04/18/20 14:01 Last Admin: 04/16/20 13:47 Dose: Not Given Documented by: Cyclobenzaprine HCl (Flexeril) 10 mg PO TID PRN PRN Reason: Muscle Spasm Last Admin: 04/17/20 07:44 Dose: 10 mg Documented by: Enoxaparin Sodium (Lovenox) 40 mg SUBCUT DAILY [facility] Last Admin: 04/10/20 20:51 Dose: 40 mg Documented by: Gabapentin (Neurontin) 300 mg PO BEDTIME [facility] Last Admin: 04/23/20 20:07 Dose: 300 mg Documented by: Hydrocortisone Sodium Succinate (Solu-Cortef) 100 mg IVPUSH ONETIME ONE Stop: 04/10/20 17:08 Last Admin: 04/10/20 17:47 Dose: 100 mg Documented by: Levetiracetam 2,000 mg/ Sodium (Chloride) 120 mls @ 480 mls/hr IV ONETIME ONE Stop: 04/10/20 14:14 Last Admin: 04/10/20 15:11 Dose: 480 mls/hr Documented by: Sodium Chloride (Normal Saline) 93 mls @ 4 mls/sec IV ASDIRECTED [facility] Stop: 04/10/20 14:31 Last Admin: 04/10/20 14:27 Dose: 4 mls/sec Documented by: Sodium Chloride (Sodium Chloride 3%) 500 mls @ 500 mls/hr IV ASDIRECTED [facility] Stop: 04/10/20 15:15 Last Admin: 04/10/20 15:09 Dose: 500 mls/hr Documented by: Potassium Chloride 20 meq/ (Premix) 100 mls @ 50 mls/hr IV ONETIME ONE Stop: 04/10/20 16:43 Last Admin: 04/10/20 15:09 Dose: 50 mls/hr Documented by: Potassium Chloride 20 meq/ (Premix) 100 mls @ 50 mls/hr IV ONETIME ONE Stop: 04/10/20 18:21 Last Admin: 04/10/20 17:46 Dose: 50 mls/hr Documented by: Ceftriaxone Sodium 2 gm/ (Sodium Chloride) 50 mls @ 100 mls/hr IV ONETIME ONE Stop: 04/10/20 17:27 Last Admin: 04/10/20 17:17 Dose: 100 mls/hr Documented by: Potassium Chloride (Kcl 20 Meq In Water 100 Ml) Confirm Administered Dose 100 mls @ as directed .ROUTE .STK-MED ONE Stop: 04/10/20 17:45 Last Admin: 04/10/20 17:49 Dose: Not Given Documented by: Potassium Chloride 20 meq/ (Premix) 100 mls @ 50 mls/hr IV Q2H [facility] Stop: 04/10/20 22:15 Last Admin: 04/10/20 22:26 Dose: 50 mls/hr Documented by: Sodium Chloride (Normal Saline) 1,000 mls @ 100 mls/hr IV ASDIRECTED [facility] Ceftriaxone Sodium 1 gm/ (Sodium Chloride) 50 mls @ 100 mls/hr IV Q24H [facility] Last Admin: 04/12/20 16:30 Dose: 100 mls/hr Documented by: Sodium Chloride (Sodium Chloride 0.45%) 1,000 mls @ 50 mls/hr IV ASDIRECTED [facility] Last Admin: 04/10/20 20:47 Dose: 50 mls/hr Documented by: Dextrose/Water (Dextrose 5% In Water) 1,000 mls @ 50 mls/hr IV ASDIRECTED [facility] Last Admin: 04/12/20 06:25 Dose: 50 mls/hr Documented by: Potassium Chloride (Kcl 20 Meq In Water 100 Ml) 100 mls @ 50 mls/hr IV Q2H [facility] Stop: 04/11/20 08:29 Last Admin: 04/11/20 06:33 Dose: 50 mls/hr Documented by: Lactated Ringer's (Ringers, Lactated) 500 mls @ 500 mls/hr IV BOLUS ONE Stop: 04/11/20 10:44 Last Admin: 04/11/20 09:46 Dose: 500 mls/hr Documented by: Sodium Chloride (Normal Saline) 1,000 mls @ 100 mls/hr IV ASDIRECTED [facility] Last Admin: 04/13/20 07:12 Dose: 100 mls/hr Documented by: Sodium Chloride (Normal Saline) 1,000 [facility] Admin: 04/14/20 21:16 Dose: 75 mls/hr Documented by: Magnesium Sulfate 2 gm/ Premix 50 mls @ 25 mls/hr IV Q6H [facility] Stop: 04/14/20 17:59 Last Admin: 04/14/20 17:00 Dose: 25 mls/hr Documented by: Sodium Chloride (Normal Saline) 1,000 mls @ 25 mls/hr IV ASDIRECTED [facility] Influenza Virus Vaccine (Pharmacy To Dose - Influenza Vaccine) 1 each IM ONETIME ONE Stop: 04/16/20 10:01 Influenza Virus Vaccine (Fluzone Quad Syringe) 60 mcg IM .ONCE ONE Stop: 04/16/20 10:01 Last Admin: 04/16/20 10:44 Dose: 60 mcg Documented by: Iopamidol (Isovue-370 (76%)) 100 ml IV . DIRECTED [facility] Stop: 04/10/20 14:31 Last Admin: 04/10/20 14:27 Dose: 100 ml Documented by: Lorazepam (Ativan) Confirm Administered Dose 2 mg .ROUTE .STK-MED ONE Stop: 04/10/20 13:51 Lorazepam (Ativan) 1 mg IVPUSH ONETIME ONE Stop: 04/10/20 15:10 Last Admin: 04/10/20 15:15 Dose: 1 mg Documented by: Lorazepam (Ativan) 1 mg IVPUSH Q2H PRN PRN Reason: Seizures Last Admin: 04/14/20 21:16 Dose: 1 mg Documented by: Lorazepam (Ativan) 0 mg PO ASDIRECTED [facility]; Protocol Last Admin: 04/15/20 09:22 Dose: 1 mg Documented by: Naloxone HCl (Narcan) 0.1 mg IVPUSH ONETIME PRN PRN Reason: Oversedation Last Admin: 04/10/20 16:15 Dose: 0.1 mg Documented by: Nicotine (Habitrol) 21 mg TRDERM DAILY [facility] Last Admin: 04/24/20 08:12 Dose: 21 mg Documented by: Potassium Chloride (Potassium Chloride Solution) 40 meq PO ONETIME ONE Stop: 04/10/20 23:58 Last Admin: 04/11/20 00:11 Dose: 40 meq Documented by: Potassium Chloride (Potassium Chloride Solution) 40 meq PO ONETIME ONE Stop: 04/12/20 08:46 Last Admin: 04/12/20 10:07 Dose: 40 meq Documented by: Potassium Chloride (Potassium Chloride Solution) 40 meq PO ONETIME ONE Stop: 04/12/20 14:31 Last Admin: 04/12/20 14:56 Dose: 40 meq Documented by: Sodium Chloride (Saline Flush) 10 ml FLUSH ONETIME PRN PRN Reason: per radiology protocol Stop: 04/10/20 14:17 Last Admin: 04/10/20 14:27 Dose: 10 ml Documented by: - Exam Quality Assessment: DVT Prophylaxis General: Alert, Oriented, Cooperative, No Acute Distress Lungs: Clear to Auscultation, Normal Respiratory Effort Cardiovascular: Regular Rate, Regular Rhythm, No Murmurs GI/Abdominal Exam: Soft, Non-Tender, No Organomegaly, No Distention Extremities: Non-Tender, No Pedal Edema Sepsis Event Note - Evaluation Sepsis Screening Result: No Definite Risk - Focused Exam Vital Signs: Vital Signs Temp Pulse Resp BP Pulse Ox 04/26/20 08:16 97.8 F 84 16 95/70 98 - Problem List Review Problem List Initiated/Reviewed/Updated: Yes - Plan Plan:: ASSESSMENT AND PLAN SEVERE HYPONATREMIA-resolved with hydration. -Saline lock IV fluids SEVERE HYPOKALEMIA-potassium level has normalized. ENCEPHALOPATHY-resolved PERIPHERAL NEUROPATHY-increase pain right foot there is some swelling but no evidence of underlying infection -Increase gabapentin to 300 mg twice daily HISTORY OF ALCOHOL DEPENDENCE -Supplement thiamine and folate SEIZURE-likely secondary to hyponatremia. No recurrence. URINARY TRACT INFECTION-urine culture grew out Klebsiella. Blood cultures are negative. He has completed adequate therapy. ADRENAL INSUFFICIENCY -Prednisone 10 mg p.o. daily MAINTENANCE ISSUES -DVT prophylaxis; Lovenox 40 mg subcu daily -GI prophylaxis; continue outpatient PPI therapy -Nutrition; regular diet DISPOSITION-anticipate discharge to transitional care unit after the hospital stay. He is and has been ready for hospital discharge but so far we have not established a safety plan for subacute rehab.
[2020-04-26] MEDS: Enoxaparin 40 MG/0.4 ML Syringe SUBCUT SCH (20:18)
[2020-04-27] MEDS: Acetaminophen 325 MG Tab PO PRN ×4 (01:10→16:33)
[2020-04-27] MEDS: Cyclobenzaprine 10 MG Tab PO PRN ×3 (01:11→18:04)
[2020-04-27] MEDS: Pantoprazole 40 MG Tab.CR PO SCH (07:47)
[2020-04-27] MEDS: Spironolactone 25 MG Tab PO SCH (08:37)
[2020-04-27] MEDS: Gabapentin 300 MG Cap PO SCH ×2 (08:38→21:05)
[2020-04-27] MEDS: Folic Acid 1 MG Tab PO SCH (08:38)
[2020-04-27] MEDS: Thiamine 100 MG Tab PO SCH (08:38)
[2020-04-27] MEDS: Nicotine 14 MG/24 Hr Patch TRDERM SCH (08:38)
[2020-04-27] MEDS: Aspirin 81 MG Tab.Chew PO SCH (08:38)
[2020-04-27] MEDS: FLUoxetine 10 MG Cap PO SCH (08:38)
[2020-04-27] MEDS: predniSONE 10 MG Tab PO SCH (08:38)
[2020-04-27] MEDS: Metoprolol Succinate 25 MG Tab.ER PO SCH ×2 (08:39→21:05)
--- NOTE | 2020-04-27 10:56 | PCM.PN ---
- General Info Date of Service: 04/27/20 Subjective Update: No acute events overnight. No issues over the last several days. Patient feels well. Still quite weak and requiring assistance to get out of bed to the wheelchair. Foot pain is a little better. Vitals have all been stable. Still waiting for a safe discharge plan. Functional Status: Reports: Pain Controlled - Patient Data Vitals - Most Recent: Last Vital Signs Temp 36.0 C L 04/27/20 07:41 Pulse 67 04/27/20 08:39 Resp 16 04/27/20 07:41 BP 102/69 04/27/20 08:39 Pulse Ox 92 L 04/27/20 07:41 Weight - Most Recent: 59.874 kg I&O - Last 24 Hours: Intake & Output 04/26/20 04/27/20 04/27/20 22:59 06:59 14:59 Intake Total 500 1280 Output Total 300 900 300 Balance 200 -900 980 Med Orders - Current: Current Medications Acetaminophen (Tylenol) 650 mg PO Q4H PRN PRN Reason: Pain (Mild 1-3)/fever Last Admin: 04/27/20 08:38 Dose: 650 mg Documented by: Albuterol (Proventil Neb Soln) 2.5 mg NEB Q4H PRN PRN Reason: Shortness Of Breath/wheezing Aspirin (Aspirin) 81 mg PO DAILY [facility] Last Admin: 04/27/20 08:38 Dose: 81 mg Documented by: Cyclobenzaprine HCl (Flexeril) 10 mg PO TID PRN PRN Reason: Muscle Spasm Last Admin: 04/27/20 10:05 Dose: 10 mg Documented by: Diphenhydramine HCl (Benadryl) 50 mg PO Q4H PRN PRN Reason: Itching Last Admin: 04/22/20 23:28 Dose: 50 mg Documented by: Enoxaparin Sodium (Lovenox) 40 mg SUBCUT Q24H [facility] Last Admin: 04/26/20 20:18 Dose: 40 mg Documented by: Fluoxetine HCl (Prozac) 10 mg PO DAILY [facility] Last Admin: 04/27/20 08:38 Dose: 10 mg Documented by: Folic Acid (Folic Acid) 1 mg PO DAILY [facility] Last Admin: 04/27/20 08:38 Dose: 1 mg Documented by: Gabapentin (Neurontin) 300 mg PO BID [facility] Last Admin: 04/27/20 08:38 Dose: 300 mg Documented by: Loratadine (Claritin) 10 mg PO DAILY PRN PRN Reason: Allergies Last Admin: 04/17/20 09:01 Dose: 10 mg Documented by: Lorazepam (Ativan) 1 mg PO Q2H PRN PRN Reason: Anxiety Last Admin: 04/25/20 22:23 Dose: 1 mg Documented by: Metoprolol Succinate (Toprol Xl) 25 mg PO BID [facility] Last Admin: 04/27/20 08:39 Dose: 25 mg Documented by: Naproxen (Naprosyn) 500 mg PO Q12H PRN PRN Reason: joint/neck pain Last Admin: 04/26/20 06:24 Dose: 500 mg Documented by: Nicotine (Habitrol) 14 mg TRDERM DAILY [facility] Last Admin: 04/27/20 08:38 Dose: 14 mg Documented by: Ondansetron HCl (Zofran) 4 mg IV Q4H PRN PRN Reason: Nausea/Vomiting Pantoprazole Sodium (Protonix) 40 mg PO ACBREAKFAST [facility] Last Admin: 04/27/20 07:47 Dose: 40 mg Documented by: Polyethylene Glycol (Miralax) 17 gm PO DAILY PRN PRN Reason: Constipation Prednisone (Prednisone) 10 mg PO DAILY [facility] Last Admin: 04/27/20 08:38 Dose: 10 mg Documented by: Sodium Chloride (Saline Flush) 10 ml FLUSH ASDIRECTED PRN PRN Reason: Keep Vein Open Spironolactone (Aldactone) 12.5 mg PO DAILY [facility] Last Admin: 04/27/20 08:37 Dose: 12.5 mg Documented by: Thiamine HCl (Vitamin B-1) 100 mg PO DAILY [facility] Last Admin: 04/27/20 08:38 Dose: 100 mg Documented by: Discontinued Medications Cephalexin (Keflex) 500 mg PO TID [facility] Stop: 04/18/20 14:01 Last Admin: 04/16/20 13:47 Dose: Not Given Documented by: Cyclobenzaprine HCl (Flexeril) 10 mg PO TID PRN PRN Reason: Muscle Spasm Last Admin: 04/17/20 07:44 Dose: 10 mg Documented by: Enoxaparin Sodium (Lovenox) 40 mg SUBCUT DAILY [facility] Last Admin: 04/10/20 20:51 Dose: 40 mg Documented by: Gabapentin (Neurontin) 300 mg PO BEDTIME [facility] Last Admin: 04/23/20 20:07 Dose: 300 mg Documented by: Hydrocortisone Sodium Succinate (Solu-Cortef) 100 mg IVPUSH ONETIME ONE Stop: 04/10/20 17:08 Last Admin: 04/10/20 17:47 Dose: 100 mg Documented by: Levetiracetam 2,000 mg/ Sodium (Chloride) 120 mls @ 480 mls/hr IV ONETIME ONE Stop: 04/10/20 14:14 Last Admin: 04/10/20 15:11 Dose: 480 mls/hr Documented by: Sodium Chloride (Normal Saline) 93 mls @ 4 mls/sec IV ASDIRECTED [facility] Stop: 04/10/20 14:31 Last Admin: 04/10/20 14:27 Dose: 4 mls/sec Documented by: Sodium Chloride (Sodium Chloride 3%) 500 mls @ 500 mls/hr IV ASDIRECTED [facility] Stop: 04/10/20 15:15 Last Admin: 04/10/20 15:09 Dose: 500 mls/hr Documented by: Potassium Chloride 20 meq/ (Premix) 100 mls @ 50 mls/hr IV ONETIME ONE Stop: 04/10/20 16:43 Last Admin: 04/10/20 15:09 Dose: 50 mls/hr Documented by: Potassium Chloride 20 meq/ (Premix) 100 mls @ 50 mls/hr IV ONETIME ONE Stop: 04/10/20 18:21 Last Admin: 04/10/20 17:46 Dose: 50 mls/hr Documented by: Ceftriaxone Sodium 2 gm/ (Sodium Chloride) 50 mls @ 100 mls/hr IV ONETIME ONE Stop: 04/10/20 17:27 Last Admin: 04/10/20 17:17 Dose: 100 mls/hr Documented by: Potassium Chloride (Kcl 20 Meq In Water 100 Ml) Confirm Administered Dose 100 mls @ as directed .ROUTE .STK-MED ONE Stop: 04/10/20 17:45 Last Admin: 04/10/20 17:49 Dose: Not Given Documented by: Potassium Chloride 20 meq/ (Premix) 100 mls @ 50 mls/hr IV Q2H [facility] Stop: 04/10/20 22:15 Last Admin: 04/10/20 22:26 Dose: 50 mls/hr Documented by: Sodium Chloride (Normal Saline) 1,000 mls @ 100 mls/hr IV ASDIRECTED [facility] Ceftriaxone Sodium 1 gm/ (Sodium Chloride) 50 mls @ 100 mls/hr IV Q24H [facility] Last Admin: 04/12/20 16:30 Dose: 100 mls/hr Documented by: Sodium Chloride (Sodium Chloride 0.45%) 1,000 mls @ 50 mls/hr IV ASDIRECTED [facility] Last Admin: 04/10/20 20:47 Dose: 50 mls/hr Documented by: Dextrose/Water (Dextrose 5% In Water) 1,000 mls @ 50 mls/hr IV ASDIRECTED [facility] Last Admin: 04/12/20 06:25 Dose: 50 mls/hr Documented by: Potassium Chloride (Kcl 20 Meq In Water 100 Ml) 100 mls @ 50 mls/hr IV Q2H [facility] Stop: 04/11/20 08:29 Last Admin: 04/11/20 06:33 Dose: 50 mls/hr Documented by: Lactated Ringer's (Ringers, Lactated) 500 mls @ 500 mls/hr IV BOLUS ONE Stop: 04/11/20 10:44 Last Admin: 04/11/20 09:46 Dose: 500 mls/hr Documented by: Sodium Chloride (Normal Saline) 1,000 mls @ [facility] Last Admin: 04/13/20 07:12 Dose: 100 mls/hr Documented by: Sodium Chloride (Normal Saline) 1,000 mls @ 75 [facility]ls[facility] Last Admin: 04/14/20 21:16 Dose: 75 mls/hr Documented by: Magnesium Sulfate 2 gm/ Premix 50 mls @ 25 mls/hr IV Q6H [facility] Stop: 04/14/20 17:59 Last Admin: 04/14/20 17:00 Dose: 25 mls/hr Documented by: Sodium Chloride (Normal Saline) 1,000 mls @ 25 mls/hr IV ASDIRECTED [facility] Influenza Virus Vaccine (Pharmacy To Dose - Influenza Vaccine) 1 each IM ONETIME ONE Stop: 04/16/20 10:01 Influenza Virus Vaccine (Fluzone Quad [id number] Syringe) 60 mcg IM .ONCE ONE Stop: 04/16/20 10:01 Last Admin: 04/16/20 10:44 Dose: 60 mcg Documented by: Iopamidol (Isovue-370 (76%)) 100 ml IV . DIRECTED [facility] Stop: 04/10/20 14:31 Last Admin: 04/10/20 14:27 Dose: 100 ml Documented by: Lorazepam (Ativan) Confirm Administered Dose 2 mg .ROUTE .STK-MED ONE Stop: 04/10/20 13:51 Lorazepam (Ativan) 1 mg IVPUSH ONETIME ONE Stop: 04/10/20 15:10 Last Admin: 04/10/20 15:15 Dose: 1 mg Documented by: Lorazepam (Ativan) 1 mg IVPUSH Q2H PRN PRN Reason: Seizures Last Admin: 04/14/20 21:16 Dose: 1 mg Documented by: Lorazepam (Ativan) 0 mg PO ASDIRECTED [facility]; Protocol Last Admin: 04/15/20 09:22 Dose: 1 mg Documented by: Naloxone HCl (Narcan) 0.1 mg IVPUSH ONETIME PRN PRN Reason: Oversedation Last Admin: 04/10/20 16:15 Dose: 0.1 mg Documented by: Nicotine (Habitrol) 21 mg TRDERM DAILY [facility] Last Admin: 04/24/20 08:12 Dose: 21 mg Documented by: Potassium Chloride (Potassium Chloride Solution) 40 meq PO ONETIME ONE Stop: 04/10/20 23:58 Last Admin: 04/11/20 00:11 Dose: 40 meq Documented by: Potassium Chloride (Potassium Chloride Solution) 40 meq PO ONETIME ONE Stop: 04/12/20 08:46 Last Admin: 04/12/20 10:07 Dose: 40 meq Documented by: Potassium Chloride (Potassium Chloride Solution) 40 meq PO ONETIME ONE Stop: 04/12/20 14:31 Last Admin: 04/12/20 14:56 Dose: 40 meq Documented by: Sodium Chloride (Saline Flush) 10 ml FLUSH ONETIME PRN PRN Reason: per radiology protocol Stop: 04/10/20 14:17 Last Admin: 04/10/20 14:27 Dose: 10 ml Documented by: - Exam Quality Assessment: No: Supplemental Oxygen General: Alert, Oriented, Cooperative, No Acute Distress Lungs: Normal Respiratory Effort GI/Abdominal Exam: No Distention Extremities: No Pedal Edema Psy/Mental Status: Alert, Normal Affect Sepsis Event Note - Evaluation Sepsis Screening Result: No Definite Risk - Focused Exam Vital Signs: Vital Signs Temp Pulse Pulse Resp BP BP Pulse Ox 04/27/20 08:39 67 102/69 04/27/20 07:41 36.0 C L 67 16 102/69 92 L - Problem List Review Problem List Initiated/Reviewed/Updated: Yes - Plan Plan:: ASSESSMENT AND PLAN SEVERE HYPONATREMIA-resolved. -Saline lock IV fluids SEVERE HYPOKALEMIA-potassium level has normalized. ENCEPHALOPATHY-resolved PERIPHERAL NEUROPATHY-increase pain right foot there is some swelling but no evidence of underlying infection -Increase gabapentin to 300 mg twice daily HISTORY OF ALCOHOL DEPENDENCE -Supplement thiamine and folate SEIZURE-likely secondary to hyponatremia. No recurrence. ADRENAL INSUFFICIENCY -Prednisone 10 mg p.o. daily MAINTENANCE ISSUES -DVT prophylaxis; Lovenox 40 mg subcu daily -GI prophylaxis; continue outpatient PPI therapy -Nutrition; regular diet DISPOSITION-anticipate discharge to transitional care unit after the hospital stay. He is and has been ready for hospital discharge for more than a week but so far we have not established a safe plan for subacute rehab. Filipe Min MD
[2020-04-27] MEDS: Naproxen 250 MG Tab PO PRN (18:04)
[2020-04-27] MEDS: LORazepam 1 MG Tab PO PRN ×2 (19:32→21:10)
[2020-04-27] MEDS: Enoxaparin 40 MG/0.4 ML Syringe SUBCUT SCH (21:05)
[2020-04-27] MEDS: diphenhydrAMINE 25 MG Cap PO PRN (21:10)
[2020-04-28] MEDS: Acetaminophen 325 MG Tab PO PRN ×3 (00:28→20:43)
[2020-04-28] MEDS: Cyclobenzaprine 10 MG Tab PO PRN ×2 (04:44→20:43)
[2020-04-28] MEDS: LORazepam 1 MG Tab PO PRN (04:44)
[2020-04-28] MEDS: Pantoprazole 40 MG Tab.CR PO SCH (07:20)
--- NOTE | 2020-04-28 12:01 | PCM.PN ---
- General Info Date of Service: 04/28/20 Subjective Update: No acute events overnight. Mild foot pain but this is chronic and stable. Vitals have been stable. Appetite good. It sounds like we have obtained acceptance for subacute rehab down in [place]. Functional Status: Reports: Pain Controlled, Tolerating Diet - Patient Data Vitals - Most Recent: Last Vital Signs Temp 35.3 C L 04/28/20 11:23 Pulse 94 04/28/20 11:23 Resp 16 04/28/20 11:23 BP 116/75 04/28/20 11:23 Pulse Ox 95 04/28/20 11:23 Weight - Most Recent: 59.874 kg I&O - Last 24 Hours: Intake & Output 04/27/20 04/28/20 04/28/20 22:59 06:59 14:59 Intake Total 980 240 Output Total 1000 600 50 Balance -20 -360 -50 Med Orders - Current: Current Medications Acetaminophen (Tylenol) 650 mg PO Q4H PRN PRN Reason: Pain (Mild 1-3)/fever Last Admin: 04/28/20 04:44 Dose: 650 mg Documented by: Albuterol (Proventil Neb Soln) 2.5 mg NEB Q4H PRN PRN Reason: Shortness Of Breath/wheezing Aspirin (Aspirin) 81 mg PO DAILY [facility] Last Admin: 04/27/20 08:38 Dose: 81 mg Documented by: Cyclobenzaprine HCl (Flexeril) 10 mg PO TID PRN PRN Reason: Muscle Spasm Last Admin: 04/28/20 04:44 Dose: 10 mg Documented by: Diphenhydramine HCl (Benadryl) 50 mg PO Q4H PRN PRN Reason: Itching Last Admin: 04/27/20 21:10 Dose: 50 mg Documented by: Enoxaparin Sodium (Lovenox) 40 mg SUBCUT Q24H [facility] Last Admin: 04/27/20 21:05 Dose: 40 mg Documented by: Fluoxetine HCl (Prozac) 10 mg PO DAILY [facility] Last Admin: 04/27/20 08:38 Dose: 10 mg Documented by: Folic Acid (Folic Acid) 1 mg PO DAILY [facility] Last Admin: 04/27/20 08:38 Dose: 1 mg Documented by: Gabapentin (Neurontin) 300 mg PO BID [facility] Last Admin: 04/27/20 21:05 Dose: 300 mg Documented by: Loratadine (Claritin) 10 mg PO DAILY PRN PRN Reason: Allergies Last Admin: 04/17/20 09:01 Dose: 10 mg Documented by: Metoprolol Succinate (Toprol Xl) 25 mg PO BID [facility] Last Admin: 04/27/20 21:05 Dose: 25 mg Documented by: Naproxen (Naprosyn) 500 mg PO Q12H PRN PRN Reason: joint/neck pain Last Admin: 04/27/20 18:04 Dose: 500 mg Documented by: Nicotine (Habitrol) 14 mg TRDERM DAILY [facility] Last Admin: 04/27/20 08:38 Dose: 14 mg Documented by: Ondansetron HCl (Zofran) 4 mg IV Q4H PRN PRN Reason: Nausea/Vomiting Pantoprazole Sodium (Protonix) 40 mg PO ACBREAKFAST [facility] Last Admin: 04/28/20 07:20 Dose: 40 mg Documented by: Polyethylene Glycol (Miralax) 17 gm PO DAILY PRN PRN Reason: Constipation Prednisone (Prednisone) 10 mg PO DAILY [facility] Last Admin: 04/27/20 08:38 Dose: 10 mg Documented by: Sodium Chloride (Saline Flush) 10 ml FLUSH ASDIRECTED PRN PRN Reason: Keep Vein Open Spironolactone (Aldactone) 12.5 mg PO DAILY [facility] Last Admin: 04/27/20 08:37 Dose: 12.5 mg Documented by: Thiamine HCl (Vitamin B-1) 100 mg PO DAILY [facility] Last Admin: 04/27/20 08:38 Dose: 100 mg Documented by: Discontinued Medications Cephalexin (Keflex) 500 mg PO TID [facility] Stop: 04/18/20 14:01 Last Admin: 04/16/20 13:47 Dose: Not Given Documented by: Cyclobenzaprine HCl (Flexeril) 10 mg PO TID PRN PRN Reason: Muscle Spasm Last Admin: 04/17/20 07:44 Dose: 10 mg Documented by: Enoxaparin Sodium (Lovenox) 40 mg SUBCUT DAILY [facility] Last Admin: 04/10/20 20:51 Dose: 40 mg Documented by: Gabapentin (Neurontin) 300 mg PO BEDTIME [facility] Last Admin: 04/23/20 20:07 Dose: 300 mg Documented by: Hydrocortisone Sodium Succinate (Solu-Cortef) 100 mg IVPUSH ONETIME ONE Stop: 04/10/20 17:08 Last Admin: 04/10/20 17:47 Dose: 100 mg Documented by: Levetiracetam 2,000 mg/ Sodium (Chloride) 120 mls @ 480 mls/hr IV ONETIME ONE Stop: 04/10/20 14:14 Last Admin: 04/10/20 15:11 Dose: 480 mls/hr Documented by: Sodium Chloride (Normal Saline) 93 mls @ 4 mls/sec IV ASDIRECTED [facility] Stop: 04/10/20 14:31 Last Admin: 04/10/20 14:27 Dose: 4 mls/sec Documented by: Sodium Chloride (Sodium Chloride 3%) 500 mls @ 500 mls/hr IV ASDIRECTED [facility] Stop: 04/10/20 15:15 Last Admin: 04/10/20 15:09 Dose: 500 mls/hr Documented by: Potassium Chloride 20 meq/ (Premix) 100 mls @ 50 mls/hr IV ONETIME ONE Stop: 04/10/20 16:43 Last Admin: 04/10/20 15:09 Dose: 50 mls/hr Documented by: Potassium Chloride 20 meq/ (Premix) 100 mls @ 50 mls/hr IV ONETIME ONE Stop: 04/10/20 18:21 Last Admin: 04/10/20 17:46 Dose: 50 mls/hr Documented by: Ceftriaxone Sodium 2 gm/ (Sodium Chloride) 50 mls @ 100 mls/hr IV ONETIME ONE Stop: 04/10/20 17:27 Last Admin: 04/10/20 17:17 Dose: 100 mls/hr Documented by: Potassium Chloride (Kcl 20 Meq In Water 100 Ml) Confirm Administered Dose 100 mls @ as directed .ROUTE .STK-MED ONE Stop: 04/10/20 17:45 Last Admin: 04/10/20 17:49 Dose: Not Given Documented by: Potassium Chloride 20 meq/ (Premix) 100 mls @ 50 mls/hr IV Q2H [facility] Stop: 04/10/20 22:15 Last Admin: 04/10/20 22:26 Dose: 50 mls/hr Documented by: Sodium Chloride (Normal Saline) 1,000 mls @ 100 mls/hr IV ASDIRECTED [facility] Ceftriaxone Sodium 1 gm/ (Sodium Chloride) 50 mls @ 100 mls/hr IV Q24H [facility] Last Admin: 04/12/20 16:30 Dose: 100 mls/hr Documented by: Sodium Chloride (Sodium Chloride 0.45%) 1,000 mls @ 50 mls/hr IV ASDIRECTED [facility] Last Admin: 04/10/20 20:47 Dose: 50 mls/hr Documented by: Dextrose/Water (Dextrose 5% In Water) 1,000 mls @ 50 mls/hr IV ASDIRECTED [facility] Last Admin: 04/12/20 06:25 Dose: 50 mls/hr Documented by: Potassium Chloride (Kcl 20 Meq In Water 100 Ml) 100 mls @ 50 mls/hr IV Q2H [facility] Stop: 04/11/20 08:29 Last Admin: 04/11/20 06:33 Dose: 50 mls/hr Documented by: Lactated Ringer's (Ringers, Lactated) 500 mls @ 500 mls/hr IV BOLUS ONE Stop: 04/11/20 10:44 Last Admin: 04/11/20 09:46 Dose: 500 mls/hr Documented by: Sodium Chloride (Normal Saline) 1,000 mls @ 100 mls/hr IV ASDIRECTED [facility] Last Admin: 04/13/20 07:12 Dose: 100 mls/hr Documented by: Sodium Chloride (Normal Saline) 1,000 mls @ 75 mls/hr IV ASDIRECTED [facility] Last Admin: 04/14/20 21:16 Dose: 75 mls/hr Documented by: Magnesium Sulfate 2 gm/ Premix 50 mls @ 25 mls/hr IV Q6H [facility] Stop: 04/14/20 17:59 Last Admin: 04/14/20 17:00 Dose: 25 mls/hr Documented by: Sodium Chloride (Normal Saline) 1,000 mls @ 25 mls/hr IV ASDIRECTED [facility] Influenza Virus Vaccine (Pharmacy To Dose - Influenza Vaccine) 1 each IM ONETIME ONE Stop: 04/16/20 10:01 Influenza Virus Vaccine (Fluzone Quad 8816-1267 Syringe) 60 mcg IM .ONCE ONE Stop: 04/16/20 10:01 Last Admin: 04/16/20 10:44 Dose: 60 mcg Documented by: Iopamidol (Isovue-370 (76%)) 100 ml IV . DIRECTED [facility] Stop: 04/10/20 14:31 Last Admin: 04/10/20 14:27 Dose: 100 ml Documented by: Lorazepam (Ativan) Confirm Administered Dose 2 mg .ROUTE .STK-MED ONE Stop: 04/10/20 13:51 Lorazepam (Ativan) 1 mg IVPUSH ONETIME ONE Stop: 04/10/20 15:10 Last Admin: 04/10/20 15:15 Dose: 1 mg Documented by: Lorazepam (Ativan) 1 mg IVPUSH Q2H PRN PRN Reason: Seizures Last Admin: 04/14/20 21:16 Dose: 1 mg Documented by: Lorazepam (Ativan) 0 mg PO ASDIRECTED [facility]; Protocol Last Admin: 04/15/20 09:22 Dose: 1 mg Documented by: Lorazepam (Ativan) 1 mg PO Q2H PRN PRN Reason: Anxiety Last Admin: 04/28/20 04:44 Dose: 1 mg Documented by: Naloxone HCl (Narcan) 0.1 mg IVPUSH ONETIME PRN PRN Reason: Oversedation Last Admin: 04/10/20 16:15 Dose: 0.1 mg Documented by: Nicotine (Habitrol) 21 mg TRDERM DAILY [facility] Last Admin: 04/24/20 08:12 Dose: 21 mg Documented by: Potassium Chloride (Potassium Chloride Solution) 40 meq PO ONETIME ONE Stop: 04/10/20 23:58 Last Admin: 04/11/20 00:11 Dose: 40 meq Documented by: Potassium Chloride (Potassium Chloride Solution) 40 meq PO ONETIME ONE Stop: 04/12/20 08:46 Last Admin: 04/12/20 10:07 Dose: 40 meq Documented by: Potassium Chloride (Potassium Chloride Solution) 40 meq PO ONETIME ONE Stop: 04/12/20 14:31 Last Admin: 04/12/20 14:56 Dose: 40 meq Documented by: Sodium Chloride (Saline Flush) 10 ml FLUSH ONETIME PRN PRN Reason: per radiology protocol Stop: 04/10/20 14:17 Last Admin: 04/10/20 14:27 Dose: 10 ml Documented by: - Exam Quality Assessment: No: Supplemental Oxygen General: Alert, Oriented, Cooperative, No Acute Distress Lungs: Normal Respiratory Effort GI/Abdominal Exam: Soft, No Distention Extremities: No Pedal Edema Psy/Mental Status: Alert, Normal Affect Sepsis Event Note - Evaluation Sepsis Screening Result: No Definite Risk - Focused Exam Vital Signs: Vital Signs Temp Pulse Resp BP Pulse Ox 04/28/20 11:23 35.3 C L 94 16 116/75 95 04/28/20 07:58 35.3 C L 68 16 150/92 H 95 04/28/20 07:19 35.2 C L 76 20 138/85 91 L - Problem List Review Problem List Initiated/Reviewed/Updated: Yes - Plan Plan:: ASSESSMENT AND PLAN SEVERE HYPONATREMIA-resolved. -Saline lock IV fluids SEVERE HYPOKALEMIA-potassium level has normalized. ENCEPHALOPATHY-resolved PERIPHERAL NEUROPATHY-increase pain right foot there is some swelling but no evidence of underlying infection -Increase gabapentin to 300 mg twice daily HISTORY OF ALCOHOL DEPENDENCE -Supplement thiamine and folate SEIZURE-likely secondary to hyponatremia. No recurrence. ADRENAL INSUFFICIENCY -Prednisone 10 mg p.o. daily MAINTENANCE ISSUES -DVT prophylaxis; Lovenox 40 mg subcu daily -GI prophylaxis; continue outpatient PPI therapy -Nutrition; regular diet DISPOSITION-anticipate discharge to transitional care unit after the hospital stay. He is and has been ready for hospital discharge for more than a week. It sounds like acceptance has been obtained for transfer to subacute rehab in 2 days. Filipe Min MD
[2020-04-28] MEDS: Metoprolol Succinate 25 MG Tab.ER PO SCH ×2 (13:27→20:44)
[2020-04-28] MEDS: Folic Acid 1 MG Tab PO SCH (13:34)
[2020-04-28] MEDS: Aspirin 81 MG Tab.Chew PO SCH (13:34)
[2020-04-28] MEDS: Spironolactone 25 MG Tab PO SCH (13:34)
[2020-04-28] MEDS: FLUoxetine 10 MG Cap PO SCH (13:35)
[2020-04-28] MEDS: Nicotine 14 MG/24 Hr Patch TRDERM SCH (13:35)
[2020-04-28] MEDS: Gabapentin 300 MG Cap PO SCH ×2 (13:35→20:43)
[2020-04-28] MEDS: Thiamine 100 MG Tab PO SCH (13:35)
[2020-04-28] MEDS: predniSONE 10 MG Tab PO SCH (13:36)
[2020-04-28] MEDS: Naproxen 250 MG Tab PO PRN (18:15)
[2020-04-28] MEDS: Enoxaparin 40 MG/0.4 ML Syringe SUBCUT SCH (20:43)
[2020-04-29] MEDS: Acetaminophen 325 MG Tab PO PRN ×4 (00:53→20:09)
[2020-04-29] MEDS: Pantoprazole 40 MG Tab.CR PO SCH (07:46)
[2020-04-29] MEDS: Aspirin 81 MG Tab.Chew PO SCH (09:39)
[2020-04-29] MEDS: FLUoxetine 10 MG Cap PO SCH (09:39)
[2020-04-29] MEDS: Nicotine 14 MG/24 Hr Patch TRDERM SCH (09:39)
[2020-04-29] MEDS: Gabapentin 300 MG Cap PO SCH ×2 (09:39→20:05)
[2020-04-29] MEDS: predniSONE 10 MG Tab PO SCH (09:39)
[2020-04-29] MEDS: Folic Acid 1 MG Tab PO SCH (09:39)
[2020-04-29] MEDS: Spironolactone 25 MG Tab PO SCH (09:39)
[2020-04-29] MEDS: Metoprolol Succinate 25 MG Tab.ER PO SCH ×2 (09:39→20:05)
[2020-04-29] MEDS: Thiamine 100 MG Tab PO SCH (09:40)
--- NOTE | 2020-04-29 12:46 | PCM.PN ---
- General Info Date of Service: 04/29/20 Subjective Update: No acute events overnight. Patient is feeling fairly well and offers no concerns today. Appetite has been good. No fevers. He is excited to be making the transition to rehab tomorrow. Functional Status: Reports: Pain Controlled, Tolerating Diet - Patient Data Vitals - Most Recent: Last Vital Signs Temp 36.1 C 04/29/20 07:43 Pulse 82 04/29/20 09:39 Resp 18 04/29/20 07:43 BP 119/80 04/29/20 09:39 Pulse Ox 100 04/29/20 07:43 Weight - Most Recent: 59.874 kg I&O - Last 24 Hours: Intake & Output 04/28/20 04/29/20 04/29/20 22:59 06:59 14:59 Intake Total 600 600 Output Total 900 400 Balance -300 200 Med Orders - Current: Current Medications Acetaminophen (Tylenol) 650 mg PO Q4H PRN PRN Reason: Pain (Mild 1-3)/fever Last Admin: 04/29/20 11:34 Dose: 650 mg Documented by: Albuterol (Proventil Neb Soln) 2.5 mg NEB Q4H PRN PRN Reason: Shortness Of Breath/wheezing Aspirin (Aspirin) 81 mg PO DAILY [facility] Last Admin: 04/29/20 09:39 Dose: 81 mg Documented by: Cyclobenzaprine HCl (Flexeril) 10 mg PO TID PRN PRN Reason: Muscle Spasm Last Admin: 04/28/20 20:43 Dose: 10 mg Documented by: Diphenhydramine HCl (Benadryl) 50 mg PO Q4H PRN PRN Reason: Itching Last Admin: 04/27/20 21:10 Dose: 50 mg Documented by: Enoxaparin Sodium (Lovenox) 40 mg SUBCUT Q24H [facility] Last Admin: 04/28/20 20:43 Dose: 40 mg Documented by: Fluoxetine HCl (Prozac) 10 mg PO DAILY [facility] Last Admin: 04/29/20 09:39 Dose: 10 mg Documented by: Folic Acid (Folic Acid) 1 mg PO DAILY [facility] Last Admin: 04/29/20 09:39 Dose: 1 mg Documented by: Gabapentin (Neurontin) 300 mg PO BID [facility] Last Admin: 04/29/20 09:39 Dose: 300 mg Documented by: Loratadine (Claritin) 10 mg PO DAILY PRN PRN Reason: Allergies Last Admin: 04/17/20 09:01 Dose: 10 mg Documented by: Metoprolol Succinate (Toprol Xl) 25 mg PO BID [facility] Last Admin: 04/29/20 09:39 Dose: 25 mg Documented by: Naproxen (Naprosyn) 500 mg PO Q12H PRN PRN Reason: joint/neck pain Last Admin: 04/28/20 18:15 Dose: 500 mg Documented by: Nicotine (Habitrol) 14 mg TRDERM DAILY [facility] Last Admin: 04/29/20 09:39 Dose: 14 mg Documented by: Ondansetron HCl (Zofran) 4 mg IV Q4H PRN PRN Reason: Nausea/Vomiting Pantoprazole Sodium (Protonix) 40 mg PO ACBREAKFAST [facility] Last Admin: 04/29/20 07:46 Dose: 40 mg Documented by: Polyethylene Glycol (Miralax) 17 gm PO DAILY PRN PRN Reason: Constipation Prednisone (Prednisone) 10 mg PO DAILY [facility] Last Admin: 04/29/20 09:39 Dose: 10 mg Documented by: Sodium Chloride (Saline Flush) 10 ml FLUSH ASDIRECTED PRN PRN Reason: Keep Vein Open Spironolactone (Aldactone) 12.5 mg PO DAILY [facility] Last Admin: 04/29/20 09:39 Dose: 12.5 mg Documented by: Thiamine HCl (Vitamin B-1) 100 mg PO DAILY [facility] Last Admin: 04/29/20 09:40 Dose: 100 mg Documented by: Discontinued Medications Cephalexin (Keflex) 500 mg PO TID [facility] Stop: 04/18/20 14:01 Last Admin: 04/16/20 13:47 Dose: Not Given Documented by: Cyclobenzaprine HCl (Flexeril) 10 mg PO TID PRN PRN Reason: Muscle Spasm Last Admin: 04/17/20 07:44 Dose: 10 mg Documented by: Enoxaparin Sodium (Lovenox) 40 mg SUBCUT DAILY [facility] Last Admin: 04/10/20 20:51 Dose: 40 mg Documented by: Gabapentin (Neurontin) 300 mg PO BEDTIME [facility] Last Admin: 04/23/20 20:07 Dose: 300 mg Documented by: Hydrocortisone Sodium Succinate (Solu-Cortef) 100 mg IVPUSH ONETIME ONE Stop: 04/10/20 17:08 Last Admin: 04/10/20 17:47 Dose: 100 mg Documented by: Levetiracetam 2,000 mg/ Sodium (Chloride) 120 mls @ 480 mls/hr IV ONETIME ONE Stop: 04/10/20 14:14 Last Admin: 04/10/20 15:11 Dose: 480 mls/hr Documented by: Sodium Chloride (Normal Saline) 93 mls @ 4 mls/sec IV ASDIRECTED [facility] Stop: 04/10/20 14:31 Last Admin: 04/10/20 14:27 Dose: 4 mls/sec Documented by: Sodium Chloride (Sodium Chloride 3%) 500 mls @ 500 mls/hr IV ASDIRECTED [facility] Stop: 04/10/20 15:15 Last Admin: 04/10/20 15:09 Dose: 500 mls/hr Documented by: Potassium Chloride 20 meq/ (Premix) 100 mls @ 50 mls/hr IV ONETIME ONE Stop: 04/10/20 16:43 Last Admin: 04/10/20 15:09 Dose: 50 mls/hr Documented by: Potassium Chloride 20 meq/ (Premix) 100 mls @ 50 mls/hr IV ONETIME ONE Stop: 04/10/20 18:21 Last Admin: 04/10/20 17:46 Dose: 50 mls/hr Documented by: Ceftriaxone Sodium 2 gm/ (Sodium Chloride) 50 mls @ 100 mls/hr IV ONETIME ONE Stop: 04/10/20 17:27 Last Admin: 04/10/20 17:17 Dose: 100 mls/hr Documented by: Potassium Chloride (Kcl 20 Meq In Water 100 Ml) Confirm Administered Dose 100 mls @ as directed .ROUTE .STK-MED ONE Stop: 04/10/20 17:45 Last Admin: 04/10/20 17:49 Dose: Not Given Documented by: Potassium Chloride 20 meq/ (Premix) 100 mls @ 50 mls/hr IV Q2H [facility] Stop: 04/10/20 22:15 Last Admin: 04/10/20 22:26 Dose: 50 mls/hr Documented by: Sodium Chloride (Normal Saline) 1,000 mls @ 100 mls/hr IV ASDIRECTED [facility] Ceftriaxone Sodium 1 gm/ (Sodium Chloride) 50 mls @ 100 mls/hr IV Q24H [facility] Last Admin: 04/12/20 16:30 Dose: 100 mls/hr Documented by: Sodium Chloride (Sodium Chloride 0.45%) 1,000 mls @ 50 mls/hr IV ASDIRECTED [facility] Last Admin: 04/10/20 20:47 Dose: 50 mls/hr Documented by: Dextrose/Water (Dextrose 5% In Water) 1,000 mls @ 50 mls/hr IV ASDIRECTED [facility] Last Admin: 04/12/20 06:25 Dose: 50 mls/hr Documented by: Potassium Chloride (Kcl 20 Meq In Water 100 Ml) 100 mls @ 50 mls/hr IV Q2H [facility] Stop: 04/11/20 08:29 Last Admin: 04/11/20 06:33 Dose: 50 mls/hr Documented by: Lactated Ringer's (Ringers, Lactated) 500 mls @ 500 mls/hr IV BOLUS ONE Stop: 04/11/20 10:44 Last Admin: 04/11/20 09:46 Dose: 500 mls/hr Documented by: Sodium Chloride (Normal Saline) 1,000 mls @ 100 mls/hr IV ASDIRECTED [facility] Last Admin: 04/13/20 07:12 Dose: 100 mls/hr Documented by: Sodium Chloride (Normal Saline) 1,000 mls @ 75 mls/hr IV ASDIRECTED [facility] Last Admin: 04/14/20 21:16 Dose: 75 mls/hr Documented by: Magnesium Sulfate 2 gm/ Premix 50 mls @ 25 mls/hr IV Q6H [facility] Stop: 04/14/20 17:59 Last Admin: 04/14/20 17:00 Dose: 25 mls/hr Documented by: Sodium Chloride (Normal Saline) 1,000 mls @ 25 mls/hr IV ASDIRECTED [facility] Influenza Virus Vaccine (Pharmacy To Dose - Influenza Vaccine) 1 each IM ONETIME ONE Stop: 04/16/20 10:01 Influenza Virus Vaccine (Fluzone Quad [id number] Syringe) 60 mcg IM .ONCE ONE Stop: 04/16/20 10:01 Last Admin: 04/16/20 10:44 Dose: 60 mcg Documented by: Iopamidol (Isovue-370 (76%)) 100 ml IV . DIRECTED [facility] Stop: 04/10/20 14:31 Last Admin: 04/10/20 14:27 Dose: 100 ml Documented by: Lorazepam (Ativan) Confirm Administered Dose 2 mg .ROUTE .STK-MED ONE Stop: 04/10/20 13:51 Lorazepam (Ativan) 1 mg IVPUSH ONETIME ONE Stop: 04/10/20 15:10 Last Admin: 04/10/20 15:15 Dose: 1 mg Documented by: Lorazepam (Ativan) 1 mg IVPUSH Q2H PRN PRN Reason: Seizures Last Admin: 04/14/20 21:16 Dose: 1 mg Documented by: Lorazepam (Ativan) 0 mg PO ASDIRECTED [facility]; Protocol Last Admin: 04/15/20 09:22 Dose: 1 mg Documented by: Lorazepam (Ativan) 1 mg PO Q2H PRN PRN Reason: Anxiety Last Admin: 04/28/20 04:44 Dose: 1 mg Documented by: Naloxone HCl (Narcan) 0.1 mg IVPUSH ONETIME PRN PRN Reason: Oversedation Last Admin: 04/10/20 16:15 Dose: 0.1 mg Documented by: Nicotine (Habitrol) 21 mg TRDERM DAILY [facility] Last Admin: 04/24/20 08:12 Dose: 21 mg Documented by: Potassium Chloride (Potassium Chloride Solution) 40 meq PO ONETIME ONE Stop: 04/10/20 23:58 Last Admin: 04/11/20 00:11 Dose: 40 meq Documented by: Potassium Chloride (Potassium Chloride Solution) 40 meq PO ONETIME ONE Stop: 04/12/20 08:46 Last Admin: 04/12/20 10:07 Dose: 40 meq Documented by: Potassium Chloride (Potassium Chloride Solution) 40 meq PO ONETIME ONE Stop: 04/12/20 14:31 Last Admin: 04/12/20 14:56 Dose: 40 meq Documented by: Sodium Chloride (Saline Flush) 10 ml FLUSH ONETIME PRN PRN Reason: per radiology protocol Stop: 04/10/20 14:17 Last Admin: 04/10/20 14:27 Dose: 10 ml Documented by: - Exam Quality Assessment: No: Supplemental Oxygen General: Alert, Oriented, Cooperative, No Acute Distress Lungs: Normal Respiratory Effort GI/Abdominal Exam: Soft, No Distention Extremities: No Pedal Edema Psy/Mental Status: Alert, Normal Affect Sepsis Event Note - Evaluation Sepsis Screening Result: No Definite Risk - Focused Exam Vital Signs: Vital Signs Temp Pulse Pulse Resp BP BP Pulse Ox 04/29/20 09:39 82 119/80 04/29/20 07:43 36.1 C 82 18 119/80 100 - Problem List Review Problem List Initiated/Reviewed/Updated: Yes - My Orders Last 24 Hours: My Active Orders 04/29/20 08:15 CORONAVIRUS COVID-19, SONY Routine - Plan Plan:: ASSESSMENT AND PLAN SEVERE HYPONATREMIA-resolved. -Saline lock IV fluids SEVERE HYPOKALEMIA-potassium level has normalized. ENCEPHALOPATHY-resolved PERIPHERAL NEUROPATHY-increase pain right foot there is some swelling but no evidence of underlying infection -Increase gabapentin to 300 mg twice daily HISTORY OF ALCOHOL DEPENDENCE -Supplement thiamine and folate SEIZURE-likely secondary to hyponatremia. No recurrence. ADRENAL INSUFFICIENCY -Prednisone 10 mg p.o. daily MAINTENANCE ISSUES -DVT prophylaxis; Lovenox 40 mg subcu daily -GI prophylaxis; continue outpatient PPI therapy -Nutrition; regular diet DISPOSITION-anticipate discharge to transitional care unit after the hospital stay. He will be traveling to [place] tomorrow morning to start subacute rehab. Filipe Min MD
--- NOTE | 2020-04-29 14:43 | PCM.DCSUM1 ---
Discharge Summary - Hospital Course Brief History: 59-year-old male with history of chronic alcohol use, tobacco dependence, hypertension who presented with weakness and increasing confusion. He had a seizure in the emergency room as well. He was admitted for management of severe hyponatremia, severe hypokalemia, seizure, profound dehydration and metabolic encephalopathy. Diagnosis: Stroke: No - Discharge Data Discharge Date: 04/30/20 Discharge Disposition: DC/Tfer to SNF 03 Condition: Good - Referral to Home Health Primary Care Physician: PCP None - Discharge Diagnosis/Problem(s) (1) Hyponatremia SNOMED Code(s): 08953801 ICD Code: E87.1 - HYPO-OSMOLALITY AND HYPONATREMIA Status: Acute Current Visit: Yes (2) Hypokalemia SNOMED Code(s): 27078495 ICD Code: E87.6 - HYPOKALEMIA Status: Acute Current Visit: Yes (3) Metabolic encephalopathy SNOMED Code(s): 80017573 ICD Code: G93.41 - METABOLIC ENCEPHALOPATHY Status: Acute Current Visit: Yes (4) Alcohol dependence SNOMED Code(s): 57821463 ICD Code: F10.20 - ALCOHOL DEPENDENCE, UNCOMPLICATED Status: Chronic Cu rrent Visit: Yes Qualifiers: Substance use status: in withdrawal Complication of substance-induced condition: with delirium Qualified Code(s): F10.231 - Alcohol dependence with withdrawal delirium (5) Generalized weakness SNOMED Code(s): 03576596 ICD Code: R53.1 - WEAKNESS Status: Acute Current Visit: Yes (6) Seizure SNOMED Code(s): 19941746 ICD Code: R56.9 - UNSPECIFIED CONVULSIONS Status: Acute Current Visit: Yes (7) UTI, Urinary tract infectious disease SNOMED Code(s): 77506197 ICD Code: N39.0 - URINARY TRACT INFECTION, SITE NOT SPECIFIED Status: Acute Current Visit: Yes (8) Tobacco dependence syndrome SNOMED Code(s): 94422615 ICD Code: F17.200 - NICOTINE DEPENDENCE, UNSPECIFIED, UNCOMPLICATED Status: Chronic Current Visit: Yes - Patient Summary/Data Consults: Consultations 04/15/20 13:24 PT Evaluation and Treatment [CONS] Routine Please Evaluate and Treat. PT Reason for Consult: Strengthening This query below is only for informational purposes and is not editable. Admission Diagnosis/Problem: Hyponatremia Hospital Course: Roel presented to the emergency room with increasing weakness, confusion and lethargy. He had a seizure shortly after arrival to the emergency room. He received a dose of lorazepam for the seizure and did not have any further seizures in the emergency room. Laboratory work-up revealed severe hyponatremia with a sodium level of 115. He also had profound hypokalemia with a level of 1.7. He had some renal insufficiency but did not meet criteria for acute kidney injury. He was very dehydrated. There was some evidence for urinary tract infection. He was started on IV fluids, potassium supplementation and antibiotics to cover the urinary tract infection. He was admitted to the intensive care unit for further management. Over the next couple of days we did see a slow but steady improvement in his sodium and potassium levels. His sodium level improved using only normal saline and he did not require hypertonic saline. He did not have any further seizures. His kidney function slowly returned to baseline. His encephalopathy did slowly clear. He did experience mild alcohol withdrawal with tremors and a few hallucinations but this resolved fairly quickly as well. His urine culture grew out Klebsiella and he was transitioned to oral antibiotics and did complete adequate antibiotic therapy. Once his sodium level and potassium level had stabilized and he had been through the alcohol withdrawal he was transferred to the medical/surgical floor. He was quite weak and was working with physical therapy. It was obvious that he was going to require subacute rehab but unfortunately it was extremely difficult to find a subacute rehab facility that could accommodate him. His hospital stay was quite prolonged because of the difficulty finding subacute rehab for him. The last 2 weeks have been uneventful and the patient has been very stable. His electrolytes have been acceptable. He has not had any fevers. His strength has been slowly improving but he does remain quite weak. He is not able to bear any weight at this point and is requiring a wheelchair for transportation. He has been very pleasant as well as calm and cooperative throughout the last 2 weeks of the hospital stay. He is excited to be moving on to subacute rehab. He is stable and safe for discharge in the long transfer to his subacute rehab facility down in [place]. He will be traveling with his brother Gen. He would benefit from ongoing physical and occupational therapy to further improve his strength and endurance. - Patient Instructions Diet: Regular Diet as Tolerated Activity: As Tolerated (up with assistance ) Showering/Bathing: May Shower Notify Provider of: Fever, Increased Pain Other/Special Instructions: 1. You were in the hospital for management of low sodium, low potassium, significant dehydration as well as a seizure. I believe all of these were caused by chronic and heavy alcohol use. You did have mild alcohol withdrawal during the hospital stay. Your electrolyte abnormalities have all improved. Your alcohol withdrawal has resolved. Your condition has been improving but you do remain quite weak. I do recommend that you transition to a transitional care unit for subacute rehab to help improve your strength further. 2. Your current medications and doses as outlined in the medication section. 3. Code status - FULL CODE. 4. Referral to PT and OT for strengthening in the setting of acute on chronic weakness following acute medical problems including infection and metabolic encephalopathy. 5. Follow up with your primary care as needed after your discharge from the hospital and arrival at the transitional care unit - Discharge Plan *PRESCRIPTION DRUG MONITORING PROGRAM REVIEWED*: No *COPY OF PRESCRIPTION DRUG MONITORING REPORT IN PATIENT RONNA: No Prescriptions/Med Rec: Cyclobenzaprine [Flexeril] 10 mg PO TID PRN #45 tablet PRN Reason: Muscle Spasm Naproxen [Naprosyn] 500 mg PO Q12H PRN #60 tablet PRN Reason: joint/neck pain Gabapentin [Neurontin] 300 mg PO BID #60 cap Acetaminophen [Tylenol] 650 mg PO Q4H PRN #200 tablet PRN Reason: Pain (Mild 1-3)/fever Home Medications: Home Meds Omeprazole Magnesium [Prilosec Otc] 20 mg PO DAILY 11/22/15 [History] Prednisone [IJD: Prednisone] 10 mg PO DAILY 11/22/15 [History] Aspirin 1 tab PO DAILY 04/10/20 [History] FLUoxetine [PROzac] 1 tab PO DAILY 04/10/20 [History] Folic Acid 1 tab PO DAILY 04/10/20 [History] Mag Oxide/D3/Turmeric Rt Xt [Magnesium-Vit D3-Turmeric Cap] 1 tab PO DAILY 04/10/20 [History] Melatonin/Pyridoxine HCl (B6) [Melatonin 3 mg Tablet] 1 tab PO DAILY 04/10/20 [History] Metoprolol Succinate 1 tab PO BID 04/10/20 [History] Spironolactone [Aldactone] 12.5 mg PO DAILY 04/10/20 [History] Vit B12/Levomefolate/Vit B6/B2 [Metafolbic Tablet] 1 tab PO DAILY 04/10/20 [History] Acetaminophen [Tylenol] 650 mg PO Q4H PRN #200 tablet 04/29/20 [Rx] Cyclobenzaprine [Flexeril] 10 mg PO TID PRN #45 tablet 04/29/20 [Rx] Gabapentin [Neurontin] 300 mg PO BID #60 cap 04/29/20 [Rx] Naproxen [Naprosyn] 500 mg PO Q12H PRN #60 tablet 04/29/20 [Rx] - Discharge Summary/Plan Comment DC Time >30 min.: Yes (45-new shelter discharge) - Patient Data Vitals - Most Recent: Last Vital Signs Temp 36.1 C 04/29/20 07:43 Pulse 82 04/29/20 09:39 Resp 18 04/29/20 07:43 BP 119/80 04/29/20 09:39 Pulse Ox 100 04/29/20 07:43 Weight - Most Recent: 59.874 kg I&O - Last 24 hours: Intake & Output 04/28/20 04/29/20 04/29/20 22:59 06:59 14:59 Intake Total 600 600 Output Total 900 400 Balance -300 200 Med Orders - Current: Current Medications Acetaminophen (Tylenol) 650 mg PO Q4H PRN PRN Reason: Pain (Mild 1-3)/fever Last Admin: 04/29/20 11:34 Dose: 650 mg Documented by: Albuterol (Proventil Neb Soln) 2.5 mg NEB Q4H PRN PRN Reason: Shortness Of Breath/wheezing Aspirin (Aspirin) 81 mg PO DAILY [facility] Last Admin: 04/29/20 09:39 Dose: 81 mg Documented by: Cyclobenzaprine HCl (Flexeril) 10 mg PO TID PRN PRN Reason: Muscle Spasm Last Admin: 04/28/20 20:43 Dose: 10 mg Documented by: Diphenhydramine HCl (Benadryl) 50 mg PO Q4H PRN PRN Reason: Itching Last Admin: 04/27/20 21:10 Dose: 50 mg Documented by: Enoxaparin Sodium (Lovenox) 40 mg SUBCUT Q24H [facility] Last Admin: 04/28/20 20:43 Dose: 40 mg Documented by: Fluoxetine HCl (Prozac) 10 mg PO DAILY [facility] Last Admin: 04/29/20 09:39 Dose: 10 mg Documented by: Folic Acid (Folic Acid) 1 mg PO DAILY [facility] Last Admin: 04/29/20 09:39 Dose: 1 mg Documented by: Gabapentin (Neurontin) 300 mg PO BID [facility] Last Admin: 04/29/20 09:39 Dose: 300 mg Documented by: Loratadine (Claritin) 10 mg PO DAILY PRN PRN Reason: Allergies Last Admin: 04/17/20 09:01 Dose: 10 mg Documented by: Metoprolol Succinate (Toprol Xl) 25 mg PO BID [facility] Last Admin: 04/29/20 09:39 Dose: 25 mg Documented by: Naproxen (Naprosyn) 500 mg PO Q12H PRN PRN Reason: joint/neck pain Last Admin: 04/28/20 18:15 Dose: 500 mg Documented by: Nicotine (Habitrol) 14 mg TRDERM DAILY [facility] Last Admin: 04/29/20 09:39 Dose: 14 mg Documented by: Ondansetron HCl (Zofran) 4 mg IV Q4H PRN PRN Reason: Nausea/Vomiting Pantoprazole Sodium (Protonix) 40 mg PO ACBREAKFAST [facility] Last Admin: 04/29/20 07:46 Dose: 40 mg Documented by: Polyethylene Glycol (Miralax) 17 gm PO DAILY PRN PRN Reason: Constipation Prednisone (Prednisone) 10 mg PO DAILY [facility] Last Admin: 04/29/20 09:39 Dose: 10 mg Documented by: Sodium Chloride (Saline Flush) 10 ml FLUSH ASDIRECTED PRN PRN Reason: Keep Vein Open Spironolactone (Aldactone) 12.5 mg PO DAILY [facility] Last Admin: 04/29/20 09:39 Dose: 12.5 mg Documented by: Thiamine HCl (Vitamin B-1) 100 mg PO DAILY [facility] Last Admin: 04/29/20 09:40 Dose: 100 mg Documented by: Discontinued Medications Cephalexin (Keflex) 500 mg PO TID [facility] Stop: 04/18/20 14:01 Last Admin: 04/16/20 13:47 Dose: Not Given Documented by: Cyclobenzaprine HCl (Flexeril) 10 mg PO TID PRN PRN Reason: Muscle Spasm Last Admin: 04/17/20 07:44 Dose: 10 mg Documented by: Enoxaparin Sodium (Lovenox) 40 mg SUBCUT DAILY [facility] Last Admin: 04/10/20 20:51 Dose: 40 mg Documented by: Gabapentin (Neurontin) 300 mg PO BEDTIME [facility] Last Admin: 04/23/20 20:07 Dose: 300 mg Documented by: Hydrocortisone Sodium Succinate (Solu-Cortef) 100 mg IVPUSH ONETIME ONE Stop: 04/10/20 17:08 Last Admin: 04/10/20 17:47 Dose: 100 mg Documented by: Levetiracetam 2,000 mg/ Sodium (Chloride) 120 mls @ 480 mls/hr IV ONETIME ONE Stop: 04/10/20 14:14 Last Admin: 04/10/20 15:11 Dose: 480 mls/hr Documented by: Sodium Chloride (Normal Saline) 93 mls @ 4 mls/sec IV ASDIRECTED [facility] Stop: 04/10/20 14:31 Last Admin: 04/10/20 14:27 Dose: 4 mls/sec Documented by: Sodium Chloride (Sodium Chloride 3%) 500 mls @ 500 mls/hr IV ASDIRECTED [facility] Stop: 04/10/20 15:15 Last Admin: 04/10/20 15:09 Dose: 500 mls/hr Documented by: Potassium Chloride 20 meq/ (Premix) 100 mls @ 50 mls/hr IV ONETIME ONE Stop: 04/10/20 16:43 Last Admin: 04/10/20 15:09 Dose: 50 mls/hr Documented by: Potassium Chloride 20 meq/ (Premix) 100 mls @ 50 mls/hr IV ONETIME ONE Stop: 04/10/20 18:21 Last Admin: 04/10/20 17:46 Dose: 50 mls/hr Documented by: Ceftriaxone Sodium 2 gm/ (Sodium Chloride) 50 mls @ 100 mls/hr IV ONETIME ONE Stop: 04/10/20 17:27 Last Admin: 04/10/20 17:17 Dose: 100 mls/hr Documented by: Potassium Chloride (Kcl 20 Meq In Water 100 Ml) Confirm Administered Dose 100 mls @ as directed .ROUTE .STK-MED ONE Stop: 04/10/20 17:45 Last Admin: 04/10/20 17:49 Dose: Not Given Documented by: Potassium Chloride 20 meq/ (Premix) 100 mls @ 50 mls/hr IV Q2H [facility] Stop: 04/10/20 22:15 Last Admin: 04/10/20 22:26 Dose: 50 mls/hr Documented by: Sodium Chloride (Normal Saline) 1,000 mls @ 100 mls/hr IV ASDIRECTED [facility] Ceftriaxone Sodium 1 gm/ (Sodium Chloride) 50 mls @ 100 mls/hr IV Q24H [facility] Last Admin: 04/12/20 16:30 Dose: 100 mls/hr Documented by: Sodium Chloride (Sodium Chloride 0.45%) 1,000 mls @ 50 mls/hr IV ASDIRECTED [facility] Last Admin: 04/10/20 20:47 Dose: 50 mls/hr Documented by: Dextrose/Water (Dextrose 5% In Water) 1,000 mls @ 50 mls/hr IV ASDIRECTED [facility] Last Admin: 04/12/20 06:25 Dose: 50 mls/hr Documented by: Potassium Chloride (Kcl 20 Meq In Water 100 Ml) 100 mls @ 50 mls/hr IV Q2H [facility] Stop: 04/11/20 08:29 Last Admin: 04/11/20 06:33 Dose: 50 mls/hr Documented by: Lactated Ringer's (Ringers, Lactated) 500 mls @ 500 mls/hr IV BOLUS ONE Stop: 04/11/20 10:44 Last Admin: 04/11/20 09:46 Dose: 500 mls/hr Documented by: Sodium Chloride (Normal Saline) 1,000 mls @ 100 mls/hr IV [facility] Last Admin: 04/13/20 07:12 Dose: 100 mls/hr Documented by: Sodium Chloride (Normal Saline) 1,000 mls @ 75 mls/hr IV ASDIRECTED [facility] Last Admin: 04/14/20 21:16 Dose: 75 mls/hr Documented by: Magnesium Sulfate 2 gm/ Premix 50 mls @ 25 mls/hr IV Q6H [facility] Stop: 04/14/20 17:59 Last Admin: 04/14/20 17:00 Dose: 25 mls/hr Documented by: Sodium Chloride (Normal Saline) 1,000 [facility]ls [facility] Influenza Virus Vaccine (Pharmacy To Dose - Influenza Vaccine) 1 each IM ONE TIME ONE Stop: 04/16/20 10:01 Influenza Virus Vaccine (Fluzone Quad [id number] Syringe) 60 mcg IM .ONCE ONE Stop: 04/16/20 10:01 Last Admin: 04/16/20 10:44 Dose: 60 mcg Documented by: Iopamidol (Isovue-370 (76%)) 100 ml IV . DIRECTED RICKIE Stop: 04/10/20 14:31 Last Admin: 04/10/20 14:27 Dose: 100 ml Documented by: Lorazepam (Ativan) Confirm Administered Dose 2 mg .ROUTE .STK-MED ONE Stop: 04/10/20 13:51 Lorazepam (Ativan) 1 mg IVPUSH ONETIME ONE Stop: 04/10/20 15:10 Last Admin: 04/10/20 15:15 Dose: 1 mg Documented by: Lorazepam (Ativan) 1 mg IVPUSH Q2H PRN PRN Reason: Seizures Last Admin: 04/14/20 21:16 Dose: 1 mg Documented by: Lorazepam (Ativan) 0 mg PO ASDIRECTED [facility]; Protocol Last Admin: 04/15/20 09:22 Dose: 1 mg Documented by: Lorazepam (Ativan) 1 mg PO Q2H PRN PRN Reason: Anxiety Last Admin: 04/28/20 04:44 Dose: 1 mg Documented by: Naloxone HCl (Narcan) 0.1 mg IVPUSH ONETIME PRN PRN Reason: Oversedation Last Admin: 04/10/20 16:15 Dose: 0.1 mg Documented by: Nicotine (Habitrol) 21 mg TRDERM DAILY [facility] Last Admin: 04/24/20 08:12 Dose: 21 mg Documented by: Potassium Chloride (Potassium Chloride Solution) 40 meq PO ONETIME ONE Stop: 04/10/20 23:58 Last Admin: 04/11/20 00:11 Dose: 40 meq Documented by: Potassium Chloride (Potassium Chloride Solution) 40 meq PO ONETIME ONE Stop: 04/12/20 08:46 Last Admin: 04/12/20 10:07 Dose: 40 meq Documented by: Potassium Chloride (Potassium Chloride Solution) 40 meq PO ONETIME ONE Stop: 04/12/20 14:31 Last Admin: 04/12/20 14:56 Dose: 40 meq Documented by: Sodium Chloride (Saline Flush) 10 ml FLUSH ONETIME PRN PRN Reason: per radiology protocol Stop: 04/10/20 14:17 Last Admin: 04/10/20 14:27 Dose: 10 ml Documented by:
[2020-04-29] MEDS: Cyclobenzaprine 10 MG Tab PO PRN (16:17)
[2020-04-29 20:04] VITALS: BP 139/85; PULSE 99
[2020-04-29] MEDS: Enoxaparin 40 MG/0.4 ML Syringe SUBCUT SCH (20:05)
[2020-04-30] MEDS: Cyclobenzaprine 10 MG Tab PO PRN (06:46)
[2020-04-30] MEDS: Naproxen 250 MG Tab PO PRN (06:46)
== END 2020-04-30 07:10 | DRG 640 ==
LOC: JP.ED 13:31 → JP.ICU 17:54 → JP.MS 04-15 13:32
PROVIDERS: ADMIT Hospitalist; ATTEND Internal Medicine
DX: E87.1 Hypo-osmolality and hyponatremia (principal); G93.41 Metabolic encephalopathy; F10.231 Alcohol dependence with withdrawal delirium; N39.0 Urinary tract infection, site not specified; E27.40 Unspecified adrenocortical insufficiency; E87.6 Hypokalemia; R56.9 Unspecified convulsions; Z20.828 Contact with and (suspected) exposure to other viral communicable diseases; D64.9 Anemia, unspecified; I10 Essential (primary) hypertension; Z96.649 Presence of unspecified artificial hip joint; E86.0 Dehydration; E87.2 Acidosis; G62.9 Polyneuropathy, unspecified; B96.1 Klebsiella pneumoniae [K. pneumoniae] as the cause of diseases classified elsewhere; L29.9 Pruritus, unspecified; Z91.030 Bee allergy status; Z79.52 Long term (current) use of systemic steroids; Z79.82 Long term (current) use of aspirin; Z79.899 Other long term (current) drug therapy; Z23 Encounter for immunization
CPT/HCPCS: 36415; 70450; 70450-26; 70496; 70496-26; 70498; 70498-26; 80048; 80053; 80305-QW; 81001; 82550; 82803; 83605; 83735; 84295; 85025; 85027; 87040; 87086; 87088; 87186; 90686; 93005; 93010; 96365; 96366; 96367; 96375; 96376; 97110-GP; 97162-GP; 97530-GP; 97535-GP; 99285-25; 99291; A9270-GY; G0008; J0696; J1650; J1720; J1953; J2060; J2310; J3475; J3480; J3490; J7030; J7050; J7060; J7131; J7512; Q9967; U0002